=== PATIENT | female | born 1945 | race Hispanic/Latino ===

== ENCOUNTER → 2019-08-26 | Outpatient (CLI) | payer OTHER | END | disposition home or self-care (01) | LOC: SHCH 10:01 | PROVIDERS: ATTEND Internal Medicine Cardiovascular Disease | DX: I65.23 Occlusion and stenosis of bilateral carotid arteries (principal); I87.2 Venous insufficiency (chronic) (peripheral) | CPT/HCPCS: 93880 ==

== ENCOUNTER → 2019-11-01 | Outpatient (CLI) | payer OTHER | END | disposition home or self-care (01) | LOC: SHCH 13:44 | PROVIDERS: ATTEND Internal Medicine Cardiovascular Disease | DX: I87.2 Venous insufficiency (chronic) (peripheral) (principal) | CPT/HCPCS: 93970 ==

== ENCOUNTER → 2020-01-26 | Outpatient (CLI) | payer MEDICARE | END | disposition home or self-care (01) | LOC: RAH 10:58 | DX: Z12.31 Encounter for screening mammogram for malignant neoplasm of breast (principal); N64.89 Other specified disorders of breast | CPT/HCPCS: 77067 ==

== ENCOUNTER 2020-07-25 08:10 | Day surgery (SDC) | payer OTHER ==
[2020-07-25] VITALS (9 sets, daily range): BP systolic 122–146; BP diastolic 43–62
[~2020-07-25] VITALS: Ht 152.4 cm; Wt 118.4 kg
[~2020-07-25 08:10] MED LIST: AEC81 PO; CARV25TA PO; FISH1CAP27 PO; FURO40TA5 PO; GABA-529 PO; LEVO50CA4 PO; LINA145C PO; METF-444 PO; MV-M1TAB20 PO; OMEP40CA13 PO; OXYB10TA30 PO; SODIUM CHLORIDE 0.9% 1000ML 1,000 ML IV ONE
[2020-07-25] MEDS ORDERED: MIDAZOLAM HCL 1 MG/ML 2ML VIAL ONE (09:38)
[2020-07-25] MEDS ORDERED: PROPOFOL 10 MG/ML 20ML VIAL IV ONE (09:38)
== END 2020-07-25 10:45 | disposition home or self-care (01) ==
LOC: DAH 08:10 → ENDO 08:10
PROVIDERS: ATTEND Internal Medicine
DX: K92.1 Melena (principal); Z20.828 Contact with and (suspected) exposure to other viral communicable diseases; K31.89 Other diseases of stomach and duodenum; K21.9 Gastro-esophageal reflux disease without esophagitis; K29.50 Unspecified chronic gastritis without bleeding; I11.0 Hypertensive heart disease with heart failure; I50.9 Heart failure, unspecified; I25.10 Atherosclerotic heart disease of native coronary artery without angina pectoris; E66.01 Morbid (severe) obesity due to excess calories; E11.51 Type 2 diabetes mellitus with diabetic peripheral angiopathy without gangrene; K59.00 Constipation, unspecified; E78.5 Hyperlipidemia, unspecified; E03.9 Hypothyroidism, unspecified; F41.9 Anxiety disorder, unspecified; F32.9 Major depressive disorder, single episode, unspecified; J44.9 Chronic obstructive pulmonary disease, unspecified; Z98.49 Cataract extraction status, unspecified eye; Z79.82 Long term (current) use of aspirin; Z79.899 Other long term (current) drug therapy; Z98.890 Other specified postprocedural states; Z79.890 Hormone replacement therapy; Z79.84 Long term (current) use of oral hypoglycemic drugs; Z83.3 Family history of diabetes mellitus; Z68.43 Body mass index [BMI] 50.0-59.9, adult; Z86.010 Personal history of colon polyps
CPT/HCPCS: 43239; 82948 ×2; 87426; 88305; 88342; A4215 ×2; A4221; A4222; A4606; A4620; A4657; A4663; J2250; J2704; J7030

== ENCOUNTER 2023-12-28 13:07 | Emergency (ER) | payer OTHER ==
[~2023-12-28] VITALS: Ht 152.4 cm; Wt 109.8 kg
[~2023-12-28 13:07] MED LIST changes: -OMEP40CA13 PO; +OMEP40CA21 PO; -SODIUM CHLORIDE 0.9% 1000ML 1,000 ML IV ONE
[2023-12-28 13:51] VITALS: PULSE 59; RESP 18
[2023-12-28] MEDS: BUDESONIDE 0.5 MG/2 ML INH IH ONE (13:51)
[2023-12-28] MEDS: ALBUTEROL 0.083% 2.5 MG/3 ML INH IH ONE ×2 (13:51→15:29)
[2023-12-28 14:00] LABS: BASOPHILS # (AUTO) 0.02 K/uL (0.00-0.20); BASOPHILS % (AUTO) 0.2 % (0.0-5.0); EOSINOPHILS # (AUTO) 0.11 K/uL (0.00-0.70); EOSINOPHILS % (AUTO) 1.2 % (0.0-8.0); HEMATOCRIT 36.7 % (36-48); IMMATURE GRANULOCYTE ABSOLUTE 0.04 K/uL (0-1); LYMPHOCYTES # (AUTO) 1.4 K/uL (1.0-4.8); LYMPHOCYTES % (AUTO) 14.9 % (21.0-51.0); MEAN CORPUSCULAR HGB CONC 32.4 g/dL (32.0-36.0); MEAN CORPUSCULAR VOLUME 89.3 fL (79-99); MONOCYTES # (AUTO) 0.5 K/uL (0.1-1.0); NEUTROPHILS # (AUTO) 7.4 K/uL (1.8-7.7); NEUTROPHILS % (AUTO) 78.3 % (40.0-77.0); PLATELET COUNT (AUTO) 177 K/uL (130-400); RED BLOOD CELL COUNT(AUTO) 4.11 MIL/uL (4.00-5.50); RED CELL DISTRIBUTION WIDTH 14.1 % (11.0-15.5); WHITE BLOOD COUNT (AUTO) 9.5 K/uL (4.8-10.8)
[2023-12-28 14:17] LABS: CREATININE 0.7 mg/dL (0.5-1.0); POTASSIUM 3.2 mmol/L (3.5-5.1)
[2023-12-28 14:22] LABS: ALBUMIN 3.4 g/dL (3.5-5.0); BILIRUBIN,TOTAL 1.2 mg/dL (0.2-1.0); TOTAL PROTEIN, SERUM 7.2 g/dL (6.0-8.3)
[2023-12-28] MEDS: SOLU-MEDROL 125MG VIAL IVP ONE (14:50)
[2023-12-28] MEDS: LEVOFLOXACIN 500 MG/D5W 100 ML 100 ML IV SCH (14:50)
[2023-12-28] MEDS: BUDESONIDE 0.5 MG/2 ML INH IH STA (15:11)
[2023-12-28 15:30] VITALS: PULSE 54; RESP 18
[2023-12-28] MEDS ORDERED: AUD IH (15:56)
[2023-12-28] MEDS ORDERED: LEVO-70 PO (15:56)
[2023-12-28] MEDS ORDERED: BUDE1AMP2 IH (15:56)
[2023-12-28 16:47] VITALS: BP 175/72; PULSE 57; RESP 17; O2SAT 96
[2023-12-28] MEDS ORDERED: BUDESONIDE 0.5 MG/2 ML INH IH SCH (18:00)
== END 2023-12-28 16:54 | disposition home or self-care (01) ==
LOC: EDH 13:07
DX: J42 Unspecified chronic bronchitis (principal); I10 Essential (primary) hypertension; E11.9 Type 2 diabetes mellitus without complications; E78.00 Pure hypercholesterolemia, unspecified; E03.9 Hypothyroidism, unspecified; Z79.82 Long term (current) use of aspirin; Z79.84 Long term (current) use of oral hypoglycemic drugs; Z79.899 Other long term (current) drug therapy; Z98.890 Other specified postprocedural states
CPT/HCPCS: 94640 ×2; 99285; 84484; 80053; 85025; 87040 ×2; 83605; 36415; 71045; 96365; 96375; 93005; J1956; J2919

== ENCOUNTER → 2024-03-02 | Outpatient (CLI) | payer OTHER ==
[~2024-03-02] MED LIST changes: +AUD IH; +BUDE1AMP2 IH; +LEVO-70 PO
== END | disposition home or self-care (01) ==
LOC: RAH 10:07
PROVIDERS: ATTEND Internal Medicine
DX: Z78.0 Asymptomatic menopausal state (principal)
CPT/HCPCS: 77080

== ENCOUNTER 2024-11-19 18:30 | Inpatient (IN) | payer OTHER ==
[2024-11-19] VITALS (10 sets, daily range): BP systolic 112–157; BP diastolic 68–90; PULSE 104–125; RESP 18; TEMP 99.4; O2SAT 98–99
[~2024-11-19] VITALS: Ht 157.5 cm; Wt 117.9 kg
[~2024-11-19 18:30] MED LIST changes: -LEVO50CA4 PO; +LEVO50CA5 PO; +rocuRONium bROMide 10MG/1ML 5ML VL IV ONE
--- NOTE | 2024-11-19 18:45 | NUR ---
called radiology for stat xray enroute
--- NOTE | 2024-11-19 19:01 | ERN ---
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 EMS reports SOB and decreased responsiveness. EMS states patient was initially talking to them and seemed a little anxious. Patient had an O2 saturation of 66% on route and EMS administered nitro SL x1, albuterol, Lasix and patient was placed on BiPAP. Allergies: Coded Allergies: No Known Drug Allergies (Unverified Allergy, Unknown, 12/28/23) Home Meds Active Scripts Albuterol Sulfate (Albuterol Sulfate) 2.5 Mg/0.5 Ml Vial.neb, 2.5 MG IH Q6H for wheezing/sob, #20 INH 0 Refills Prov:PRETTY [employer]IEL[employer]AT BLANKER 12/28/23 Levofloxacin (Levofloxacin) 500 Mg Tablet, 500 MG PO DAILY for 10 Days, #10 TAB Prov:PRETTY [employer]IEL[employer] CLEAT BLANKER 12/28/23 Budesonide (Budesonide) 1 Mg/2 Ml Ampul.neb, 1 MG IH BID for 7 Days, #25 UNIT Prov:PRETTY SHIELDS CLEAT BLANKER 12/28/23 Reported Medications Omeprazole (Omeprazole) 40 Mg Capsule.dr, 40 MG PO DAILY, CAP 07/24/20 Linaclotide (Linzess) 145 Mcg Capsule, 145 MCG PO DAILY, CAP 07/24/20 Oxybutynin Chloride (Oxybutynin Chloride ER) 10 Mg Tab.er.24, 10 MG PO DAILY 07/24/20 Levothyroxine Sodium (Levothyroxine) 50 Mcg Capsule, 50 MCG PO DAILY, CAP 07/24/20 Metformin HCl (Metformin HCl) 500 Mg Tablet, 500 MG PO BID, TAB 07/24/20 Mv-Mn/Iron/FA/Herbal Cmplx#190 (Vitamin D3 Complete Caplet) 1 Each Tablet, 1 EACH PO DAILY, TAB 07/24/20 Abrams-3 Fatty Acids/Fish Oil (Abrams 3 1,000 mg Softgel) 1 Each Capsule, 1 EACH PO DAILY, CAP 07/24/20 Carvedilol (Carvedilol) 25 Mg Tablet, 25 MG PO BID, TAB 07/24/20 Gabapentin (Gabapentin) 100 Mg Capsule, 100 MG PO TID, CAP 07/24/20 Aspirin (ASPIRIN 81 MG ECTAB) 81 Mg Ectab, 81 MG PO DAILY, TAB.EC 07/24/20 Furosemide (Furosemide) 40 Mg Tablet, 40 MG PO DAILY, TAB 07/24/20 Past Medical History Past Medical History: COPD, Diabetes-Type II, High Cholesterol, Hypertension, Hypothyroid Surgical History: Other History: Not Applicable RN Note Reviewed/Agreed w/PFSH: Yes Review of System Dictation ROS unable to obtain due to clinical status Initial Vital Sign VS Vital Signs Date Time Temp Pulse Resp B/P (MAP) Pulse Ox O2 Delivery O2 Flow Rate FiO2 11/19/24 18:32 102.6 163 26 173/105 92 Nonrebreathing Mask 11/19/24 18:50 15 N/A Physical Exam Dictation General: Severe distress, lethargic, chronically ill Head/Face: Normocephalic, atraumatic ENT: oral cavity clear, no signs of infection Neck: Trachea midline, supple, no nuchal rigidity Cardiovascular: Tachycardic, bilateral pedal edema Respiratory: Severe respiratory distress, tachypneic, bilateral crackles Abdomen: Soft, non-tender, non-distended, normal bowel sounds, no guarding or rebound. Skin: Warm, dry, normal turgor, no rash MS/Extremity: Pulses equal, no cyanosis, neurovascular intact, FROM Results (Laboratory/Radiology) Labs Reviewed?: Yes EKG Comment: EKG 11/19/2024 time 6:32 p.m. ventricular rate 160, QRS D 83, QT to 67. Atrial fibrillation,. Ventricular premature complexes. No STEMI ED Course ED Course Orders Procedure Category Date Status Time Amiodarone PHA 11/19/24 Complete 150mg/100ml Bag 18:40 Propofol 1000 Mg/100 PHA 11/19/24 Complete Ml (Diprivan 1000mg 18:41 Chest 1vw RAD 11/19/24 Resulted 18:45 Midazolam 100mg-0.9% PHA 11/19/24 Complete Ns 100ml (Midazolam 18:46 Amiodarone PHA 11/19/24 Complete 360mg/200ml Bag 19:01 Arterial Blood Gas RT 11/19/24 Transmitted 19:04 12 Lead Ekg Tracing- EKG 11/19/24 Logged Technical 19:04 B-Type Natriuretic LAB 11/19/24 Logged Peptide 19:04 Basic Metabolic Panel LAB 11/19/24 Logged 19:04 Blood Cult SCOTTY 11/19/24 Logged 19:04 Hepatic Function Panel LAB 11/19/24 Logged 19:04 Creatine Kinase, Total LAB 11/19/24 Logged 19:04 Lactic Acid LAB 11/19/24 Logged 19:04 Pt And Ptt LAB 11/19/24 Logged 19:04 Troponin I High LAB 11/19/24 Logged Sensitivity 19:04 Norepinephrin 4mg/Ns PHA 11/19/24 In Process 250ml (Levophed 4mg 19:30 Norepinephrin 4mg/Ns PHA 11/19/24 Complete 250ml (Levophed 4mg 19:17 Amiodarone PHA 11/19/24 In Process 150mg/100ml Bag 19:30 Amiodarone PHA 11/19/24 In Process 360mg/200ml Bag 19:30 Midazolam 100mg-0.9% PHA 11/19/24 In Process Ns 100ml (Midazolam 19:30 Propofol 1000 Mg/100 PHA 11/19/24 In Process Ml (Diprivan 1000mg 19:30 Magnesium LAB 11/19/24 Logged 19:04 Edm Admit Bridge Order ADM 11/19/24 Transmitted 19:29 Current Medications Medications (Trade) Dose Ordered Sig/Anita Route PRN Reason Start Time Stop Time Status Last Admin Dose Admin Amiodarone HCL/ Dextrose 100 ml @ As Directed STK-MED ONCE .ROUTE 11/19/24 18:40 11/19/24 18:41 DC Amiodarone HCL/ Dextrose 100 ml @ 0 mls/hr PROTOCOL IV 11/19/24 19:30 12/19/24 19:29 Amiodarone HCL/ Dextrose 200 ml @ As Directed STK-MED ONCE .ROUTE 11/19/24 19:01 11/19/24 19:01 DC Amiodarone HCL/ Dextrose 200 ml @ 0 mls/hr PROTOCOL IV 11/19/24 19:30 12/19/24 19:29 Midazolam HCl 100 ml @ As Directed STK-MED ONCE IV 11/19/24 18:46 11/19/24 18:46 DC Midazolam HCl (Midazolam 100mg-0.9% NS 100ml) 100 ml ONCE IV 11/19/24 19:30 11/19/24 23:59 Norepinephrine 250 ml @ As Directed STK-MED ONCE IV 11/19/24 19:17 11/19/24 19:17 DC Norepinephrine 250 ml @ 0 mls/hr PROTOCOL IV 11/19/24 19:30 12/19/24 19:29 Propofol 100 ml @ As Directed STK-MED ONCE IV 11/19/24 18:41 11/19/24 18:41 DC Propofol (DIPRivan 1000MG/ 100ML) 1,000 mg PROTOCOL PRN IV SEDATION 11/19/24 19:30 12/19/24 19:29 Vital Signs Date Time Temp Pulse Resp B/P (MAP) Pulse Ox O2 Delivery O2 Flow Rate FiO2 11/19/24 19:00 119 100 11/19/24 18:50 102.6 164 31 173/105 99 CPAP+ 15 N/A Non-Rebreather+ 11/19/24 18:32 102.6 163 26 173/105 92 Nonrebreathing Mask 7:00 p.m. patient was signed out to me by a.m. physician This is a 79-year-old female who was brought by EMS for evaluation of respiratory distress. Apparently EN route she received nebulizer treatments and Lasix she was placed on CPAP and brought to the [facility] Emergency room She remained lethargic with increased work of breathing and she was intubated and placed on mechanical ventilator-AC/450/11/21/100% She was noted to be in atrial fibrillation with rapid ventricular response and initial blood pressure was 173/105. Amiodarone drip was initiated and patient i s sedated on propofol She has a temp of 102.6 at presentation. I will review the chart to see if sepsis workup has been initiated and eventually admit to [facility] for further management General: Sedated intubated appears comfortable Head/Face: Normocephalic, atraumatic Eyes: PERRL, EOMI, vision at baseline ENT: oral cavity clear, TMs clear, no signs of infection Neck: Trachea midline, supple, no nuchal rigidity Cardiovascular: RRR, normal S1/S2, No MRGs, no JVD Respiratory: Bilateral coarse rhonchi Abdomen: Soft, non-tender, non-distended, normal bowel sounds, no guarding or rebound. Skin: Warm, dry, normal turgor, no rash MS/Extremity: Pulses equal, no cyanosis, neurovascular intact, FROM Neuro: Intubated sedated, still under the influence of a paralytic given for intubation Extremities-trace edema without any palpable cords, Homans sign is negative Chest x-ray shows bilateral diffuse infiltrates ET tube is in place. All labs are pending at this time including blood cultures Drips-amiodarone and propofol Post intubation ABG 7./409--patient just got intubated respirations are still depressed from the paralytic we will continue the current vent settings for now and wean the FiO2 Initiate antibiotic therapy once cultures are obtained Impression-acute hypercapnic hypoxic respiratory failure Endotracheally intubated Atrial fibrillation with rapid ventricular response Sepsis likely lungs are urine Morbid obesity 7:45 p.m. patient accepted by [facility] mid-level provider for [facility] for admission to the intensive care unit and further management Address all critical care bundles. Medical Decision Making MDM MDM: Differential diagnosis: Respiratory distress, respiratory failure, sepsis, pneumonia [facility] was consulted, accepts patient for admission Rationale: Tests considered and ordered secondary to shared decision making include: labs, ECG and radiology Risk of complication and/or morbidity or mortality of patient management: None Medications-Per medication reconciliation Need for hospitalization: Patient does meet criteria for hospitalization. Need for emergency major/minor surgery: No There are no social concerns with this patient. I independently interpreted the test that were performed, results were reviewed by me and considered findings on radiology if ordered. Medical management and examination interpretation discussions were had by me with other qualified healthcare professionals as indicated for the patient's care. 79-year-old female presenting to the emergency department with acute respiratory failure secondary to CHF exacerbation and AFib RVR, patient failed CPAP and aggressive breathing treatments with IV Lasix per EMS more somnolent on arrival requiring intubation, patient shows AFib RVR in the 150s to 180s with a positive shock index, was intubated by RSI and placed on amiodarone drip for rate and rhythm control, sedated to RASS of negative three and admitting to ICU for further care and evaluation post x-ray appears stable and vent settings were given pending ABG for titration vent settings AC, rate of 18, tidal volume 450, peep of five, FiO2 100%. Procedure Time of Intubation: 18:41 Intubation Method: orotracheal Tube Size (cm): 7.5 (23 cm at the teeth) Medications: Pancuronium (Rocuronium and etomidate) Breath Sounds after Intubation: equal Intubation Complications: no complications Post Intubation Xray: Yes Progress Post x-ray shows ET tube in place. Problem List Problem List: (1) Bilateral pulmonary infiltrates (2) Acute respiratory failure with hypoxia and hypercapnia (3) Endotracheally intubated (4) Sepsis (5) Atrial fibrillation with rapid ventricular response (6) Morbid obesity Critical Care Note Critical Time: other (Total critical care time was 33 minutes. Excluding time for procedures. Management of critically ill patient with concern for acute decompensation. Management included interpretation of laboratory values and imaging, hemodynamics, time for consultation with consultants and admitting physician.) DX & DISP Disposition: Inpatient Decision to Admit Date: November 19, 2024 Departure Impression: Primary Impression: Acute respiratory failure Additional Impressions: CHF exacerbation, Atrial fibrillation with RVR Condition: Stable Additional Instructions: Patient was informed of all the diagnostic labs and procedures conducted in the emergency room today and demonstrated understanding of the results. I personally reviewed and interpreted all the diagnostic exams performed in the ER today. The patient will be admitted to the hospital for further treatment and evaluation. Disposition-admit to facility Condition-stable/guarded Course-uncertain at this time Pain status-decreased Assessment-exam unchanged Admission Certification- I certify that the patients status is appropriate and is based on my best clinical judgment and the patient's condition as documented in the medical records Referrals: JOSH MORENO MD (PCP) AXEL COLE MD November 19, 2024 19:01 ANA CRISTINA EM MD November 19, 2024 19:55
--- NOTE | 2024-11-19 19:03 | HMCIMG ---
FRONTAL CHEST RADIOGRAPH INDICATION: post intubation/sob COMPARISON: None FINDINGS/IMPRESSION: clinical trial associate leads overlie the field of view. PORTABLE CHEST RADIOGRAPH INDICATION: post intubation/sob COMPARISON: 12/28/2023 FINDINGS: clinical trial associate leads overlie the field of view. Tip of endotracheal tube located 5 cm above the cait. Defibrillator patches project over the left chest. Heart size is normal. The pulmonary vascularity and ashley appear normal. No evidence for discrete consolidation. No significant pleural effusion noted. No pneumothorax detected. IMPRESSION: Tip of endotracheal tube located 5 cm above the cait. No radiographic evidence for any acute cardiopulmonary process.
--- NOTE | 2024-11-19 19:11 | NUR ---
100 GABBY, 20 ETOMIDATE GIVEN @ 1835 INTUBATION TUBE 7.5, 23 @ 1839
[2024-11-19] MEDS: proPOFol 1000 MG/100 ML 100 ML IV ONE (19:23)
[2024-11-19] MEDS: MIDAZOLAM 100MG-0.9% NS 100ML 100 ML IV ONE (19:23)
[2024-11-19] MEDS: AMIOdarone 150MG/100ML BAG 100 ML ONE (19:23)
[2024-11-19] MEDS: AMIODARONE 360MG/200ML BAG 200 ML ONE (19:24)
[2024-11-19] MEDS: AMIOdarone 150MG/100ML BAG 100 ML IV SCH (19:26)
[2024-11-19] MEDS: AMIODARONE 360MG/200ML BAG 200 ML IV SCH (19:29)
[2024-11-19] MEDS: proPOFol 1000 MG/100 ML IV PRN (19:30)
[2024-11-19] MEDS ORDERED: MIDAZOLAM 100MG-0.9% NS 100ML 100ML BAG IV SCH (19:30)
[2024-11-19] MEDS: NOREPINEPHRIN 4MG/NS 250ML 250 ML IV SCH (19:34)
[2024-11-19] MEDS: NOREPINEPHRIN 4MG/NS 250ML 250 ML IV ONE (19:34)
--- NOTE | 2024-11-19 19:37 | EKG ---
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
[2024-11-19 19:47] LABS: ABG BASE EXCESS -3.2 mmol/L (-2.0-3.0); ABG HCO3 24.2 mmol/L (21.0-28.0); ABG OXYGEN SATURATION 99.6 % (94.0-98.0); ABG PCO2 53 mmHg (32-45); ABG PH 7.278 (7.350-7.450); CARBON MONOXIDE 0.4 % (0.5-1.5); DEVICE COMMENT RT RAD; HHb 0.4; PO2, ARTERIAL BG 409.6 mmHg (83.0-108.0); VENT MODE, BG AC (ROOM AIR)
[2024-11-19] MEDS ORDERED: ROSU5TAB51 PO (20:17)
[2024-11-19] MEDS ORDERED: DILT-116 PO (20:17)
[2024-11-19] MEDS ORDERED: LISI2.5T13 PO (20:17)
[2024-11-19] MEDS ORDERED: METO50TA18 PO (20:17)
[2024-11-19] MEDS ORDERED: LINA145C PO (20:17)
[2024-11-19] MEDS ORDERED: METF-526 PO (20:17)
[2024-11-19] MEDS ORDERED: FURO20TA6 PO (20:17)
--- NOTE | 2024-11-19 20:21 | HP ---
[facility] HISTORY & PHYSICAL Date Patient Seen: November 19, 2024 Time of Visit: 20:19 Supervising Physician: Dr Robson Amado Primary Care Physician: Dr. Arriaza Outpatient Specialists: [ ] Inpatient Consults: [ ] PROBLEM LIST: Acute hypoxic respiratory failure, POA COPD in acute exacerbation, POA Atrial fibrillation with RVR, likely new onset, POA Toxic metabolic encephalopathy, POA Community-acquired pneumonia, negative for COVID and flu chest x-ray showed right lower lobe infiltrates POA Feeding difficulty in adult, POA Morbidly obese, BMI of 64.0, POA [place] untreated Hypertension, POA DM type 2, with hyperglycemia POA Hyperlipidemia, POA Hypokalemia, POA Electrolyte abnormality, POA NSTEMI, type 2POA Lactic acidosis, POA Severe sepsis, likely from respiratory infection, initial lactic acid level at 3.4 POA PLAN: Admit to ICU Continue vent bundle VS per ICU protocol SBT daily Keep head of bed above 30 Continue vent setting Aspiration precautions Obtain chest x-ray and ABG daily Continue azithromycin and ceftriaxone Trend lactic acid level Monitor temperature curve Treat fever aggressively Suction secretions accordingly Budesonide neb b.i.d. DuoNeb q.4 Bilateral SCDs NPO for now Follow up culture results CBC, CMP, magnesium level daily HPI: 79-year-old female with past medical history of COPD, hypertension, hyperlipidemia, DM type 2, morbidly obese who presented to ED via EMS with complaint of shortness of breaths, and severe respiratory distress. Per report EMS was activated by family member after patient went into respiratory distress with complaint of worsening shortness of breath. Apparently patient has been complaining of shortness of breaths for the past several days with associated productive cough. EMS gave patient DuoNeb treatment, was placed on CPAP, and was given one dose of IV Lasix. When she arrived in ED patient was found to be obtunded, and on AFib with RVR, concerned for inability to protect her airway patient was emergently intubated. Stat chest x-ray was done and showed right lower lobe infiltrates concerning for pneumonia. [place] [address], hemoglobin of 12, and hematocrit of 37.6, her chemistry significant for potassium level of 3.4, lactic acid of 3.0, BNP of 107, and troponin of 88. In ED patient was initiated on amiodarone drip and initiated on sepsis protocol. Patient was seen and examined in ED with daughter present at bedside. Unable to complete ROS due to intubation/sedation. At present patient is currently hemodynamically stable, with heart rate 110-120, currently on amnio drip, and propofol drip. She is intubated and on full mechanical ventilator support with appropriate O2 saturation. All information were obtained from prior medical record and from family. Patient does not have any history of smoking, alcohol intake, or illicit drug use. She is also vaccinated against COVID virus and her flu shot is up-to-date PAST MEDICAL HX: see above PAST SURGICAL HX: noncontributory SOCIAL HISTORY: No tobacco, ETOH, or illicit drug use Coded Allergies: No Known Drug Allergies (Unverified Allergy, Unknown, 12/28/23) REVIEW OF SYSTEMS: Unable to obtain due to intubation PHYSICAL EXAM: GENERAL: Intubated, sedated, on full mechanical ventilator support HEENT: EOMI, Sclera non icteric, moist mucosa NECK: Supple, no JVD, trachea midline LUNGS: On mechanical ventilator support, with coarse bilateral lung sounds HEART: Irregularly irregular Normal S1 and S2, without murmurs ABD: Large body habitus EXT: No clubbing cyanosis or edema NEURO: Sedated with propofol and fentanyl drip Vital Signs (last 8hr) Date Time Temp Pulse Resp B/P (MAP) Pulse Ox O2 Delivery O2 Flow Rate FiO2 11/19/24 19:55 136 18 130/63 100 Ventilator+ 15 100 11/19/24 19:34 76/37 11/19/24 19:08 131 16 76/37 100 Ventilator+ 15 100 11/19/24 19:00 119 100 11/19/24 18:50 102.6 164 31 173/105 99 CPAP+ 15 N/A Non-Rebreather+ 11/19/24 18:32 102.6 163 26 173/105 92 Nonrebreathing Mask LABS: DIAGNOSTICS / RADIOLOGY RESULTS: FRONTAL CHEST RADIOGRAPH INDICATION: post intubation/sob COMPARISON: None FINDINGS/IMPRESSION: cardiac monitor leads overlie the field of view. PORTABLE CHEST RADIOGRAPH INDICATION: post intubation/sob COMPARISON: 12/28/2023 FINDINGS: cardiac monitor leads overlie the field of view. Tip of endotracheal tube located 5 cm above the cait. Defibrillator patches project over the left chest. Heart size is normal. The pulmonary vascularity and ashley appear normal. No evidence for discrete consolidation. No significant pleural effusion noted. No pneumothorax detected. IMPRESSION: Tip of endotracheal tube located 5 cm above the cait. No radiographic evidence for any acute cardiopulmonary process. PLAN NEURO: Minimize central acting medications as possible. Fall Precautions. Well lighted room through the day and minimize interruptions through the night to prevent acute delirium. PULMONARY: Supplemental 02 as needed Titrate Fio2 to keep Spo2 > or = 90% DuoNebs and CPT as needed IS hourly while awake for pulmonary hygiene CARDIOVASCULAR: Follow hemodynamics. Titrate vasopressor to keep MAP >65 or systolic blood pressure >95mmHg DIPS: Fentanyl and amiodarone, propofol drip LINES: PIV GI & NUTRITION: NPO Aspirations precautions Prokinetic agents and laxatives as needed KIDNEYS & ELECTROLYTES: Strict monitoring of intake and output Daily weights Avoid nephrotoxic agents Monitor electrolytes and replace as needed Goal urine output of 30mL/hr or 0.5mL/kg/hr Urine output: [ ] Fluid Balance: [ ] ENDOCRINE: Maintain blood glucose between 100-180 at all times. Insulin sliding scale for blood glucose management INFECTIOUS DISEASE: Trend temperature. Dominguez-culture if febrile. Micro: [ ] Antibiotics: Azithromycin and ceftriaxone HEMATOLOGY & COAGULATION: Monitor H&H. Keep Hgb > 7 Transfuse 1 unit of PRBC for Hgb < 7 Transfuse 1 pack of platelets of platelets < 20, 000 Watch for any signs and symptoms of bleeding SKIN: Pressure ulcer prevention per facility protocol Rehab: PT/OT Prophylaxis: GI: PPI DVT: Bilateral SCDs, Lovenox subQ Code Status: Full Resuscitation Disposition: ICU Other: Total patient care time exceeds 35 minutes excluding all procedures. Supervising physician: JAREK Samuels APRN November 19, 2024 20:21 ROBSON AMADO MD November 21, 2024 17:22
[2024-11-19] MEDS: acetaMINOPHEN 650 MG SUPPOSITORY RC SCH (20:25)
[2024-11-19 20:26] LABS: CREATININE 0.7 mg/dL (0.5-1.0); POTASSIUM 3.4 mmol/L (3.5-5.1)
[2024-11-19] MEDS: acetaMINOPHEN 650 MG SUPPOSITORY RC ONE (20:26)
[2024-11-19 20:27] LABS: INR 1.15 (0.85-1.15)
[2024-11-19 20:28] LABS: PARTIAL THROMBOPLASTIN TIME 25.5 SEC (26.3-35.5)
[2024-11-19] MEDS ORDERED: acetaMINOPHEN 650 MG SUPPOSITORY RC PRN (20:30)
[2024-11-19] MEDS ORDERED: acetaMINOPHEN 325 MG TAB PO PRN (20:30)
[2024-11-19] MEDS ORDERED: LAbetaLOL 20MG SYG IV PRN (20:30)
[2024-11-19] MEDS ORDERED: hydrALAZine 20MG/ML VIAL IV PRN (20:30)
[2024-11-19] MEDS ORDERED: hydroMORPHone 1 MG INJ IVP PRN (20:30)
[2024-11-19] MEDS ORDERED: ondanSETRON 4MG INJ IVP PRN (20:30)
[2024-11-19] MEDS: PANTOPrazole 40 MG/VIAL IVP ONE (20:32)
[2024-11-19] MEDS: ENOXAPARIN SODIUM 80 MG/0.8 ML SQ ONE (20:32)
[2024-11-19 20:36] LABS: ALBUMIN 2.9 g/dL (3.5-5.0); BILIRUBIN,DIRECT 0.3 mg/dL (0.0-0.3); BILIRUBIN,TOTAL 1.2 mg/dL (0.2-1.0); MAGNESIUM 1.8 mg/dL (1.80-2.40); TOTAL PROTEIN, SERUM 6.4 g/dL (6.0-8.3)
[2024-11-19] MEDS: cefTRIAXone 1G VIAL IVPB SCH (20:36)
[2024-11-19] MEDS: AZITHROMYCIN 500MG+NS 250ML 250 ML IVPB SCH (20:36)
[2024-11-19 20:46] LABS: BASOPHILS # (AUTO) 0.05 K/uL (0.00-0.20); BASOPHILS % (AUTO) 0.3 % (0.0-5.0); EOSINOPHILS # (AUTO) 0.06 K/uL (0.00-0.70); EOSINOPHILS % (AUTO) 0.4 % (0.0-8.0); HEMATOCRIT 37.6 % (36-48); IMMATURE GRANULOCYTE ABSOLUTE 0.09 K/uL (0-1); LYMPHOCYTES # (AUTO) 1.9 K/uL (1.0-4.8); LYMPHOCYTES % (AUTO) 11.5 % (21.0-51.0); MEAN CORPUSCULAR HEMOGLOBIN 29.1 pg (27.0-33.0); MEAN CORPUSCULAR HGB CONC 31.9 g/dL (32.0-36.0); MEAN CORPUSCULAR VOLUME 91.3 fL (79-99); MONOCYTES # (AUTO) 0.8 K/uL (0.1-1.0); MONOCYTES % (AUTO) 4.8 % (3.0-13.0); NEUTROPHILS # (AUTO) 13.3 K/uL (1.8-7.7); NEUTROPHILS % (AUTO) 82.4 % (40.0-77.0); PLATELET COUNT (AUTO) 192 K/uL (130-400); RED BLOOD CELL COUNT(AUTO) 4.12 MIL/uL (4.00-5.50); RED CELL DISTRIBUTION WIDTH 14.3 % (11.0-15.5); WHITE BLOOD COUNT (AUTO) 16.1 K/uL (4.8-10.8)
[2024-11-19 20:48] LABS: APPEARANCE,URINE CLEAR (CLEAR); BILIRUBIN,URINE NEGATIVE (NEGATIVE); COLOR,URINE LIGHT-YELLOW (YELLOW); GLUCOSE, URINE (UA) NEGATIVE (NEGATIVE); KETONES,URINE NEGATIVE (NEGATIVE); LEUKOCYTE ESTERASE ,URINE NEGATIVE Leu/uL (NEGATIVE); NITRATE,URINE NEGATIVE (NEGATIVE); PH,URINE 5.5 (5.0-8.0); PROTEIN,URINE 70 mg/dL (NEGATIVE); UROBILINOGEN,URINE 0.2 mg/dL (0.2-1.0)
[2024-11-19 20:57] LABS: SARS-CoV-2, RNA, NAAT NEGATIVE SARS CoV-2 (NEGATIVE)
[2024-11-19 20:57] LABS: ADD UA MICROSCOPIC YES
[2024-11-19 20:59] LABS: BACTERIA,URINE RARE /HPF (None Seen); MUCUS,URINE RARE LPF (None Seen); OTHER CASTS, URINE 4 /LPF (None Seen); SQUAMOUS EPITHELIAL CELL,UR RARE /HPF (0-2)
[2024-11-19 21:02] LABS: INFLUENZA TYPE A Negative For Type A (NEGATIVE); INFLUENZA TYPE B Negative For Type B (NEGATIVE)
--- NOTE | 2024-11-19 21:23 | NUR ---
LEVO @0.1 MCG/KG/MIN PROPOFOL 50 MCG/KG/MIN AMIODARONE @1MG/MIN FENTANYL @25MCG/HR VENT SETTINGS: FI02- 100% 15/5 R 18 TV 450
[2024-11-19] MEDS ORDERED: AMIOdarone 150MG/100ML BAG 100 ML IV SCH (21:30)
[2024-11-19] MEDS: FENTanyl 1000MCG+NS 100ML 100 ML IV SCH (21:30)
[2024-11-19] MEDS: FENTanyl 1000MCG+NS 100ML 100 ML IV ONE (21:31)
[2024-11-19] MEDS: IpraTROPium/alBUTERol SULFATE 3 ML SOLUTION IH SCH (23:22)
[2024-11-20] VITALS (105 sets, daily range): BP systolic 79–155; BP diastolic 41–96; PULSE 86–143; RESP 15–49; TEMP 98–99.5; O2SAT 90–100
[2024-11-20] MEDS: INSULIN humuLIN R 100 UNIT/ML 3ML SQ SCH (00:25)
[2024-11-20] MEDS ORDERED: AMIOdarone 900MG VIAL 540 MG in DEXTROSE 5%-WATER 300 ML IV SCH (00:30)
[2024-11-20] MEDS: AMIODARONE 540 MG/D5W 300ML (0.5MG/MIN) IV SCH (00:34)
[2024-11-20 03:52] LABS: ABG HCO3 29.4 mmol/L (21.0-28.0); ABG OXYGEN SATURATION 99.1 % (94.0-98.0); ABG PCO2 38 mmHg (32-45); ABG PH 7.503 (7.350-7.450); CARBON MONOXIDE 0.4 % (0.5-1.5); DEVICE COMMENT LEFT RAD; HHb 0.9; PO2, ARTERIAL BG 157.7 mmHg (83.0-108.0); VENT MODE, BG AC (ROOM AIR)
[2024-11-20 04:18] LABS: BASOPHILS # (AUTO) 0.05 K/uL (0.00-0.20); BASOPHILS % (AUTO) 0.3 % (0.0-5.0); EOSINOPHILS # (AUTO) 0.03 K/uL (0.00-0.70); EOSINOPHILS % (AUTO) 0.2 % (0.0-8.0); HEMATOCRIT 37.4 % (36-48); LYMPHOCYTES # (AUTO) 1.4 K/uL (1.0-4.8); LYMPHOCYTES % (AUTO) 9.8 % (21.0-51.0); MEAN CORPUSCULAR HEMOGLOBIN 28.9 pg (27.0-33.0); MEAN CORPUSCULAR HGB CONC 31.8 g/dL (32.0-36.0); MEAN CORPUSCULAR VOLUME 90.8 fL (79-99); MONOCYTES # (AUTO) 1.3 K/uL (0.1-1.0); MONOCYTES % (AUTO) 8.8 % (3.0-13.0); NEUTROPHILS # (AUTO) 11.8 K/uL (1.8-7.7); NEUTROPHILS % (AUTO) 80.2 % (40.0-77.0); PLATELET COUNT (AUTO) 169 K/uL (130-400); RED BLOOD CELL COUNT(AUTO) 4.12 MIL/uL (4.00-5.50); RED CELL DISTRIBUTION WIDTH 14.4 % (11.0-15.5); WHITE BLOOD COUNT (AUTO) 14.7 K/uL (4.8-10.8)
[2024-11-20 04:44] LABS: CREATININE 0.7 mg/dL (0.5-1.0); MAGNESIUM 1.4 mg/dL (1.80-2.40); PHOSPHORUS 2.5 mg/dL (2.5-4.9)
[2024-11-20 05:39] LABS: POTASSIUM 2.6 mmol/L (3.5-5.1)
[2024-11-20] MEDS: PoTASSium chloRIDE 20MEQ/100ML 100 ML IV SCH (05:59)
[2024-11-20] MEDS: BUDESONIDE 0.5 MG/2 ML INH IH SCH (06:00)
[2024-11-20] MEDS: MAGNESIUM 2GM PREMIX 50ML 50 ML IV SCH (06:00)
[2024-11-20] MEDS: polyETHYLene GLYCol 3350 17 GM POWD.PACK PO SCH (08:13)
[2024-11-20] MEDS: ENOXAPARIN SODIUM 40 MG/0.4 ML SYRINGE SQ SCH (08:13)
[2024-11-20] MEDS: PANTOPrazole 40 MG/VIAL IVP SCH (08:13)
[2024-11-20] MEDS ORDERED: hydroMORPHone 0.5 MG SYG (0.5MG/0.5ML) IVP PRN (08:30)
--- NOTE | 2024-11-20 08:51 | HMCIMG ---
PORTABLE CHEST RADIOGRAPH INDICATION: RESPIRATORY FAILURE COMPARISON: 11/19/2024 FINDINGS: cardiac monitor leads overlie the field of view. Tip of endotracheal tube located 4.0 cm above the cait. Heart size is normal. Mild calcific plaque is present along the aortic arch almazan. The pulmonary vascularity and ashley appear normal. No evidence for consolidation. Both costophrenic angles appear slightly blunted. No pneumothorax detected. IMPRESSION: Very small bilateral pleural effusions with subjacent passive atelectasis.
--- NOTE | 2024-11-20 09:14 | NUR ---
HOME MEDS EFREN MADE AWARE OF PATIENT'S HOME MEDICATIONS PENDING / NEEDING TO BE RECONCILED & PT NEEDING AN CODE STATUS IN THE SYSTEM.
[2024-11-20] MEDS: NACL 0.9% IV PRN (13:21)
[2024-11-20] MEDS: PHENYLEPHRINE HCL IV PRN (13:21)
[2024-11-20] MEDS ORDERED: PHENYLEPHRINE HCL IV PRN (13:30)
[2024-11-20] MEDS ORDERED: NACL 0.9% IV PRN (13:30)
--- NOTE | 2024-11-20 16:00 | NUR ---
RT IJ CVC RT IJ 7 FR 3 LUMEN- CVC INSERTED AT THIS TIME BY EFREN / DR HAN SUPERVISING AT BEDSIDE. Addendum: 11/20/24 at 1719 by SAMMIE HUSSEIN RN RN 1703 PM JR TO USE RT IJ CVC
--- NOTE | 2024-11-20 16:28 | NUR ---
DCP: INITIAL ASSESSMENT Patient lives with spouse and great grandchildren. 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 DME: BPM, cane, rollator, nebulizer. Patient needs help with ADLs and doesn't drive. PCP is Dr. Jessie Amado. Pharmacy is [facility] in [place]. Patient's daughter voiced no safety concerns regarding returning home and states they has no difficulty with housing or buying food. DCP is home. Addendum: 11/20/24 at 1631 by JERILYN CARSON SS Amended: Links added.
--- NOTE | 2024-11-20 16:35 | NUR ---
CT ANGIO ORDERED & WILL BE PENDING DUE TO ELEVATED D-DIMER (838). PER [facility], PATIENT IS NOT STABLE TO BE TRANSFERRED FOR CT ANGIO & CAN WAIT UNTIL MORE STABLE.
--- NOTE | 2024-11-20 16:43 | PRN ---
DATE OF PROCEDURE: 11/20/24 INDICTAION: Poor peripheral access/pressor therapy Procedures performed: -Central line placement, right internal jugular vein. -Intraoperative ultrasound guidance. Pre-procedure checklist: -Informed consent obtained. -Time-out performed per hospital policy. Medications: -Lidocaine 1% 5 ml Description of procedure: Hand hygiene was performed. Cap, mask, sterile gown, and sterile gloves were donned. Area was prepped with 2% chlorhexidine and a large sterile drape was applied with sterile field maintained. 5 ml of Lidocaine injected into surrounding tissue. Using ultrasound probe with sterile sleeve in place, procedure site was assessed and the vein was entered with direct ultrasound guidance while maintaining strict sterile technique. Triple lumen catheter was inserted with Seldinger technique. Venous blood was aspirated freely from all 3 ports and flushed with 10 ml of 0.9% saline each. Line secured at the hub and sutured in place. Biopatch placed in the correct position and clear sterile dressing was applied. A post-procedure chest x-ray was ordered. Procedure was performed under direct supervision of Dr. Amado. Time spent on this procedure is independent of the time spent planning and coordinating the patient's care. CARTER HAYES NP November 20, 2024 16:43
--- NOTE | 2024-11-20 16:47 | NUR ---
PER NURSE, PATIENT IS UNSTABLE TO BE TRANSFERRED TO CT DEPT FOR EXAM. NURSE WILL CALL WHEN PATIENT IS STABLE.
--- NOTE | 2024-11-20 16:49 | HMCIMG ---
CHEST 1VW HISTORY: Line placement COMPARISON: 11/20/2024 FINDINGS: A frontal projection of the chest was obtained. Mild bilateral pulmonary infiltrates are seen may be related to mild pulmonary vascular congestion with possible superimposed pneumonitis. Right venous catheter is seen with distal tip in the plane of the superior vena cava. Degenerative changes are seen. The heart is borderline enlarged. All the lines and tubes are again seen in place. No evidence of aortic calcification is seen. IMPRESSION: 1. Mild bilateral pulmonary infiltrates are seen may be related to mild pulmonary vascular congestion with possible superimposed pneumonitis.
--- NOTE | 2024-11-20 17:21 | PN ---
[facility] PROGRESS NOTE Date Patient Seen: November 20, 2024 Time of Visit: 15:17 Supervising Physician: Dr. Amado Primary Care Physician: Dr. Arriaza Outpatient Specialists: [ ] Inpatient Consults: [ ] PROBLEM LIST: Acute hypoxic respiratory failure, POA COPD in acute exacerbation, POA Atrial fibrillation with RVR, likely new onset, POA Toxic metabolic encephalopathy, POA Community-acquired pneumonia, negative for COVID and flu chest x-ray showed right lower lobe infiltrates POA Morbidly obese, BMI of 64.0, POA [place] untreated Hypertension, POA DM type 2, with hyperglycemia POA Hyperlipidemia, POA Hypokalemia, POA Hypomagnesemia POA Electrolyte abnormality, POA NSTEMI, type 2 POA Lactic acidosis, POA Severe sepsis, likely from respiratory infection, initial lactic acid level at 3.4 POA INTERVAL HISTORY: 11/20/2024: At the time of my evaluation, the patient was lying in bed. Staff nurse reports no acute events overnight. The patient remains mechanically vented. Laboratory data was notable for an improved WBC count 14.7. Chemistry panel showed a sodium of 147, potassium of 2.6 and a Mag of 1.4. Microbiology data is in progress. Imaging showed a clear chest x-ray. The patient remains on antibiotic coverage with Rocephin and Zithromax. He is on Cordarone for the AFib. No other complaint. REVIEW OF SYSTEMS: Unable to obtain due to intubation PHYSICAL EXAM: GENERAL: Intubated, sedated, on full mechanical ventilator support HEENT: EOMI, Sclera non icteric, moist mucosa NECK: Supple, no JVD, trachea midline LUNGS: On mechanical ventilator support, with coarse bilateral lung sounds HEART: Irregularly irregular Normal S1 and S2, without murmurs ABD: Large body habitus EXT: No clubbing cyanosis or edema NEURO: Sedated with propofol and fentanyl drip Vital Signs (last 8hr) Date Time Temp Pulse Resp B/P (MAP) Pulse Ox O2 Delivery O2 Flow Rate FiO2 11/20/24 14:30 106 49 98/41 (60) 99 11/20/24 14:15 109 19 89/57 (68) 95 11/20/24 14:00 120 20 89/48 (62) 95 11/20/24 13:45 109 20 93/56 (68) 95 11/20/24 13:30 125 18 84/42 (56) 97 11/20/24 13:21 93/66 11/20/24 13:21 11/20/24 13:15 122 23 79/47 (58) 97 11/20/24 13:00 106 19 93/66 (75) 96 11/20/24 12:45 118 20 101/55 (70) 97 11/20/24 12:31 86 55 11/20/24 12:30 122 18 95/55 (68) 100 11/20/24 12:15 120 18 98/74 (82) 98 11/20/24 12:00 128 18 108/70 (83) 85 11/20/24 11:45 128 18 103/68 (80) 86 11/20/24 11:30 122 18 129/95 (106) 93 11/20/24 11:15 143 18 141/64 (89) 92 11/20/24 11:12 122 50 11/20/24 11:08 118/67 11/20/24 11:00 99.0 118 17 118/72 (87) 95 11/20/24 11:00 95 Ventilator+ 50 11/20/24 11:00 99.0 11/20/24 10:45 118 18 118/67 (84) 97 11/20/24 10:30 134 18 129/66 (87) 91 11/20/24 10:15 122 18 131/85 (100) 100 11/20/24 10:00 115 18 132/74 (93) 100 11/20/24 09:45 109 18 102/65 (77) 100 11/20/24 09:43 107 50 11/20/24 09:30 100 18 125/63 (83) 100 LABS: Hematology Labs: Test 11/20/24 04:12 Range/Units White Blood Count 14.7 H 4.8-10.8 K/uL Red Blood Count 4.12 4.00-5.50 MIL/uL Hemoglobin 11.9 L 12.0-16.0 g/dL Hematocrit 37.4 36-48 % Mean Corpuscular Volume 90.8 79-99 fL Mean Corpuscular Hemoglobin 28.9 27.0-33.0 pg Mean Corpuscular Hemoglobin Concent 31.8 L 32.0-36.0 g/dL Red Cell Distribution Width 14.4 11.0-15.5 % Platelet Count 169 130-400 K/uL Mean Platelet Volume 11.7 H 7.5-10.5 fL Immature Granulocyte % (Auto) 0.7 0-1 % Neutrophils (%) (Auto) 80.2 H 40.0-77.0 % Lymphocytes (%) (Auto) 9.8 L 21.0-51.0 % Monocytes (%) (Auto) 8.8 3.0-13.0 % Eosinophils (%) (Auto) 0.2 0.0-8.0 % Basophils (%) (Auto) 0.3 0.0-5.0 % Neutrophils # (Auto) 11.8 H 1.8-7.7 K/uL Lymphocytes # (Auto) 1.4 1.0-4.8 K/uL Monocytes # (Auto) 1.3 H 0.1-1.0 K/uL Eosinophils # (Auto) 0.03 0.00-0.70 K/uL Basophils # (Auto) 0.05 0.00-0.20 K/uL Absolute Immature Granulocyte (auto 0.10 0-1 K/uL Nucleated Red Blood Cells 0.0 0.0-0.19 % White Cell Morphology Comment See comments Chemistry Labs: Test 11/20/24 17:10 11/20/24 04:12 11/20/24 00:19 11/19/24 20:08 Range/Units Whole Blood Glucose 93 70-110 MG/DL Sodium Level 147 H 136-145 mmol/L Potassium Level 2.6 *L 3.5-5.1 mmol/L Chloride Level 112 H 101-111 mmol/L Carbon Dioxide Level 23 21-32 mmol/L Blood Urea Nitrogen 14 7-18 mg/dL Creatinine 0.7 0.5-1.0 mg/dL Glomerular Filtration Rate Calc 88 >90 mL/min Random Glucose 107 H 70-105 mg/dL Total Calcium 6.3 L 8.5-10.1 mg/dL Phosphorus Level 2.5 2.5-4.9 mg/dL Magnesium Level 1.40 L 1.80-2.40 mg/dL Procalcitonin 0.27 0.05-0.5 ng/mL Lactic Acid Level 3.4 H 0.8-2.5 mmol/L Total Bilirubin 1.2 H 0.2-1.0 mg/dL Direct Bilirubin 0.3 0.0-0.3 mg/dL Aspartate Amino Transf (AST/SGOT) 19 10-37 U/L Alanine Aminotransferase (ALT/SGPT) 8 L 12-78 U/L Alkaline Phosphatase 72 50-136 U/L Total Creatine Kinase 52 21-232 U/L Troponin I High Sensitivity 88 *H 4-50 ng/L B-Type Natriuretic Peptide 107 H 0-100 pg/mL Total Protein 6.4 6.0-8.3 g/dL Albumin 2.9 L 3.5-5.0 g/dL Coagulation Labs: Test 11/20/24 15:25 11/19/24 20:08 Range/Units D-Dimer Quantitative (PE/DVT) 878 *H 0-500 ng/mL Prothrombin Time 12.0 H 9.6-11.6 SEC Prothromb Time International Ratio 1.15 0.85-1.15 Activated Partial Thromboplast Time 25.5 L 26.3-35.5 SEC DIAGNOSTICS / RADIOLOGY RESULTS: [ ] PLAN 11/20/2024: For now, going to continue current management for the patient. She will remain mechanically vented and sedated for now. We will initiate CPAP trials daily in efforts of extubation. The patient will remain on antibiotic coverage with Rocephin and Zithromax while we will follow the sputum cultures. We will start the patient on steroid therapy with Solu-Medrol 60 q.8h. Patient will remain on Cordarone for the AFib. We will order a 2D echo to evaluate cardiac structure and function. We will order a D-dimer if elevated we will o rder a CT chest PE protocol. The patient will require central line placement for continued infusion of pressors and sedation. We will monitor the patient's progress and response to management. We will continue to provide general supportive care, GI and DVT prophylaxis. Further orders per attending MD and hospital course. NEURO: Minimize central acting medications as possible. Fall Precautions. Well lighted room through the day and minimize interruptions through the night to prevent acute delirium. PULMONARY: Supplemental 02 as needed Titrate Fio2 to keep Spo2 > or = 90% DuoNebs and CPT as needed IS hourly while awake for pulmonary hygiene CARDIOVASCULAR: Follow hemodynamics. Titrate vasopressor to keep MAP >65 or systolic blood pressure >95mmHg DIPS: Fentanyl and amiodarone, propofol drip LINES: PIV GI & NUTRITION: NPO Aspirations precautions Prokinetic agents and laxatives as needed KIDNEYS & ELECTROLYTES: Strict monitoring of intake and output Daily weights Avoid nephrotoxic agents Monitor electrolytes and replace as needed Goal urine output of 30mL/hr or 0.5mL/kg/hr Urine output: [ ] Fluid Balance: [ ] ENDOCRINE: Maintain blood glucose between 100-180 at all times. Insulin sliding scale for blood glucose management INFECTIOUS DISEASE: Trend temperature. Dominguez-culture if febrile. Micro: [ ] Antibiotics: Azithromycin and ceftriaxone HEMATOLOGY & COAGULATION: Monitor H&H. Keep Hgb > 7 Transfuse 1 unit of PRBC for Hgb < 7 Transfuse 1 pack of platelets of platelets < 20, 000 Watch for any signs and symptoms of bleeding SKIN: Pressure ulcer prevention per facility protocol Rehab: PT/OT Prophylaxis: GI: PPI DVT: Bilateral SCDs, Lovenox subQ Code Status: Full Resuscitation Disposition: ICU Other: I personally spent 120 minutes of critical care time in treatment of this patient. This includes patient management, time at bedside, time reviewing tests, labs, appropriate images and studies, documentation, and patient care coordination. This time excludes separately billable procedures. CARTER HAYES NP November 20, 2024 17:21 ROBSON AMADO MD November 21, 2024 17:36
--- NOTE | 2024-11-20 17:22 | HMCIMG ---
US VENOUS DOPPLER BILATERAL HISTORY: DVT COMPARISON: None TECHNIQUE: Bilateral lower extremity venous Doppler ultrasound study was performed. FINDINGS: Right posterior tibial vein is normal visualized limiting evaluation. The common femoral, femoral, popliteal, and posterior tibial veins are visualized. Normal flow with compressibilities are demonstrated. The greater saphenous veins are also seen and grossly patent. IMPRESSION: 1. No evidence of deep venous thrombosis is seen.
[2024-11-20] MEDS: phenylEPHRINE HCL 50 MG in 0.9% NACL 250ML 250 ML IV PRN (17:44)
[2024-11-20] MEDS: Solu-medROL 40MG VIAL IVP SCH (18:03)
[2024-11-20] MEDS: DEXTROSE 5 %-0.45 % NACL 1,000 ML IV SCH (18:05)
[2024-11-20] MEDS: IpraTROPium 0.5 MG/2.5 ML INH IH SCH (18:45)
[2024-11-21] VITALS (93 sets, daily range): BP systolic 88–194; BP diastolic 44–109; PULSE 66–116; RESP 18–20; TEMP 97–98.5; O2SAT 84–100
[2024-11-21 04:25] LABS: BASOPHILS # (AUTO) 0.03 K/uL (0.00-0.20); BASOPHILS % (AUTO) 0.2 % (0.0-5.0); EOSINOPHILS # (AUTO) 0.01 K/uL (0.00-0.70); EOSINOPHILS % (AUTO) 0.1 % (0.0-8.0); IMMATURE GRANULOCYTE ABSOLUTE 0.08 K/uL (0-1); LYMPHOCYTES # (AUTO) 1.3 K/uL (1.0-4.8); LYMPHOCYTES % (AUTO) 9.3 % (21.0-51.0); MEAN CORPUSCULAR HGB CONC 32.1 g/dL (32.0-36.0); MEAN CORPUSCULAR VOLUME 87.4 fL (79-99); MONOCYTES # (AUTO) 0.5 K/uL (0.1-1.0); MONOCYTES % (AUTO) 3.3 % (3.0-13.0); NEUTROPHILS # (AUTO) 11.9 K/uL (1.8-7.7); NEUTROPHILS % (AUTO) 86.5 % (40.0-77.0); PLATELET COUNT (AUTO) 187 K/uL (130-400); RED BLOOD CELL COUNT(AUTO) 4.46 MIL/uL (4.00-5.50); RED CELL DISTRIBUTION WIDTH 14.6 % (11.0-15.5); WHITE BLOOD COUNT (AUTO) 13.8 K/uL (4.8-10.8)
[2024-11-21 04:37] LABS: CREATININE 1.2 mg/dL (0.5-1.0); MAGNESIUM 2.5 mg/dL (1.80-2.40); POTASSIUM 3.8 mmol/L (3.5-5.1)
--- NOTE | 2024-11-21 08:46 | NUR ---
2DECHO IN PROGRESS
--- NOTE | 2024-11-21 11:11 | NUR ---
CT CHEST PE PROTOCOL PENDING- BP IS LOW - PT ON LEROY-SYNEPHRINE. CALLED CT SCAN DEPT AND GAVE THEM UPDATE. WILL TAKE PT ONCE BP HS IMPROVED
--- NOTE | 2024-11-21 13:20 | NUR ---
SEDATION VACATION DONE- BECAME AGITATED/CONFUSED/RESTLESS. DID NOT FOLLOW COMMANDS. BITING ET TUBE. HR 140. 02 SAT 84. HAND MITTENS APPLIED TO PREENT INJURY/SELF EXTUBATION. DIPRIVAN RESUMED
[2024-11-21] MEDS ORDERED: FENTanyl CITRate PF 50 MCG/1 ML 2ML VIAL IVP PRN (14:00)
[2024-11-21] MEDS: ARTIFICAL TEARS SOL 15 ML OU PRN (16:12)
--- NOTE | 2024-11-21 16:48 | HMCSR ---
APPROVED REPORT EXAM: Two-dimensional and M-mode echocardiogram with Doppler and color Doppler. Study Details: HTN , HLD , Diabts M , COPD INDICATION ICD: A/fib 2D Dimensions RVDd3.5 cmLVEF(%)33.1 (>50%)LVED Vol(simp.)89.1 mL IVSd1.2 (0.7-1.1cm)FS(%)15 %LVES Vol(simp.)58.2 mL LVDd4.1 (3.8-5.6cm)LA (2D)3.0 (1.6-4.0cm)LVEF(%, simp.)35 % PWd1.0 (0.7-1.1cm)Ao Root(2D)2.9 (2.0-3.7cm)LA ESV INDEX (4CH)58.00 mL/m2 IVSs1.0 cmLVOT diam1.9 (1.8-2.4cm)LA ESV INDEX (2CH)28.34 mL/m2 LVDs3.5 (2.5-4.0cm)IVC diam2.2 cmLA ESV INDEX (BP)30.51 mL/m2 PWs1.4 cm Deformation Strain Apical 4-9.5 % Apical 2-11.0 % Apical 3-10.4 % Global Strain-10.3 % M-Mode Dimensions EPSS1.4 cm LA (MM)3.3 (1.6-4.0cm) Ao Root(MM)2.5 (2.0-3.7cm) Aortic Valve AoV Vmax1.1 m/Eleonora Peak GR4.8 mmHgLVOT Vmax0.7 m/s AoV VTI0.2 mAo Mean GR2.8 mmHgLVOT VTI0.14 m SCOTT (VMAX)1.99 cm2AVA (VTI) 2.0 cm2 Mitral Valve MV E Vmax87.8 cm/sDECEL Cetf102 ms MV A Vmax28.3 cm/s E/A ratio3.1 TDI E/E' Yzdvfy05.8E/E' Kdkxlyf18.4 Medial E' Peak V5.54 cm/sLateral E' Peak V7.09 cm/s Pulmonary Valve PV Vmax0.6 m/sPV VTI0.11 mPV Mean GR0.9 mmHg PV Peak GR1.4 mmHg Left Ventricle Left ventricular cavity size is normal. Mild eccentric left ventricular hypertrophy. LVEF is 25-30%. Stage III diastolic dysfunction. Right Ventricle The right ventricle is normal size. Right ventricular systolic function is moderately reduced. Atria The left atrium size is normal. The right atrium size is normal. Aortic Valve The aortic valve is mildly thickened. The aortic valve is not well visualized. No aortic regurgitatio n is present. There is no aortic valvular stenosis. Mitral Valve The mitral valve is mildly thickened. Mitral regurgitation is trace. There is no mitral valve stenosi s. Tricuspid Valve Tricuspid valve is not well visualized. There is no tricuspid valve regurgitation noted. Pulmonic Valve Pulmonic valve is not well visualized. There is no pulmonic valvular regurgitation. Great Vessels The aortic root is normal in size. The ascending aorta is normal in size. The inferior vena cava is m ildly dilated with no inspiratory collapse. Hepatic veins are dilated. Pericardium Trace pericardial effusion. Pericardium appears thickened. Ascites is present. Conclusion Left ventricular cavity size is normal. Mild eccentric left ventricular hypertrophy. LVEF is 25-30%. Stage III diastolic dysfunction. The right ventricle is normal size. Right ventricular systolic function is moderately reduced. The left atrium size is normal. The right atrium size is normal. The inferior vena cava is mildly dilated with no inspiratory collapse. Hepatic veins are dilated. Trace pericardial effusion. Pericardium appears thickened.
[2024-11-21] MEDS ORDERED: IOHEXOL 350 MG/ML 100ML INFUS..BTL IV ONE (16:52)
--- NOTE | 2024-11-21 17:38 | PN ---
[facility] PROGRESS NOTE Date Patient Seen: November 21, 2024 Time of Visit: 17:37 Supervising Physician: Dr. Amado Primary Care Physician: Dr. Arriaza Outpatient Specialists: [ ] Inpatient Consults: [ ] PROBLEM LIST: Acute hypoxic respiratory failure, POA COPD in acute exacerbation, POA Atrial fibrillation with RVR, likely new onset, POA Toxic metabolic encephalopathy, POA Community-acquired pneumonia, negative for COVID and flu chest x-ray showed right lower lobe infiltrates POA Morbidly obese, BMI of 64.0, POA [place] untreated Hypertension, POA DM type 2, with hyperglycemia POA Hyperlipidemia, POA Hypokalemia, POA Hypomagnesemia POA Electrolyte abnormality, POA NSTEMI, type 2 POA Lactic acidosis, POA Severe sepsis, likely from respiratory infection, initial lactic acid level at 3.4 POA INTERVAL HISTORY: 11/20/2024: At the time of my evaluation, the patient was lying in bed. Staff nurse reports no acute events overnight. The patient remains mechanically vented. Laboratory data was notable for an improved WBC count 14.7. Chemistry panel showed a sodium of 147, potassium of 2.6 and a Mag of 1.4. Microbiology data is in progress. Imaging showed a clear chest x-ray. The patient remains on antibiotic coverage with Rocephin and Zithromax. He is on Cordarone for the AFib. No other complaint. 11/21/2024: At the time of my evaluation, the patient is lying in bed. She remains sedated and endotracheally intubated. On the monitor, the patient remains normotensive and normal heart rate. Laboratory data today showed impr aguila WBC count 13.8. No profound anemia or thrombocytopenia. Chemistry panel today showed a slight increase of renal parameters BUN 22, creatinine of 1.2 and a GFR 46. Magnesium count of 2.50. Respiratory culture currently showing no growth. Blood culture x2 showing no growth. No new imaging for review today. Currently, the patient remains on sedation with fentanyl and propofol. She is on antiarrhythmic therapy with amiodarone. She continues on antibiotic coverage with ceftriaxone and Zithromax. Patient remains on steroid therapy and on pressor therapy with phenylephrine. No other complaint. REVIEW OF SYSTEMS: Unable to obtain due to intubation PHYSICAL EXAM: GENERAL: Intubated, sedated, on full mechanical ventilator support HEENT: EOMI, Sclera non icteric, moist mucosa NECK: Supple, no JVD, trachea midline LUNGS: On mechanical ventilator support, with coarse bilateral lung sounds HEART: Irregularly irregular Normal S1 and S2, without murmurs ABD: Large body habitus EXT: No clubbing cyanosis or edema NEURO: Sedated with propofol drip Vital Signs (last 8hr) Date Time Temp Pulse Resp B/P (MAP) Pulse Ox O2 Delivery O2 Flow Rate FiO2 11/21/24 15:00 95 18 92/54 (67) 98 11/21/24 14:39 109 18 11/21/24 14:38 109 40 11/21/24 14:00 96 18 99/64 (76) 100 11/21/24 13:45 95 18 107/65 (79) 100 11/21/24 13:30 83 18 107/71 (83) 100 11/21/24 13:20 84 Ventilator+ 40 11/21/24 13:00 102 18 127/61 (83) 98 11/21/24 12:00 93 55 11/21/24 12:00 97.9 11/21/24 11:00 79 18 100/63 (75) 100 11/21/24 10:45 86 18 101/57 (72) 100 11/21/24 10:30 88 18 105/45 (65) 95 11/21/24 10:15 88 18 92/60 (71) 100 11/21/24 10:00 82 18 98/58 (71) 100 11/21/24 09:58 82 18 11/21/24 09:57 93 55 11/21/24 09:45 83 18 102/52 (69) 100 LABS: Hematology Labs: Test 11/21/24 04:05 11/20/24 04:12 Range/Units White Blood Count 13.8 H 4.8-10.8 K/uL Red Blood Count 4.46 4.00-5.50 MIL/uL Hemoglobin 12.5 12.0-16.0 g/dL Hematocrit 39.0 36-48 % Mean Corpuscular Volume 87.4 79-99 fL Mean Corpuscular Hemoglobin 28.0 27.0-33.0 pg Mean Corpuscular Hemoglobin Concent 32.1 32.0-36.0 g/dL Red Cell Distribution Width 14.6 11.0-15.5 % Platelet Count 187 130-400 K/uL Mean Platelet Volume 12.4 H 7.5-10.5 fL Immature Granulocyte % (Auto) 0.6 0-1 % Neutrophils (%) (Auto) 86.5 H 40.0-77.0 % Lymphocytes (%) (Auto) 9.3 L 21.0-51.0 % Monocytes (%) (Auto) 3.3 3.0-13.0 % Eosinophils (%) (Auto) 0.1 0.0-8.0 % Basophils (%) (Auto) 0.2 0.0-5.0 % Neutrophils # (Auto) 11.9 H 1.8-7.7 K/uL Lymphocytes # (Auto) 1.3 1.0-4.8 K/uL Monocytes # (Auto) 0.5 0.1-1.0 K/uL Eosinophils # (Auto) 0.01 0.00-0.70 K/uL Basophils # (Auto) 0.03 0.00-0.20 K/uL Absolute Immature Granulocyte (auto 0.08 0-1 K/uL Nucleated Red Blood Cells 0.0 0.0-0.19 % White Cell Morphology Comment See comments Chemistry Labs: Test 11/21/24 11:27 11/21/24 04:05 11/20/24 04:12 11/20/24 00:19 Range/Units Whole Blood Glucose 173 H 70-110 MG/DL Sodium Level 140 136-145 mmol/L Potassium Level 3.8 3.5-5.1 mmol/L Chloride Level 102 101-111 mmol/L Carbon Dioxide Level 28 21-32 mmol/L Blood Urea Nitrogen 22 H 7-18 mg/dL Creatinine 1.2 H 0.5-1.0 mg/dL Glomerular Filtration Rate Calc 46 >90 mL/min Random Glucose 191 #H 70-105 mg/dL Total Calcium 8.5 8.5-10.1 mg/dL Magnesium Level 2.50 H 1.80-2.40 mg/dL Phosphorus Level 2.5 2.5-4.9 mg/dL Procalcitonin 0.27 0.05-0.5 ng/mL Lactic Acid Level 3.4 H 0.8-2.5 mmol/L Test 11/19/24 20:08 Range/Units Total Bilirubin 1.2 H 0.2-1.0 mg/dL Direct Bilirubin 0.3 0.0-0.3 mg/dL Aspartate Amino Transf (AST/SGOT) 19 10-37 U/L Alanine Aminotransferase (ALT/SGPT) 8 L 12-78 U/L Alkaline Phosphatase 72 50-136 U/L Total Creatine Kinase 52 21-232 U/L Troponin I High Sensitivity 88 *H 4-50 ng/L B-Type Natriuretic Peptide 107 H 0-100 pg/mL Total Protein 6.4 6.0-8.3 g/dL Albumin 2.9 L 3.5-5.0 g/dL Coagulation Labs: Test 11/20/24 15:25 11/19/24 20:08 Range/Units D-Dimer Quantitative (PE/DVT) 878 *H 0-500 ng/mL Prothrombin Time 12.0 H 9.6-11.6 SEC Prothromb Time International Ratio 1.15 0.85-1.15 Activated Partial Thromboplast Time 25.5 L 26.3-35.5 SEC DIAGNOSTICS / RADIOLOGY RESULTS: [ ] PLAN 11/20/2024: For now, going to continue current management for the patient. She will remain mechanically vented and sedated for now. We will initiate CPAP trials daily in efforts of extubation. The patient will remain on antibiotic coverage with Rocephin and Zithromax while we will follow the sputum cultures. We will start the patient on steroid therapy with Solu-Medrol 60 q.8h. Patient will remain on Cordarone for the AFib. We will order a 2D echo to evaluate cardiac structure and function. We will order a D-dimer if elevated we will order a CT chest PE protocol. The patient will require central line placement for continued infusion of pressors and sedation. We will monitor the patient's progress and response to management. We will continue to provide general supportive care, GI and DVT prophylaxis. Further orders per attending MD and hospital course. 11/21/2024: For now, going to continue current management for the patient. In the meantime, we are going to continue with bronchodilator therapy and steroid dose. We will continue with daily sedation vacation and CPAP trials. We are going to also continue with antiarrhythmic as ordered. Patient will remain on pressor therapy and we will monitor the blood pressure trend. We will monitor the patient's progress and response to management. We will continue to provide general supportive care, GI and DVT prophylaxis. Further orders per attending MD and hospital course. NEURO: Minimize central acting medications as possible. Fall Precautions. Well lighted room through the day and minimize interruptions through the night to prevent acute delirium. PULMONARY: Supplemental 02 as needed Titrate Fio2 to keep Spo2 > or = 90% DuoNebs and CPT as needed IS hourly while awake for pulmonary hygiene CARDIOVASCULAR: Follow hemodynamics. Titrate vasopressor to keep MAP >65 or systolic blood pressure >95mmHg DIPS: Fentanyl and amiodarone, propofol drip LINES: PIV GI & NUTRITION: NPO Aspirations precautions Prokinetic agents and laxatives as needed KIDNEYS & ELECTROLYTES: Strict monitoring of intake and output Daily weights Avoid nephrotoxic agents Monitor electrolytes and replace as needed Goal urine output of 30mL/hr or 0.5mL/kg/hr Urine output: [ ] Fluid Balance: [ ] ENDOCRINE: Maintain blood glucose between 100-180 at all times. Insulin sliding scale for blood glucose management INFECTIOUS DISEASE: Trend temperature. Dominguez-culture if febrile. Micro: [ ] Antibiotics: Azithromycin and ceftriaxone HEMATOLOGY & COAGULATION: Monitor H&H. Keep Hgb > 7 Transfuse 1 unit of PRBC for Hgb < 7 Transfuse 1 pack of platelets of platelets < 20, 000 Watch for any signs and symptoms of bleeding SKIN: Pressure ulcer prevention per facility protocol Rehab: PT/OT Prophylaxis: GI: PPI DVT: Bilateral SCDs, Lovenox subQ Code Status: Full Resuscitation Disposition: ICU Other: I personally spent 55 minutes of critical care time in treatment of this patient. This includes patient management, time at bedside, time reviewing tests, labs, appropriate images and studies, documentation, and patient care coordination. This time excludes separately billable procedures. CARTER HAYES [employer] November 21, 2024 17:38
--- NOTE | 2024-11-21 17:38 | NUR ---
CT CHEST PE PROTOCOL COMPLETED. NO ACUTE CHANGES
--- NOTE | 2024-11-21 17:49 | HMCIMG ---
CT CHEST PE PROTOCOL WWO CONT HISTORY: No additional history given. COMPARISON: None TECHNIQUE: CT angiography of the chest was performed. The study was performed using angiographic technique with maximum intensity projection reconstruction images. Patient was given 100 cc of Omnipaque through intravenous route. FINDINGS: No CT evidence of filling defect is seen to suggest pulmonary embolus. No CT evidence of aortic dissection is seen. Mild interstitial fibrotic changes are seen. Endotracheal tube and nasogastric tube are seen. No evidence of parenchymal disease is seen. Small right pleural effusion is seen. The heart is enlarged. No evidence of adrenal mass is seen. Degenerative changes of the spine are noted. IMPRESSION: 1. No CT evidence of acute pulmonary embolus is seen. Small right pleural effusion with interstitial fibrosis. CT was performed with one or more following dose reduction techniques: automated exposure control, adjustment of the mA and kv according to patient's size, or use of a iterative reconstruction technique.
[2024-11-21] MEDS: CHLORHEXIDINE GLUCONATE 15 ML MOUTHWASH MM SCH (20:00)
[2024-11-22] VITALS (94 sets, daily range): BP systolic 91–148; BP diastolic 46–96; PULSE 76–129; RESP 16–26; TEMP 96.8–98.2; O2SAT 9–100
[2024-11-22 04:08] LABS: BASOPHILS # (AUTO) 0.02 K/uL (0.00-0.20); BASOPHILS % (AUTO) 0.1 % (0.0-5.0); HEMATOCRIT 39.4 % (36-48); IMMATURE GRANULOCYTE ABSOLUTE 0.09 K/uL (0-1); LYMPHOCYTES # (AUTO) 1.2 K/uL (1.0-4.8); LYMPHOCYTES % (AUTO) 5.8 % (21.0-51.0); MEAN CORPUSCULAR HEMOGLOBIN 28.7 pg (27.0-33.0); MEAN CORPUSCULAR HGB CONC 31.5 g/dL (32.0-36.0); MEAN CORPUSCULAR VOLUME 91.2 fL (79-99); MONOCYTES # (AUTO) 0.5 K/uL (0.1-1.0); MONOCYTES % (AUTO) 2.6 % (3.0-13.0); NEUTROPHILS # (AUTO) 18.3 K/uL (1.8-7.7); NEUTROPHILS % (AUTO) 91.1 % (40.0-77.0); PLATELET COUNT (AUTO) 172 K/uL (130-400); RED BLOOD CELL COUNT(AUTO) 4.32 MIL/uL (4.00-5.50); RED CELL DISTRIBUTION WIDTH 14.2 % (11.0-15.5); WHITE BLOOD COUNT (AUTO) 20.1 K/uL (4.8-10.8)
[2024-11-22 04:23] LABS: CREATININE 0.8 mg/dL (0.5-1.0); POTASSIUM 3.8 mmol/L (3.5-5.1)
--- NOTE | 2024-11-22 08:00 | NUR ---
SEDATION VACATION SEDATION VACATION DONE. PT HR GOING UP TO 130-140'S Lizbet [employer] NOTIFIED, PT PLACED BACK ON SEDATION.
[2024-11-22] MEDS: metoPROLOL tartRATE 50 MG TAB PO SCH (10:18)
[2024-11-22] MEDS: dilTIAZem 180MG SR CAP PO SCH (10:18)
--- NOTE | 2024-11-22 11:35 | PN ---
[facility] PROGRESS NOTE Date Patient Seen: November 22, 2024 Time of Visit: 11:35 Supervising Physician: Dr. Teran Primary Care Physician: Dr. Arriaza Outpatient Specialists: [ ] Inpatient Consults: [ ] PROBLEM LIST: Acute hypoxic respiratory failure, POA COPD in acute exacerbation, POA Atrial fibrillation with RVR, likely new onset, POA Toxic metabolic encephalopathy, POA Community-acquired pneumonia, negative for COVID and flu chest x-ray showed rig ht lower lobe infiltrates POA Morbidly obese, BMI of 64.0, POA [place] untreated Hypertension, POA DM type 2, with hyperglycemia POA Hyperlipidemia, POA Hypokalemia, POA Hypomagnesemia POA Electrolyte abnormality, POA NSTEMI, type 2 POA Lactic acidosis, POA Severe sepsis, likely from respiratory infection, initial lactic acid level at 3.4 POA INTERVAL HISTORY: 11/20/2024: At the time of my evaluation, the patient was lying in bed. Staff nurse reports no acute events overnight. The patient remains mechanically vented. Laboratory data was notable for an improved WBC count 14.7. Chemistry panel showed a sodium of 147, potassium of 2.6 and a Mag of 1.4. Microbiology data is in progress. Imaging showed a clear chest x-ray. The patient remains on antibiotic coverage with Rocephin and Zithromax. He is on Cordarone for the AFib. No other complaint. 11/21/2024: At the time of my evaluation, the patient is lying in bed. She remains sedated and endotracheally intubated. On the monitor, the patient remains normotensive and normal heart rate. Laboratory data today showed improved WBC count 13.8. No profound anemia or thrombocytopenia. Chemistry panel today showed a slight increase of renal parameters BUN 22, creatinine of 1.2 and a GFR 46. Magnesium count of 2.50. Respiratory culture currently showing no growth. Blood culture x2 showing no growth. No new imaging for review today. Currently, the patient remains on sedation with fentanyl and propofol. She is on antiarrhythmic therapy with amiodarone. She continues on antibiotic coverage with ceftriaxone and Zithromax. Patient remains on steroid therapy and on pressor therapy with phenylephrine. No other complaint. 11/22/2024: At the time of my evaluation, the patient was lying in bed. She remained intubated and on ventilator support. Vital signs showed no major blood pressure changes. She was still intermittently tachycardic. Laboratory data showed an interval increase of WBCs 20.1. Chemistry panel showed no major changes. No new imaging for review today. The patient continues on Rocephin, azithromycin, Levophed and Diprivan. No other complaint. REVIEW OF SYSTEMS: Unable to obtain due to intubation PHYSICAL EXAM: GENERAL: Intubated, sedated, on full mechanical ventilator support HEENT: EOMI, Sclera non icteric, moist mucosa NECK: Supple, no JVD, trachea midline LUNGS: On mechanical ventilator support, with coarse bilateral lung sounds HEART: Irregularly irregular Normal S1 and S2, without murmurs ABD: Large body habitus EXT: No clubbing cyanosis or edema NEURO: Sedated with propofol drip Vital Signs (last 8hr) Date Time Temp Pulse Resp B/P (MAP) Pulse Ox O2 Delivery O2 Flow Rate FiO2 11/22/24 10:41 116 19 11/22/24 09:35 116 40 11/22/24 09:00 40 11/22/24 08:30 108 18 120/68 (85) 98 11/22/24 08:15 123 18 116/82 (93) 98 11/22/24 08:00 96.8 11/22/24 08:00 96.8 114 18 113/74 (87) 98 11/22/24 08:00 100 Ventilator+ 40 11/22/24 07:45 115 18 132/70 (90) 100 11/22/24 07:30 114 26 116/75 (89) 97 11/22/24 07:25 120 19 11/22/24 07:15 111 18 101/51 (68) 98 11/22/24 07:00 101 22 107/63 (78) 98 11/22/24 06:59 110 40 11/22/24 06:45 108 18 105/60 (75) 98 11/22/24 06:15 123 19 110/61 (77) 97 40 11/22/24 06:00 108 21 99/63 (75) 97 40 11/22/24 05:45 113 18 105/67 (80) 97 40 11/22/24 05:30 112 18 108/57 (74) 97 40 11/22/24 05:15 116 18 100/69 (79) 97 40 11/22/24 05:00 124 20 111/69 (83) 98 40 11/22/24 04:45 126 20 113/55 (74) 97 40 11/22/24 04:30 120 18 100/70 (80) 97 40 11/22/24 04:15 97.2 122 18 121/63 (82) 97 40 11/22/24 04:03 126 40 11/22/24 04:00 100 Ventilator+ 40 11/22/24 04:00 40 11/22/24 03:45 114 18 112/76 (88) 97 40 LABS: Hematology Labs: Test 11/22/24 03:44 Range/Units White Blood Count 20.1 #H 4.8-10.8 K/uL Red Blood Count 4.32 4.00-5.50 MIL/uL Hemoglobin 12.4 12.0-16.0 g/dL Hematocrit 39.4 36-48 % Mean Corpuscular Volume 91.2 79-99 fL Mean Corpuscular Hemoglobin 28.7 27.0-33.0 pg Mean Corpuscular Hemoglobin Concent 31.5 L 32.0-36.0 g/dL Red Cell Distribution Width 14.2 11.0-15.5 % Platelet Count 172 130-400 K/uL Mean Platelet Volume 12.4 H 7.5-10.5 fL Immature Granulocyte % (Auto) 0.4 0-1 % Neutrophils (%) (Auto) 91.1 H 40.0-77.0 % Lymphocytes (%) (Auto) 5.8 L 21.0-51.0 % Monocytes (%) (Auto) 2.6 L 3.0-13.0 % Eosinophils (%) (Auto) 0.0 0.0-8.0 % Basophils (%) (Auto) 0.1 0.0-5.0 % Neutrophils # (Auto) 18.3 H 1.8-7.7 K/uL Lymphocytes # (Auto) 1.2 1.0-4.8 K/uL Monocytes # (Auto) 0.5 0.1-1.0 K/uL Eosinophils # (Auto) 0.00 0.00-0.70 K/uL Basophils # (Auto) 0.02 0.00-0.20 K/uL Absolute Immature Granulocyte (auto 0.09 0-1 K/uL Nucleated Red Blood Cells 0.0 0.0-0.19 % Chemistry Labs: Test 11/22/24 06:19 11/22/24 03:44 11/21/24 04:05 Range/Units Whole Blood Glucose 160 H 70-110 MG/DL Sodium Level 143 136-145 mmol/L Potassium Level 3.8 3.5-5.1 mmol/L Chloride Level 106 101-111 mmol/L Carbon Dioxide Level 30 21-32 mmol/L Blood Urea Nitrogen 24 H 7-18 mg/dL Creatinine 0.8 0.5-1.0 mg/dL Glomerular Filtration Rate Calc 75 >90 mL/min Random Glucose 176 H 70-105 mg/dL Total Calcium 8.7 8.5-10.1 mg/dL Magnesium Level 2.50 H 1.80-2.40 mg/dL Coagulation Labs: Test 11/20/24 15:25 Range/Units D-Dimer Quantitative (PE/DVT) 878 *H 0-500 ng/mL DIAGNOSTICS / RADIOLOGY RESULTS: [ ] PLAN 11/20/2024: For now, going to continue current management for the patient. She will remain mechanically vented and sedated for now. We will initiate CPAP trials daily in efforts of extubation. The patient will remain on antibiotic coverage with Rocephin and Zithromax while we will follow the sputum cultures. We will start the patient on steroid therapy with Solu-Medrol 60 q.8h. Patient will remain on Cordarone for the AFib. We will order a 2D echo to evaluate cardiac structure and function. We will order a D-dimer if elevated we will order a CT chest PE protocol. The patient will require central line placement for continued infusion of pressors and sedation. We will monitor the patient's progress and response to management. We will continue to provide general supportive care, GI and DVT prophylaxis. Further orders per attending MD and hospital course. 11/21/2024: For now, going to continue current management for the patient. In the meantime, we are going to continue with bronchodilator therapy and steroid dose. We will continue with daily sedation vacation and CPAP trials. We are going to also continue with antiarrhythmic as ordered. Patient will remain on pressor therapy and we will monitor the blood pressure trend. We will monitor the patient's progress and response to management. We will continue to provide general supportive care, GI and DVT prophylaxis. Further orders per attending MD and hospital course. 11/22/2024: For now, going to continue current management for the patient. She will remain on ventilator support with daily sedation vacation with the intent to wean off the vent. We will decrease steroid therapy and monitor the WBC trend. With regards to the arrhythmias, I am going to resume home medication and monitor the heart rate trend. We will also give a dose of Cardizem IV 5 mg x 1 dose. We will monitor the patient's progress and response to management. I had an at length discussion with the family members regarding the findings and they voiced understanding. We will continue to provide general supportive care, GI and DVT prophylaxis. Further orders per attending MD and hospital course. NEURO: Minimize central acting medications as possible. Fall Precautions. Well lighted room through the day and minimize interruptions through the night to prevent acute delirium. PULMONARY: Supplemental 02 as needed Titrate Fio2 to keep Spo2 > or = 90% DuoNebs and CPT as needed IS hourly while awake for pulmonary hygiene CARDIOVASCULAR: Follow hemodynamics. Titrate vasopressor to keep MAP >65 or systolic blood pressure >95mmHg DIPS: Levo, propofol drip LINES: PIV GI & NUTRITION: NPO Aspirations precautions Prokinetic agents and laxatives as needed KIDNEYS & ELECTROLYTES: Strict monitoring of intake and output Daily weights Avoid nephrotoxic agents Monitor electrolytes and replace as needed Goal urine output of 30mL/hr or 0.5mL/kg/hr Urine output: [ ] Fluid Balance: [ ] ENDOCRINE: Maintain blood glucose between 100-180 at all times. Insulin sliding scale for blood glucose management INFECTIOUS DISEASE: Trend temperature. Dominguez-culture if febrile. Micro: [ ] Antibiotics: Azithromycin and ceftriaxone HEMATOLOGY & COAGULATION: Monitor H&H. Keep Hgb > 7 Transfuse 1 unit of PRBC for Hgb < 7 Transfuse 1 pack of platelets of platelets < 20, 000 Watch for any signs and symptoms of bleeding SKIN: Pressure ulcer prevention per facility protocol Rehab: PT/OT Prophylaxis: GI: PPI DVT: Bilateral SCDs, Lovenox subQ Code Status: Full Resuscitation Disposition: ICU Other: I personally spent 55 minutes of critical care time in treatment of this patient. This includes patient management, time at bedside, time reviewing tests, labs, appropriate images and studies, documentation, and patient care coordination. This time excludes separately billable procedures. Patient was seen and case discussed with reina OMALLEY. Plan of care was discussed and agreed upon. CARTER HAYES [employer] November 22, 2024 11:35
[2024-11-22] MEDS: dilTIAZem 25MG INJ IVP ONE (11:52)
--- NOTE | 2024-11-22 13:31 | NUR ---
Nutritional Note: Pt intubated and sedated, currently NPO Recommend: -Vital AF 1.2 critical care formula -Start TF @20ml x hrs and then increase by 5ml q 24 hr to goal rate 60ml/hr. -H20 FLUSH 250ml q4 or as per . (24 TF total provides: 1728kcal, 108gm/pro, and 2668 total free H20/day.) - Electrolyte replacements per protocol -Monitor feeding tolerance, wt, and labs -If No BM >3days consider bowel stimulant. -Schedule outpatient RD f/u for long-term nutrition care. - Notify RD if additional nutrition concerns arise. SEE RD Nutritional Assessment for additional assessment information. Addendum: 11/22/24 at [address] Amended: Links added.
--- NOTE | 2024-11-22 14:50 | NUR ---
[facility] Consult: Patient assessed by wound healing team. Patient with low chico score with no wounds noted. Assessment and recommendations provided to primary nurse. Education provided. Addendum: 11/24/24 at 1023 by TONY HALL RN RN/ Amended: Links added.
--- NOTE | 2024-11-22 15:15 | NUR ---
SPEECH TRIGGER COMPLETED (INTUBATION). Pt IS A 79 Y.O. FEMALE ADMITTED SECONDARY TO ACUTE HYPOXIC RESPIRATORY FAILURE. Pt HAS A PAST MEDICAL HISTORY SIGNIFICANT FOR COPD, HTN, HYPERLIPIDEMIA, DM TYPE 2, AND MORBID OBESITY. Pt CURRENTLY INTUBATED AND ON TUBE FEEDINGS. PLEASE REQUEST SPEECH THERAPY SERVICES FOR SKILLED BEDSIDE SWALLOW EVALUATION 24 HOURS POST EXTUBATION IF ANY S/S OF ASPIRATION ARISE WITH ORAL INTAKE. CONTINUITY READER COORDINATED WITH NURSE MANDEL. ALL QUESTIONS ANSWERED AT THIS TIME. Addendum: 11/22/[address] [facility] Amended: Links added.
[2024-11-22] MEDS: atorVAStatin 20 MG TABLET PO SCH (20:14)
[2024-11-22] MEDS ORDERED: metoPROLOL tartRATE 50 MG TAB PO SCH (21:00)
[2024-11-23] VITALS (56 sets, daily range): BP systolic 106–169; BP diastolic 58–115; PULSE 81–116; RESP 18–34; TEMP 98.1–98.8; O2SAT 97–99
[2024-11-23 04:22] LABS: BASOPHILS # (AUTO) 0.02 K/uL (0.00-0.20); BASOPHILS % (AUTO) 0.1 % (0.0-5.0); HEMATOCRIT 37.2 % (36-48); IMMATURE GRANULOCYTE ABSOLUTE 0.16 K/uL (0-1); LYMPHOCYTES # (AUTO) 1.5 K/uL (1.0-4.8); LYMPHOCYTES % (AUTO) 9.2 % (21.0-51.0); MEAN CORPUSCULAR HEMOGLOBIN 28.5 pg (27.0-33.0); MEAN CORPUSCULAR HGB CONC 32.5 g/dL (32.0-36.0); MEAN CORPUSCULAR VOLUME 87.5 fL (79-99); MONOCYTES # (AUTO) 0.5 K/uL (0.1-1.0); NEUTROPHILS # (AUTO) 14.1 K/uL (1.8-7.7); NEUTROPHILS % (AUTO) 86.7 % (40.0-77.0); PLATELET COUNT (AUTO) 170 K/uL (130-400); RED BLOOD CELL COUNT(AUTO) 4.25 MIL/uL (4.00-5.50); RED CELL DISTRIBUTION WIDTH 14.1 % (11.0-15.5); WHITE BLOOD COUNT (AUTO) 16.3 K/uL (4.8-10.8)
[2024-11-23 04:39] LABS: CREATININE 0.9 mg/dL (0.5-1.0); POTASSIUM 3.9 mmol/L (3.5-5.1)
[2024-11-23] MEDS: LISINOPRIL 2.5 MG TABLET PO SCH (08:33)
[2024-11-23] MEDS: LINACLOTIDE 72 MCG PO SCH (08:34)
--- NOTE | 2024-11-23 08:45 | PN ---
[facility] PROGRESS NOTE Date Patient Seen: November 23, 2024 Time of Visit: 08:45 Supervising Physician: Fidencio Teran MD Primary Care Physician: Dr. Arriaza Outpatient Specialists: [ ] Inpatient Consults: [ ] PROBLEM LIST: Acute hypoxic respiratory failure, POA requiring intubation, extubated 11/2024 COPD in acute exacerbation, POA Atrial fibrillation with RVR,POA now rate controlled. Toxic metabolic encephalopathy, POA, resolving Community-acquired pneumonia, negative for COVID and flu chest x-ray showed right lower lobe infiltrates POA Morbidly obese, BMI of 64.0, POA [place] untreated Hypertension, POA DM type 2, with hyperglycemia POA Hyperlipidemia, POA Hypokalemia, POA Hypomagnesemia POA Electrolyte abnormality, POA NSTEMI, type 2 POA Lactic acidosis, POA Severe sepsis, likely from respiratory infection, initial lactic acid level at 3.4 POA INTERVAL HISTORY: Pt is awake and following commands, currently on SBT's and sedation vacations. She is not on any pressors and appears to tolerate CPAP. we will reassess in PM for extubation. She has been started on full dose Lovenox SQ BID, and once more stable out of the ICU may restart her Xarelto from home. Pt with afib rate controlled on the monitor. Continues with metoprolol and Cardizem po. She is h emodynamically stable BP 150/93, no pressors have been needed and HR in the 90's. White count is trending down. Neutrophils trending down as well to 86.7. Kidneys are improving noted with Cr 0.9 GFR of 65. glucose 147mg/dl. Chest XR with: Lateral pulmonary infiltrates and pleural effusion with right more than left. REVIEW OF SYSTEMS: Unable to obtain due to intubation PHYSICAL EXAM: GENERAL: Intubated, sedated, on full mechanical ventilator support HEENT: EOMI, Sclera non icteric, moist mucosa NECK: Supple, no JVD, trachea midline LUNGS: On mechanical ventilator support, with coarse bilateral lung sounds HEART: Irregularly irregular Normal S1 and S2, without murmurs ABD: Large body habitus EXT: No clubbing cyanosis or edema NEURO: Sedated with propofol drip Vital Signs (last 8hr) Date Time Temp Pulse Resp B/P (MAP) Pulse Ox O2 Delivery O2 Flow Rate FiO2 11/23/24 07:11 105 21 11/23/24 06:59 87 40 11/23/24 05:44 89 18 149/93 (111) 99 11/23/24 05:38 100 18 148/100 (116) 99 11/23/24 05:14 87 18 167/115 (132) 99 11/23/24 04:44 92 18 168/113 (131) 99 11/23/24 04:14 98 18 160/98 (118) 99 11/23/24 04:07 40 11/23/24 04:01 99 Ventilator+ 40 11/23/24 03:44 98.1 95 18 142/80 (100) 99 11/23/24 03:27 92 18 153/73 (99) 99 11/23/24 03:05 104 40 11/23/24 02:14 99 18 106/76 (86) 99 11/23/24 01:44 116 18 123/58 (79) 99 11/23/24 01:29 81 18 11/23/24 01:29 99 18 126/66 (86) 99 11/23/24 01:14 99 18 131/79 (96) 99 11/23/24 00:59 101 18 133/60 (84) 98 LABS: Hematology Labs: Test 11/23/24 03:52 Range/Units White Blood Count 16.3 H 4.8-10.8 K/uL Red Blood Count 4.25 4.00-5.50 MIL/uL Hemoglobin 12.1 12.0-16.0 g/dL Hematocrit 37.2 36-48 % Mean Corpuscular Volume 87.5 79-99 fL Mean Corpuscular Hemoglobin 28.5 27.0-33.0 pg Mean Corpuscular Hemoglobin Concent 32.5 32.0-36.0 g/dL Red Cell Distribution Width 14.1 11.0-15.5 % Platelet Count 170 130-400 K/uL Mean Platelet Volume 12.8 H 7.5-10.5 fL Immature Granulocyte % (Auto) 1.0 0-1 % Neutrophils (%) (Auto) 86.7 H 40.0-77.0 % Lymphocytes (%) (Auto) 9.2 L 21.0-51.0 % Monocytes (%) (Auto) 3.0 3.0-13.0 % Eosinophils (%) (Auto) 0.0 0.0-8.0 % Basophils (%) (Auto) 0.1 0.0-5.0 % Neutrophils # (Auto) 14.1 H 1.8-7.7 K/uL Lymphocytes # (Auto) 1.5 1.0-4.8 K/uL Monocytes # (Auto) 0.5 0.1-1.0 K/uL Eosinophils # (Auto) 0.00 0.00-0.70 K/uL Basophils # (Auto) 0.02 0.00-0.20 K/uL Absolute Immature Granulocyte (auto 0.16 0-1 K/uL Nucleated Red Blood Cells 0.0 0.0-0.19 % Chemistry Labs: Test 11/23/24 03:52 11/22/24 23:56 Range/Units Sodium Level 140 136-145 mmol/L Potassium Level 3.9 3.5-5.1 mmol/L Chloride Level 104 101-111 mmol/L Carbon Dioxide Level 28 21-32 mmol/L Blood Urea Nitrogen 32 H 7-18 mg/dL Creatinine 0.9 0.5-1.0 mg/dL Glomerular Filtration Rate Calc 65 >90 mL/min Random Glucose 174 H 70-105 mg/dL Total Calcium 8.7 8.5-10.1 mg/dL Whole Blood Glucose 161 H 70-110 MG/DL DIAGNOSTICS / RADIOLOGY RESULTS: IMAGING REPORT Signed PATIENT: HERNÁN BERNARD MR#: [id number] : 1945 SEX: F AGE: 79 LOCATION: [facility] ORDER 2 STATUS: ADM IN REPORT#: [id number] SERVICE 1 REASON: intubated ORDERING PHYSICIAN: CARTER HAYES NP PROCEDURE: CXR1VW - CHEST 1VW CHEST 1VW HISTORY: Intubated COMPARISON: None FINDINGS: A frontal projection of the chest was obtained. Bilateral pulmonary infiltrates are seen with pleural effusion with right more than left. Endotracheal tube is seen with distal tip at 6.3 cm above cait. The heart is borderline enlarged. All the lines and tubes are again seen in place. No evidence of aortic calcification is seen. IMPRESSION: 1. Lateral pulmonary infiltrates and pleural effusion with right more than left. DICTATED BY: BERT CALLE MD DATE: 11/23/24 1241 ELECTRONICALLY SIGNED BY: BERT CALLE MD DATE: 11/23/24 1245 PLAN Continues SBT;s, continue sedation vacation extubate in PM follow cardiology recommendations. NEURO: Minimize central acting medications as possible. Fall Precautions. Well lighted room through the day and minimize interruptions through the night to prevent acute delirium. PULMONARY: Supplemental 02 as needed Titrate Fio2 to keep Spo2 > or = 90% DuoNebs and CPT as needed IS hourly while awake for pulmonary hygiene CARDIOVASCULAR: Follow hemodynamics. Titrate vasopressor to keep MAP >65 or systolic blood pressure >95mmHg DIPS: off LINES: PIV GI & NUTRITION: NPO Aspirations precautions Prokinetic agents and laxatives as needed KIDNEYS & ELECTROLYTES: Strict monitoring of intake and output Daily weights Avoid nephrotoxic agents Monitor electrolytes and replace as needed Goal urine output of 30mL/hr or 0.5mL/kg/hr Urine output: [ ] Fluid Balance: [ ] ENDOCRINE: Maintain blood glucose between 100-180 at all times. Insulin sliding scale for blood glucose management INFECTIOUS DISEASE: Trend temperature. Dominguez-culture if febrile. Micro: [ ] Antibiotics: Azithromycin and ceftriaxone HEMATOLOGY & COAGULATION: Monitor H&H. Keep Hgb > 7 Transfuse 1 unit of PRBC for Hgb < 7 Transfuse 1 pack of platelets of platelets < 20, 000 Watch for any signs and symptoms of bleeding SKIN: Pressure ulcer prevention per facility protocol Rehab: PT/OT Prophylaxis: GI: PPI DVT: Bilateral SCDs, Lovenox subQ Code Status: Full Resuscitation Disposition: ICU Other: I personally spent 45 minutes of critical care time in treatment of this patient. This includes patient management, time at bedside, time reviewing tests, labs, appropriate images and studies, documentation, and patient care coordination. This time excludes separately billable procedures. ATTESTATION BY PHYSICIAN I reviewed the documentation, medical decision making, and treatment plan as noted by the mid-level provider above. I agree with the findings and plan of care. Fidencio Teran MD, NELLY J ARNP November 23, 2024 08:45
[2024-11-23] MEDS ORDERED: dilTIAZem 180MG SR CAP PO SCH (09:00)
--- NOTE | 2024-11-23 10:55 | NUR ---
EXTUBATION PT TOLERATED SBT, MET EXTUBATION PARAMETERS. PT EXTUBATED BT RT, PLACED ON AEROSOL MASK 8L @35%. O2 SAT 97% NO SIGNS OF DISTRESS NOTED AT THIS TIME. PT'S DAUGHTERS AT BEDSIDE.
--- NOTE | 2024-11-23 12:22 | CONS ---
[facility] CARDIOLOGY CONSULTATION NOTE Cardiology consultation note dictated for Sky Dorman MD Primary ornamental plaster sticker: Hubert Alva MD Date Patient Seen: November 23, 2024 Requesting Physician: Soledad Celis APRN Reason for Consultation: Atrial fibrillation with RVR History of Present Illness: This is a 79 year old female patient with a history of atrial fibrillation with RVR, hypertension, dyslipidemia, diabetes mellitus, chronic venous insufficiency, carotid stenosis with prior left CEA in 2012, COPD, hypothyroidism, morbid obesity, and obstructive sleep apnea who presented to the ED with altered mental status and O2 saturation of 66% reported by EMS. The patient was found to have pneumonia and subsequently intubated due to acute hypoxic respiratory failure. Cardiology was consulted for atrial fibrillation with RVR. On admission, EKG showed atrial fibrillation with RVR with heart rate of 160 bpm. The patient was treated with an amiodarone infusion which has now been completed and has been started on her home medications of diltiazem 180 mg daily and metoprolol tartrate 50 mg twice a day. Bedside telemetry currently demonstrating atrial fibrillation with a heart rate in the 90s. Elevated D-dimer of 878, CT chest ruled out PE. BLE venous Doppler ruled out DVT. Past Medical History: As per HPI in summarized below Past Surgical History: Left carotid endarterectomy in 2012 Family History: Noncontributory Social History: The patient lives with family Habits: The family denies that the patient uses tobacco, alcohol, or illicit drugs. Home Meds: Diltiazem 180 mg daily Furosemide 20 mg twice a day Linzess 72 mcg daily Lisinopril 2.5 mg daily Metformin 500 mg daily Metoprolol tartrate 50 mg twice a day Rosuvastatin 5 mg daily Current Meds: Current Medications Medications Dose Ordered Sig/Anita Start Time Stop Time Status Last Admin Norepinephrine 250 ml @ 0 mls/hr PROTOCOL 11/19/24 19:30 12/19/24 19:29 11/20/24 11:08 Propofol 1,000 mg PROTOCOL PRN 11/19/24 19:30 12/19/24 19:29 11/23/24 03:51 Polyethylene Glycol 17 gm DAILY 11/20/24 09:00 12/20/24 08:59 11/23/24 08:33 Acetaminophen 650 mg Q6H PRN 11/19/24 20:30 12/19/24 20:29 Acetaminophen 650 mg Q6H PRN 11/19/24 20:30 12/19/24 20:29 Ondansetron HCl 4 mg Q6H PRN 11/19/24 20:30 12/19/24 20:29 Hydralazine HCl 10 mg Q6H PRN 11/19/24 20:30 12/19/24 20:29 Insulin Human Regular INSULIN SLIDING SCAL... Q6H6 11/20/24 00:00 12/20/24 00:00 11/21/24 00:23 Azithromycin 250 ml @ 250 mls/hr Q24H 11/19/24 20:30 11/29/24 20:29 11/22/24 20:07 Pantoprazole Sodium 40 mg DAILY 11/20/24 09:00 12/20/24 08:59 11/23/24 08:32 Enoxaparin Sodium 40 mg DAILY 11/20/24 09:00 12/20/24 08:59 11/23/24 08:33 Budesonide 0.5 mg BIDRESP 11/20/24 06:00 12/20/24 05:59 11/23/24 07:16 Magnesium Sulfate 50 ml @ 0 mls/hr PROTOCOL 11/19/24 21:30 12/19/24 21:29 11/20/24 06:00 Potassium Chloride 100 ml @ 50 mls/hr PROTOCOL 11/19/24 21:30 12/19/24 21:29 11/20/24 05:59 Amiodarone HCl 540 mg/Dextrose 300 ml @ 16.667 mls/ hr PROTOCOL 11/20/24 00:30 12/20/24 00:29 11/20/24 00:34 Hydromorphone HCl 0.5 mg Q2H PRN 11/20/24 08:30 11/24/24 20:29 Phenylephrine HCl 50 mg/Sodium Chloride 250 ml @ 0 mls/hr PROTOCOL PRN 11/20/24 17:00 12/20/24 16:59 11/20/24 17:44 Dextrose/Sodium Chloride 1,000 ml @ 50 mls/hr Q20H 11/20/24 18:00 12/20/24 17:59 11/22/24 08:45 Chlorhexidine Gluconate 15 ml BID 11/21/24 21:00 12/05/24 20:59 11/23/24 08:32 Artificial Tears 1 DROP Q2H PRN 11/21/24 11:00 12/21/24 10:59 11/21/24 16:12 Fentanyl Citrate 25 mcg Q2H PRN 11/21/24 14:00 12/21/24 13:59 Lisinopril 2.5 mg DAILY 11/23/24 09:00 12/23/24 08:59 11/23/24 08:33 Home Med Linaclotide (Linzess) 72 MCG DAILY 11/23/24 09:00 12/23/24 08:59 Atorvastatin Calcium 20 mg HS 11/22/24 21:00 12/22/24 20:59 11/22/24 20:14 Diltiazem HCl 180 mg DAILY 11/22/24 10:30 12/22/24 10:29 11/23/24 08:33 Metoprolol Tartrate 50 mg BID 11/22/24 10:30 12/22/24 10:29 11/23/24 08:32 Ceftriaxone Sodium 2 gm Q24H 11/23/24 20:30 12/03/24 20:29 Methylprednisolone Sodium Succinate 40 mg Q8H 11/23/24 10:00 12/23/24 09:59 11/23/24 12:28 Ipratropium [place] 0.5 MG X1OFLHD 11/23/24 10:30 12/20/24 17:59 Review of Systems: Unable to obtain review of systems as the patient was recently extubated and unable to speak. Physical Examination: GENERAL: No acute distress. On aerosol face mask with last EF I O2 40%, as per records HEAD: Normal with no signs of head trauma. EYES: EOMI, conjunctiva and sclera normal. ENT: Hearing grossly intact. NECK: Supple without JVD. LUNGS: Diffuse rhonchi HEART: Irregularly irregular rate and rhythm. Normal S1 and S2 without murmurs, gallop or rub. VASC: Peripheral pulses +2 bilaterally. EXT: No clubbing, cyanosis or edema. SKIN: No rashes or lesions noted. NEURO: Awake, alert, and unable to speak Vital Signs (last 8hr) Date Time Temp Pulse Resp B/P (MAP) Pulse Ox O2 Delivery O2 Flow Rate FiO2 11/23/24 10:55 96 18 10.0 40 11/23/24 10:23 97 40 11/23/24 10:00 110 25 150/93 (112) 99 11/23/24 09:45 108 22 99 11/23/24 09:30 102 19 154/93 (113) 98 11/23/24 09:20 112 40 11/23/24 09:15 103 21 98 11/23/24 09:00 40 11/23/24 09:00 90 18 159/92 (114) 100 11/23/24 08:45 102 18 100 11/23/24 08:30 95 18 160/90 (113) 99 11/23/24 08:15 91 18 99 11/23/24 08:00 98.1 87 18 158/86 (110) 100 11/23/24 08:00 98.1 11/23/24 08:00 99 Ventilator+ 40 11/23/24 07:45 97 18 100 11/23/24 07:30 100 18 169/66 (100) 100 11/23/24 07:15 90 18 100 11/23/24 07:11 105 21 11/23/24 07:00 90 18 145/81 (102) 99 11/23/24 06:59 87 40 11/23/24 05:44 89 18 149/93 (111) 99 11/23/24 05:38 100 18 148/100 (116) 99 11/23/24 05:14 87 18 167/115 (132) 99 11/23/24 04:44 92 18 168/113 (131) 99 11/23/24 04:14 98 18 160/98 (118) 99 11/23/24 04:07 40 11/23/24 04:01 99 Ventilator+ 40 11/23/24 03:44 98.1 95 18 142/80 (100) 99 Laboratory: Hematology Labs: Test 11/23/24 03:52 Range/Units White Blood Count 16.3 H 4.8-10.8 K/uL Red Blood Count 4.25 4.00-5.50 MIL/uL Hemoglobin 12.1 12.0-16.0 g/dL Hematocrit 37.2 36-48 % Mean Corpuscular Volume 87.5 79-99 fL Mean Corpuscular Hemoglobin 28.5 27.0-33.0 pg Mean Corpuscular Hemoglobin Concent 32.5 32.0-36.0 g/dL Red Cell Distribution Width 14.1 11.0-15.5 % Platelet Count 170 130-400 K/uL Mean Platelet Volume 12.8 H 7.5-10.5 fL Immature Granulocyte % (Auto) 1.0 0-1 % Neutrophils (%) (Auto) 86.7 H 40.0-77.0 % Lymphocytes (%) (Auto) 9.2 L 21.0-51.0 % Monocytes (%) (Auto) 3.0 3.0-13.0 % Eosinophils (%) (Auto) 0.0 0.0-8.0 % Basophils (%) (Auto) 0.1 0.0-5.0 % Neutrophils # (Auto) 14.1 H 1.8-7.7 K/uL Lymphocytes # (Auto) 1.5 1.0-4.8 K/uL Monocytes # (Auto) 0.5 0.1-1.0 K/uL Eosinophils # (Auto) 0.00 0.00-0.70 K/uL Basophils # (Auto) 0.02 0.00-0.20 K/uL Absolute Immature Granulocyte (auto 0.16 0-1 K/uL Nucleated Red Blood Cells 0.0 0.0-0.19 % Chemistry Labs: Test 11/23/24 03:52 11/22/24 23:56 Range/Units Sodium Level 140 136-145 mmol/L Potassium Level 3.9 3.5-5.1 mmol/L Chloride Level 104 101-111 mmol/L Carbon Dioxide Level 28 21-32 mmol/L Blood Urea Nitrogen 32 H 7-18 mg/dL Creatinine 0.9 0.5-1.0 mg/dL Glomerular Filtration Rate Calc 65 >90 mL/min Random Glucose 174 H 70-105 mg/dL Total Calcium 8.7 8.5-10.1 mg/dL Whole Blood Glucose 161 H 70-110 MG/DL Diagnostics / Radiology: 2D echocardiogram on 11/21/2024 Conclusion Left ventricular cavity size is normal. Mild eccentric left ventricular hypertrophy. LVEF is 25-30%. Stage III diastolic dysfunction. The right ventricle is normal size. Right ventricular systolic function is moderately reduced. The left atrium size is normal. The right atrium size is normal. The inferior vena cava is mildly dilated with no inspiratory collapse. Hepatic veins are dilated. Trace pericardial effusion. Pericardium appears thickened. DICTATED BY: ANTHONY BETANCOURT MD DATE: 11/21/24 0852 Assessment/Plan: Atrial fibrillation with RVR Community-acquired pneumonia Acute hypoxic respiratory failure, extubated on 11/23/2024 Severe sepsis Hypertension Dyslipidemia Diabetes mellitus Chronic venous insufficiency Carotid stenosis s/p left CEA 2012 COPD Hypothyroidism Morbid obesity Obstructive sleep apnea Atrial fibrillation with RVR -Continue home medications of diltiazem 180 mg daily and metoprolol tartrate 50 mg twice a day -Start Lovenox 1 mg/kg with plans to transition to home medications of Xarelto 20 mg daily -Electrolyte replacement protocol to keep potassium greater than 4.0 and magnesium greater than 2.0 ATTESTATION BY PHYSICIAN I have seen and examined the patient, reviewed the above documentation, participated in medical decision making, made necessary modifications, and agree with the treatment plan as documented by my mid-level provider above. Exacerbation of atrial fibrillation provoked by pulmonary infection, now stabilized. If she does not convert with amiodarone, this drug will eventually be discontinued and alternative therapies considered. We will observe rate and rhythm while in the hospital and we will see the patient in the office shortly after discharge. MD JERRY Montana ROSA A DNP November 23, 2024 12:22 TAMIA DORMAN MD November 23, 2024 20:47
[2024-11-23] MEDS: Solu-medROL 40MG VIAL IVP SCH (12:28)
--- NOTE | 2024-11-23 12:45 | HMCIMG ---
CHEST 1VW HISTORY: Intubated COMPARISON: None FINDINGS: A frontal projection of the chest was obtained. Bilateral pulmonary infiltrates are seen with pleural effusion with right more than left. Endotracheal tube is seen with distal tip at 6.3 cm above cait. The heart is borderline enlarged. All the lines and tubes are again seen in place. No evidence of aortic calcification is seen. IMPRESSION: 1. Lateral pulmonary infiltrates and pleural effusion with right more than left.
[2024-11-23] MEDS ORDERED: hydroMORPHone 0.5 MG SYG (0.5MG/0.5ML) IVP PRN (19:00)
[2024-11-23] MEDS: IpraTROPium 0.5 MG/2.5 ML INH IH SCH (19:09)
[2024-11-23] MEDS: cefTRIAXone 2GM VIAL IVPB SCH (21:43)
[2024-11-23] MEDS: ENOXAPARIN SODIUM 120 MG/0.8ML SQ ONE (21:43)
[2024-11-24] VITALS (22 sets, daily range): BP systolic 129–171; BP diastolic 65–96; PULSE 70–127; RESP 11–21; TEMP 98.3–98.8; O2SAT 97–100
[2024-11-24 02:31] LABS: ABG HCO3 28.4 mmol/L (21.0-28.0); ABG PCO2 51 mmHg (32-45); ABG PH 7.364 (7.350-7.450); PO2, ARTERIAL BG 95.9 mmHg (83.0-108.0)
[2024-11-24] MEDS: Solu-medROL 40MG VIAL IVP SCH (06:06)
[2024-11-24] MEDS: furoSEMIDE 20MG VIAL IV ONE (08:47)
--- NOTE | 2024-11-24 09:18 | PN ---
[facility] PROGRESS NOTE Date Patient Seen: November 24, 2024 Time of Visit: 09:18 Supervising Physician: Fidencio Teran MD Primary Care Physician: Dr. 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 She is hemodynamically stable. In no apparent distress. She denies any shortness of breath cough or chest pain. Saturating 97% with 2 L via nasal cannula and afebrile. Patient with 525 mL of urine output with a balance of-162 mL. Added Lasix 20 mg IV push x1 and continue home medication as Lasix 20 mg p.o. b.i.d.. On laboratory kidneys have improved creatinine 0.9 GFR 65 glucose 174 mg/dL. White count trending down 16.3 today with neutrophils every day 6.7. Chest x-ray with mild improvement to pulmonary vascular congestion. Pt may be downgraded from ICU may got to medical surgical on tele monitoring. REVIEW OF SYSTEMS: Const: [no fever, fatigue, or weight changes] Eyes:[ no recent vision problems] ENT: [No congestion, ear pain, or sore throat] C/V: [no chest pain, palpitations or edema] Resp: Yes to ocassional nonproductive cough. GI: [No abdominal pain, nausea, vomiting, constipation, or diarrhea] : [No incontinence of or dyuria] M/S: [No joint or pain swelling] Skin: [No rash] Neuro: [no headache, focal numbness, or weakness, dizziness or seizures] Psych: [no depression or anxiety] Heme: [no abnormal bruising or bleeding] Lymph: [no swollen glands] PHYSICAL EXAM: GENERAL: Intubated, sedated, on full mechanical ventilator support HEENT: EOMI, Sclera non icteric, moist mucosa NECK: Supple, no JVD, trachea midline LUNGS: On mechanical ventilator support, with coarse bilateral lung sounds HEART: Irregularly irregular Normal S1 and S2, without murmurs ABD: Large body habitus EXT: No clubbing cyanosis or edema NEURO: Sedated with propofol drip Vital Signs (last 8hr) Date Time Temp Pulse Resp B/P (MAP) Pulse Ox O2 Delivery O2 Flow Rate FiO2 11/24/24 07:06 80 19 N/Cannula Low lpm 3.0 32 11/24/24 07:03 79 20 11/24/24 06:00 82 20 129/70 97 11/24/24 04:00 98.4 11/24/24 04:00 97 Ventilator+ 3 35 N/C Oxymizer Hi LPM* 11/24/24 03:27 99 20 11/24/24 02:00 94 18 133/79 97 LABS: Hematology Labs: Test 11/23/24 03:52 Range/Units White Blood Count 16.3 H 4.8-10.8 K/uL Red Blood Count 4.25 4.00-5.50 MIL/uL Hemoglobin 12.1 12.0-16.0 g/dL Hematocrit 37.2 36-48 % Mean Corpuscular Volume 87.5 79-99 fL Mean Corpuscular Hemoglobin 28.5 27.0-33.0 pg Mean Corpuscular Hemoglobin Concent 32.5 32.0-36.0 g/dL Red Cell Distribution Width 14.1 11.0-15.5 % Platelet Count 170 130-400 K/uL Mean Platelet Volume 12.8 H 7.5-10.5 fL Immature Granulocyte % (Auto) 1.0 0-1 % Neutrophils (%) (Auto) 86.7 H 40.0-77.0 % Lymphocytes (%) (Auto) 9.2 L 21.0-51.0 % Monocytes (%) (Auto) 3.0 3.0-13.0 % Eosinophils (%) (Auto) 0.0 0.0-8.0 % Basophils (%) (Auto) 0.1 0.0-5.0 % Neutrophils # (Auto) 14.1 H 1.8-7.7 K/uL Lymphocytes # (Auto) 1.5 1.0-4.8 K/uL Monocytes # (Auto) 0.5 0.1-1.0 K/uL Eosinophils # (Auto) 0.00 0.00-0.70 K/uL Basophils # (Auto) 0.02 0.00-0.20 K/uL Absolute Immature Granulocyte (auto 0.16 0-1 K/uL Nucleated Red Blood Cells 0.0 0.0-0.19 % Chemistry Labs: Test 11/23/24 17:04 11/23/24 03:52 Range/Units Whole Blood Glucose 152 H 70-110 MG/DL Sodium Level 140 136-145 mmol/L Potassium Level 3.9 3.5-5.1 mmol/L Chloride Level 104 101-111 mmol/L Carbon Dioxide Level 28 21-32 mmol/L Blood Urea Nitrogen 32 H 7-18 mg/dL Creatinine 0.9 0.5-1.0 mg/dL Glomerular Filtration Rate Calc 65 >90 mL/min Random Glucose 174 H 70-105 mg/dL Total Calcium 8.7 8.5-10.1 mg/dL DIAGNOSTICS / RADIOLOGY RESULTS: [IMAGING REPORT Signed PATIENT: HERNÁN BERNARD MR#: [id number] : 1945 SEX: F AGE: 79 LOCATION: 2B ORDER 7 STATUS: ADM IN REPORT#: [id number] SERVICE REASON: POST EXTUBATION ORDERING PHYSICIAN: HARRIET PEÑA WEATHER STRIP INSTALLER PROCEDURE: CXR1VW - CHEST 1VW CHEST 1VW HISTORY: Post extubation COMPARISON: 11/23/2024 FINDINGS: A frontal projection of the chest was obtained. There are bilateral pulmonary infiltrates suggestive of pulmonary vascular congestion with possible superimposed pneumonitis. Endotracheal tube has been removed. The heart is borderline enlarged. All the lines and tubes are again seen in place. No evidence of aortic calcification is seen. IMPRESSION: 1. Bilateral pulmonary infiltrates are seen suggestive of pulmonary vascular congestion with possible superimposed pneumonitis. Slight interval improvement is seen. DICTATED BY: BERT CALLE MD DATE: 11/24/24 103 ELECTRONICALLY SIGNED BY: BERT CALLE MD DATE: 11/24/24 1039 ] PLAN Downgrade to medical surgical with tele. follow cardiology recommendations. Bipap 10/5 50% Q Hs And Prn Check Mag And Phos In Am Pt Aspiration Precautions Speech Eval And Recs lasix 20 mg IVP x1 dose now continue pt's home diuretic/ NEURO: Minimize central acting medications as possible. Fall Precautions. Well lighted room through the day and minimize interruptions through the night to prevent acute delirium. PULMONARY: Supplemental 02 as needed Titrate Fio2 to keep Spo2 > or = 90% DuoNebs and CPT as needed IS hourly while awake for pulmonary hygiene CARDIOVASCULAR: Follow hemodynamics. Titrate vasopressor to keep MAP >65 or systolic blood pressure >95mmHg CARDIAC MONITORING DIPS: off LINES: PIV GI & NUTRITION: HEART hEALTHY DIET Aspirations precautions Prokinetic agents and laxatives as needed KIDNEYS & ELECTROLYTES: Strict monitoring of intake and output Daily weights Avoid nephrotoxic agents Monitor electrolytes and replace as needed Goal urine output of 30mL/hr or 0.5mL/kg/hr Urine output: [ ] Fluid Balance: [ ] ENDOCRINE: Maintain blood glucose between 100-180 at all times. Insulin sliding scale for blood glucose management INFECTIOUS DISEASE: Trend temperature. Dominguez-culture if febrile. Micro: [ ] Antibiotics: Azithromycin and ceftriaxone HEMATOLOGY & COAGULATION: Monitor H&H. Keep Hgb > 7 Transfuse 1 unit of PRBC for Hgb < 7 Transfuse 1 pack of platelets of platelets < 20, 000 Watch for any signs and symptoms of bleeding SKIN: Pressure ulcer prevention per facility protocol Rehab: PT/OT Prophylaxis: GI: PPI DVT: Bilateral SCDs, Lovenox subQ Code Status: Full Resuscitation Disposition: MS TELE Other: I personally spent 45 minutes of critical care time in treatment of this patient. This includes patient management, time at bedside, time reviewing tests, labs, appropriate images and studies, documentation, and patient care lifestyle coordinator rdination. This time excludes separately billable procedures. She is ATTESTATION BY PHYSICIAN I reviewed the documentation, medical decision making, and treatment plan as noted by the mid-level provider above. I agree with the findings and plan of care. Fidencio Teran MD, NELLY J ARNP November 24, 2024 09:18
--- NOTE | 2024-11-24 10:00 | NUR ---
TRANSFER REPORT GIVEN TO JERILYN SHANKAR, PT WILL BE TRANSFERRED TO ROOM 321. NO DISTRESS NOTED AT THIS TIME. PT'S DAUGHTER/POA ANEESH CALLED AND NOTIFIED OF TRANSFER, ALSO REMINDED HER TO BRING HOME MEDICATION LINZESS. STATES SHE WILL BRING IT TODAY.
--- NOTE | 2024-11-24 10:35 | NUR ---
TRANSFER PT ARRIVED ON 3RD FLOOR/ a&o x4. O2: N/C: 3L, RT HAND EDEMA +1. IV: RT AC 20G, RT FA 18G, LEFT AC. ON WAFFLE MATTRESS ANSWERED QUESTIONS. NONE AT THIS TIME.
--- NOTE | 2024-11-24 10:39 | HMCIMG ---
CHEST 1VW HISTORY: Post extubation COMPARISON: 11/23/2024 FINDINGS: A frontal projection of the chest was obtained. There are bilateral pulmonary infiltrates suggestive of pulmonary vascular congestion with possible superimposed pneumonitis. Endotracheal tube has been removed. The heart is borderline enlarged. All the lines and tubes are again seen in place. No evidence of aortic calcification is seen. IMPRESSION: 1. Bilateral pulmonary infiltrates are seen suggestive of pulmonary vascular congestion with possible superimposed pneumonitis. Slight interval improvement is seen.
--- NOTE | 2024-11-24 13:45 | NUR ---
BEDSIDE SWALLOW EVAL COMPLETED. No s/s of aspiration. Recommend regular solids, thin liquids and pills whole with liquids as tolerated. Compensatory strategies: 1. sit upright during oral intake 2. small bites/sips 3. slow oral intake CREEL OPERATOR reviewed results and recommendations with patient/family and nurse Yessica. CREEL OPERATOR educated patient on risks and consequences of aspiration. Speech therapy not warranted at this time. All questions answered. Addendum: 11/24/[address] NASIR PERSAUD Amended: Links added.
--- NOTE | 2024-11-24 15:31 | NUR ---
Nutritional f/u Note: Chart, meds, and labs Reviewed. Pt s/p BEDSIDE SWALLOW EVAL COMPLETED 11/24/24. No s/s of aspiration. Recommend regular solids, thin liquids. pt diet advanced to 75gm cc heart healthy. Recommend: -encourage pO intake -if PO intake <75% provide Glucerna 1 can -RD to provide further recommendations based on clinical progress. -Monitor feeding tolerance, %, wt, and labs -If No BM >3days consider bowel stimulant. - Please notify RD if additional nutrition concerns arise. Addendum: 11/24/24 at [address] Amended: Links added.
--- NOTE | 2024-11-24 18:07 | PN ---
[facility] CARDIOLOGY PROGRESS NOTE Date Patient Seen: November 24, 2024 Time of Visit: 18:06 Problem List: Atrial fibrillation with RVR New onset atrial fibrillation, July 2024 Echocardiogram 11/23/2024: LVEF 25-30 %, grade 3 diastolic dysfunction Echocardiogram 08/02/2024: Ejection fraction 60-65%, moderately dilated LV Home anticoagulation of Xarelto 20 mg orally daily Hypertension, Dyslipidemia, diabetes mellitus, chronic venous insufficiency, chronic stenosis with prior left CEA COPD Left carotid endarterectomy 2013 Venous insufficiency Interval History: Patient is seen and examined in room, daughter at bedside. Patient reports improvement in shortness of breath, denies orthopnea or PND. Denies chest pain/pressure, dizziness, lightheadedness or palpitations. Per telemetry monitoring, patient in atrial fibrillation with heart rate ranging 90-120. Echocardiogram demonstrates LVEF 25-30% grade 3 diastolic dysfunction, decreased from EF 60-65% in July. BNP 106; chest x-ray reports bilateral pulmonary infiltrates suggesting vascular congestion superimposed with pneumonitis Physical Examination: GENERAL: No acute distress. HEAD: Normal with no signs of head trauma. EYES: EOMI, conjunctiva and sclera normal. ENT: Hearing grossly intact. NECK: Supple without JVD. LUNGS: Diffuse rhonchi HEART: Irregularly irregular rate and rhythm. Normal S1 and S2 without murmurs, gallop or rub. VASC: Peripheral pulses +2 bilaterally. EXT: No clubbing, cyanosis or edema. SKIN: No rashes or lesions noted. NEURO: Awake, alert, and unable to speak Laboratory: [ ] Hematology Labs: Test 11/23/24 03:52 Range/Units White Blood Count 16.3 H 4.8-10.8 K/uL Red Blood Count 4.25 4.00-5.50 MIL/uL Hemoglobin 12.1 12.0-16.0 g/dL Hematocrit 37.2 36-48 % Mean Corpuscular Volume 87.5 79-99 fL Mean Corpuscular Hemoglobin 28.5 27.0-33.0 pg Mean Corpuscular Hemoglobin Concent 32.5 32.0-36.0 g/dL Red Cell Distribution Width 14.1 11.0-15.5 % Platelet Count 170 130-400 K/uL Mean Platelet Volume 12.8 H 7.5-10.5 fL Immature Granulocyte % (Auto) 1.0 0-1 % Neutrophils (%) (Auto) 86.7 H 40.0-77.0 % Lymphocytes (%) (Auto) 9.2 L 21.0-51.0 % Monocytes (%) (Auto) 3.0 3.0-13.0 % Eosinophils (%) (Auto) 0.0 0.0-8.0 % Basophils (%) (Auto) 0.1 0.0-5.0 % Neutrophils # (Auto) 14.1 H 1.8-7.7 K/uL Lymphocytes # (Auto) 1.5 1.0-4.8 K/uL Monocytes # (Auto) 0.5 0.1-1.0 K/uL Eosinophils # (Auto) 0.00 0.00-0.70 K/uL Basophils # (Auto) 0.02 0.00-0.20 K/uL Absolute Immature Granulocyte (auto 0.16 0-1 K/uL Nucleated Red Blood Cells 0.0 0.0-0.19 % Chemistry Labs: Test 11/24/24 16:07 11/23/24 03:52 Range/Units Whole Blood Glucose 173 H 70-110 MG/DL Sodium Level 140 136-145 mmol/L Potassium Level 3.9 3.5-5.1 mmol/L Chloride Level 104 101-111 mmol/L Carbon Dioxide Level 28 21-32 mmol/L Blood Urea Nitrogen 32 H 7-18 mg/dL Creatinine 0.9 0.5-1.0 mg/dL Glomerular Filtration Rate Calc 65 >90 mL/min Random Glucose 174 H 70-105 mg/dL Total Calcium 8.7 8.5-10.1 mg/dL Diagnostics / Radiology: 2D Dimensions RVDd 3.5 cm LVEF(%) 33.1 (>50%) LVED Vol(simp.) 89.1 mL IVSd 1.2 (0.7-1.1cm) FS(%) 15 % LVES Vol(simp.) 58.2 mL LVDd 4.1 (3.8-5.6cm) LA (2D) 3.0 (1.6-4.0cm) LVEF(%, simp.) 35 % PWd 1.0 (0.7-1.1cm) Ao Root(2D) 2.9 (2.0-3.7cm) LA ESV INDEX (4CH) 58.00 mL/m2 IVSs 1.0 cm LVOT diam 1.9 (1.8-2.4cm) LA ESV INDEX (2CH) 28.34 mL/m2 LVDs 3.5 (2.5-4.0cm) IVC diam 2.2 cm LA ESV INDEX (BP) 30.51 mL/m2 PWs 1.4 cm Deformation Strain Apical 4 -9.5 % Apical 2 -11.0 % Apical 3 -10.4 % Global Strain -10.3 % M-Mode Dimensions EPSS 1.4 cm LA (MM) 3.3 (1.6-4.0cm) Ao Root(MM) 2.5 (2.0-3.7cm) Aortic Valve AoV Vmax 1.1 m/s Ao Peak GR 4.8 mmHg LVOT Vmax 0.7 m/s AoV VTI 0.2 m Ao Mean GR 2.8 mmHg LVOT VTI 0.14 m SCOTT (VMAX) 1.99 cm2 SCOTT (VTI) 2.0 cm2 Mitral Valve MV E Vmax 87.8 cm/s DECEL Time 223 ms MV A Vmax 28.3 cm/s E/A ratio 3.1 TDI E/E' Medial 15.8 E/E' Lateral 12.4 Medial E' Peak V 5.54 cm/s Lateral E' Peak V 7.09 cm/s Pulmonary Valve PV Vmax 0.6 m/s PV VTI 0.11 m PV Mean GR 0.9 mmHg PV Peak GR 1.4 mmHg Left Ventricle Left ventricular cavity size is normal. Mild eccentric left ventricular hypertrophy. LVEF is 25-30%. Stage III diastolic dysfunction. Right Ventricle The right ventricle is normal size. Right ventricular systolic function is moderately reduced. Atria The left atrium size is normal. The right atrium size is normal. Aortic Valve The aortic valve is mildly thickened. The aortic valve is not well visualized. No aortic regurgitation is present. There is no aortic valvular stenosis. Mitral Valve The mitral valve is mildly thickened. Mitral regurgitation is trace. There is no mitral valve stenosis. Tricuspid Valve Tricuspid valve is not well visualized. There is no tricuspid valve regurgita tion noted. Pulmonic Valve Pulmonic valve is not well visualized. There is no pulmonic valvular regurgitation. Great Vessels The aortic root is normal in size. The ascending aorta is normal in size. The inferior vena cava is mildly dilated with no inspiratory collapse. Hepatic veins are dilated. Pericardium Trace pericardial effusion. Pericardium appears thickened. Ascites is present. Conclusion Left ventricular cavity size is normal. Mild eccentric left ventricular hypertrophy. LVEF is 25-30%. Stage III diastolic dysfunction. The right ventricle is normal size. Right ventricular systolic function is moderately reduced. The left atrium size is normal. The right atrium size is normal. The inferior vena cava is mildly dilated with no inspiratory collapse. Hepatic veins are dilated. Trace pericardial effusion. Pericardium appears thickened. DICTATED BY: ANTHONY BETANCOURT MD DATE: 11/21/24 0852 Impression and Plan: Atrial fibrillation with RVR Echocardiogram 11/23/2024: Left ventricular cavity size is normal. LVEF 25-30%, stage III diastolic dysfunction, right and left atrium normal in size. Hepatic veins are dilated, inferior vena cava is mildly dilated no inspiratory collapse. Pericardium appears thickened Community-acquired pneumonia Acute hypoxic respiratory failure, extubated on 11/23/2024 Severe sepsis Hypertension Dyslipidemia Diabetes mellitus Chronic venous insufficiency Carotid stenosis s/p left CEA 2012 COPD Hypothyroidism Morbid obesity Obstructive sleep apnea Atrial fibrillation with RVR Patient with history of atrial fibrillation (onset July,) Rhythm atrial fibrillation, heart rate range 90 to 120s bpm Currently On Lovenox 1 milligram/kilogram subcutaneously every 12 hours (home anticoagulation of Xarelto 20 mg orally daily) Echocardiogram 11/23/2024: LVEF 25-30%, stage III diastolic dysfunction With decreased ejection fraction, we will discontinue diltiazem Maximize metoprolol dose, consider addition of digoxin if beta-raquel is insufficient for rate control Electrolyte replacement protocol to keep potassium greater than 4.0 and magnesium greater than 2.0 It remains to be seen whether this patient has developed rate-related cardiomyopathy from atrial fibrillation, versus whether there may be a fulminant inflammatory or cardiomyopathy process that is causing ventricular dysfunction and also caused atrial fibrillation early on. Rate control is of great importance, but we can not use calcium channel blockers at this point. We will maximize beta-raquel dose and consider addition of digoxin for rate control, and we will consider possible AV node ablation with conduction system pacing or biventricular pacing if medical therapy for atrial fibrillation/rate control fails. At this time I do not think amiodarone has been shown to be effective for suppression of the arrhythmia, and we should 1st focus on rate control.Maryanne Dorman MD [facility] DISCHARGE RECOMMENDATIONS FOR AICD CORE MEASURES Patient EF%: [ ] LASHONDA/ARB(if EF<40%): [Yes/No] Med prescribed: [ ] BETA-RAQUEL: [Yes/No] Med prescribed: [ ] If NO to ANY Medication above, please comment: [ ] BRANDON DORMAN November 24, 2024 18:07 TAMIA DORMAN MD November 24, 2024 20:05
[2024-11-24] MEDS: metoPROLOL tartRATE 50 MG TAB PO SCH (21:00)
[2024-11-24] MEDS ORDERED: metoPROLOL tartRATE 50 MG TAB PO SCH (21:00)
[2024-11-24] MEDS: furoSEMIDE 40MG VIAL IV ONE (21:21)
[2024-11-24] MEDS: furoSEMIDE 20 MG TABLET PO SCH (21:29)
[2024-11-25] VITALS (13 sets, daily range): BP systolic 118–158; BP diastolic 55–103; PULSE 76–130; RESP 18–21; TEMP 97.8–98.3; O2SAT 97–100
[2024-11-25 06:36] LABS: BASOPHILS # (AUTO) 0.02 K/uL (0.00-0.20); BASOPHILS % (AUTO) 0.2 % (0.0-5.0); IMMATURE GRANULOCYTE ABSOLUTE 0.29 K/uL (0-1); LYMPHOCYTES # (AUTO) 0.7 K/uL (1.0-4.8); LYMPHOCYTES % (AUTO) 5.2 % (21.0-51.0); MEAN CORPUSCULAR HEMOGLOBIN 28.1 pg (27.0-33.0); MEAN CORPUSCULAR VOLUME 90.7 fL (79-99); MONOCYTES # (AUTO) 0.8 K/uL (0.1-1.0); MONOCYTES % (AUTO) 5.9 % (3.0-13.0); NEUTROPHILS # (AUTO) 11.1 K/uL (1.8-7.7); NEUTROPHILS % (AUTO) 86.4 % (40.0-77.0); PLATELET COUNT (AUTO) 180 K/uL (130-400); RED BLOOD CELL COUNT(AUTO) 4.52 MIL/uL (4.00-5.50); RED CELL DISTRIBUTION WIDTH 13.7 % (11.0-15.5); WHITE BLOOD COUNT (AUTO) 12.8 K/uL (4.8-10.8)
[2024-11-25 06:47] LABS: ALBUMIN 2.6 g/dL (3.5-5.0); BILIRUBIN,TOTAL 0.5 mg/dL (0.2-1.0); CREATININE 0.8 mg/dL (0.5-1.0); MAGNESIUM 2.5 mg/dL (1.80-2.40); PHOSPHORUS 3.9 mg/dL (2.5-4.9); POTASSIUM 4.3 mmol/L (3.5-5.1); TOTAL PROTEIN, SERUM 6.8 g/dL (6.0-8.3)
--- NOTE | 2024-11-25 07:30 | NUR ---
REPORT PATIENT ALERT AND ORIENTED X 4, LYING IN BED WATCHING TV, BED LOCKED IN LOWEST POSITION, SIDERAILS X 2, BEDSIDE TABLE, CALL LIGHT AND BELONGINGS WITHIN REACH, GAVE REPORT AND ENDORSED CARE OF PATIENT TO DAYSHIFT, PLAN OF CARE ONGOING
[2024-11-25 08:04] LABS: B-TYPE NATRIURETIC PEPTIDE 660 pg/mL (0-100)
--- NOTE | 2024-11-25 08:36 | PN ---
Atrial fibrillation with RVR Echocardiogram 11/23/2024: Left ventricular cavity size is normal. LVEF 25-30%, stage III diastolic dysfunction, right and left atrium normal in size. Hepatic veins are dilated, inferior vena cava is mildly dilated no inspiratory collapse. Pericardium appears thickened Community-acquired pneumonia Acute hypoxic respiratory failure, extubated on 11/23/2024 Severe sepsis Hypertension Dyslipidemia Diabetes mellitus Chronic venous insufficiency Carotid stenosis s/p left CEA 2012 COPD Hypothyroidism Morbid obesity Obstructive sleep apnea Patient says she feels better with respect to her breathing, feels she may be close to her baseline. Has not been ambulatory. Physical exam shows a morbidly obese patient with rales in the lower 1/2 bilaterally. Although she says she feels her breathing is back to normal, she appears mildly breathless during speech. Heart tones are distant, no murmur noted. Abdomen is massively protuberant with normal bowel sounds. No no edema present. Impression and plan: Heart tones are distant, no murmur noted, no edema. x-ray still shows pulmonary edema, rales are still present, and BNP is over 600. I will add Milrinone 0.375 mcg/kg per minute to stimulate cardiac output and renal blood flow because the patient is markedly prerenal but still in heart failure. We will continue to monitor renal indices, BNP, physical exam and chest x-ray. Vitals/Labs Vital Signs Date Time Temp Pulse Resp B/P (MAP) Pulse Ox O2 Delivery O2 Flow Rate FiO2 11/25/24 08:00 98.1 100 19 141/103 97 Room Air 21 11/25/24 07:04 3.0 Laboratory Tests 11/25/24 06:12 Medications Current Medications Amiodarone HCL/ Dextrose 100 ml @ As Directed STK-MED ONCE .ROUTE; Start 11/19/24 at 18:40; Stop 11/19/24 at 18:41; Status DC Propofol 100 ml @ As Directed STK-MED ONCE IV; Start 11/19/24 at 18:41; Stop 11/19/24 at 18:41; Status DC Midazolam HCl 100 ml @ As Directed STK-MED ONCE IV; Start 11/19/24 at 18:46; Stop 11/19/24 at 18:46; Status DC Amiodarone HCL/ Dextrose 200 ml @ As Directed STK-MED ONCE .ROUTE; Start 11/19/24 at 19:01; Stop 11/19/24 at 19:01; Status DC Norepinephrine 250 ml @ 0 mls/hr PROTOCOL IV Last administered on 11/20/24at 11:08; Start 11/19/24 at 19:30; Stop 11/23/24 at 18:55; Status DC Norepinephrine 250 ml @ As Directed STK-MED ONCE IV; Start 11/19/24 at 19:17; Stop 11/19/24 at 19:17; Status DC Amiodarone HCL/ Dextrose 100 ml @ 0 mls/hr PROTOCOL IV Last administered on 11/19/24at 19:26; Start 11/19/24 at 19:30; Stop 11/19/24 at 21:28; Status DC Amiodarone HCL/ Dextrose 200 ml @ 0 mls/hr PROTOCOL IV Last administered on 11/19/24at 19:29; Start 11/19/24 at 19:30; Stop 11/20/24 at 09:03; Status DC Midazolam HCl 100 ml ONCE IV; Start 11/19/24 at 19:30; Stop 11/19/24 at 19:46; Status DC Propofol 1,000 mg PROTOCOL PRN IV Last administered on 11/23/24at 03:51; Start 11/19/24 at 19:30; Stop 11/23/24 at 18:55; Status DC Acetaminophen 650 mg STK-MED ONCE RC; Start 11/19/24 at 19:44; Stop 11/19/24 at 19:44; Status DC Acetaminophen 650 mg ONCE RC Last administered on 11/19/24at 20:25; Start 11/19/24 at 20:00; Stop 11/19/24 at 23:59; Status DC Pantoprazole Sodium 40 mg ONCE ONCE IVP Last administered on 11/19/24at 20:32; Start 11/19/24 at 20:00; Stop 11/19/24 at 20:01; Status DC Enoxaparin Sodium 160 mg ONCE ONCE SQ Last administered on 11/19/24at 20:32; Start 11/19/24 at 20:00; Stop 11/19/24 at 20:01; Status DC Albuterol 1 udvial [id number] IH Last administered on 11/20/24at 03:10; Start 11/19/24 at 22:00; Stop 11/20/24 at 15:21; Status DC Polyethylene Glycol 17 gm DAILY PO Last administered on 11/24/24at 08:46; Start 11/20/24 at 09:00; Stop 12/20/24 at 08:59 Acetaminophen 650 mg Q6H PRN PO; Start 11/19/24 at 20:30; Stop 12/19/24 at 20:29 Acetaminophen 650 mg Q6H PRN RC; Start 11/19/24 at 20:30; Stop 12/19/24 at 20:29 Ondansetron HCl 4 mg Q6H PRN IVP; Start 11/19/24 at 20:30; Stop 12/19/24 at 20:29 Hydralazine HCl 10 mg Q6H PRN IV; Start 11/19/24 at 20:30; Stop 12/19/24 at 20:29 Labetalol HCl 10 mg Q2H PRN IV; Start 11/19/24 at 20:30; Stop 11/20/24 at 08:12; Status DC Hydromorphone HCl 0.5 mg Q2H PRN IVP; Start 11/19/24 at 20:30; Stop 11/20/24 at 08:08; Status DC Insulin Human Regular INSULIN SLIDING SCAL... Q6H6 SQ Last administered on 11/21/24at 00:23; Start 11/20/24 at 00:00; Stop 11/23/24 at 21:14; Status DC Azithromycin 250 ml @ 250 mls/hr Q24H IVPB Last administered on 11/24/24at 21:30; Start 11/19/24 at 20:30; Stop 11/29/24 at 20:29 Ceftriaxone Sodium 1 gm Q24H IVPB Last administered on 11/22/24at 20:13; Start 11/19/24 at 20:30; Stop 11/23/24 at 08:44; Status DC Pantoprazole Sodium 40 mg DAILY IVP Last administered on 11/24/24at 08:48; Start 11/20/24 at 09:00; Stop 12/20/24 at 08:59 Enoxaparin Sodium 40 mg DAILY SQ Last administered on 11/23/24at 08:33; Start 11/20/24 at 09:00; Stop 11/23/24 at 13:03; Status DC Budesonide 0.5 mg BIDRESP IH Last administered on 11/25/24at 07:01; Start 11/20/24 at 06:00; Stop 12/20/24 at 05:59 Fentanyl Citrate 100 ml @ As Directed STK-MED ONCE IV; Start 11/19/24 at 20:58; Stop 11/19/24 at 20:58; Status DC Fentanyl Citrate 100 ml @ 2.5 mls/hr PROTOCOL IV Last administered on 11/21/24at 11:43; Start 11/19/24 at 21:30; Stop 11/21/24 at 13:50; Status DC Amiodarone HCL/ Dextrose 100 ml @ 0 mls/hr PROTOCOL IV; Start 11/19/24 at 21:30; Stop 11/20/24 at 09:03; Status DC Magnesium Sulfate 50 ml @ 0 mls/hr PROTOCOL IV Last administered on 11/20/24at 06:00; Start 11/19/24 at 21:30; Stop 12/19/24 at 21:29 Potassium Chloride 100 ml @ 50 mls/hr PROTOCOL IV Last administered on 11/20/24at 05:59; Start 11/19/24 at 21:30; Stop 12/19/24 at 21:29 Amiodarone HCl 540 mg/Dextrose 300 ml @ 16.667 mls/ hr PROTOCOL IV Last administered on 11/20/24at 00:34; Start 11/20/24 at 00:30; Stop 11/23/24 at 18:55; Status DC Amiodarone HCl 540 mg/Dextrose 300 ml @ 0 mls/hr PROTOCOL IV; Start 11/20/24 at 00:30; Stop 11/20/24 at 00:16; Status DC Hydromorphone HCl 0.5 mg Q2H PRN IVP; Start 11/20/24 at 08:30; Stop 11/23/24 at 18:55; Status DC Phenylephrine HCl 50 mg/Sodium Chloride 250 ml @ 0 mls/hr AD PRN IV; Start 11/20/24 at 13:30; Stop 11/20/24 at 13:05; Status DC Phenylephrine HCl 10 mg/Sodium Chloride 250 ml @ 0 mls/hr AD PRN IV Last administered on 11/20/24at 13:21; Start 11/20/24 at 13:30; Stop 11/20/24 at 17:03; Status DC Ipratropium [place] 0.5 MG [id number] IH Last administered on 11/23/24at 07:17; Start 11/20/24 at 18:00; Stop 11/23/24 at 10:29; Status DC Phenylephrine HCl 50 mg/Sodium Chloride 250 ml @ 0 mls/hr PROTOCOL PRN IV Last administered on 11/20/24at 17:44; Start 11/20/24 at 17:00; Stop 12/20/24 at 16:59 Methylprednisolone Sodium Succinate 60 mg Q8H IVP Last administered on 11/23/24at 01:46; Start 11/20/24 at 18:00; Stop 11/23/24 at 08:45; Status DC Dextrose/Sodium Chloride 1,000 ml @ 50 mls/hr Q20H IV Last administered on 11/24/24at 02:53; Start 11/20/24 at 18:00; Stop 11/24/24 at 09:29; Status DC Chlorhexidine Gluconate 15 ml BID MM Last administered on 11/24/24at 21:24; Start 11/21/24 at 21:00; Stop 12/05/24 at 20:59 Artificial Tears 1 DROP Q2H PRN OU Last administered on 11/21/24at 16:12; Start 11/21/24 at 11:00; Stop 12/21/24 at 10:59 Fentanyl Citrate 25 mcg Q2H PRN IVP; Start 11/21/24 at 14:00; Stop 11/23/24 at 18:55; Status DC Iohexol 35,000 mg STK-MED ONCE IV; Start 11/21/24 at 16:52; Stop 11/21/24 at 16:52; Status DC Lisinopril 2.5 mg DAILY PO Last administered on 11/24/24at 08:47; Start 11/23/24 at 09:00; Stop 12/23/24 at 08:59 Metoprolol Tartrate 50 mg BID PO; Start 11/22/24 at 21:00; Stop 11/22/24 at 10:06; Status DC Diltiazem HCl 180 mg DAILY PO; Start 11/23/24 at 09:00; Stop 11/22/24 at 10:06; Status DC Home Med Linaclotide (Linzess) 72 MCG DAILY PO; Start 11/23/24 at 09:00; Stop 12/23/24 at 08:59 Atorvastatin Calcium 20 mg HS PO Last administered on 11/24/24at 21:29; Start 11/22/24 at 21:00; Stop 12/22/24 at 20:59 Diltiazem HCl 180 mg DAILY PO Last administered on 11/24/24at 08:47; Start 11/22/24 at 10:30; Stop 11/24/24 at 19:43; Status DC Metoprolol Tartrate 50 mg BID PO Last administered on 11/24/24at 08:47; Start 11/22/24 at 10:30; Stop 11/24/24 at 19:43; Status DC Rocuronium [place] 50 mg STK-MED ONCE IV; Start 11/19/24 at 11:28; Stop 11/22/24 at 11:28; Status DC Etomidate 20 mg STK-MED ONCE IVP; Start 11/19/24 at 11:28; Stop 11/22/24 at 11:28; Status DC Diltiazem HCl 5 mg ONCE ONCE IVP Last administered on 11/22/24at 11:52; Start 11/22/24 at 12:00; Stop 11/22/24 at 12:01; Status DC Ceftriaxone Sodium 2 gm Q24H IVPB Last administered on 11/24/24at 21:30; Start 11/23/24 at 20:30; Stop 12/03/24 at 20:29 Methylprednisolone Sodium Succinate 40 mg Q8H IVP Last administered on 11/23/24at 12:28; Start 11/23/24 at 10:00; Stop 11/23/24 at 18:55; Status DC Ipratropium [place] 0.5 MG [id number] IH Last administered on 11/25/24at 07:01; Start 11/23/24 at 10:30; Stop 12/20/24 at 17:59 Enoxaparin Sodium 120 mg BID ONCE SQ Last administered on 11/23/24at 21:43; Start 11/23/24 at 21:00; Stop 11/23/24 at 21:01; Status DC Hydromorphone HCl 0.5 mg Q4H PRN IVP; Start 11/23/24 at 19:00; Stop 11/24/24 at 20:29; Status DC Methylprednisolone Sodium Succinate 40 mg Q12H IVP Last administered on 11/25/24at 06:42; Start 11/24/24 at 06:00; Stop 12/23/24 at 09:59 Furosemide 20 mg ONCE ONCE IV Last administered on 11/24/24at 08:47; Start 11/24/24 at 08:30; Stop 11/24/24 at 08:31; Status DC Furosemide 20 mg BID PO Last administered on 11/24/24at 21:29; Start 11/24/24 at 21:00; Stop 12/24/24 at 20:59 Metoprolol Tartrate 100 mg BID PO; Start 11/24/24 at 21:00; Stop 11/24/24 at 19:49; Status DC Metoprolol Tartrate 100 mg BID PO Last administered on 11/24/24at 21:29; Start 11/24/24 at 20:00; Stop 12/25/24 at 19:41 Furosemide 40 mg ONCE ONCE IV; Start 11/24/24 at 20:00; Stop 11/24/24 at 20:06; Status DC TAMIA DORMAN MD November 25, 2024 08:36
[2024-11-25] MEDS: furoSEMIDE 20MG VIAL IV SCH (09:15)
--- NOTE | 2024-11-25 10:13 | HMCIMG ---
CHEST 1VW HISTORY: Hypoxia COMPARISON: 11/24/2024 FINDINGS: A frontal projection of the chest was obtained. Bilateral pulmonary infiltrates are seen with right more than left increased from previous study. The heart is borderline enlarged. Degenerative changes are seen. No evidence of aortic calcification is seen. IMPRESSION: 1. Bilateral pulmonary infiltrates with right more than left increased from previous study.
--- NOTE | 2024-11-25 14:08 | NUR ---
REPORT REPORT GIVEN TO REYES GUAN. [id number]
--- NOTE | 2024-11-25 14:42 | PN ---
[facility] PROGRESS NOTE Date Patient Seen: November 25, 2024 Time of Visit: 1128 Supervising Physician: Dr. Teran Primary Care Physician: Dr. 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 She is hemodynamically stable. In no apparent distress. She denies any shortness of breath cough or chest pain. Saturating 97% with 2 L via nasal cannula and afebrile. Patient with 525 mL of urine output with a balance of-162 mL. Added Lasix 20 mg IV push x1 and continue home medication as Lasix 20 mg p.o. b.i.d.. On laboratory kidneys have improved creatinine 0.9 GFR 65 glucose 174 mg/dL. White count trending down 16.3 today with neutrophils every day 6.7. Chest x-ray with mild improvement to pulmonary vascular congestion. Pt may be downgraded from ICU may got to medical surgical on tele monitoring. 11/25 patient was seen and examined at bedside with no family present. The patient continues to require supplemental oxygen via nasal cannula at L. This is above patient's baseline patient states baseline at home is 2 L. Patient's BNP noted to be trending up today 660, upon admission 107. As per cardiology had mid around 0.375 mcg/kg per minute to stimuli cardiac output and renal blood flow because the patient is markedly prerenal but is still in heart failure, appreciate cardiology's assistance we will follow recommendations. We will continue to monitor respiratory status closely. Patient to continue on IV antibiotics. We will continue with Solu-Medrol Lasix. Patient remains high risk for cardiopulmonary decompensation repeat patient's labs tomorrow morning REVIEW OF SYSTEMS: Twelve point review of system reviewed with patient all permanent positives mentioned above otherwise negative PHYSICAL EXAM: GENERAL: Chronically ill 79-year-old female lying in bed no obvious signs or symptoms of distress HEENT: EOMI, Sclera non icteric, moist mucosa NECK: Supple, no JVD, trachea midline LUNGS: Coarse breath sounds bilaterally upper lobes HEART: Normal S1 and S2, without murmurs ABD: Large body habitus EXT: No clubbing cyanosis or edema NEURO: Awake alert able to answer simple questions appropriately Vital Signs (last 8hr) Date Time Temp Pulse Resp B/P (MAP) Pulse Ox O2 Delivery O2 Flow Rate FiO2 11/25/24 11:46 98.1 98 20 153/93 98 Nasal Cannula 3.0 11/25/24 11:40 92 21 11/25/24 09:14 100 Nasal Cannula* 3 32 11/25/24 08:00 98.1 100 19 141/103 97 Room Air 21 11/25/24 07:04 88 21 11/25/24 07:04 91 20 N/Cannula Low lpm 3.0 32 LABS: Hematology Labs: Test 11/25/24 06:12 Range/Units White Blood Count 12.8 H 4.8-10.8 K/uL Red Blood Count 4.52 4.00-5.50 MIL/uL Hemoglobin 12.7 12.0-16.0 g/dL Hematocrit 41.0 36-48 % Mean Corpuscular Volume 90.7 79-99 fL Mean Corpuscular Hemoglobin 28.1 27.0-33.0 pg Mean Corpuscular Hemoglobin Concent 31.0 L 32.0-36.0 g/dL Red Cell Distribution Width 13.7 11.0-15.5 % Platelet Count 180 130-400 K/uL Mean Platelet Volume 11.5 H 7.5-10.5 fL Immature Granulocyte % (Auto) 2.3 H 0-1 % Neutrophils (%) (Auto) 86.4 H 40.0-77.0 % Lymphocytes (%) (Auto) 5.2 L 21.0-51.0 % Monocytes (%) (Auto) 5.9 3.0-13.0 % Eosinophils (%) (Auto) 0.0 0.0-8.0 % Basophils (%) (Auto) 0.2 0.0-5.0 % Neutrophils # (Auto) 11.1 H 1.8-7.7 K/uL Lymphocytes # (Auto) 0.7 L 1.0-4.8 K/uL Monocytes # (Auto) 0.8 0.1-1.0 K/uL Eosinophils # (Auto) 0.00 0.00-0.70 K/uL Basophils # (Auto) 0.02 0.00-0.20 K/uL Absolute Immature Granulocyte (auto 0.29 0-1 K/uL Nucleated Red Blood Cells 0.0 0.0-0.19 % Red Blood Cell Morphology See comments Chemistry Labs: Test 11/25/24 06:12 11/25/24 05:38 Range/Units Sodium Level 146 H 136-145 mmol/L Potassium Level 4.3 3.5-5.1 mmol/L Chloride Level 108 101-111 mmol/L Carbon Dioxide Level 35 H 21-32 mmol/L Blood Urea Nitrogen 35 H 7-18 mg/dL Creatinine 0.8 0.5-1.0 mg/dL Glomerular Filtration Rate Calc 75 >90 mL/min Random Glucose 155 H 70-105 mg/dL Lactic Acid Level 1.7 0.8-2.5 mmol/L Total Calcium 8.7 8.5-10.1 mg/dL Phosphorus Level 3.9 2.5-4.9 mg/dL Magnesium Level 2.50 H 1.80-2.40 mg/dL Total Bilirubin 0.5 0.2-1.0 mg/dL Aspartate Amino Transf (AST/SGOT) 55 H 10-37 U/L Alanine Aminotransferase (ALT/SGPT) 67 12-78 U/L Alkaline Phosphatase 66 50-136 U/L B-Type Natriuretic Peptide 660 H 0-100 pg/mL Total Protein 6.8 6.0-8.3 g/dL Albumin 2.6 L 3.5-5.0 g/dL Whole Blood Glucose 151 H 70-110 MG/DL DIAGNOSTICS / RADIOLOGY RESULTS: na PLAN Continue to follow recommendations from Cardiology Transfer patient to PCCU Continue BiPAP q.h.s. and p.r.n. Continue aspiration precautions Continue metoprolol 100 mg b.i.d. Continue lisinopril 2.5 mg daily Continue atorvastatin 20 mg q.h.s. Continue IV antibiotics Continue Solu-Medrol 40 mg b.i.d. Continue Lasix 20 mg every 8 hours NEURO: Minimize central acting medications as possible. Maintain fall precautions, adequate lighting during the day PULMONARY: Supplemental 02 as needed. Maintain aspiration precautions at all times CARDIOVASCULAR: Follow hemodynamics. Vital signs per facility protocol GI & NUTRITION: Continue with nutritional support. Continue stool softeners and laxatives as needed. KIDNEYS & ELECTROLYTES: Strict monitoring of intake, output and overall fluid balance. Avoid nephrotoxic medications to the extent possible. Medications to be dosed according to renal function. Monitor electrolytes and replace as needed ENDOCRINE: Maintain blood glucose between 100-180 at all times. Hypoglycemia protocol in place INFECTIOUS DISEASE: Trend temperature, WBC and procalcitonin level Follow cultures, deescalate antibiotics as soon as possible. Panculture if new onset fever ONCOLOGY/HEMATOLOGY/COAGULATION: Monitor for s/s of bleeding Monitor hemoglobin, coagulation studies as needed SKIN: Pressure ulcer prevention per facility protocol Specialty mattress ORTHO/REHAB: Continue PT/OT Prophylaxis: Continue GI and DVT prophylaxis Code Status: Full Resuscitation Disposition: TBD Other: Total patient care time 35 minutes excluding all procedures. Case discussed with supervising physician plan of care agreed upon KATHYA STEWART November 25, 2024 14:42
[2024-11-25] MEDS: MILRINONE-D5W 20 MG/100 ML 100 ML IV SCH (15:51)
[2024-11-25] MEDS: metoPROLOL tartRATE 1 MG/ML 5ML VIAL IV ONE ×2 (21:24→21:48)
--- NOTE | 2024-11-25 21:27 | NUR ---
@2105PM REPORTED AFIB IN 120 TO 140'S PER TELEMETRY. PATIENT DENIES ANY PALPITATIONS, DENIES ANY CHEST PAIN. SPOKE TO DR Muriel BETANCOURT. ORDERED METOPROLOL 5MG IV X1, WAIT 15 MINUTES TO REASSESS. IF HEART RATE STILL ELEVATED MAY GIVE SECOND DOSE OF METOPROLOL 5MG IV X1, WAIT 15 MINUTES AND REASSESS. IF HEART RATE STILL NOT CONTROLLED ORDERS TO CALL HIM BACK FOR FURTHER ORDERS.
--- NOTE | 2024-11-25 22:44 | NUR ---
@2216PM REPORTED TO DR. LINN THAT PATIENT AFIB IS STILL PERSISTING FROM 110 TO 130 PER TELEMETRY. STATED TO START ON AMIODARONE IV DRIP, BOLUS AND IV PROTOCOL.
--- NOTE | 2024-11-25 22:46 | NUR ---
@2230PM CALLED DR Muriel BETANCOURT TO NOTIFY OF INTERACTION OF AMIODARONE IV WITH AZITHROMYCIN. PER WARNING SEVERE, AT RISK FOR QT PROLONGATION. PER DR. BETANCOURT, START PATIENT ON DIGOXIN 0.25 MCG IV PUSH X 1 NOW, WAIT 4 HOURS AND GIVEN DIGOXIN 0.125MCG IV PUSH X1, THEN WAIT 4 HOURS AND GIVE ANOTHER DIGOXIN 0.125MCG IV PUSH X1.
[2024-11-25] MEDS ORDERED: PHARMACY COMMUNICATION MISC SCH ×2 (23:00→23:30)
--- NOTE | 2024-11-25 23:10 | NUR ---
CLARIFIED DIGOXIN DOSING WITH DR. LINN. DIGOXIN 0.25MG IV X1, DIGOXIN 0.125MG IV X1, DIGOXIN 0.125MG IV X1.
[2024-11-25] MEDS: DIGOxin 250 MCG/ML 2ML AMP IV ONE (23:23)
[2024-11-26] VITALS (16 sets, daily range): BP systolic 108–152; BP diastolic 58–79; PULSE 83–122; RESP 16–24; TEMP 97.5–98.3; O2SAT 93–98
[2024-11-26] MEDS: IpraTROPium 0.5 MG/2.5 ML INH IH ONE (00:12)
[2024-11-26] MEDS: BUDESONIDE 0.5 MG/2 ML INH IH ONE (00:12)
[2024-11-26] MEDS: DIGOxin 250 MCG/ML 2ML AMP IV ONE ×2 (04:04→08:47)
[2024-11-26 04:54] LABS: MAGNESIUM 2.3 mg/dL (1.80-2.40); PHOSPHORUS 3.4 mg/dL (2.5-4.9)
[2024-11-26 05:52] LABS: POTASSIUM 3.8 mmol/L (3.5-5.1)
--- NOTE | 2024-11-26 06:49 | EKG ---
[facility] Test Date: 2024-11-25 Test Time: 22:27:52 Pat Name: HERNÁN BERNARD Department: [facility] Room: 203 1 Gender: F Director Of Optimization: 0967 : 1945 Requested By: ROBSON HAN Order Number: [id number] Reading MD: Aspen Kimble Measurements Intervals [place] Rate: 113 P: 0 [place]: 0 QRS: 51 QRSD: 87 T: 179 QT: 373 QTc: 513 Interpretive Statements Atrial fibrillation with rapid ventricular response Ventricular premature complex Abnormal T, consider ischemia, diffuse leads Prolonged QT interval Compared to ECG 11/19/2024 18:32:00 T-wave abnormality now present Possible ischemia now present Prolonged QT interval now present Electronically Signed On 11-26-2024 14:47:42 CDT by Aspen Kimble Please click the below link to view image of tracing.
[2024-11-26 09:02] LABS: HEMATOCRIT 39.2 % (36-48); MEAN CORPUSCULAR HEMOGLOBIN 28.3 pg (27.0-33.0); MEAN CORPUSCULAR HGB CONC 31.6 g/dL (32.0-36.0); MEAN CORPUSCULAR VOLUME 89.5 fL (79-99); RED BLOOD CELL COUNT(AUTO) 4.38 MIL/uL (4.00-5.50); RED CELL DISTRIBUTION WIDTH 13.3 % (11.0-15.5); WHITE BLOOD COUNT (AUTO) 16.8 K/uL (4.8-10.8)
[2024-11-26 09:16] LABS: ALBUMIN 2.6 g/dL (3.5-5.0); BILIRUBIN,TOTAL 0.5 mg/dL (0.2-1.0); TOTAL PROTEIN, SERUM 6.3 g/dL (6.0-8.3)
--- NOTE | 2024-11-26 13:37 | PN ---
[facility] PROGRESS NOTE Date Patient Seen: November 26, 2024 Time of Visit: 1246 Supervising Physician: Dr. Mabry Primary Care Physician: Dr. 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 She is hemodynamically stable. In no apparent distress. She denies any shortness of breath cough or chest pain. Saturating 97% with 2 L via nasal cannula and afebrile. Patient with 525 mL of urine output with a balance of-162 mL. Added Lasix 20 mg IV push x1 and continue home medication as Lasix 20 mg p.o. b.i.d.. On laboratory kidneys have improved creatinine 0.9 GFR 65 glucose 174 mg/dL. White count trending down 16.3 today with neutrophils every day 6.7. Chest x-ray with mild improvement to pulmonary vascular congestion. Pt may be downgraded from ICU may got to medical surgical on tele monitoring. 11/25 patient was seen and examined at bedside with no family present. The patie nt continues to require supplemental oxygen via nasal cannula at L. This is above patient's baseline patient states baseline at home is 2 L. Patient's BNP noted to be trending up today 660, upon admission 107. As per cardiology start Milrinone 0.375 mcg/kg per minute to stimuli cardiac output and renal blood flow because the patient is markedly prerenal but is still in heart failure, appreciate cardiology's assistance we will follow recommendations. We will continue to monitor respiratory status closely. Patient to continue on IV antibiotics. We will continue with Solu-Medrol Lasix. Patient remains high risk for cardiopulmonary decompensation repeat patient's labs tomorrow morning 11/26 patient was seen and examined by bedside with family present. Patient has been weaned down to 2 L nasal cannula, yesterday patient was on 3 L. yesterday patient stated had home oxygen at home, however daughter by bedside states patient has no home oxygen. Patient will need to be evaluated for home oxygen prior to discharge. Patient to continue on Milrinone drip, we will continue to follow recommendations from Cardiology. Patient's serum sodium level noted to be trending up [id number] yesterday 146 we will continue to monitor closely. Patient to continue on IV Lasix and Solu-Medrol. REVIEW OF SYSTEMS: Twelve point review of system reviewed with patient all permanent positives mentioned above otherwise negative PHYSICAL EXAM: GENERAL: Chronically ill 79-year-old female lying in bed no obvious signs or symptoms of distress HEENT: EOMI, Sclera non icteric, moist mucosa NECK: Supple, no JVD, trachea midline LUNGS: Coarse breath sounds bilaterally upper lobes HEART: Normal S1 and S2, without murmurs ABD: Large body habitus EXT: No clubbing cyanosis or edema NEURO: Awake alert able to answer simple questions appropriately Vital Signs (last 8hr) Date Time Temp Pulse Resp B/P (MAP) Pulse Ox O2 Delivery O2 Flow Rate FiO2 11/26/24 11:41 96 24 N/Cannula Low lpm 2.0 11/26/24 11:39 96 24 11/26/24 11:00 97.7 116 18 123/79 97 Nasal Cannula 2.0 11/26/24 08:47 130 11/26/24 08:00 97 Nasal Cannula* 3 32 11/26/24 07:11 94 24 N/Cannula Low lpm 3.0 11/26/24 07:08 94 24 11/26/24 07:00 97.5 93 16 152/74 98 Room Air LABS: Hematology Labs: Test 11/26/24 04:09 11/25/24 06:12 Range/Units White Blood Count 16.8 #H 4.8-10.8 K/uL Red Blood Count 4.38 4.00-5.50 MIL/uL Hemoglobin 12.4 12.0-16.0 g/dL Hematocrit 39.2 36-48 % Mean Corpuscular Volume 89.5 79-99 fL Mean Corpuscular Hemoglobin 28.3 27.0-33.0 pg Mean Corpuscular Hemoglobin Concent 31.6 L 32.0-36.0 g/dL Red Cell Distribution Width 13.3 11.0-15.5 % Platelet Count 188 130-400 K/uL Mean Platelet Volume 12.0 H 7.5-10.5 fL Nucleated Red Blood Cells 0.0 0.0-0.19 % Immature Granulocyte % (Auto) 2.3 H 0-1 % Neutrophils (%) (Auto) 86.4 H 40.0-77.0 % Lymphocytes (%) (Auto) 5.2 L 21.0-51.0 % Monocytes (%) (Auto) 5.9 3.0-13.0 % Eosinophils (%) (Auto) 0.0 0.0-8.0 % Basophils (%) (Auto) 0.2 0.0-5.0 % Neutrophils # (Auto) 11.1 H 1.8-7.7 K/uL Lymphocytes # (Auto) 0.7 L 1.0-4.8 K/uL Monocytes # (Auto) 0.8 0.1-1.0 K/uL Eosinophils # (Auto) 0.00 0.00-0.70 K/uL Basophils # (Auto) 0.02 0.00-0.20 K/uL Absolute Immature Granulocyte (auto 0.29 0-1 K/uL Red Blood Cell Morphology See comments Chemistry Labs: Test 11/26/24 04:09 11/25/24 15:56 11/25/24 06:12 Range/Units Sodium Level 153 H 136-145 mmol/L Potassium Level 3.8 3.5-5.1 mmol/L Chloride Level 109 101-111 mmol/L Carbon Dioxide Level 28 21-32 mmol/L Blood Urea Nitrogen 38 H 7-18 mg/dL Creatinine 1.0 0.5-1.0 mg/dL Glomerular Filtration Rate Calc 57 >90 mL/min Random Glucose 193 H 70-105 mg/dL Total Calcium 8.1 L 8.5-10.1 mg/dL Phosphorus Level 3.4 2.5-4.9 mg/dL Magnesium Level 2.30 1.80-2.40 mg/dL Total Bilirubin 0.5 0.2-1.0 mg/dL Aspartate Amino Transf (AST/SGOT) 45 H 10-37 U/L Alanine Aminotransferase (ALT/SGPT) 68 12-78 U/L Alkaline Phosphatase 75 50-136 U/L Total Protein 6.3 6.0-8.3 g/dL Albumin 2.6 L 3.5-5.0 g/dL Whole Blood Glucose 235 #H 70-110 MG/DL Lactic Acid Level 1.7 0.8-2.5 mmol/L B-Type Natriuretic Peptide 660 H 0-100 pg/mL DIAGNOSTICS / RADIOLOGY RESULTS: na PLAN Continue to follow recommendations from Cardiology Continue BiPAP q.h.s. and p.r.n. Continue aspiration precautions Continue metoprolol 100 mg b.i.d. Continue lisinopril 2.5 mg daily Continue atorvastatin 20 mg q.h.s. Continue IV antibiotics Continue Solu-Medrol 40 mg b.i.d. Continue Lasix 20 mg every 8 hours Continue Milrinone drip NEURO: Minimize central acting medications as possible. Maintain fall precautions, adequate lighting during the day PULMONARY: Supplemental 02 as needed. Maintain aspiration precautions at all times CARDIOVASCULAR: Follow hemodynamics. Vital signs per facility protocol GI & NUTRITION: Continue with nutritional support. Continue stool softeners and laxatives as needed. KIDNEYS & ELECTROLYTES: Strict monitoring of intake, output and overall fluid balance. Avoid nephrotoxic medications to the extent possible. Medications to be dosed according to renal function. Monitor electrolytes and replace as needed ENDOCRINE: Maintain blood glucose between 100-180 at all times. Hypoglycemia protocol in place INFECTIOUS DISEASE: Trend temperature, WBC and procalcitonin level Follow cultures, deescalate antibiotics as soon as possible. Panculture if new onset fever ONCOLOGY/HEMATOLOGY/COAGULATION: Monitor for s/s of bleeding Monitor hemoglobin, coagulation studies as needed SKIN: Pressure ulcer prevention per facility protocol Specialty mattress ORTHO/REHAB: Continue PT/OT Prophylaxis: Continue GI and DVT prophylaxis Code Status: Full Resuscitation Disposition: TBD Other: Total patient care time 35 minutes excluding all procedures. Case discussed with supervising physician plan of care agreed upon KATHYA STEWART November 26, 2024 13:37
--- NOTE | 2024-11-26 17:19 | PN ---
Atrial fibrillation with RVR Echocardiogram 11/23/2024: Left ventricular cavity size is normal. LVEF 25-30%, stage III diastolic dysfunction, right and left atrium normal in size. Hepatic veins are dilated, inferior vena cava is mildly dilated no inspiratory collapse. Pericardium appears thickened Community-acquired pneumonia Acute hypoxic respiratory failure, extubated on 11/23/2024 Severe sepsis Hypertension Dyslipidemia Diabetes mellitus Chronic venous insufficiency Carotid stenosis s/p left CEA 2012 COPD Hypothyroidism Morbid obesity Obstructive sleep apnea Hypernatremia, progressive over 11/24-11/26 Patient feels better, less short of breath and has greater sense of well-being after addition of Milrinone. Unfortunately, sodium is rising in his now above 150. Prerenal indices noted yesterday, but BNP was still elevated and chest x- ray showed worsening infiltrates from heart failure. Patient has atrial fibrillation and rate is slightly increased. Physical exam shows an obese patient with no JVD, today no rales (yesterday she did have bibasilar rales), soft S1 and S2, no murmur. Impression and plan: Refractory heart failure, symptoms improved on Milrinone, but unfortunately hypernatremia is worsening. I will consult Nephrology for assistance with management of volume status in the presence of worsening hypernatremia Vitals/Labs Vital Signs Date Time Temp Pulse Resp B/P (MAP) Pulse Ox O2 Delivery O2 Flow Rate FiO2 11/26/24 11:41 96 24 N/Cannula Low lpm 2.0 11/26/24 11:00 97.7 123/79 97 11/26/24 08:00 32 Laboratory Tests 11/26/24 04:09 Medications Current Medications Amiodarone HCL/ Dextrose 100 ml @ As Directed STK-MED ONCE .ROUTE; Start 11/19/24 at 18:40; Stop 11/19/24 at 18:41; Status DC Propofol 100 ml @ As Directed STK-MED ONCE IV; Start 11/19/24 at 18:41; Stop 11/19/24 at 18:41; Status DC Midazolam HCl 100 ml @ As Directed STK-MED ONCE IV; Start 11/19/24 at 18:46; Stop 11/19/24 at 18:46; Status DC Amiodarone HCL/ Dextrose 200 ml @ As Directed STK-MED ONCE .ROUTE; Start 11/19/24 at 19:01; Stop 11/19/24 at 19:01; Status DC Norepinephrine 250 ml @ 0 mls/hr PROTOCOL IV Last administered on 11/20/24at 11:08; Start 11/19/24 at 19:30; Stop 11/23/24 at 18:55; Status DC Norepinephrine 250 ml @ As Directed STK-MED ONCE IV; Start 11/19/24 at 19:17; Stop 11/19/24 at 19:17; Status DC Amiodarone HCL/ Dextrose 100 ml @ 0 mls/hr PROTOCOL IV Last administered on 11/19/24at 19:26; Start 11/19/24 at 19:30; Stop 11/19/24 at 21:28; Status DC Amiodarone HCL/ Dextrose 200 ml @ 0 mls/hr PROTOCOL IV Last administered on 11/19/24at 19:29; Start 11/19/24 at 19:30; Stop 11/20/24 at 09:03; Status DC Midazolam HCl 100 ml ONCE IV; Start 11/19/24 at 19:30; Stop 11/19/24 at 19:46; Status DC Propofol 1,000 mg PROTOCOL PRN IV Last administered on 11/23/24at 03:51; Start 11/19/24 at 19:30; Stop 11/23/24 at 18:55; Status DC Acetaminophen 650 mg STK-MED ONCE RC; Start 11/19/24 at 19:44; Stop 11/19/24 at 19:44; Status DC Acetaminophen 650 mg ONCE RC Last administered on 11/19/24at 20:25; Start 11/19/24 at 20:00; Stop 11/19/24 at 23:59; Status DC Pantoprazole Sodium 40 mg ONCE ONCE IVP Last administered on 11/19/24at 20:32; Start 11/19/24 at 20:00; Stop 11/19/24 at 20:01; Status DC Enoxaparin Sodium 160 mg ONCE ONCE SQ Last administered on 11/19/24at 20:32; Start 11/19/24 at 20:00; Stop 11/19/24 at 20:01; Status DC Albuterol 1 udvial [id number] IH Last administered on 11/20/24at 03:10; Start 11/19/24 at 22:00; Stop 11/20/24 at 15:21; Status DC Polyethylene Glycol 17 gm DAILY PO Last administered on 11/26/24at 08:46; Start 11/20/24 at 09:00; Stop 12/20/24 at 08:59 Acetaminophen 650 mg Q6H PRN PO; Start 11/19/24 at 20:30; Stop 12/19/24 at 20:29 Acetaminophen 650 mg Q6H PRN RC; Start 11/19/24 at 20:30; Stop 12/19/24 at 20:29 Ondansetron HCl 4 mg Q6H PRN IVP; Start 11/19/24 at 20:30; Stop 12/19/24 at 20:29 Hydralazine HCl 10 mg Q6H PRN IV; Start 11/19/24 at 20:30; Stop 12/19/24 at 20:29 Labetalol HCl 10 mg Q2H PRN IV; Start 11/19/24 at 20:30; Stop 11/20/24 at 08:12; Status DC Hydromorphone HCl 0.5 mg Q2H PRN IVP; Start 11/19/24 at 20:30; Stop 11/20/24 at 08:08; Status DC Insulin Human Regular INSULIN SLIDING SCAL... Q6H6 SQ Last administered on 11/21/24at 00:23; Start 11/20/24 at 00:00; Stop 11/23/24 at 21:14; Status DC Azithromycin 250 ml @ 250 mls/hr Q24H IVPB Last administered on 11/25/24at 19:55; Start 11/19/24 at 20:30; Stop 11/29/24 at 20:29 Ceftriaxone Sodium 1 gm Q24H IVPB Last administered on 11/22/24at 20:13; Start 11/19/24 at 20:30; Stop 11/23/24 at 08:44; Status DC Pantoprazole Sodium 40 mg DAILY IVP Last administered on 11/26/24at 08:46; Start 11/20/24 at 09:00; Stop 12/20/24 at 08:59 Enoxaparin Sodium 40 mg DAILY SQ Last administered on 11/23/24at 08:33; Start 11/20/24 at 09:00; Stop 11/23/24 at 13:03; Status DC Budesonide 0.5 mg BIDRESP IH Last administered on 11/26/24at 07:07; Start 11/20/24 at 06:00; Stop 12/20/24 at 05:59 Fentanyl Citrate 100 ml @ As Directed STK-MED ONCE IV; Start 11/19/24 at 20:58; Stop 11/19/24 at 20:58; Status DC Fentanyl Citrate 100 ml @ 2.5 mls/hr PROTOCOL IV Last administered on 11/21/24at 11:43; Start 11/19/24 at 21:30; Stop 11/21/24 at 13:50; Status DC Amiodarone HCL/ Dextrose 100 ml @ 0 mls/hr PROTOCOL IV; Start 11/19/24 at 21:30; Stop 11/20/24 at 09:03; Status DC Magnesium Sulfate 50 ml @ 0 mls/hr PROTOCOL IV Last administered on 11/20/24at 06:00; Start 11/19/24 at 21:30; Stop 12/19/24 at 21:29 Potassium Chloride 100 ml @ 50 mls/hr PROTOCOL IV Last administered on 11/20/24at 05:59; Start 11/19/24 at 21:30; Stop 12/19/24 at 21:29 Amiodarone HCl 540 mg/Dextrose 300 ml @ 16.667 mls/ hr PROTOCOL IV Last administered on 11/20/24at 00:34; Start 11/20/24 at 00:30; Stop 11/23/24 at 18:55; Status DC Amiodarone HCl 540 mg/Dextrose 300 ml @ 0 mls/hr PROTOCOL IV; Start 11/20/24 at 00:30; Stop 11/20/24 at 00:16; Status DC Hydromorphone HCl 0.5 mg Q2H PRN IVP; Start 11/20/24 at 08:30; Stop 11/23/24 at 18:55; Status DC Phenylephrine HCl 50 mg/Sodium Chloride 250 ml @ 0 mls/hr AD PRN IV; Start 11/20/24 at 13:30; Stop 11/20/24 at 13:05; Status DC Phenylephrine HCl 10 mg/Sodium Chloride 250 ml @ 0 mls/hr AD PRN IV Last administered on 11/20/24at 13:21; Start 11/20/24 at 13:30; Stop 11/20/24 at 17:03; Status DC Ipratropium [place] 0.5 MG [id number] IH Last administered on 11/23/24at 07:17; Start 11/20/24 at 18:00; Stop 11/23/24 at 10:29; Status DC Phenylephrine HCl 50 mg/Sodium Chloride 250 ml @ 0 mls/hr PROTOCOL PRN IV Last administered on 11/20/24at 17:44; Start 11/20/24 at 17:00; Stop 12/20/24 at 16:59 Methylprednisolone Sodium Succinate 60 mg Q8H IVP Last administered on 11/23/24at 01:46; Start 11/20/24 at 18:00; Stop 11/23/24 at 08:45; Status DC Dextrose/Sodium Chloride 1,000 ml @ 50 mls/hr Q20H IV Last administered on 11/24/24at 02:53; Start 11/20/24 at 18:00; Stop 11/24/24 at 09:29; Status DC Chlorhexidine Gluconate 15 ml BID MM Last administered on 11/26/24at 09:18; Start 11/21/24 at 21:00; Stop 12/05/24 at 20:59 Artificial Tears 1 DROP Q2H PRN OU Last administered on 11/21/24at 16:12; Start 11/21/24 at 11:00; Stop 12/21/24 at 10:59 Fentanyl Citrate 25 mcg Q2H PRN IVP; Start 11/21/24 at 14:00; Stop 11/23/24 at 18:55; Status DC Iohexol 35,000 mg STK-MED ONCE IV; Start 11/21/24 at 16:52; Stop 11/21/24 at 16:52; Status DC Lisinopril 2.5 mg DAILY PO Last administered on 11/26/24at 08:46; Start 11/23/24 at 09:00; Stop 12/23/24 at 08:59 Metoprolol Tartrate 50 mg BID PO; Start 11/22/24 at 21:00; Stop 11/22/24 at 10:06; Status DC Diltiazem HCl 180 mg DAILY PO; Start 11/23/24 at 09:00; Stop 11/22/24 at 10:06; Status DC Home Med Linaclotide (Linzess) 72 MCG DAILY PO Last administered on 11/26/24at 13:47; Start 11/23/24 at 09:00; Stop 12/23/24 at 08:59 Atorvastatin Calcium 20 mg HS PO Last administered on 11/25/24at 19:53; Start 11/22/24 at 21:00; Stop 12/22/24 at 20:59 Diltiazem HCl 180 mg DAILY PO Last administered on 11/24/24at 08:47; Start 11/22/24 at 10:30; Stop 11/24/24 at 19:43; Status DC Metoprolol Tartrate 50 mg BID PO Last administered on 11/24/24at 08:47; Start 11/22/24 at 10:30; Stop 11/24/24 at 19:43; Status DC Rocuronium [place] 50 mg STK-MED ONCE IV; Start 11/19/24 at 11:28; Stop 11/22/24 at 11:28; Status DC Etomidate 20 mg STK-MED ONCE IVP; Start 11/19/24 at 11:28; Stop 11/22/24 at 11:28; Status DC Diltiazem HCl 5 mg ONCE ONCE IVP Last administered on 11/22/24at 11:52; Start 11/22/24 at 12:00; Stop 11/22/24 at 12:01; Status DC Ceftriaxone Sodium 2 gm Q24H IVPB Last administered on 11/25/24at 19:55; Start 11/23/24 at 20:30; Stop 12/03/24 at 20:29 Methylprednisolone Sodium Succinate 40 mg Q8H IVP Last administered on 11/23/24at 12:28; Start 11/23/24 at 10:00; Stop 11/23/24 at 18:55; Status DC Ipratropium [place] 0.5 MG [id number] IH Last administered on 11/26/24at 11:39; Start 11/23/24 at 10:30; Stop 12/20/24 at 17:59 Enoxaparin Sodium 120 mg BID ONCE SQ Last administered on 11/23/24at 21:43; Start 11/23/24 at 21:00; Stop 11/23/24 at 21:01; Status DC Hydromorphone HCl 0.5 mg Q4H PRN IVP; Start 11/23/24 at 19:00; Stop 11/24/24 at 20:29; Status DC Methylprednisolone Sodium Succinate 40 mg Q12H IVP Last administered on 11/26/24at 06:14; Start 11/24/24 at 06:00; Stop 12/23/24 at 09:59 Furosemide 20 mg ONCE ONCE IV Last administered on 11/24/24at 08:47; Start 11/24/24 at 08:30; Stop 11/24/24 at 08:31; Status DC Furosemide 20 mg BID PO Last administered on 11/24/24at 21:29; Start 11/24/24 at 21:00; Stop 11/25/24 at 08:41; Status DC Metoprolol Tartrate 100 mg BID PO; Start 11/24/24 at 21:00; Stop 11/24/24 at 19:49; Status DC Metoprolol Tartrate 100 mg BID PO Last administered on 11/26/24at 08:46; Start 11/24/24 at 20:00; Stop 12/25/24 at 19:41 Furosemide 40 mg ONCE ONCE IV; Start 11/24/24 at 20:00; Stop 11/24/24 at 20:06; Status DC Milrinone Lactate/ Dextrose 100 ml @ 0 mls/hr PROTOCOL IV Last administered on 11/26/24at 14:05; Start 11/25/24 at 09:00; Stop 12/25/24 at 08:59 Furosemide 20 mg Q8H IV Last administered on 11/26/24at 08:46; Start 11/25/24 at 09:00; Stop 12/25/24 at 08:59 Metoprolol Tartrate 5 mg ONCE ONCE IV Last administered on 11/25/24at 21:24; Start 11/25/24 at 21:30; Stop 11/25/24 at 21:31; Status DC Metoprolol Tartrate 5 mg ONCE ONCE IV Last administered on 11/25/24at 21:48; Start 11/25/24 at 22:00; Stop 11/25/24 at 22:01; Status DC Pharmacy Profile Note 1 each ONCE MISC; Start 11/25/24 at 23:00; Stop 11/25/24 at 23:15; Status DC Pharmacy Profile Note 1 each ONCE MISC; Start 11/25/24 at 23:30; Stop 11/25/24 at 23:15; Status DC Digoxin 250 mcg ONCE ONCE IV Last administered on 11/25/24at 23:23; Start 11/25/24 at 23:30; Stop 11/25/24 at 23:31; Status DC Ipratropium [place] 0.5 mg STK-MED ONCE IH; Start 11/26/24 at 00:03; Stop 11/26/24 at 00:12; Status DC Budesonide 0.5 mg STK-MED ONCE IH; Start 11/26/24 at 00:03; Stop 11/26/24 at 00:12; Status DC Digoxin 125 mcg ONCE ONCE IV Last administered on 11/26/24at 04:04; Start 11/26/24 at 03:30; Stop 11/26/24 at 03:31; Status DC Digoxin 125 mcg ONCE ONCE IV Last administered on 11/26/24at 08:47; Start 11/26/24 at 07:30; Stop 11/26/24 at 07:31; Status DC TAMIA DORMAN MD November 26, 2024 17:19
[2024-11-27] VITALS (14 sets, daily range): BP systolic 113–148; BP diastolic 58–82; PULSE 60–114; RESP 18–20; TEMP 98–98.9; O2SAT 94–97
[2024-11-27 03:50] LABS: HEMATOCRIT 39.9 % (36-48); MEAN CORPUSCULAR HEMOGLOBIN 28.5 pg (27.0-33.0); MEAN CORPUSCULAR HGB CONC 32.3 g/dL (32.0-36.0); MEAN CORPUSCULAR VOLUME 88.1 fL (79-99); RED BLOOD CELL COUNT(AUTO) 4.53 MIL/uL (4.00-5.50); RED CELL DISTRIBUTION WIDTH 13.2 % (11.0-15.5); WHITE BLOOD COUNT (AUTO) 17.5 K/uL (4.8-10.8)
[2024-11-27 04:03] LABS: CREATININE 0.8 mg/dL (0.5-1.0); PHOSPHORUS 3.1 mg/dL (2.5-4.9); POTASSIUM 3.7 mmol/L (3.5-5.1)
[2024-11-27] MEDS ORDERED: LEVO50CA5 PO (09:07)
[2024-11-27] MEDS ORDERED: RIVA20TA PO (09:07)
[2024-11-27] MEDS: RIVAROXABAN 20 MG TABLET PO SCH (09:23)
--- NOTE | 2024-11-27 09:44 | HMCIMG ---
Exam Type: CHEST 1VW Clinical Information: chf Comparison: None Findings: Pulmonary pattern is as before. No worrisome interval changes have taken place. Impression: Stable exam.
--- NOTE | 2024-11-27 10:02 | PN ---
This is a 79-year-old female with a history of type 2 diabetes mellitus, hypertension, hyperlipidemia, obstructive sleep apnea, chronic venous insufficiency, carotid artery disease status post left carotid endarterectomy and atrial fibrillation which was initially diagnosed in July 2024. She was admitted 11/19/2024 secondary to acute combined systolic and diastolic heart failure exacerbation in the setting of atrial fibrillation with rapid ventricular response. She underwent echocardiogram 11/21/2024 which demonstrates an ejection fraction of 25-30% with stage III diastolic dysfunction, mild LVH, normal-sized left atrium, trace mitral valve regurgitation, trace tricuspid valve regurgitation and trace pericardial effusion. This is in contrast to an ejection fraction of 60-65%. She was started on amiodarone infusion then transitioned to her home medications for rate control which includes diltiazem ER 180 mg once daily metoprolol tartrate 50 mg twice daily. She also received at least three doses of digoxin. She was started on IV Lasix 20 mg every 8 hours and Milrinone drip on 11/25/2024. She underwent CT scan of the chest 11/21/2024 which shows small right pleural effusion with mild interstitial fibrosis. Venous Doppler bilateral lower extremities was negative for DVT. White blood count 17.5, hemoglobin 12.9, hematocrit 39.9, platelets 198, creatinine 0.8, potassium 3.7, magnesium 2.0, BNP 188 down from 660, blood cultures x2 negative after five days, respiratory culture no growth after 59 hours. Cumulative I and O balance positive 4102.6 mL. I and O balance 11/27/2024 is-1255 mL. She is currently in atrial fibrillation with ventricular rates in the 110s to 120s. Her most recent blood pressure is 122/58. She reports progressive worsening of shortness or breath prior to her admission on 11/19/2024. She states that she experienced similar symptoms when she was admitted to [facility] in July 2024 with newly discovered atrial fibrillation. Her last dose of Xarelto was 11/19/2024. She reports improvement in shortness of breath and lower extremity edema. On exam, she is in no acute distress, irregularly irregular rhythm, bibasilar crackles noted, trace bilateral lower extremity edema. Assessment: 1. Persistent atrial fibrillation. 2. Acute combined systolic and diastolic heart failure exacerbation. 3. Heart failure with reduced ejection fraction. 4. Mild interstitial fibrosis on chest CT. 5. Leukocytosis. 6. Hypertension. 7. Hyperlipidemia. 8. Obstructive sleep apnea. Plan: 1. She was admitted with acute combined systolic and diastolic heart failure exacerbation in the setting of atrial fibrillation with rapid ventricular response. The atrial fibrillation remains inadequately rate control. We will load digoxin as follows: IV digoxin 250 mcg x 1, repeat in 6 hours. Start digoxin 250 mcg once daily in the a.m.. Continue metoprolol tartrate 100 mg twice daily. 2. Ultimately, we recommend nondenominational of sinus rhythm due to the acute heart failure exacerbation with inadequate rate control. Her last dosage of Xarelto was 11/19/2024. She has been given Lovenox but not consistently. We will restart Xarelto 20 mg once daily. 3. Recommend LAY guided cardioversion on Friday or Friday of next week. 4. In the meantime, continue Milrinone infusion and IV Lasix 20 mg every 8 hours due to persistent volume overload. 5. Continue atorvastatin 20 mg once daily and lisinopril 2.5 mg once daily Vitals/Labs Vital Signs Date Time Temp Pulse Resp B/P (MAP) Pulse Ox O2 Delivery O2 Flow Rate FiO2 11/27/24 07:03 103 19 11/27/24 07:03 N/Cannula Low lpm 2.0 28 11/27/24 07:00 98.1 122/58 96 Laboratory Tests 11/27/24 03:32 JHONATHAN WALSH November 27, 2024 10:02
[2024-11-27] MEDS: DIGOxin 250 MCG/ML 2ML AMP IV ONE ×2 (10:25→16:13)
--- NOTE | 2024-11-27 13:35 | CONS ---
REFERRING PHYSICIAN: Xavier Amado MD REASON FOR CONSULTATION: Renal failure. HISTORY OF PRESENT ILLNESS: A 79-year-old female who has had a prolonged hospital course. The patient with a history of diabetes mellitus and hypertension. The patient with a history of known COPD. The patient also with a history of atrial fibrillation. The patient initially presented with underlying respiratory distress, requiring mechanical ventilation. The patient has been successfully extubated. She has had worsening renal dysfunction in the hospital and the patient is being seen in consultation for all of the above. PAST MEDICAL HISTORY: Diabetes mellitus, hypertension, coronary artery disease, hypercholesterolemia. SOCIAL HISTORY: She lives independently. There is no active tobacco use. FAMILY HISTORY: There is no renal disease in the family. ALLERGIES: No allergies. MEDICATIONS: Medications were all noted. REVIEW OF SYSTEMS: CONSTITUTIONAL: The patient is feeling weak and tired. HEENT: No change in vision. No change in hearing. CARDIOVASCULAR: There is no current chest pain or palpitations. PULMONARY: Shortness of breath is improved. GASTROINTESTINAL: She is tolerating a diet. MUSCULOSKELETAL: Complaints of weakness. NEUROLOGICAL: No history of seizures or focal deficits. PSYCHIATRIC: No history of hallucination or psychosis. ENDOCRINE: Diabetes mellitus. No history of thyroid disease. HEME: History of anemia. No history of malignancy. PHYSICAL EXAMINATION: VITAL SIGNS: Blood pressure is 114/74, pulse in the 100s, afebrile. GENERAL: She is a chronically ill female, elderly, lying in bed on the medical floor. HEENT: Head is atraumatic. Pupils are equal, roving to light. Oropharynx is without exudate. Nares clear. NECK: There is no JVP. No thyromegaly. CARDIOVASCULAR: Regular. There is no S3 or S4 gallop. LUNGS: Coarse with equal thoracic movement. ABDOMEN: Soft, nondistended, and nontender. EXTREMITIES: There is no edema. NEUROLOGICAL: She is awake. She is alert. She is oriented. SKIN: Reveals no rash or nodule. BACK: There is no CVA tenderness. No back deformities. LABORATORY DATA: Sodium 144, potassium 3.7, chloride 104, bicarb 38, BUN 32, creatinine 0.8. Hemoglobin 12, hematocrit 39, white cell count 17,000. Urinalysis is noted. IMPRESSION: * Acute on chronic renal failure. * Coronary artery disease with persistent atrial fibrillation. * Contraction alkalosis. * Hypertension. PLAN: The patient's renal function is noted. The patient with some mild hypernatremia, is encouraged on a fluid restriction. The patient now with underlying metabolic alkalosis. We will change the Lasix to 20 mg p.o. b.i.d. and we will follow closely. The patient's workup in regard to the AFib is ongoing per Cardiology and will follow closely. The patient and family at the bedside, multiple questions were all answered. TID: [id number] RECEIPT: [id number]
[2024-11-27] MEDS: metoPROLOL tartRATE 1 MG/ML 5ML VIAL IV ONE (14:17)
--- NOTE | 2024-11-27 14:18 | PN ---
[facility] PROGRESS NOTE Date Patient Seen: November 27, 2024 Time of Visit: 1311 Supervising Physician: Dr. Day Primary Care Physician: Dr. 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 She is hemodynamically stable. In no apparent distress. She denies any shortness of breath cough or chest pain. Saturating 97% with 2 L via nasal cannula and afebrile. Patient with 525 mL of urine output with a balance of-162 mL. Added Lasix 20 mg IV push x1 and continue home medication as Lasix 20 mg p.o. b.i.d.. On laboratory kidneys have improved creatinine 0.9 GFR 65 glucose 174 mg/dL. White count trending down 16.3 today with neutrophils every day 6.7. Chest x-ray with mild improvement to pulmonary vascular congestion. Pt may be downgraded from ICU may got to medical surgical on tele monitoring. 11/25 patient was seen and examined at bedside with no family present. The patient continues to require supplemental oxygen via nasal cannula at L. This is above patient's baseline patient states baseline at home is 2 L. Patient's BNP noted to be trending up today 660, upon admission 107. As per cardiology start Milrinone 0.375 mcg/kg per minute to stimuli cardiac output and renal blood flow because the patient is markedly prerenal but is still in heart failure, appreciate cardiology's assistance we will follow recommendations. We will continue to monitor respiratory status closely. Patient to continue on IV antibiotics. We will continue with Solu-Medrol Lasix. Patient remains high risk for cardiopulmonary decompensation repeat patient's labs tomorrow morning 11/26 patient was seen and examined by bedside with family present. Patient has been weaned down to 2 L nasal cannula, yesterday patient was on 3 L. yesterday patient stated had home oxygen at home, however daughter by bedside states patient has no home oxygen. Patient will need to be evaluated for home oxygen prior to discharge. Patient to continue on Milrinone drip, we will continue to follow recommendations from Cardiology. Patient's serum sodium level noted to be trending up yesterday 146 we will continue to monitor closely. Patient to continue on IV Lasix and Solu-Medrol. 11/27 patient was seen and examined by bedside with the family present. Patient remains on 2 L nasal cannula appears to be tolerating well. Patient's BNP trending down this am 188 previous 660. Patient to continue on Milrinone drip as per cardiology's recommendations. Patient noted to be in AFib RVR. Cardiology ordered a loading dose of digoxin IV 250 mcg x 1 repeat 6 hours then start digoxin 250 mg daily in a.m. and continue metoprolol titrate 100 mg twice daily, started patient on Xarelto 20 mg daily, and recommending LAY guided cardioversion to be done on Friday of next week. Patient's serum sodium level trending down [id number] yesterday 153. We will continue to follow recommendations from Nephrology. Nephrology has decrease patient's Lasix to 20 mg b.i.d. REVIEW OF SYSTEMS: Twelve point review of system reviewed with patient all permanent positives mentioned above otherwise negative PHYSICAL EXAM: GENERAL: Chronically ill 79-year-old female lying in bed no obvious signs or symptoms of distress HEENT: EOMI, Sclera non icteric, moist mucosa NECK: Supple, no JVD, trachea midline LUNGS: Coarse breath sounds bilaterally upper lobes HEART: Normal S1 and S2, without murmurs ABD: Large body habitus EXT: No clubbing cyanosis or edema NEURO: Awake alert able to answer simple questions appropriately Vital Signs (last 8hr) Date Time Temp Pulse Resp B/P (MAP) Pulse Ox O2 Delivery O2 Flow Rate FiO2 11/27/24 11:55 102 18 N/Cannula Low lpm 1.0 11/27/24 11:25 131 11/27/24 11:18 100 19 11/27/24 11:00 98.1 112 19 114/74 93 Nasal Cannula 11/27/24 10:25 130 11/27/24 09:44 94 Nasal Cannula* 2 28 11/27/24 07:03 103 19 11/27/24 07:03 105 20 N/Cannula Low lpm 2.0 28 11/27/24 07:00 98.1 94 19 122/58 96 Nasal Cannula 2.0 LABS: Hematology Labs: Test 11/27/24 03:32 Range/Units White Blood Count 17.5 H 4.8-10.8 K/uL Red Blood Count 4.53 4.00-5.50 MIL/uL Hemoglobin 12.9 12.0-16.0 g/dL Hematocrit 39.9 36-48 % Mean Corpuscular Volume 88.1 79-99 fL Mean Corpuscular Hemoglobin 28.5 27.0-33.0 pg Mean Corpuscular Hemoglobin Concent 32.3 32.0-36.0 g/dL Red Cell Distribution Width 13.2 11.0-15.5 % Platelet Count 198 130-400 K/uL Mean Platelet Volume 11.4 H 7.5-10.5 fL Nucleated Red Blood Cells 0.0 0.0-0.19 % Chemistry Labs: Test 11/27/24 03:32 11/26/24 04:09 11/25/24 15:56 Range/Units Sodium Level 144 136-145 mmol/L Potassium Level 3.7 3.5-5.1 mmol/L Chloride Level 104 101-111 mmol/L Carbon Dioxide Level 38 H 21-32 mmol/L Blood Urea Nitrogen 32 H 7-18 mg/dL Creatinine 0.8 0.5-1.0 mg/dL Glomerular Filtration Rate Calc 75 >90 mL/min Random Glucose 245 H 70-105 mg/dL Total Calcium 8.3 L 8.5-10.1 mg/dL Phosphorus Level 3.1 2.5-4.9 mg/dL Magnesium Level 2.00 1.80-2.40 mg/dL B-Type Natriuretic Peptide 188 H 0-100 pg/mL Total Bilirubin 0.5 0.2-1.0 mg/dL Aspartate Amino Transf (AST/SGOT) 45 H 10-37 U/L Alanine Aminotransferase (ALT/SGPT) 68 12-78 U/L Alkaline Phosphatase 75 50-136 U/L Total Protein 6.3 6.0-8.3 g/dL Albumin 2.6 L 3.5-5.0 g/dL Whole Blood Glucose 235 #H 70-110 MG/DL DIAGNOSTICS / RADIOLOGY RESULTS: na PLAN Continue to follow recommendations from Cardiology Continue BiPAP q.h.s. and p.r.n. Continue aspiration precautions Continue metoprolol 100 mg b.i.d. Continue lisinopril 2.5 mg daily Continue atorvastatin 20 mg q.h.s. Continue IV antibiotics Continue Solu-Medrol 40 mg b.i.d. Continue Lasix 20 mg bid Continue Milrinone drip Continue Xarelto 20 mg daily As per cardiology LAY guided cardioversion to be scheduled for possible Friday or Friday of next week Continue digoxin 250 mcg daily NEURO: Minimize central acting medications as possible. Maintain fall precautions, adequate lighting during the day PULMONARY: Supplemental 02 as needed. Maintain aspiration precautions at all times CARDIOVASCULAR: Follow hemodynamics. Vital signs per facility protocol GI & NUTRITION: Continue with nutritional support. Continue stool softeners and laxatives as needed. KIDNEYS & ELECTROLYTES: Strict monitoring of intake, output and overall fluid balance. Avoid nephrotoxic medications to the extent possible. Medications to be dosed according to renal function. Monitor electrolytes and replace as needed ENDOCRINE: Maintain blood glucose between 100-180 at all times. Hypoglycemia protocol in place INFECTIOUS DISEASE: Trend temperature, WBC and procalcitonin level Follow cultures, deescalate antibiotics as soon as possible. Panculture if new onset fever ONCOLOGY/HEMATOLOGY/COAGULATION: Monitor for s/s of bleeding Monitor hemoglobin, coagulation studies as needed SKIN: Pressure ulcer prevention per facility protocol Specialty mattress ORTHO/REHAB: Continue PT/OT Prophylaxis: Continue GI and DVT prophylaxis Code Status: Full Resuscitation Disposition: TBD Other: Total patient care time 35 minutes excluding all procedures. Case discussed with supervising physician plan of care agreed upon KATHYA STEWART November 27, 2024 14:18
[2024-11-27] MEDS: furoSEMIDE 20 MG TABLET PO SCH (16:12)
[2024-11-28] VITALS (14 sets, daily range): BP systolic 118–148; BP diastolic 68–85; PULSE 82–109; RESP 16–20; TEMP 97.5–98.4; O2SAT 94–95
[2024-11-28 05:03] LABS: HEMATOCRIT 40.2 % (36-48); MEAN CORPUSCULAR HEMOGLOBIN 28.6 pg (27.0-33.0); MEAN CORPUSCULAR HGB CONC 32.3 g/dL (32.0-36.0); MEAN CORPUSCULAR VOLUME 88.4 fL (79-99); RED BLOOD CELL COUNT(AUTO) 4.55 MIL/uL (4.00-5.50); RED CELL DISTRIBUTION WIDTH 13.2 % (11.0-15.5)
[2024-11-28 05:21] LABS: CREATININE 0.9 mg/dL (0.5-1.0); DIGOXIN 1.3 ng/mL (0.50-2.00); PHOSPHORUS 3.4 mg/dL (2.5-4.9)
--- NOTE | 2024-11-28 05:50 | NUR ---
Paged [facility] to report critical results. Waiting for callback. Addendum: 11/28/24 at 0557 by NATHALIE ELIZONDO RN RN Spoke to Duran King NP from [facility] and informed of critical CO2 level. Provider ordered a stat ABG. Informed Nallely WHITTAKER of order.
[2024-11-28 06:30] LABS: ABG HCO3 38.7 mmol/L (21.0-28.0); ABG OXYGEN SATURATION 96.6 % (94.0-98.0); ABG PCO2 58 mmHg (32-45); ABG PH 7.446 (7.350-7.450); PO2, ARTERIAL BG 85.4 mmHg (83.0-108.0); VENT MODE, BG 1 L NC (ROOM AIR)
[2024-11-28] MEDS: DIGOxin 250MCG TABLET PO SCH (08:36)
--- NOTE | 2024-11-28 09:18 | PN ---
This is a 79-year-old female with a history of type 2 diabetes mellitus, hypertension, hyperlipidemia, obstructive sleep apnea, chronic venous insufficiency, carotid artery disease status post left carotid endarterectomy and atrial fibrillation which was initially diagnosed in July 2024. She was admitted 11/19/2024 secondary to acute combined systolic and diastolic heart failure exacerbation in the setting of atrial fibrillation with rapid ventricular response. She underwent echocardiogram 11/21/2024 which demonstrates an ejection fraction of 25-30% with stage III diastolic dysfunction, mild LVH, normal-sized left atrium, trace mitral valve regurgitation, trace tricuspid valve regurgitation and trace pericardial effusion. This is in contrast to an ejection fraction of 60-65%. Yesterday she was loaded with IV digoxin 250 mcg x 2 in addition to metoprolol tartrate 100 mg twice daily. Xarelto 20 mg once daily was resumed. Unfortunately she remains in atrial fibrillation with rapid ventricular response with ventricular rates in the 110s to 120s. She continues on Milrinone infusion. IV furosemide was transitioned to p.o. furosemide 20 mg twice daily as recommended by Nephrology. I and O balance 11/27/2024 is -1255 mL. She has a positive balance of 407.5 mL this morning. White blood count 17.0, hemoglobin 13.0, hematocrit 40.2, platelets 183, creatinine 0.9, GFR 65, BUN 31, potassium 4.0, magnesium 2.0, digoxin level 1.30. Her most recent blood pressure is 124.78. Chest x-ray yesterday showed right lower lung pulmonary infiltrates with slight improvement, trace left pleural effusion. She reports improvement in shortness of breath and lower extremity edema. She states that she is feeling well this morning. On exam, she is in no acute distress, irregularly irregular rhythm, decreased air entry noted to bilateral lung bases, trace bilateral lower extremity edema. Assessment: 1. Persistent atrial fibrillation with inadequate rate control. 2. Acute combined systolic and diastolic heart failure exacerbation. 3. Heart failure with reduced ejection fraction. 4. Mild interstitial fibrosis on chest CT. 5. Leukocytosis. 6. Hypertension. 7. Hyperlipidemia. 8. Obstructive sleep apnea. Plan: Discussed with Dr. Rivas. 1. She was admitted with acute combined systolic and diastolic heart failure exacerbation in the setting of atrial fibrillation with rapid ventricular response. The atrial fibrillation remains inadequately rate control. Continue metoprolol tartrate 100 mg twice daily and start digoxin 250 mcg once daily this morning. Continue Xarelto 20 mg once daily. 2. We recommend faith of sinus rhythm due to the acute heart failure exacerbation with inadequate rate control. Recommend LAY guided cardioversion. Anesthesia may be required due to her weight. If LAY is negative for RAJENDRA thrombus, proceed with cardioversion followed by initiation of antiarrhytmic therapy. Recommend Multaq 400 mg twice daily. Alternatively, start amiodarone infusion then transition to Multaq 400 mg twice daily once complete. Do not recommend long-term use of amiodarone due to interstitial fibrosis seen on chest CT. The procedure was discussed with the patient and she wishes to proceed. 3. Continue Milrinone infusion. IV Lasix has been transitioned to p.o. Lasix 20 mg twice daily. Clinically she is still volume overloaded and will require more diuresis. We will discuss this further with the nephrology team. 4. Continue atorvastatin 20 mg once daily and lisinopril 2.5 mg once daily Vitals/Labs Vital Signs Date Time Temp Pulse Resp B/P (MAP) Pulse Ox O2 Delivery O2 Flow Rate FiO2 11/28/24 08:36 109 11/28/24 08:10 95 Nasal Cannula* 2 28 11/28/24 08:01 98.1 16 134/78 Laboratory Tests 11/28/24 04:44 JHONATHAN WALSH November 28, 2024 09:18
[2024-11-28] MEDS ORDERED: metoPROLOL tartRATE 1 MG/ML 5ML VIAL IV PRN (12:00)
[2024-11-28] MEDS: metoPROLOL tartRATE 50 MG TAB PO ONE (13:24)
--- NOTE | 2024-11-28 15:26 | PN ---
FOLLOWUP PROGRESS NOTE SUBJECTIVE: A 79-year-old female with a history of known cardiomyopathy. The patient initially presented and found to have underlying congestive heart failure. She has had underlying renal dysfunction in the hospital. Creatinine has been elevated. The patient with previous history of mechanical ventilation. She has been extubated and transferred out to the medical floor. She is being seen by Cardiology and the patient is being seen as a followup visit for all of the above. REVIEW OF SYSTEMS: CONSTITUTIONAL: The patient is feeling improved since admission. HEENT: No change in vision. No change in hearing. CARDIOVASCULAR: There is no current chest pain or palpitations. PULMONARY: Shortness of breath is improved. GASTROINTESTINAL: She is tolerating a diet. MUSCULOSKELETAL: Complaints of weakness. PHYSICAL EXAMINATION: VITAL SIGNS: Blood pressure is 134/78, pulse in the 90s, afebrile. GENERAL: Chronically ill female, obese, lying in bed on medical floor. HEENT: Head is atraumatic. Pupils are equal, roving to light. Oropharynx is without exudate. Nares clear. NECK: There is no JVP. There is no thyromegaly. No mass. CARDIOVASCULAR: Regular. There is no S3 or S4 gallop. LUNGS: Coarse with equal thoracic movement. ABDOMEN: Soft, nondistended, and nontender. EXTREMITIES: Reveal no clubbing, no cyanosis. NEUROLOGICAL: She is awake. She is alert. LABORATORY DATA: Sodium 144, potassium 4, chloride 103, bicarbonate 41, BUN 31, creatinine is 0.9. Hemoglobin 13, hematocrit 40. IMPRESSION: * Acute on chronic renal dysfunction. * Known cardiomyopathy. * Diabetes mellitus. * Hypertension. PLAN: The patient's creatinine has remained fairly stable. The patient's workup is ongoing per Cardiology. The patient does tolerate the low-dose LASHONDA inhibitor without difficulty. Workup is ongoing per Cardiology. Electrolytes have all been aggressively repleted. All labs can be repeated in the morning. TID: [id number] RECEIPT: [id number]
--- NOTE | 2024-11-28 21:21 | PN ---
[facility] PROGRESS NOTE Date Patient Seen: November 28, 2024 Time of Visit: 21:10 Supervising Physician: Venkata Day MD Primary Care Physician: Dr. 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 She is on 2 L via nasal cannula in no a pparent distress. Saturating 97% respiratory rate of 18 heart rate between 100- 110. Metoprolol has been ordered per Cardiology. We may start weaning Milrinone drip per Dr Day recchetan. Leaning with 120 27 kg. WBCs of 17 trending down from yesterday, H&H is 13 over 40, platelet count 183 K. sodium 144 potassium of four chloride 103 CO2 of 41. Decreasing Lasix to 20 mg daily. BUN of 31, creatinine of 0.9 GFR 65. She reports some loss of hearing to right ear post extubation. Weaning steroids to prednisone 20 mg daily. There is no family at the bedside at this time. Plans for LAY guided cardioversion with the NS he is in tomorrow morning per Cardiology. REVIEW OF SYSTEMS: General: No malaise or fever. Neurological: No fainting episodes or seizures. HEENT: No nasal congestion or nasal secretion. + hard of hearing to rt ear. Respiratory: No cough, shortness of breath, or wheezing Cardiac: No chest pain or palpitations. Gastrointestinal: No vomiting or diarrhea. Genitourinary: No dysuria hematuria. Skin: No rashes or lesions. Hematological: No bruises or bleeding. Musculoskeletal: No joint pains or arthralgias. Psychiatric: No depression or panic attacks. PHYSICAL EXAM: GENERAL: Chronically ill 79-year-old female lying in bed no obvious signs or symptoms of distress HEENT: EOMI, Sclera non icteric, moist mucosa NECK: Supple, no JVD, trachea midline LUNGS: clear breath sounds, bilaterally. no wheezes. HEART: Normal S1 and S2, without murmurs ABD: Large body habitus EXT: No clubbing cyanosis or edema NEURO: Awake alert able to answer simple questions appropriately Vital Signs (last 8hr) Date Time Temp Pulse Resp B/P (MAP) Pulse Ox O2 Delivery O2 Flow Rate FiO2 11/28/24 20:02 98.4 99 18 137/82 97 Nasal Cannula 11/28/24 19:59 96 19 N/Cannula Low lpm 1.0 24 11/28/24 19:06 93 18 11/28/24 16:13 98.2 98 18 148/79 95 Nasal Cannula 2.0 LABS: Hematology Labs: Test 11/28/24 04:44 Range/Units White Blood Count 17.0 H 4.8-10.8 K/uL Red Blood Count 4.55 4.00-5.50 MIL/uL Hemoglobin 13.0 12.0-16.0 g/dL Hematocrit 40.2 36-48 % Mean Corpuscular Volume 88.4 79-99 fL Mean Corpuscular Hemoglobin 28.6 27.0-33.0 pg Mean Corpuscular Hemoglobin Concent 32.3 32.0-36.0 g/dL Red Cell Distribution Width 13.2 11.0-15.5 % Platelet Count 183 130-400 K/uL Mean Platelet Volume 11.3 H 7.5-10.5 fL Nucleated Red Blood Cells 0.0 0.0-0.19 % Chemistry Labs: Test 11/28/24 16:37 11/28/24 04:44 Range/Units Whole Blood Glucose 218 H 70-110 MG/DL Sodium Level 144 136-145 mmol/L Potassium Level 4.0 3.5-5.1 mmol/L Chloride Level 103 101-111 mmol/L Carbon Dioxide Level 41 *H 21-32 mmol/L Blood Urea Nitrogen 31 H 7-18 mg/dL Creatinine 0.9 0.5-1.0 mg/dL Glomerular Filtration Rate Calc 65 >90 mL/min Random Glucose 239 H 70-105 mg/dL Total Calcium 8.2 L 8.5-10.1 mg/dL Phosphorus Level 3.4 2.5-4.9 mg/dL Magnesium Level 2.00 1.80-2.40 mg/dL B-Type Natriuretic Peptide 184 H 0-100 pg/mL DIAGNOSTICS / RADIOLOGY RESULTS: [ ] PLAN Continue to follow recommendations from Cardiology Continue BiPAP q.h.s. and p.r.n. Continue aspiration precautions Continue metoprolol 100 mg b.i.d. Continue lisinopril 2.5 mg daily Continue atorvastatin 20 mg q.h.s. Continue IV antibiotics Wean steroids decrease lasix to 20mg po daily wean Milrinone drip Continue Xarelto 20 mg daily As per cardiology LAY guided cardioversion to be scheduled for possible Friday or Friday of next week Continue digoxin 250 mcg daily NEURO: Minimize central acting medications as possible. Maintain fall precautions, adequate lighting during the day PULMONARY: Supplemental 02 as needed. Maintain aspiration precautions at all times CARDIOVASCULAR: Follow hemodynamics. Vital signs per facility protocol GI & NUTRITION: Continue with nutritional support. Continue stool softeners and laxatives as needed. KIDNEYS & ELECTROLYTES: Strict monitoring of intake, output and overall fluid balance. Avoid nephrotoxic medications to the extent possible. Medications to be dosed according to renal function. Monitor electrolytes and replace as needed ENDOCRINE: Maintain blood glucose between 100-180 at all times. Hypoglycemia protocol in place INFECTIOUS DISEASE: Trend temperature, WBC and procalcitonin level Follow cultures, deescalate antibiotics as soon as possible. Panculture if new onset fever ONCOLOGY/HEMATOLOGY/COAGULATION: Monitor for s/s of bleeding Monitor hemoglobin, coagulation studies as needed SKIN: Pressure ulcer prevention per facility protocol Specialty mattress ORTHO/REHAB: Continue PT/OT Prophylaxis: Continue GI and DVT prophylaxis Code Status: Full Resuscitation Disposition: TBD Other: Total patient care time 35 minutes excluding all procedures. Case discussed with supervising physician plan of care agreed upon ATTESTATION BY PHYSICIAN I have evaluated the patient chart, medical records, and spoke with appropriate staff. I reviewed the documentation, medical decision making, and treatment plan as noted by the mid-level provider above. I agree with the findings and plan of care. Venkata Day MD, NELLY J ARNP November 28, 2024 21:21
[2024-11-29] VITALS (16 sets, daily range): BP systolic 103–137; BP diastolic 58–79; PULSE 72–119; RESP 18–20; TEMP 97.6–98.4; O2SAT 93–96
[2024-11-29 05:11] LABS: BASOPHILS # (AUTO) 0.02 K/uL (0.00-0.20); BASOPHILS % (AUTO) 0.1 % (0.0-5.0); EOSINOPHILS # (AUTO) 0.12 K/uL (0.00-0.70); EOSINOPHILS % (AUTO) 0.8 % (0.0-8.0); HEMATOCRIT 41.8 % (36-48); IMMATURE GRANULOCYTE ABSOLUTE 0.29 K/uL (0-1); LYMPHOCYTES # (AUTO) 1.8 K/uL (1.0-4.8); LYMPHOCYTES % (AUTO) 11.1 % (21.0-51.0); MEAN CORPUSCULAR HEMOGLOBIN 28.4 pg (27.0-33.0); MEAN CORPUSCULAR HGB CONC 31.3 g/dL (32.0-36.0); MEAN CORPUSCULAR VOLUME 90.7 fL (79-99); MONOCYTES # (AUTO) 1.2 K/uL (0.1-1.0); MONOCYTES % (AUTO) 7.6 % (3.0-13.0); NEUTROPHILS # (AUTO) 12.5 K/uL (1.8-7.7); NEUTROPHILS % (AUTO) 78.6 % (40.0-77.0); PLATELET COUNT (AUTO) 180 K/uL (130-400); RED BLOOD CELL COUNT(AUTO) 4.61 MIL/uL (4.00-5.50); RED CELL DISTRIBUTION WIDTH 13.3 % (11.0-15.5); WHITE BLOOD COUNT (AUTO) 15.9 K/uL (4.8-10.8)
[2024-11-29 05:18] LABS: INR 1.09 (0.85-1.15); PROTHROMBIN TIME 11.5 SEC (9.6-11.6)
[2024-11-29 05:19] LABS: PARTIAL THROMBOPLASTIN TIME 26.4 SEC (26.3-35.5)
[2024-11-29 05:29] LABS: ALBUMIN 2.3 g/dL (3.5-5.0); BILIRUBIN,TOTAL 0.7 mg/dL (0.2-1.0); CREATININE 0.7 mg/dL (0.5-1.0); POTASSIUM 3.9 mmol/L (3.5-5.1); TOTAL PROTEIN, SERUM 5.7 g/dL (6.0-8.3)
--- NOTE | 2024-11-29 08:20 | NUR ---
Dr. Bryant notified that patient ate breakfast and that there is a plan for LAY with cardioversion today. MD stated she will visit patient shortly and decide regarding the procedure if will be done today afternoon. To keep patient NPO for now.
[2024-11-29] MEDS: predniSONE 20 MG TABLET PO SCH (10:59)
[2024-11-29] MEDS: furoSEMIDE 20 MG TABLET PO SCH (11:00)
[2024-11-29] MEDS: metoPROLOL tartRATE 1 MG/ML 5ML VIAL IV PRN (12:11)
--- NOTE | 2024-11-29 12:29 | PN ---
SUBJECTIVE: A 79-year-old female with multiple medical conditions. The patient with a history of known cardiomyopathy. The patient is being seen by Cardiology. She remains on the milrinone. The patient with a history of underlying vascular disease. She has known cardiomyopathy and the patient is being seen as a followup visit for all the above. The patient has a history of known renal dysfunction. REVIEW OF SYSTEMS: CONSTITUTIONAL: She is feeling weak and tired. HEENT: No change in vision. No change in hearing. CARDIOVASCULAR: There is no current chest pain or palpitations. PULMONARY: Shortness of breath is improved. GASTROINTESTINAL: She is tolerating a diet. MUSCULOSKELETAL: Complains of weakness. PHYSICAL EXAMINATION: VITAL SIGNS: Blood pressure 137/63, pulse 90s, afebrile. GENERAL: Chronically ill female, elderly, lying in bed on the medical floor. HEENT: Head is atraumatic. Pupils are equal, roving to light. Oropharynx is without exudate. Nares clear. NECK: There is no JVP. There is no thyromegaly. No masses. CARDIOVASCULAR: Regular. There is no S3 or S4 gallop. LUNGS: Coarse with equal thoracic movement. ABDOMEN: Soft, nondistended, nontender. EXTREMITIES: Reveal no clubbing, no cyanosis. NEUROLOGICAL: She is awake and alert. LABORATORY DATA: Hemoglobin 13, hematocrit 41, white cell count is 15,000. BUN 30, creatinine 0.7. Sodium is 147. IMPRESSION: * Acute on chronic renal dysfunction. * Cardiomyopathy. * Hypertension. * Diabetes mellitus. PLAN: The patient remains on the milrinone. The patient is being seen by Cardiology and will continue to follow closely. She remains on low-dose diuretics. Blood pressure is under adequate control. Electrolytes have all been aggressively repleted. We will follow the patient closely. TID: [id number] RECEIPT: [id number]
--- NOTE | 2024-11-29 13:35 | PN ---
[facility] PROGRESS NOTE Date Patient Seen: November 29, 2024 Time of Visit: 1312 Supervising Physician: Dr. Mabry Primary Care Physician: Dr. 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 She is on 2 L via nasal cannula in no apparent distress. Saturating 97% respiratory rate of 18 heart rate between 100-110. Metoprolol has been ordered per Cardiology. We may start weaning Milrinone drip per Dr Shay gaytan. Leaning with 120 27 kg. WBCs of 17 trending down from yesterday, H&H is 13 over 40, platelet count 183 K. sodium 144 potassium of four chloride 103 CO2 of 41. Decreasing Lasix to 20 mg daily. BUN of 31, creatinine of 0.9 GFR 65. She reports some loss of hearing to right ear post extubation. Weaning steroids to prednisone 20 mg daily. There is no family at the bedside at this time. Plans for LAY guided cardioversion with the NS he is in tomorrow morning per Cardiology. 11/29 patient was seen and examined by bedside with family present. Patient has been weaned off oxygen is currently on room air tolerating well. Patient's swelling to bilateral lower extremities have improved. Patient denies any chest pain or shortness of breadth at time of visit. Denies any nausea vomiting or abdominal pain. Patient continues on marijuana drip we will continue to follow recommendations from Cardiology. Patient is scheduled for LAY guided cardioversion tomorrow 11/30/2024. We will repeat patient's labs tomorrow morning and continue to monitor serum sodium level. REVIEW OF SYSTEMS: General: No malaise or fever. Neurological: No fainting episodes or seizures. HEENT: No nasal congestion or nasal secretion. + hard of hearing to rt ear. Respiratory: No cough, shortness of breath, or wheezing Cardiac: No chest pain or palpitations. Gastrointestinal: No vomiting or diarrhea. Genitourinary: No dysuria hematuria. Skin: No rashes or lesions. Hematological: No bruises or bleeding. Musculoskeletal: No joint pains or arthralgias. Psychiatric: No depression or panic attacks. PHYSICAL EXAM: GENERAL: Chronically ill 79-year-old female lying in bed no obvious signs or symptoms of distress HEENT: EOMI, Sclera non icteric, moist mucosa NECK: Supple, no JVD, trachea midline LUNGS: clear breath sounds, bilaterally. no wheezes. HEART: Normal S1 and S2, without murmurs ABD: Large body habitus EXT: No clubbing cyanosis or edema NEURO: Awake alert able to answer simple questions appropriately Vital Signs (last 8hr) Date Time Temp Pulse Resp B/P (MAP) Pulse Ox O2 Delivery O2 Flow Rate FiO2 11/29/24 12:45 107 11/29/24 12:11 118 126/78 11/29/24 12:10 118 126/78 11/29/24 12:00 97.9 89 18 120/76 93 Nasal Cannula 2.0 11/29/24 12:00 119 11/29/24 11:31 72 18 11/29/24 11:31 72 18 N/A Room Air 21 11/29/24 11:00 120 11/29/24 08:00 97.5 91 18 137/63 93 Nasal Cannula 2.0 11/29/24 07:13 73 18 N/A Room Air 11/29/24 07:13 73 20 LABS: Hematology Labs: Test 11/29/24 04:35 Range/Units White Blood Count 15.9 H 4.8-10.8 K/uL Red Blood Count 4.61 4.00-5.50 MIL/uL Hemoglobin 13.1 12.0-16.0 g/dL Hematocrit 41.8 36-48 % Mean Corpuscular Volume 90.7 79-99 fL Mean Corpuscular Hemoglobin 28.4 27.0-33.0 pg Mean Corpuscular Hemoglobin Concent 31.3 L 32.0-36.0 g/dL Red Cell Distribution Width 13.3 11.0-15.5 % Platelet Count 180 130-400 K/uL Mean Platelet Volume 11.5 H 7.5-10.5 fL Immature Granulocyte % (Auto) 1.8 H 0-1 % Neutrophils (%) (Auto) 78.6 H 40.0-77.0 % Lymphocytes (%) (Auto) 11.1 L 21.0-51.0 % Monocytes (%) (Auto) 7.6 3.0-13.0 % Eosinophils (%) (Auto) 0.8 0.0-8.0 % Basophils (%) (Auto) 0.1 0.0-5.0 % Neutrophils # (Auto) 12.5 H 1.8-7.7 K/uL Lymphocytes # (Auto) 1.8 1.0-4.8 K/uL Monocytes # (Auto) 1.2 H 0.1-1.0 K/uL Eosinophils # (Auto) 0.12 0.00-0.70 K/uL Basophils # (Auto) 0.02 0.00-0.20 K/uL Absolute Immature Granulocyte (auto 0.29 0-1 K/uL Nucleated Red Blood Cells 0.0 0.0-0.19 % Chemistry Labs: Test 11/29/24 04:35 11/28/24 16:37 11/28/24 04:44 Range/Units Sodium Level 147 H 136-145 mmol/L Potassium Level 3.9 3.5-5.1 mmol/L Chloride Level 105 101-111 mmol/L Carbon Dioxide Level 39 H 21-32 mmol/L Blood Urea Nitrogen 30 H 7-18 mg/dL Creatinine 0.7 0.5-1.0 mg/dL Glomerular Filtration Rate Calc 88 >90 mL/min Random Glucose 169 H 70-105 mg/dL Total Calcium 8.4 L 8.5-10.1 mg/dL Total Bilirubin 0.7 0.2-1.0 mg/dL Aspartate Amino Transf (AST/SGOT) 76 H 10-37 U/L Alanine Aminotransferase (ALT/SGPT) 157 H 12-78 U/L Alkaline Phosphatase 96 50-136 U/L B-Type Natriuretic Peptide 133 H 0-100 pg/mL Total Protein 5.7 L 6.0-8.3 g/dL Albumin 2.3 L 3.5-5.0 g/dL Whole Blood Glucose 218 H 70-110 MG/DL Phosphorus Level 3.4 2.5-4.9 mg/dL Magnesium Level 2.00 1.80-2.40 mg/dL Coagulation Labs: Test 11/29/24 04:35 Range/Units Prothrombin Time 11.5 9.6-11.6 SEC Prothromb Time International Ratio 1.09 0.85-1.15 Activated Partial Thromboplast Time 26.4 26.3-35.5 SEC DIAGNOSTICS / RADIOLOGY RESULTS: na PLAN Continue to follow recommendations from Cardiology Continue BiPAP q.h.s. and p.r.n. Continue aspiration precautions Continue metoprolol 100 mg b.i.d. Continue lisinopril 2.5 mg daily Continue atorvastatin 20 mg q.h.s. Continue IV antibiotics Continue prednisone 20 mg daily Continue lasix to 20mg po daily wean Milrinone drip Continue Xarelto 20 mg daily As per cardiology LAY guided cardioversion to be scheduled for possible Friday or Friday of next week Continue digoxin 250 mcg daily NEURO: Minimize central acting medications as possible. Maintain fall precautions, adequate lighting during the day PULMONARY: Supplemental 02 as needed. Maintain aspiration precautions at all times CARDIOVASCULAR: Follow hemodynamics. Vital signs per facility protocol GI & NUTRITION: Continue with nutritional support. Continue stool softeners and laxatives as needed. KIDNEYS & ELECTROLYTES: Strict monitoring of intake, output and overall fluid balance. Avoid nephrotoxic medications to the extent possible. Medications to be dosed according to renal function. Monitor electrolytes and replace as needed ENDOCRINE: Maintain blood glucose between 100-180 at all times. Hypoglycemia protocol in place INFECTIOUS DISEASE: Trend temperature, WBC and procalcitonin level Follow cultures, deescalate antibiotics as soon as possible. Panculture if new onset fever ONCOLOGY/HEMATOLOGY/COAGULATION: Monitor for s/s of bleeding Monitor hemoglobin, coagulation studies as needed SKIN: Pressure ulcer prevention per facility protocol Specialty mattress ORTHO/REHAB: Continue PT/OT Prophylaxis: Continue GI and DVT prophylaxis Code Status: Full Resuscitation Disposition: TBD Other: Case discussed with supervising physician plan of care agreed upon KATHYA STEWART November 29, 2024 13:35
--- NOTE | 2024-11-29 14:37 | PN ---
[facility]ARDIOLOG[facility] PROGRESS NOTE Date Patient Seen: November 29, 2024 Time of Visit: 14:30 Problem List: Atrial fibrillation with RVR Echocardiogram 11/23/2024: LVEF 25-30 %, grade 3 diastolic dysfunction Hypertension, Dyslipidemia, diabetes mellitus, chronic venous insufficiency, chronic stenosis with prior left CEA COPD Left carotid endarterectomy 2013 Venous insufficiency Interval History: No acute events overnight. Patient remains in atrial fibrillation ranging from the low 100s to 120s. She denies any anginal symptoms or equivalents and she also denies any palpitations or presyncopal symptoms. EP has initiated digoxin in addition to her Lopressor 100 b.i.d. given her lack of response we are planning to perform ARASH with cardioversion but patient ate a large breakfast this morning so we will plan for tomorrow. Following mandaeism of sinus rhythm we will need to reassess her EF and consider an ischemic evaluation given her systolic decline Physical Examination: GENERAL: No acute distress. HEAD: Normal with no signs of head trauma. EYES: EOMI, conjunctiva and sclera normal. ENT: Hearing grossly intact. NECK: Supple without JVD. LUNGS: Diffuse rhonchi HEART: Irregularly irregular rate and rhythm. Normal S1 and S2 without murmurs, gallop or rub. VASC: Peripheral pulses +2 bilaterally. EXT: No clubbing, cyanosis or edema. SKIN: No rashes or lesions noted. NEURO: Awake, alert, and unable to speak Laboratory: [ ] Hematology Labs: Test 11/29/24 04:35 Range/Units White Blood Count 15.9 H 4.8-10.8 K/uL Red Blood Count 4.61 4.00-5.50 MIL/uL Hemoglobin 13.1 12.0-16.0 g/dL Hematocrit 41.8 36-48 % Mean Corpuscular Volume 90.7 79-99 fL Mean Corpuscular Hemoglobin 28.4 27.0-33.0 pg Mean Corpuscular Hemoglobin Concent 31.3 L 32.0-36.0 g/dL Red Cell Distribution Width 13.3 11.0-15.5 % Platelet Count 180 130-400 K/uL Mean Platelet Volume 11.5 H 7.5-10.5 fL Immature Granulocyte % (Auto) 1.8 H 0-1 % Neutrophils (%) (Auto) 78.6 H 40.0-77.0 % Lymphocytes (%) (Auto) 11.1 L 21.0-51.0 % Monocytes (%) (Auto) 7.6 3.0-13.0 % Eosinophils (%) (Auto) 0.8 0.0-8.0 % Basophils (%) (Auto) 0.1 0.0-5.0 % Neutrophils # (Auto) 12.5 H 1.8-7.7 K/uL Lymphocytes # (Auto) 1.8 1.0-4.8 K/uL Monocytes # (Auto) 1.2 H 0.1-1.0 K/uL Eosinophils # (Auto) 0.12 0.00-0.70 K/uL Basophils # (Auto) 0.02 0.00-0.20 K/uL Absolute Immature Granulocyte (auto 0.29 0-1 K/uL Nucleated Red Blood Cells 0.0 0.0-0.19 % Chemistry Labs: Test 11/29/24 04:35 11/28/24 16:37 11/28/24 04:44 Range/Units Sodium Level 147 H 136-145 mmol/L Potassium Level 3.9 3.5-5.1 mmol/L Chloride Level 105 101-111 mmol/L Carbon Dioxide Level 39 H 21-32 mmol/L Blood Urea Nitrogen 30 H 7-18 mg/dL Creatinine 0.7 0.5-1.0 mg/dL Glomerular Filtration Rate Calc 88 >90 mL/min Random Glucose 169 H 70-105 mg/dL Total Calcium 8.4 L 8.5-10.1 mg/dL Total Bilirubin 0.7 0.2-1.0 mg/dL Aspartate Amino Transf (AST/SGOT) 76 H 10-37 U/L Alanine Aminotransferase (ALT/SGPT) 157 H 12-78 U/L Alkaline Phosphatase 96 50-136 U/L B-Type Natriuretic Peptide 133 H 0-100 pg/mL Total Protein 5.7 L 6.0-8.3 g/dL Albumin 2.3 L 3.5-5.0 g/dL Whole Blood Glucose 218 H 70-110 MG/DL Phosphorus Level 3.4 2.5-4.9 mg/dL Magnesium Level 2.00 1.80-2.40 mg/dL Coagulation Labs: Test 11/29/24 04:35 Range/Units Prothrombin Time 11.5 9.6-11.6 SEC Prothromb Time International Ratio 1.09 0.85-1.15 Activated Partial Thromboplast Time 26.4 26.3-35.5 SEC Diagnostics / Radiology: [Copy/Paste Echos/Imaging Report here] Impression and Plan: Atrial fibrillation with RVR Cardiomyopathy, Echocardiogram 11/23/2024:. LVEF 25-30%, stage III diastolic dysfunction, Community-acquired pneumonia Acute hypoxic respiratory failure, extubated on 11/23/2024 Severe sepsis Hypertension Dyslipidemia Diabetes mellitus Chronic venous insufficiency Carotid stenosis s/p left CEA 2012 COPD Hypothyroidism Morbid obesity Obstructive sleep apnea Atrial fibrillation with RVR Patient with history of atrial fibrillation (onset July,) Rhythm atrial fibrillation, heart rate range 90 to 120s bpm Currently On Lovenox 1 milligram/kilogram subcutaneously every 12 hours (home anticoagulation of Xarelto 20 mg orally daily) Echocardiogram 11/23/2024: LVEF 25-30%, stage III diastolic dysfunction Continue Lopressor 100 mg b.i.d. and digoxin 250 mcg p.o. q.day Given patient's lack of rate/rhythm control we are planning for arash/DCCV but patient ate a large breakfast this a.m. so procedure was deferred Please make patient NPO after midnight for arash/DCCV tomorrow morning continue providing IV 5 mg Lopressor p.r.n. for sustained heart rates of 120 or more q.4 hours Please keep patient on telemetry. Electrolyte replacement protocol to keep potassium greater than 4.0 and magnesium greater than 2.0 Following mandaeism of sinus rhythm patient will require an ischemic evaluation prior to discharge given her systolic decline #New HFrEF: Etiology unknown presumed to be tachy mediated LVEF 25-30%, stage III diastolic dysfucntion. NYHA III, Stage C Patient appears euvolemic and compensated on exam We will plan for mandaeism of sinus rhythm with arash/DCCV tomorrow to attempt to improve systolic function Following arash/DCCV we need to consider an ischemic evaluation prior to discharge Optimization of GDM T: Prior to discharge transition Lopressor to Toprol-XL. Continue low-dose lisinopril 2.5 mg q.day We will defer the use of Aldactone given her soft systolic blood pressures requiring midodrine Strict Is&Os and daily weights. Please keep patient on telemetry Thank you for this consult. Cardiology continue to follow along pending arash/DCCV NATHALIE Deng MD, MD November 29, 2024 14:37
[2024-11-30] VITALS (12 sets, daily range): BP systolic 112–155; BP diastolic 43–86; PULSE 65–101; RESP 18–20; TEMP 98.4–98.8; O2SAT 92–96
[2024-11-30 03:41] LABS: BASOPHILS # (AUTO) 0.02 K/uL (0.00-0.20); BASOPHILS % (AUTO) 0.1 % (0.0-5.0); EOSINOPHILS # (AUTO) 0.12 K/uL (0.00-0.70); EOSINOPHILS % (AUTO) 0.8 % (0.0-8.0); HEMATOCRIT 38.7 % (36-48); LYMPHOCYTES # (AUTO) 1.7 K/uL (1.0-4.8); LYMPHOCYTES % (AUTO) 11.1 % (21.0-51.0); MEAN CORPUSCULAR HEMOGLOBIN 28.5 pg (27.0-33.0); MEAN CORPUSCULAR HGB CONC 32.3 g/dL (32.0-36.0); MEAN CORPUSCULAR VOLUME 88.2 fL (79-99); MONOCYTES % (AUTO) 6.5 % (3.0-13.0); NEUTROPHILS # (AUTO) 12.3 K/uL (1.8-7.7); NEUTROPHILS % (AUTO) 80.2 % (40.0-77.0); PLATELET COUNT (AUTO) 159 K/uL (130-400); RED BLOOD CELL COUNT(AUTO) 4.39 MIL/uL (4.00-5.50); RED CELL DISTRIBUTION WIDTH 13.4 % (11.0-15.5); WHITE BLOOD COUNT (AUTO) 15.3 K/uL (4.8-10.8)
[2024-11-30 04:09] LABS: ALBUMIN 2.3 g/dL (3.5-5.0); BILIRUBIN,TOTAL 0.9 mg/dL (0.2-1.0); CREATININE 0.8 mg/dL (0.5-1.0); POTASSIUM 3.9 mmol/L (3.5-5.1); TOTAL PROTEIN, SERUM 5.6 g/dL (6.0-8.3)
--- NOTE | 2024-11-30 08:35 | PN ---
PROGRESS NOTE PROBLEM LIST: Atrial fibrillation with RVR Echocardiogram 11/23/2024: LVEF 25-30 %, grade 3 diastolic dysfunction Hypertension, Dyslipidemia, diabetes mellitus, chronic venous insufficiency, chronic stenosis with prior left CEA COPD Left carotid endarterectomy 2013 Venous insufficiency INTERIM HISTORY OF PRESENT ILLNESS: Patient continues with atrial fibrillation with rapid ventricular response. She was seen over the weekend by Dr. Kimble and Dr. Bryant and is scheduled for LAY guided direct current cardioversion. REVIEW OF SYSTEMS: No fever, headache, chest pain, abdominal pain, nausea, vomiting, or diarrhea. VITAL SIGNS Vital Signs Date Time Temp Pulse Resp B/P (MAP) Pulse Ox O2 Delivery O2 Flow Rate FiO2 11/30/24 07:48 98.8 94 20 116/60 96 Room Air 11/30/24 06:42 21 11/29/24 19:10 0 Laboratory Tests 11/30/24 03:28 LABS/MEDS Laboratory Tests Test 11/30/24 03:28 White Blood Count 15.3 K/uL (4.8-10.8) H Red Blood Count 4.39 MIL/uL (4.00-5.50) Hemoglobin 12.5 g/dL (12.0-16.0) Hematocrit 38.7 % (36-48) Mean Corpuscular Volume 88.2 fL (79-99) Mean Corpuscular Hemoglobin 28.5 pg (27.0-33.0) Mean Corpuscular Hemoglobin Concent 32.3 g/dL (32.0-36.0) Red Cell Distribution Width 13.4 % (11.0-15.5) Platelet Count 159 K/uL (130-400) Mean Platelet Volume 11.2 fL (7.5-10.5) H Immature Granulocyte % (Auto) 1.3 % (0-1) H Neutrophils (%) (Auto) 80.2 % (40.0-77.0) H Lymphocytes (%) (Auto) 11.1 % (21.0-51.0) L Monocytes (%) (Auto) 6.5 % (3.0-13.0) Eosinophils (%) (Auto) 0.8 % (0.0-8.0) Basophils (%) (Auto) 0.1 % (0.0-5.0) Neutrophils # (Auto) 12.3 K/uL (1.8-7.7) H Lymphocytes # (Auto) 1.7 K/uL (1.0-4.8) Monocytes # (Auto) 1.0 K/uL (0.1-1.0) Eosinophils # (Auto) 0.12 K/uL (0.00-0.70) Basophils # (Auto) 0.02 K/uL (0.00-0.20) Absolute Immature Granulocyte (auto 0.20 K/uL (0-1) Nucleated Red Blood Cells 0.0 % (0.0-0.19) Sodium Level 145 mmol/L (136-145) Potassium Level 3.9 mmol/L (3.5-5.1) Chloride Level 105 mmol/L (101-111) Carbon Dioxide Level 37 mmol/L (21-32) H Blood Urea Nitrogen 29 mg/dL (7-18) H Creatinine 0.8 mg/dL (0.5-1.0) Glomerular Filtration Rate Calc 75 mL/min (>90) Random Glucose 192 mg/dL (70-105) H Total Calcium 8.5 mg/dL (8.5-10.1) Magnesium Level 2.00 mg/dL (1.80-2.40) Total Bilirubin 0.9 mg/dL (0.2-1.0) # Aspartate Amino Transf (AST/SGOT) 40 U/L (10-37) H Alanine Aminotransferase (ALT/SGPT) 119 U/L (12-78) #H Alkaline Phosphatase 94 U/L (50-136) Total Protein 5.6 g/dL (6.0-8.3) L Albumin 2.3 g/dL (3.5-5.0) L Current Medications Amiodarone HCL/ Dextrose 100 ml @ As Directed STK-MED ONCE .ROUTE; Start 11/19/24 at 18:40; Stop 11/19/24 at 18:41; Status DC Propofol 100 ml @ As Directed STK-MED ONCE IV; Start 11/19/24 at 18:41; Stop 11/19/24 at 18:41; Status DC Midazolam HCl 100 ml @ As Directed STK-MED ONCE IV; Start 11/19/24 at 18:46; Stop 11/19/24 at 18:46; Status DC Amiodarone HCL/ Dextrose 200 ml @ As Directed STK-MED ONCE .ROUTE; Start 11/19/24 at 19:01; Stop 11/19/24 at 19:01; Status DC Norepinephrine 250 ml @ 0 mls/hr PROTOCOL IV Last administered on 11/20/24at 11:08; Start 11/19/24 at 19:30; Stop 11/23/24 at 18:55; Status DC Norepinephrine 250 ml @ As Directed STK-MED ONCE IV; Start 11/19/24 at 19:17; Stop 11/19/24 at 19:17; Status DC Amiodarone HCL/ Dextrose 100 ml @ 0 mls/hr PROTOCOL IV Last administered on 11/19/24at 19:26; Start 11/19/24 at 19:30; Stop 11/19/24 at 21:28; Status DC Amiodarone HCL/ Dextrose 200 ml @ 0 mls/hr PROTOCOL IV Last administered on 11/19/24at 19:29; Start 11/19/24 at 19:30; Stop 11/20/24 at 09:03; Status DC Midazolam HCl 100 ml ONCE IV; Start 11/19/24 at 19:30; Stop 11/19/24 at 19:46; Status DC Propofol 1,000 mg PROTOCOL PRN IV Last administered on 11/23/24at 03:51; Start 11/19/24 at 19:30; Stop 11/23/24 at 18:55; Status DC Acetaminophen 650 mg STK-MED ONCE RC; Start 11/19/24 at 19:44; Stop 11/19/24 at 19:44; Status DC Acetaminophen 650 mg ONCE RC Last administered on 11/19/24at 20:25; Start 11/19/24 at 20:00; Stop 11/19/24 at 23:59; Status DC Pantoprazole Sodium 40 mg ONCE ONCE IVP Last administered on 11/19/24at 20:32; Start 11/19/24 at 20:00; Stop 11/19/24 at 20:01; Status DC Enoxaparin Sodium 160 mg ONCE ONCE SQ Last administered on 11/19/24at 20:32; Start 11/19/24 at 20:00; Stop 11/19/24 at 20:01; Status DC Albuterol 1 udvial [id number] IH Last administered on 11/20/24at 03:10; Start 11/19/24 at 22:00; Stop 11/20/24 at 15:21; Status DC Polyethylene Glycol 17 gm DAILY PO Last administered on 11/28/24at 08:36; Start 11/20/24 at 09:00; Stop 12/20/24 at 08:59 Acetaminophen 650 mg Q6H PRN PO; Start 11/19/24 at 20:30; Stop 12/19/24 at 20:29 Acetaminophen 650 mg Q6H PRN RC; Start 11/19/24 at 20:30; Stop 12/19/24 at 20:29 Ondansetron HCl 4 mg Q6H PRN IVP; Start 11/19/24 at 20:30; Stop 12/19/24 at 20:29 Hydralazine HCl 10 mg Q6H PRN IV; Start 11/19/24 at 20:30; Stop 12/19/24 at 20:29 Labetalol HCl 10 mg Q2H PRN IV; Start 11/19/24 at 20:30; Stop 11/20/24 at 08:12; Status DC Hydromorphone HCl 0.5 mg Q2H PRN IVP; Start 11/19/24 at 20:30; Stop 11/20/24 at 08:08; Status DC Insulin Human Regular INSULIN SLIDING SCAL... Q6H6 SQ Last administered on 11/21/24at 00:23; Start 11/20/24 at 00:00; Stop 11/23/24 at 21:14; Status DC Azithromycin 250 ml @ 250 mls/hr Q24H IVPB Last administered on 11/28/24at 21:54; Start 11/19/24 at 20:30; Stop 11/29/24 at 20:29; Status DC Ceftriaxone Sodium 1 gm Q24H IVPB Last administered on 11/22/24at 20:13; Start 11/19/24 at 20:30; Stop 11/23/24 at 08:44; Status DC Pantoprazole Sodium 40 mg DAILY IVP Last administered on 11/29/24at 10:13; Start 11/20/24 at 09:00; Stop 12/20/24 at 08:59 Enoxaparin Sodium 40 mg DAILY SQ Last administered on 11/23/24at 08:33; Start 11/20/24 at 09:00; Stop 11/23/24 at 13:03; Status DC Budesonide 0.5 mg BIDRESP IH Last administered on 11/30/24at 06:40; Start 11/20/24 at 06:00; Stop 12/20/24 at 05:59 Fentanyl Citrate 100 ml @ As Directed STK-MED ONCE IV; Start 11/19/24 at 20:58; Stop 11/19/24 at 20:58; Status DC Fentanyl Citrate 100 ml @ 2.5 mls/hr PROTOCOL IV Last administered on 11/21/24at 11:43; Start 11/19/24 at 21:30; Stop 11/21/24 at 13:50; Status DC Amiodarone HCL/ Dextrose 100 ml @ 0 mls/hr PROTOCOL IV; Start 11/19/24 at 21:30; Stop 11/20/24 at 09:03; Status DC Magnesium Sulfate 50 ml @ 0 mls/hr PROTOCOL IV Last administered on 11/20/24at 06:00; Start 11/19/24 at 21:30; Stop 12/19/24 at 21:29 Potassium Chloride 100 ml @ 50 mls/hr PROTOCOL IV Last administered on 11/20/24at 05:59; Start 11/19/24 at 21:30; Stop 12/19/24 at 21:29 Amiodarone HCl 540 mg/Dextrose 300 ml @ 16.667 mls/ hr PROTOCOL IV Last administered on 11/20/24at 00:34; Start 11/20/24 at 00:30; Stop 11/23/24 at 18:55; Status DC Amiodarone HCl 540 mg/Dextrose 300 ml @ 0 mls/hr PROTOCOL IV; Start 11/20/24 at 00:30; Stop 11/20/24 at 00:16; Status DC Hydromorphone HCl 0.5 mg Q2H PRN IVP; Start 11/20/24 at 08:30; Stop 11/23/24 at 18:55; Status DC Phenylephrine HCl 50 mg/Sodium Chloride 250 ml @ 0 mls/hr AD PRN IV; Start 11/20/24 at 13:30; Stop 11/20/24 at 13:05; Status DC Phenylephrine HCl 10 mg/Sodium Chloride 250 ml @ 0 mls/hr AD PRN IV Last administered on 11/20/24at 13:21; Start 11/20/24 at 13:30; Stop 11/20/24 at 17:03; Status DC Ipratropium [place] 0.5 MG [id number] IH Last administered on 11/23/24at 07:17; Start 11/20/24 at 18:00; Stop 11/23/24 at 10:29; Status DC Phenylephrine HCl 50 mg/Sodium Chloride 250 ml @ 0 mls/hr PROTOCOL PRN IV Last administered on 11/20/24at 17:44; Start 11/20/24 at 17:00; Stop 11/28/24 at 10:09; Status DC Methylprednisolone Sodium Succinate 60 mg Q8H IVP Last administered on 11/23/24at 01:46; Start 11/20/24 at 18:00; Stop 11/23/24 at 08:45; Status DC Dextrose/Sodium Chloride 1,000 ml @ 50 mls/hr Q20H IV Last administered on 11/24/24at 02:53; Start 11/20/24 at 18:00; Stop 11/24/24 at 09:29; Status DC Chlorhexidine Gluconate 15 ml BID MM Last administered on 11/29/24at 20:30; Start 11/21/24 at 21:00; Stop 12/05/24 at 20:59 Artificial Tears 1 DROP Q2H PRN OU Last administered on 11/21/24at 16:12; Start 11/21/24 at 11:00; Stop 12/21/24 at 10:59 Fentanyl Citrate 25 mcg Q2H PRN IVP; Start 11/21/24 at 14:00; Stop 11/23/24 at 18:55; Status DC Iohexol 35,000 mg STK-MED ONCE IV; Start 11/21/24 at 16:52; Stop 11/21/24 at 16:52; Status DC Lisinopril 2.5 mg DAILY PO Last administered on 11/28/24at 08:36; Start 11/23/24 at 09:00; Stop 12/23/24 at 08:59 Metoprolol Tartrate 50 mg BID PO; Start 11/22/24 at 21:00; Stop 11/22/24 at 10:06; Status DC Diltiazem HCl 180 mg DAILY PO; Start 11/23/24 at 09:00; Stop 11/22/24 at 10:06; Status DC Home Med Linaclotide (Linzess) 72 MCG DAILY PO Last administered on 11/28/24at 08:37; Start 11/23/24 at 09:00; Stop 12/23/24 at 08:59 Atorvastatin Calcium 20 mg HS PO Last administered on 11/29/24at 20:31; Start 11/22/24 at 21:00; Stop 12/22/24 at 20:59 Diltiazem HCl 180 mg DAILY PO Last administered on 11/24/24at 08:47; Start 11/22/24 at 10:30; Stop 11/24/24 at 19:43; Status DC Metoprolol Tartrate 50 mg BID PO Last administered on 11/24/24at 08:47; Start 11/22/24 at 10:30; Stop 11/24/24 at 19:43; Status DC Rocuronium [place] 50 mg STK-MED ONCE IV; Start 11/19/24 at 11:28; Stop 11/22/24 at 11:28; Status DC Etomidate 20 mg STK-MED ONCE IVP; Start 11/19/24 at 11:28; Stop 11/22/24 at 11:28; Status DC Diltiazem HCl 5 mg ONCE ONCE IVP Last administered on 11/22/24at 11:52; Start 11/22/24 at 12:00; Stop 11/22/24 at 12:01; Status DC Ceftriaxone Sodium 2 gm Q24H IVPB Last administered on 11/29/24at 21:05; Start 11/23/24 at 20:30; Stop 12/03/24 at 20:29 Methylprednisolone Sodium Succinate 40 mg Q8H IVP Last administered on 11/23/24at 12:28; Start 11/23/24 at 10:00; Stop 11/23/24 at 18:55; Status DC Ipratropium [place] 0.5 MG [id number] IH Last administered on 11/30/24at 06:40; Start 11/23/24 at 10:30; Stop 12/20/24 at 17:59 Enoxaparin Sodium 120 mg BID ONCE SQ Last administered on 11/23/24at 21:43; Start 11/23/24 at 21:00; Stop 11/23/24 at 21:01; Status DC Hydromorphone HCl 0.5 mg Q4H PRN IVP; Start 11/23/24 at 19:00; Stop 11/24/24 at 20:29; Status DC Methylprednisolone Sodium Succinate 40 mg Q12H IVP Last administered on 11/28/24at 06:46; Start 11/24/24 at 06:00; Stop 11/28/24 at 10:09; Status DC Furosemide 20 mg ONCE ONCE IV Last administered on 11/24/24at 08:47; Start 11/24/24 at 08:30; Stop 11/24/24 at 08:31; Status DC Furosemide 20 mg BID PO Last administered on 11/24/24at 21:29; Start 11/24/24 at 21:00; Stop 11/25/24 at 08:41; Status DC Metoprolol Tartrate 100 mg BID PO; Start 11/24/24 at 21:00; Stop 11/24/24 at 19:49; Status DC Metoprolol Tartrate 100 mg BID PO Last administered on 11/29/24at 20:31; Start 11/24/24 at 20:00; Stop 12/25/24 at 19:41 Furosemide 40 mg ONCE ONCE IV; Start 11/24/24 at 20:00; Stop 11/24/24 at 20:06; Status DC Milrinone Lactate/ Dextrose 100 ml @ 0 mls/hr PROTOCOL IV Last administered on 11/30/24at 07:53; Start 11/25/24 at 09:00; Stop 12/25/24 at 08:59 Furosemide 20 mg Q8H IV Last administered on 11/27/24at 08:53; Start 11/25/24 at 09:00; Stop 11/27/24 at 11:55; Status DC Metoprolol Tartrate 5 mg ONCE ONCE IV Last administered on 11/25/24at 21:24; Start 11/25/24 at 21:30; Stop 11/25/24 at 21:31; Status DC Metoprolol Tartrate 5 mg ONCE ONCE IV Last administered on 11/25/24at 21:48; Start 11/25/24 at 22:00; Stop 11/25/24 at 22:01; Status DC Pharmacy Profile Note 1 each ONCE MISC; Start 11/25/24 at 23:00; Stop 11/25/24 at 23:15; Status DC Pharmacy Profile Note 1 each ONCE MISC; Start 11/25/24 at 23:30; Stop 11/25/24 at 23:15; Status DC Digoxin 250 mcg ONCE ONCE IV Last administered on 11/25/24at 23:23; Start 11/25/24 at 23:30; Stop 11/25/24 at 23:31; Status DC Ipratropium [place] 0.5 mg STK-MED ONCE IH; Start 11/26/24 at 00:03; Stop 11/26/24 at 00:12; Status DC Budesonide 0.5 mg STK-MED ONCE IH; Start 11/26/24 at 00:03; Stop 11/26/24 at 00:12; Status DC Digoxin 125 mcg ONCE ONCE IV Last administered on 11/26/24at 04:04; Start 11/26/24 at 03:30; Stop 11/26/24 at 03:31; Status DC Digoxin 125 mcg ONCE ONCE IV Last administered on 11/26/24at 08:47; Start 11/26/24 at 07:30; Stop 11/26/24 at 07:31; Status DC Rivaroxaban 20 mg DAILY PO Last administered on 11/29/24at 11:00; Start 11/27/24 at 09:30; Stop 12/27/24 at 09:29 Digoxin 250 mcg ONCE ONCE IV Last administered on 11/27/24at 10:25; Start 11/27/24 at 10:00; Stop 11/27/24 at 10:07; Status DC Digoxin 250 mcg ONCE ONCE IV Last administered on 11/27/24at 16:13; Start 11/27/24 at 16:00; Stop 11/27/24 at 16:01; Status DC Digoxin 250 mcg DAILY PO Last administered on 11/29/24at 11:00; Start 11/28/24 at 09:00; Stop 12/28/24 at 08:59 Furosemide 20 mg BID@, PO Last administered on 11/28/24at 08:36; Start 11/27/24 at 17:00; Stop 11/28/24 at 16:19; Status DC Metoprolol Tartrate 5 mg ONCE ONCE IV Last administered on 11/27/24at 14:17; Start 11/27/24 at 14:30; Stop 11/27/24 at 14:31; Status DC Prednisone 20 mg DAILY PO Last administered on 11/29/24at 10:59; Start 11/29/24 at 09:00; Stop 12/29/24 at 08:59 Metoprolol Tartrate 5 mg Q6H PRN IV; Start 11/28/24 at 12:00; Stop 11/28/24 at 12:11; Status DC Metoprolol Tartrate 50 mg DAILY ONCE PO Last administered on 11/28/24at 13:24; Start 11/28/24 at 13:00; Stop 11/28/24 at 13:01; Status DC Metoprolol Tartrate 5 mg Q6H PRN IV Last administered on 11/29/24at 12:11; Start 11/28/24 at 12:30; Stop 12/28/24 at 12:29 Furosemide 20 mg DAILY PO Last administered on 11/29/24at 11:00; Start 11/29/24 at 09:00; Stop 12/27/24 at 16:59 PHYSICAL EXAMINATION: GENERAL: No acute distress. HEENT: Normocephalic, atraumatic. CARDIAC: Positive S1 and S2 irregularly irregular tachycardic. No murmurs. LUNGS: Clear to auscultation bilaterally. ABDOMEN: Bowel sounds present, soft, nontender. EXTREMITIES: No edema bilaterally. NEUROLOGIC: Cranial nerves 2-12 grossly intact. PSYCHIATRIC: Calm. TELEMETRY: AFib RVR ASSESSMENT: Atrial fibrillation with RVR Echocardiogram 11/23/2024: LVEF 25-30 %, grade 3 diastolic dysfunction Hypertension, Dyslipidemia, diabetes mellitus, chronic venous insufficiency, chronic stenosis with prior left CEA COPD Left carotid endarterectomy 2012 Venous insufficiency PLAN: At this time we will make adjustments to metoprolol at 150 mg twice daily. We will discontinue digoxin considering the patient's age and GFR. We will try beta blockade only. Calcium channel raquel calcium non dihydropyridine is contraindicated considering the patient's ejection fraction. We will await results of LAY guided direct current cardioversion. SOLO BOOTH MD November 30, 2024 08:35
[2024-11-30] MEDS: metoPROLOL tartRATE 50 MG TAB PO SCH (10:27)
--- NOTE | 2024-11-30 11:52 | PN ---
FOLLOWUP PROGRESS NOTE SUBJECTIVE: A 79-year-old female with history of known cardiomyopathy. The patient initially presented and found to have acute renal failure. The patient also with electrolyte abnormalities. The patient's serum sodium is much improved. Creatinine has stabilized. The patient is scheduled for cardioversion later today and she is being seen as a followup visit for all of the above. REVIEW OF SYSTEMS: CONSTITUTIONAL: She is feeling improved since admission. HEENT: No change in vision. No change in hearing. CARDIOVASCULAR: There is no current chest pain or palpitation. PULMONARY: Shortness of breath much improved. GASTROINTESTINAL: She is tolerating a diet. MUSCULOSKELETAL: Complains of weakness. PHYSICAL EXAMINATION: VITAL SIGNS: Blood pressure 116/60, pulse 90s, afebrile. GENERAL: Chronically ill female, elderly, lying in bed on the medical floor. HEENT: Head is atraumatic. Pupils are equal, roving to light. Oropharynx is without exudate. Nares are clear. NECK: There is no JVP. There is no thyromegaly. CARDIOVASCULAR: Regular. There is no S3 or S4 gallop. LUNGS: Coarse with equal thoracic movement. ABDOMEN: Soft, nondistended, and nontender. EXTREMITIES: Reveal no clubbing, no cyanosis. NEUROLOGICAL: She is awake. She is alert. LABORATORY DATA: Sodium 145, potassium 3.9, BUN 29, creatinine 0.8. Hemoglobin 12, hematocrit 38, white cell count is 15,000. IMPRESSION: * Acute and chronic renal failure. * Cardiomyopathy. * Diabetes mellitus. * Hypertension. * Electrolyte abnormalities. PLAN: The patient's creatinine continues to stabilize. The patient's pulmonary symptoms are much improved. The patient's workup is ongoing per Cardiology. The patient is tentatively scheduled for cardioversion later today. We will continue to monitor the chemistries closely. The patient's electrolytes have all been aggressively repleted. TID: [id number] RECEIPT: [id number]
[2024-11-30] MEDS: MIDAZOLAM HCL 1 MG/ML 2ML VIAL IVP ONE (12:03)
[2024-11-30] MEDS: FENTanyl CITRate PF 50 MCG/1 ML 2ML VIAL IVP ONE (12:03)
[2024-11-30] MEDS: LIDOCAINE HCL 2% VISCOUS 15 ML UDCUP ONE (12:04)
--- NOTE | 2024-11-30 12:35 | EKG ---
[facility] Test Date: 2024-11-30 Test Time: 12:08:58 Pat Name: HERNÁN BERNARD Department: [facility] Room: 203 1 Gender: F [place] Auditor: Geri LANCASTER : 1945 Requested By: NATHALIE BRYANT Order Number: [id number] Reading MD: Nathalie Bryant Measurements Intervals [place] Rate: 92 P: 67 ID: [id number] QRS: 40 QRSD: 84 T: 232 QT: 354 QTc: 437 Interpretive Statements Sinus rhythm with premature atrial complexes with aberrant conduction ST & T wave abnormality, consider inferolateral ischemia Electronically Signed On 11-30-2024 17:34:31 CDT by Nathalie Bryant Please click the below link to view image of tracing.
--- NOTE | 2024-11-30 15:16 | PN ---
[facility] PROGRESS NOTE Date Patient Seen: November 30, 2024 Time of Visit: 15:16 Supervising Physician: Dr. Hankins Primary Care Physician: Dr. 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 She is on 2 L via nasal cannula in no apparent distress. Saturating 97% respiratory rate of 18 heart rate between 100-110. Metoprolol has been ordered per Cardiology. We may start weaning Milrinone drip per Dr Shay gaytan. Leaning with 120 27 kg. WBCs of 17 trending down from yesterday, H&H is 13 over 40, platelet count 183 K. sodium 144 potassium of four chloride 103 CO2 of 41. Decreasing Lasix to 20 mg daily. BUN of 31, creatinine of 0.9 GFR 65. She reports some loss of hearing to right ear post extubation. Weaning steroids to prednisone 20 mg daily. There is no family at the bedside at this time. Plans for ARASH guided cardioversion with the NS he is in tomorrow morning per Cardiology. 11/29 patient was seen and examined by bedside with family present. Patient has been weaned off oxygen is currently on room air tolerating well. Patient's swelling to bilateral lower extremities have improved. Patient denies any chest pain or shortness of breadth at time of visit. Denies any nausea vomiting or abdominal pain. Patient continues on marijuana drip we will continue to follow recommendations from Cardiology. Patient is scheduled for ARASH guided c ardioversion tomorrow 11/30/2024. We will repeat patient's labs tomorrow morning and continue to monitor serum sodium level. 11/30/2024: At the time of my evaluation, the patient was lying in bed. Vital signs today were within normal ranges. She remains on room air. Laboratory data showed improving WBC count today down to 15.3. Chemistry panel showed elevated liver enzymes without hyperbilirubinemia. No new chest imaging for review today. Patient underwent arash and results is pending. Staff nurse reports no acute events otherwise. No other complaint. REVIEW OF SYSTEMS: 12- point system review was carried out and pertinent positives documented above otherwise negative. PHYSICAL EXAM: GENERAL: Chronically ill, no obvious signs or symptoms of distress HEENT: EOMI, Sclera non icteric, moist mucosa NECK: Supple, no JVD, trachea midline LUNGS: Clear breath sounds, bilaterally. no wheezes. HEART: Normal S1 and S2, without murmurs ABD: Large body habitus EXT: No clubbing cyanosis or edema NEURO: Awake alert able to answer simple questions appropriately Vital Signs (last 8hr) Date Time Temp Pulse Resp B/P (MAP) Pulse Ox O2 Delivery O2 Flow Rate FiO2 11/30/24 07:48 98.8 94 20 116/60 96 Room Air 11/30/24 07:30 96 Room Air* 0 21 LABS: Hematology Labs: Test 11/30/24 03:28 Range/Units White Blood Count 15.3 H 4.8-10.8 K/uL Red Blood Count 4.39 4.00-5.50 MIL/uL Hemoglobin 12.5 12.0-16.0 g/dL Hematocrit 38.7 36-48 % Mean Corpuscular Volume 88.2 79-99 fL Mean Corpuscular Hemoglobin 28.5 27.0-33.0 pg Mean Corpuscular Hemoglobin Concent 32.3 32.0-36.0 g/dL Red Cell Distribution Width 13.4 11.0-15.5 % Platelet Count 159 130-400 K/uL Mean Platelet Volume 11.2 H 7.5-10.5 fL Immature Granulocyte % (Auto) 1.3 H 0-1 % Neutrophils (%) (Auto) 80.2 H 40.0-77.0 % Lymphocytes (%) (Auto) 11.1 L 21.0-51.0 % Monocytes (%) (Auto) 6.5 3.0-13.0 % Eosinophils (%) (Auto) 0.8 0.0-8.0 % Basophils (%) (Auto) 0.1 0.0-5.0 % Neutrophils # (Auto) 12.3 H 1.8-7.7 K/uL Lymphocytes # (Auto) 1.7 1.0-4.8 K/uL Monocytes # (Auto) 1.0 0.1-1.0 K/uL Eosinophils # (Auto) 0.12 0.00-0.70 K/uL Basophils # (Auto) 0.02 0.00-0.20 K/uL Absolute Immature Granulocyte (auto 0.20 0-1 K/uL Nucleated Red Blood Cells 0.0 0.0-0.19 % Chemistry Labs: Test 11/30/24 03:28 11/29/24 04:35 11/28/24 16:37 Range/Units Sodium Level 145 136-145 mmol/L Potassium Level 3.9 3.5-5.1 mmol/L Chloride Level 105 101-111 mmol/L Carbon Dioxide Level 37 H 21-32 mmol/L Blood Urea Nitrogen 29 H 7-18 mg/dL Creatinine 0.8 0.5-1.0 mg/dL Glomerular Filtration Rate Calc 75 >90 mL/min Random Glucose 192 H 70-105 mg/dL Total Calcium 8.5 8.5-10.1 mg/dL Magnesium Level 2.00 1.80-2.40 mg/dL Total Bilirubin 0.9 # 0.2-1.0 mg/dL Aspartate Amino Transf (AST/SGOT) 40 H 10-37 U/L Alanine Aminotransferase (ALT/SGPT) 119 #H 12-78 U/L Alkaline Phosphatase 94 50-136 U/L Total Protein 5.6 L 6.0-8.3 g/dL Albumin 2.3 L 3.5-5.0 g/dL B-Type Natriuretic Peptide 133 H 0-100 pg/mL Whole Blood Glucose 218 H 70-110 MG/DL Coagulation Labs: Test 11/29/24 04:35 Range/Units Prothrombin Time 11.5 9.6-11.6 SEC Prothromb Time International Ratio 1.09 0.85-1.15 Activated Partial Thromboplast Time 26.4 26.3-35.5 SEC DIAGNOSTICS / RADIOLOGY RESULTS: [ ] PLAN Continue to follow recommendations from Cardiology Continue BiPAP q.h.s. and p.r.n. Continue aspiration precautions Continue metoprolol 100 mg b.i.d. Continue lisinopril 2.5 mg daily Continue atorvastatin 20 mg q.h.s. Continue IV antibiotics Continue prednisone 20 mg daily Continue lasix to 20mg po daily wean Milrinone drip Continue Xarelto 20 mg daily As per cardiology ARASH guided cardioversion to be scheduled for possible Friday or Friday of next week Continue digoxin 250 mcg daily 11/30/2024: For now, going to continue current management for the patient. We will supplement oxygenation as necessary. She will remain on bronchodilator therapy. She is going to remain on antibiotic coverage currently receiving Rocephin. The patient will continue with Milrinone drip soon to taper off and changed to p.o. Lasix. We will await the ARASH results. We will follow the recommendation of Cardiology. We will monitor the patient's progress and response to management. We will repeat surveillance labs in the morning. We will continue to provide general supportive care, GI and DVT prophylaxis. Further orders per attending MD and hospital course. NEURO: Minimize central acting medications as possible. Maintain fall precautions, adequate lighting during the day PULMONARY: Supplemental 02 as needed. Maintain aspiration precautions at all times CARDIOVASCULAR: Follow hemodynamics. Vital signs per facility protocol GI & NUTRITION: Continue with nutritional support. Continue stool softeners and laxatives as needed. KIDNEYS & ELECTROLYTES: Strict monitoring of intake, output and overall fluid balance. Avoid nephrotoxic medications to the extent possible. Medications to be dosed according to renal function. Monitor electrolytes and replace as needed ENDOCRINE: Maintain blood glucose between 100-180 at all times. Hypoglycemia protocol in place INFECTIOUS DISEASE: Trend temperature, WBC and procalcitonin level Follow cultures, deescalate antibiotics as soon as possible. Panculture if new onset fever ONCOLOGY/HEMATOLOGY/COAGULATION: Monitor for s/s of bleeding Monitor hemoglobin, coagulation studies as needed SKIN: Pressure ulcer prevention per facility protocol Specialty mattress ORTHO/REHAB: Continue PT/OT Prophylaxis: Continue GI and DVT prophylaxis Code Status: Full Resuscitation Disposition: TBD Other: Case discussed with supervising physician plan of care agreed upon CARTER HAYES NP November 30, 2024 15:16
--- NOTE | 2024-11-30 16:50 | HMCSR ---
APPROVED REPORT EXAM: Transesophageal echocardiogram with color flow Doppler. INDICATION ICD: Atrial fibrillation Reason For Test : Rule out Intracardiac Thrombus. PROCEDURE After obtaining informed consent, patient underwent transesophageal echo in the 203 15 mL 2% Viscous Lidocaine was given as a topical anesthetic prior to the administration of the consc ious sedation. Type of Sedation: Conscious Sedation Sedation was administered by please refer to medication administration record. . Sedation was achieved with please refer to medication administration record. intravenously. Transesophageal probe was inserted and advanced into esophagus without difficulty by Renetta FENTON , Manny uSarez MD. Echo enhancement indication: R/O Septal defect. Echo enhancement agent administered: Agitated Saline. LAY was performed and images were obtained, probe was removed without complications. Prior to cardioversion, of please refer to medication administration record. was administered. Synchronized Cardioversion attempted: Successful Synchronized Cardioversion acheived with 200 Joules after 1 attempt(s). Rhythm following Synchronized Cardioversion: PVC's sinus rhythm Throughout the procedure, the blood pressure, pulse oximetry, cardiac rhythm, and rate were monitored . LAY probled placed into esophogus in the left lateral decubitus position. We noted no evidence of int racardiac thrombi. We then retracted the LAY probed and following moderate sedation we performed sync hronized DCCV with 200j x 1 with restroation of NSR> Pt tolerated procedure well with no post procedu re complications. Left Ventricle The left ventricle is normal size. There is left ventricular wall thickness. LVEF is 40-45%. No left ventricle thrombus noted on this study. Right Ventricle The right ventricle is normal size. The right ventricular systolic function is normal. Atria The left atrium size is normal. No left atrial appendage thrombus noted. Spontaneous contrast noted i n left atrium. Negative bubble study. No evidence of PFO/ASD by agitated saline/color doppler. The ri ght atrium is mildly dilated. Aortic Valve The aortic valve is trileaflet normal in structure. No aortic regurgitation is present. There is no a ortic valvular vegetation. There is no aortic valvular stenosis. Mitral Valve The mitral valve is normal in structure. There is mild mitral valve regurgitation noted. No mitral va lve vegetation. There is no mitral valve stenosis. Tricuspid Valve The tricuspid valve is normal in structure. There is no tricuspid valve regurgitation noted. No tricu spid valve vegetation. Pulmonic Valve The pulmonary valve is normal in structure. There is no pulmonic valvular regurgitation. Great Vessels The aortic root is normal in size. Ascending aorta appears normal in size.Descending aorta appears no rmal in size. The IVC was not visualized. Pericardium There is no pericardial effusion. Conclusion The left ventricle is normal size. LVEF is 40-45% with global hypokinesis. The right ventricular systolic function is normal. Both atria appear mildly dilated. Normal Bubble study. There is mild mitral valve regurgitation noted. No evidence of intracardiac thromobi noted. There is no pericardial effusion. Following LAY pt underwent synchronized DCCV with 200j x 1 with jewish of NSR.
--- NOTE | 2024-11-30 17:28 | PRN ---
INDICATION FOR PROCEDURE: Atrial fibrillation in the setting of HFrEF PROCEDURE: Cardioversion DATE OF PROCEDURE: 11/30/2024 MILLWRIGHT: Nathalie Bryant MD PROCEDURE NOTE: The patient was present at bedside in the fasting state. Moderate sedation (4mg Versed and 100mcg Fentanyl) was provided. Following TTE procedure, A synchronized shock of 200 joules was delivered resulting in sinus rhythm. The patient tolerated the procedure well. There were no complications. COMPLICATIONS: None IMPRESSION: Atrial fibrillation status post successful cardioversion PLAN: 1. The patient will be observed and plan to optimize GDMT 2. Keep on telemetry. NATHALIE BRYANT MD November 30, 2024 17:27
[2024-12-01] VITALS (15 sets, daily range): BP systolic 119–157; BP diastolic 52–92; PULSE 70–95; RESP 18–20; TEMP 97.8–99.2; O2SAT 94–98
[2024-12-01 03:49] LABS: BASOPHILS # (AUTO) 0.01 K/uL (0.00-0.20); BASOPHILS % (AUTO) 0.1 % (0.0-5.0); EOSINOPHILS # (AUTO) 0.23 K/uL (0.00-0.70); EOSINOPHILS % (AUTO) 1.8 % (0.0-8.0); HEMATOCRIT 34.1 % (36-48); IMMATURE GRANULOCYTE ABSOLUTE 0.14 K/uL (0-1); LYMPHOCYTES # (AUTO) 1.4 K/uL (1.0-4.8); LYMPHOCYTES % (AUTO) 10.8 % (21.0-51.0); MEAN CORPUSCULAR HEMOGLOBIN 29.1 pg (27.0-33.0); MEAN CORPUSCULAR HGB CONC 32.6 g/dL (32.0-36.0); MEAN CORPUSCULAR VOLUME 89.3 fL (79-99); MONOCYTES % (AUTO) 7.6 % (3.0-13.0); NEUTROPHILS # (AUTO) 10.2 K/uL (1.8-7.7); NEUTROPHILS % (AUTO) 78.6 % (40.0-77.0); PLATELET COUNT (AUTO) 145 K/uL (130-400); RED BLOOD CELL COUNT(AUTO) 3.82 MIL/uL (4.00-5.50); RED CELL DISTRIBUTION WIDTH 13.9 % (11.0-15.5)
[2024-12-01 04:01] LABS: ALBUMIN 2.2 g/dL (3.5-5.0); BILIRUBIN,TOTAL 1.1 mg/dL (0.2-1.0); CREATININE 0.8 mg/dL (0.5-1.0); POTASSIUM 3.8 mmol/L (3.5-5.1); TOTAL PROTEIN, SERUM 5.1 g/dL (6.0-8.3)
--- NOTE | 2024-12-01 10:21 | PN ---
FOLLOWUP PROGRESS NOTE SUBJECTIVE: A 79-year-old female who has had a prolonged hospital course. The patient with a history of known cardiomyopathy. The patient did undergo cardioversion yesterday. The patient remains in sinus rhythm. She has had [id number] renal failure in the hospital and creatinine has been elevated. The patient with underlying respiratory distress and pulmonary symptoms have greatly improved and the patient is being seen as a followup visit for all of the above. REVIEW OF SYSTEMS: CONSTITUTIONAL: She is feeling improved. HEENT: No change in vision. No change in hearing. CARDIOVASCULAR: There is no current chest pain or palpitations. PULMONARY: No shortness of breath. GASTROINTESTINAL: The patient is tolerating a diet. MUSCULOSKELETAL: Complains of weakness. PHYSICAL EXAMINATION: VITAL SIGNS: Blood pressure 156/65, pulse in the 70s. Afebrile. GENERAL: Chronically ill female lying in bed on the medical floor. HEENT: Head is atraumatic. Pupils are equal, round, reactive to light. Oropharynx is without exudate. Nares clear. NECK: There is no JVP. There is no thyromegaly. No masses. CARDIOVASCULAR: Regular. There is no S3 or S4 gallop. LUNGS: Coarse with equal thoracic movement. ABDOMEN: Soft, nondistended, and nontender. EXTREMITIES: There is no clubbing, no cyanosis. NEUROLOGICAL: She is awake. She is alert. LABORATORY DATA: Hemoglobin 11, hematocrit 34, white cell count 13,000. Sodium 144, BUN 24, creatinine 0.8. IMPRESSION: * Acute renal failure * Cardiomyopathy * Respiratory acidosis. * Diabetes mellitus. PLAN: The patient's creatinine has remained stable. The patient with significant cardiomyopathy, workup is ongoing per Cardiology. The patient's electrolytes have all been aggressively repleted. She is encouraged with her therapy. All labs can be repeated in the morning. Once the patient is discharged, the patient will follow up in the renal clinic. TID: [id number] RECEIPT: [id number]
--- NOTE | 2024-12-01 11:43 | PN ---
[facility] PROGRESS NOTE Date Patient Seen: December 01, 2024 Time of Visit: 11:30 Supervising Physician: Dr. Hankins Primary Care Physician: Dr. 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 She is on 2 L via nasal cannula in no apparent distress. Saturating 97% respiratory rate of 18 heart rate between 100-110. Metoprolol has been ordered per Cardiology. We may start weaning Milrinone drip per Dr Shay gaytan. Leaning with 120 27 kg. WBCs of 17 trending down from yesterday, H&H is 13 over 40, platelet count 183 K. sodium 144 potassium of four chloride 103 CO2 of 41. Decreasing Lasix to 20 mg daily. BUN of 31, creatinine of 0.9 GFR 65. She reports some loss of hearing to right ear post extubation. Weaning steroids to prednisone 20 mg daily. There is no family at the bedside at this time. Plans for ARASH guided cardioversion with the NS he is in tomorrow morning per Cardiology. 11/29 patient was seen and examined by bedside with family present. Patient has been weaned off oxygen is currently on room air tolerating well. Patient's swelling to bilateral lower extremities have improved. Patient denies any chest pain or shortness of breadth at time of visit. Denies any nausea vomiting or abdominal pain. Patient continues on marijuana drip we will continue to follow recommendations from Cardiology. Patient is scheduled for ARASH guided cardioversion tomorrow 11/30/2024. We will repeat patient's labs tomorrow morning and continue to monitor serum sodium level. 11/30/2024: At the time of my evaluation, the patient was lying in bed. Vital signs today were within normal ranges. She remains on room air. Laboratory data showed improving WBC count today down to 15.3. Chemistry panel showed elevated liver enzymes without hyperbilirubinemia. No new chest imaging for review today. Patient underwent arash and results is pending. Staff nurse reports no acute events otherwise. No other complaint. 12/01/2024: At the time of my evaluation, the patient was sitting up to the bedside chair. The staff nurse reports no acute events overnight. The patient continues on a Milrinone drip and is so far tolerating well. Yesterday, the patient underwent successful cardioversion. No other complaint. Currently, she is on room air, afebrile no tachycardia or tachypnea blood pressure slightly elevated systolic in the 150s. Laboratory data today was notable for improved WBC count today 13.0. No acute anemia or thrombocytopenia. Chemistry panel today showed a carbon dioxide of 40, BUN of 24, creatinine of 0.8 and a GFR of 75. Liver parameters showed a total bilirubin of 1.1, AST of 31, ALT of 86 and a alk-phos of 77. No new cultures for review. No new imaging for review. No other complaint. REVIEW OF SYSTEMS: 12- point system review was carried out and pertinent positives documented above otherwise negative. PHYSICAL EXAM: GENERAL: Chronically ill, no obvious signs or symptoms of distress HEENT: EOMI, Sclera non icteric, moist mucosa NECK: Supple, no JVD, trachea midline LUNGS: Clear breath sounds, bilaterally. no wheezes. HEART: Normal S1 and S2, without murmurs ABD: Large body habitus EXT: No clubbing cyanosis or edema NEURO: Awake alert able to answer simple questions appropriately Vital Signs (last 8hr) Date Time Temp Pulse Resp B/P (MAP) Pulse Ox O2 Delivery O2 Flow Rate FiO2 12/01/24 08:00 99.1 74 19 156/65 98 Room Air 12/01/24 07:21 95 18 N/A Room Air 21 12/01/24 07:19 95 18 12/01/24 04:00 98.2 70 18 132/53 94 Room Air LABS: Hematology Labs: Test 12/01/24 03:38 Range/Units White Blood Count 13.0 H 4.8-10.8 K/uL Red Blood Count 3.82 L 4.00-5.50 MIL/uL Hemoglobin 11.1 L 12.0-16.0 g/dL Hematocrit 34.1 L 36-48 % Mean Corpuscular Volume 89.3 79-99 fL Mean Corpuscular Hemoglobin 29.1 27.0-33.0 pg Mean Corpuscular Hemoglobin Concent 32.6 32.0-36.0 g/dL Red Cell Distribution Width 13.9 11.0-15.5 % Platelet Count 145 130-400 K/uL Mean Platelet Volume 11.2 H 7.5-10.5 fL Immature Granulocyte % (Auto) 1.1 H 0-1 % Neutrophils (%) (Auto) 78.6 H 40.0-77.0 % Lymphocytes (%) (Auto) 10.8 L 21.0-51.0 % Monocytes (%) (Auto) 7.6 3.0-13.0 % Eosinophils (%) (Auto) 1.8 0.0-8.0 % Basophils (%) (Auto) 0.1 0.0-5.0 % Neutrophils # (Auto) 10.2 H 1.8-7.7 K/uL Lymphocytes # (Auto) 1.4 1.0-4.8 K/uL Monocytes # (Auto) 1.0 0.1-1.0 K/uL Eosinophils # (Auto) 0.23 0.00-0.70 K/uL Basophils # (Auto) 0.01 0.00-0.20 K/uL Absolute Immature Granulocyte (auto 0.14 0-1 K/uL Nucleated Red Blood Cells 0.0 0.0-0.19 % Chemistry Labs: Test 12/01/24 03:38 11/30/24 03:28 Range/Units Sodium Level 144 136-145 mmol/L Potassium Level 3.8 3.5-5.1 mmol/L Chloride Level 104 101-111 mmol/L Carbon Dioxide Level 40 *H 21-32 mmol/L Blood Urea Nitrogen 24 H 7-18 mg/dL Creatinine 0.8 0.5-1.0 mg/dL Glomerular Filtration Rate Calc 75 >90 mL/min Random Glucose 176 H 70-105 mg/dL Total Calcium 8.0 L 8.5-10.1 mg/dL Total Bilirubin 1.1 H 0.2-1.0 mg/dL Aspartate Amino Transf (AST/SGOT) 31 10-37 U/L Alanine Aminotransferase (ALT/SGPT) 86 H 12-78 U/L Alkaline Phosphatase 77 50-136 U/L Total Protein 5.1 L 6.0-8.3 g/dL Albumin 2.2 L 3.5-5.0 g/dL Magnesium Level 2.00 1.80-2.40 mg/dL DIAGNOSTICS / RADIOLOGY RESULTS: [ ] PLAN Continue to follow recommendations from Cardiology Continue BiPAP q.h.s. and p.r.n. Continue aspiration precautions Continue metoprolol 100 mg b.i.d. Continue lisinopril 2.5 mg daily Continue atorvastatin 20 mg q.h.s. Continue IV antibiotics Continue prednisone 20 mg daily Continue lasix to 20mg po daily wean Milrinone drip Continue Xarelto 20 mg daily As per cardiology ARASH guided cardioversion to be scheduled for possible Friday or Friday of next week Continue digoxin 250 mcg daily 11/30/2024: For now, going to continue current management for the patient. We will supplement oxygenation as necessary. She will remain on bronchodilator therapy. She is going to remain on antibiotic coverage currently receiving Rocephin. The patient will continue with Milrinone drip soon to taper off and changed to p.o. Lasix. We will await the ARASH results. We will follow the recommendation of Cardiology. We will monitor the patient's progress and response to management. We will repeat surveillance labs in the morning. We will continue to provide general supportive care, GI and DVT prophylaxis. Further orders per attending MD and hospital course. 12/01/2024: For now, we are going to continue current management for the patient. Because of the elevated CO2 in blood, I am going to request a chest x- ray now as well as an ABG for further evaluation of CO2 retention. Patient will continue on Milrinone drip and we will change to Lasix under the guidance of the Cardiology team. We will continue to monitor the heart rate. We will replace electrolyte abnormality. I appreciate the input of the Cardiology and Nephrology team. We will monitor the patient's progress and response to management. We will continue to provide general supportive care, GI and DVT prophylaxis. Further orders per attending MD and hospital course. NEURO: Minimize central acting medications as possible. Maintain fall precautions, adequate lighting during the day PULMONARY: Supplemental 02 as needed. Maintain aspiration precautions at all times CARDIOVASCULAR: Follow hemodynamics. Vital signs per facility protocol GI & NUTRITION: Continue with nutritional support. Continue stool softeners and laxatives as needed. KIDNEYS & ELECTROLYTES: Strict monitoring of intake, output and overall fluid balance. Avoid nephrotoxic medications to the extent possible. Medications to be dosed according to renal function. Monitor electrolytes and replace as needed ENDOCRINE: Maintain blood glucose between 100-180 at all times. Hypoglycemia protocol in place INFECTIOUS DISEASE: Trend temperature, WBC and procalcitonin level Follow cultures, deescalate antibiotics as soon as possible. Panculture if new onset fever ONCOLOGY/HEMATOLOGY/COAGULATION: Monitor for s/s of bleeding Monitor hemoglobin, coagulation studies as needed SKIN: Pressure ulcer prevention per facility protocol Specialty mattress ORTHO/REHAB: Continue PT/OT Prophylaxis: Continue GI and DVT prophylaxis Code Status: Full Resuscitation Disposition: TBD Other: Case discussed with supervising physician plan of care agreed upon CARTER HAYES NP December 01, 2024 11:43
[2024-12-01 12:27] LABS: ABG BASE EXCESS 9.8 mmol/L (-2.0-3.0); ABG OXYGEN SATURATION 92.3 % (94.0-98.0); ABG PCO2 49 mmHg (32-45); ABG PH 7.475 (7.350-7.450); DEVICE COMMENT RR; PO2, ARTERIAL BG 60.2 mmHg (83.0-108.0); VENT MODE, BG RA (ROOM AIR)
--- NOTE | 2024-12-01 14:05 | HMCIMG ---
CHEST 1VW HISTORY: Hypercarbia COMPARISON: 11/27/2024 FINDINGS: A frontal projection of the chest was obtained. There are bilateral pulmonary infiltrates with pleural effusion. The heart is borderline enlarged. Degenerative changes are seen. No evidence of aortic calcification is seen. IMPRESSION: 1. Probable pulmonary infiltrates with pleural effusion unchanged.
[2024-12-02] VITALS (16 sets, daily range): BP systolic 131–168; BP diastolic 42–74; PULSE 60–78; RESP 16–20; TEMP 97.5–98.5; O2SAT 93–99
[2024-12-02 03:38] LABS: BASOPHILS # (AUTO) 0.01 K/uL (0.00-0.20); BASOPHILS % (AUTO) 0.1 % (0.0-5.0); EOSINOPHILS # (AUTO) 0.09 K/uL (0.00-0.70); EOSINOPHILS % (AUTO) 0.6 % (0.0-8.0); HEMATOCRIT 35.6 % (36-48); IMMATURE GRANULOCYTE ABSOLUTE 0.13 K/uL (0-1); LYMPHOCYTES # (AUTO) 1.4 K/uL (1.0-4.8); LYMPHOCYTES % (AUTO) 9.2 % (21.0-51.0); MEAN CORPUSCULAR HEMOGLOBIN 28.4 pg (27.0-33.0); MEAN CORPUSCULAR HGB CONC 31.7 g/dL (32.0-36.0); MEAN CORPUSCULAR VOLUME 89.4 fL (79-99); MONOCYTES # (AUTO) 1.1 K/uL (0.1-1.0); MONOCYTES % (AUTO) 6.8 % (3.0-13.0); NEUTROPHILS # (AUTO) 12.9 K/uL (1.8-7.7); NEUTROPHILS % (AUTO) 82.5 % (40.0-77.0); PLATELET COUNT (AUTO) 140 K/uL (130-400); RED BLOOD CELL COUNT(AUTO) 3.98 MIL/uL (4.00-5.50); RED CELL DISTRIBUTION WIDTH 13.4 % (11.0-15.5); WHITE BLOOD COUNT (AUTO) 15.7 K/uL (4.8-10.8)
[2024-12-02 04:02] LABS: CREATININE 0.5 mg/dL (0.5-1.0); POTASSIUM 3.9 mmol/L (3.5-5.1)
[2024-12-02 04:55] LABS: WBC MORPHOLOGY CONSISTENT W/DIFF
--- NOTE | 2024-12-02 09:47 | PN ---
SUBJECTIVE: A 79-year-old female with a history of known cardiomyopathy. The patient has had a prolonged hospital course. The patient initially admitted with respiratory distress, requiring a short course of mechanical ventilation. The patient has had acute renal failure in the hospital. Creatinine is actually much improved. Workup is ongoing per Cardiology and the patient is being seen as a followup visit for all of the above. REVIEW OF SYSTEMS: CONSTITUTIONAL: She is feeling improved. HEENT: No change in vision. No change in hearing. CARDIOVASCULAR: There is no current chest pain or palpitations. PULMONARY: She denies any shortness of breath. GASTROINTESTINAL: She is tolerating a diet. MUSCULOSKELETAL: Complains of weakness. PHYSICAL EXAMINATION: VITAL SIGNS: Blood pressure 149/62, pulse in the 70s, afebrile. GENERAL: Chronically ill female, lying in bed on the medical floor. HEENT: Head is atraumatic. Pupils are equal, roving to light. Oropharynx is without exudate. Nares clear. NECK: There is no JVP. There is no thyromegaly. No mass. CARDIOVASCULAR: Regular. There is no S3, S4 or gallop. LUNGS: Coarse with equal thoracic movement. ABDOMEN: Soft, nondistended and nontender. EXTREMITIES: Reveal no clubbing, no cyanosis. NEUROLOGICAL: She is awake. She is alert. LABORATORY DATA: BUN 17, creatinine 0.5, bicarbonate is 34. IMPRESSION: * Acute renal failure, much improved. * Cardiomyopathy. * Diabetes mellitus. * Hypertension. PLAN: The patient's renal function is much improved. The patient's workup is ongoing per Cardiology. The patient with significant debilitation, is encouraged with her therapy. We will continue to follow closely. All labs will be repeated in the morning. TID: [id number] RECEIPT: [id number]
--- NOTE | 2024-12-02 11:13 | PN ---
PROGRESS NOTE PROBLEM LIST: []Atrial fibrillation with RVR Echocardiogram 11/23/2024: LVEF 25-30 %, grade 3 diastolic dysfunction Hypertension, Dyslipidemia, diabetes mellitus, chronic venous insufficiency, chronic stenosis with prior left CEA COPD Left carotid endarterectomy 2013 Venous insufficiency Successful transesophageal echocardiogram guided direct current cardioversion performed on 11/30/2024 Noncompliance with medication and follow up INTERIM HISTORY OF PRESENT ILLNESS: [] Overall patient is feeling much improved. She is undergoing treatment for COPD as well as presumably community- acquired pneumonia at this point and she is on antibiotics. She had Milrinone discontinued yesterday under my direction and continues with adequate urine output. Renal function has remained stable. Telemetry remains sinus REVIEW OF SYSTEMS: No fever, headache, chest pain, abdominal pain, nausea, vomiting, or diarrhea. VITAL SIGNS Vital Signs Date Time Temp Pulse Resp B/P (MAP) Pulse Ox O2 Delivery O2 Flow Rate FiO2 12/02/24 08:45 97.5 70 16 149/62 99 Room Air 12/02/24 07:43 21 12/02/24 07:31 2.0 Laboratory Tests 12/02/24 03:22 LABS/MEDS Laboratory Tests Test 12/01/24 12:25 12/02/24 03:22 Blood Gas Specimen Type Arterial Arterial Blood pH 7.475 (7.350-7.450) Arterial Blood Partial Pressure CO2 49 mmHg (32-45) H Arterial Blood Partial Pressure O2 60.2 mmHg (83.0-108.0) L Arterial Blood HCO3 35.0 mmol/L (21.0-28.0) H Arterial Blood Oxygen Saturation 92.3 % (94.0-98.0) L Arterial Blood Base Excess 9.8 mmol/L (-2.0-3.0) H Blood Gas Temperature 37.0 CELSIUS (35.5-37.0) Blood Gas Vent Mode RA (ROOM AIR) FiO2 21.0 % Blood Gas Specimen Comment RR White Blood Count 15.7 K/uL (4.8-10.8) H Red Blood Count 3.98 MIL/uL (4.00-5.50) L Hemoglobin 11.3 g/dL (12.0-16.0) L Hematocrit 35.6 % (36-48) L Mean Corpuscular Volume 89.4 fL (79-99) Mean Corpuscular Hemoglobin 28.4 pg (27.0-33.0) Mean Corpuscular Hemoglobin Concent 31.7 g/dL (32.0-36.0) L Red Cell Distribution Width 13.4 % (11.0-15.5) Platelet Count 140 K/uL (130-400) Mean Platelet Volume 11.6 fL (7.5-10.5) H Immature Granulocyte % (Auto) 0.8 % (0-1) Neutrophils (%) (Auto) 82.5 % (40.0-77.0) H Lymphocytes (%) (Auto) 9.2 % (21.0-51.0) L Monocytes (%) (Auto) 6.8 % (3.0-13.0) Eosinophils (%) (Auto) 0.6 % (0.0-8.0) Basophils (%) (Auto) 0.1 % (0.0-5.0) Neutrophils # (Auto) 12.9 K/uL (1.8-7.7) H Lymphocytes # (Auto) 1.4 K/uL (1.0-4.8) Monocytes # (Auto) 1.1 K/uL (0.1-1.0) H Eosinophils # (Auto) 0.09 K/uL (0.00-0.70) Basophils # (Auto) 0.01 K/uL (0.00-0.20) Absolute Immature Granulocyte (auto 0.13 K/uL (0-1) Nucleated Red Blood Cells 0.0 % (0.0-0.19) White Cell Morphology Comment CONSISTENT W/DIFF Sodium Level 140 mmol/L (136-145) Potassium Level 3.9 mmol/L (3.5-5.1) Chloride Level 105 mmol/L (101-111) Carbon Dioxide Level 34 mmol/L (21-32) H Blood Urea Nitrogen 17 mg/dL (7-18) Creatinine 0.5 mg/dL (0.5-1.0) Glomerular Filtration Rate Calc 95 mL/min (>90) Random Glucose 146 mg/dL (70-105) H Total Calcium 8.3 mg/dL (8.5-10.1) L Current Medications Amiodarone HCL/ Dextrose 100 ml @ As Directed STK-MED ONCE .ROUTE; Start 11/19/24 at 18:40; Stop 11/19/24 at 18:41; Status DC Propofol 100 ml @ As Directed STK-MED ONCE IV; Start 11/19/24 at 18:41; Stop 11/19/24 at 18:41; Status DC Midazolam HCl 100 ml @ As Directed STK-MED ONCE IV; Start 11/19/24 at 18:46; Stop 11/19/24 at 18:46; Status DC Amiodarone HCL/ Dextrose 200 ml @ As Directed STK-MED ONCE .ROUTE; Start 11/19/24 at 19:01; Stop 11/19/24 at 19:01; Status DC Norepinephrine 250 ml @ 0 mls/hr PROTOCOL IV Last administered on 11/20/24at 11:08; Start 11/19/24 at 19:30; Stop 11/23/24 at 18:55; Status DC Norepinephrine 250 ml @ As Directed STK-MED ONCE IV; Start 11/19/24 at 19:17; Stop 11/19/24 at 19:17; Status DC Amiodarone HCL/ Dextrose 100 ml @ 0 mls/hr PROTOCOL IV Last administered on 11/19/24at 19:26; Start 11/19/24 at 19:30; Stop 11/19/24 at 21:28; Status DC Amiodarone HCL/ Dextrose 200 ml @ 0 mls/hr PROTOCOL IV Last administered on 11/19/24at 19:29; Start 11/19/24 at 19:30; Stop 11/20/24 at 09:03; Status DC Midazolam HCl 100 ml ONCE IV; Start 11/19/24 at 19:30; Stop 11/19/24 at 19:46; Status DC Propofol 1,000 mg PROTOCOL PRN IV Last administered on 11/23/24at 03:51; Start 11/19/24 at 19:30; Stop 11/23/24 at 18:55; Status DC Acetaminophen 650 mg STK-MED ONCE RC; Start 11/19/24 at 19:44; Stop 11/19/24 at 19:44; Status DC Acetaminophen 650 mg ONCE RC Last administered on 11/19/24at 20:25; Start 11/19/24 at 20:00; Stop 11/19/24 at 23:59; Status DC Pantoprazole Sodium 40 mg ONCE ONCE IVP Last administered on 11/19/24at 20:32; Start 11/19/24 at 20:00; Stop 11/19/24 at 20:01; Status DC Enoxaparin Sodium 160 mg ONCE ONCE SQ Last administered on 11/19/24at 20:32; Start 11/19/24 at 20:00; Stop 11/19/24 at 20:01; Status DC Albuterol 1 udvial [id number] IH Last administered on 11/20/24at 03:10; Start 11/19/24 at 22:00; Stop 11/20/24 at 15:21; Status DC Polyethylene Glycol 17 gm DAILY PO Last administered on 12/02/24at 09:56; Start 11/20/24 at 09:00; Stop 12/20/24 at 08:59 Acetaminophen 650 mg Q6H PRN PO; Start 11/19/24 at 20:30; Stop 12/19/24 at 20:29 Acetaminophen 650 mg Q6H PRN RC; Start 11/19/24 at 20:30; Stop 12/19/24 at 20:29 Ondansetron HCl 4 mg Q6H PRN IVP; Start 11/19/24 at 20:30; Stop 12/19/24 at 20:29 Hydralazine HCl 10 mg Q6H PRN IV; Start 11/19/24 at 20:30; Stop 12/19/24 at 20:29 Labetalol HCl 10 mg Q2H PRN IV; Start 11/19/24 at 20:30; Stop 11/20/24 at 08:12; Status DC Hydromorphone HCl 0.5 mg Q2H PRN IVP; Start 11/19/24 at 20:30; Stop 11/20/24 at 08:08; Status DC Insulin Human Regular INSULIN SLIDING SCAL... Q6H6 SQ Last administered on 11/21/24at 00:23; Start 11/20/24 at 00:00; Stop 11/23/24 at 21:14; Status DC Azithromycin 250 ml @ 250 mls/hr Q24H IVPB Last administered on 11/28/24at 21:54; Start 11/19/24 at 20:30; Stop 11/29/24 at 20:29; Status DC Ceftriaxone Sodium 1 gm Q24H IVPB Last administered on 11/22/24at 20:13; Start 11/19/24 at 20:30; Stop 11/23/24 at 08:44; Status DC Pantoprazole Sodium 40 mg DAILY IVP Last administered on 12/02/24at 10:08; Start 11/20/24 at 09:00; Stop 12/20/24 at 08:59 Enoxaparin Sodium 40 mg DAILY SQ Last administered on 11/23/24at 08:33; Start 11/20/24 at 09:00; Stop 11/23/24 at 13:03; Status DC Budesonide 0.5 mg BIDRESP IH Last administered on 12/02/24at 07:27; Start 11/20/24 at 06:00; Stop 12/20/24 at 05:59 Fentanyl Citrate 100 ml @ As Directed STK-MED ONCE IV; Start 11/19/24 at 20:58; Stop 11/19/24 at 20:58; Status DC Fentanyl Citrate 100 ml @ 2.5 mls/hr PROTOCOL IV Last administered on 11/21/24at 11:43; Start 11/19/24 at 21:30; Stop 11/21/24 at 13:50; Status DC Amiodarone HCL/ Dextrose 100 ml @ 0 mls/hr PROTOCOL IV; Start 11/19/24 at 21:30; Stop 11/20/24 at 09:03; Status DC Magnesium Sulfate 50 ml @ 0 mls/hr PROTOCOL IV Last administered on 11/20/24at 06:00; Start 11/19/24 at 21:30; Stop 12/19/24 at 21:29 Potassium Chloride 100 ml @ 50 mls/hr PROTOCOL IV Last administered on 11/20/24at 05:59; Start 11/19/24 at 21:30; Stop 12/19/24 at 21:29 Amiodarone HCl 540 mg/Dextrose 300 ml @ 16.667 mls/ hr PROTOCOL IV Last administered on 11/20/24at 00:34; Start 11/20/24 at 00:30; Stop 11/23/24 at 18:55; Status DC Amiodarone HCl 540 mg/Dextrose 300 ml @ 0 mls/hr PROTOCOL IV; Start 11/20/24 at 00:30; Stop 11/20/24 at 00:16; Status DC Hydromorphone HCl 0.5 mg Q2H PRN IVP; Start 11/20/24 at 08:30; Stop 11/23/24 at 18:55; Status DC Phenylephrine HCl 50 mg/Sodium Chloride 250 ml @ 0 mls/hr AD PRN IV; Start 11/20/24 at 13:30; Stop 11/20/24 at 13:05; Status DC Phenylephrine HCl 10 mg/Sodium Chloride 250 ml @ 0 mls/hr AD PRN IV Last administered on 11/20/24at 13:21; Start 11/20/24 at 13:30; Stop 11/20/24 at 17:03; Status DC Ipratropium [place] 0.5 MG [id number] IH Last administered on 11/23/24at 07:17; Start 11/20/24 at 18:00; Stop 11/23/24 at 10:29; Status DC Phenylephrine HCl 50 mg/Sodium Chloride 250 ml @ 0 mls/hr PROTOCOL PRN IV Last administered on 11/20/24at 17:44; Start 11/20/24 at 17:00; Stop 11/28/24 at 10:09; Status DC Methylprednisolone Sodium Succinate 60 mg Q8H IVP Last administered on 11/23/24at 01:46; Start 11/20/24 at 18:00; Stop 11/23/24 at 08:45; Status DC Dextrose/Sodium Chloride 1,000 ml @ 50 mls/hr Q20H IV Last administered on 11/24/24at 02:53; Start 11/20/24 at 18:00; Stop 11/24/24 at 09:29; Status DC Chlorhexidine Gluconate 15 ml BID MM Last administered on 12/02/24at 10:07; Start 11/21/24 at 21:00; Stop 12/05/24 at 20:59 Artificial Tears 1 DROP Q2H PRN OU Last administered on 11/21/24at 16:12; Start 11/21/24 at 11:00; Stop 12/21/24 at 10:59 Fentanyl Citrate 25 mcg Q2H PRN IVP; Start 11/21/24 at 14:00; Stop 11/23/24 at 18:55; Status DC Iohexol 35,000 mg STK-MED ONCE IV; Start 11/21/24 at 16:52; Stop 11/21/24 at 16:52; Status DC Lisinopril 2.5 mg DAILY PO Last administered on 12/02/24at 09:57; Start 11/23/24 at 09:00; Stop 12/23/24 at 08:59 Metoprolol Tartrate 50 mg BID PO; Start 11/22/24 at 21:00; Stop 11/22/24 at 10:06; Status DC Diltiazem HCl 180 mg DAILY PO; Start 11/23/24 at 09:00; Stop 11/22/24 at 10:06; Status DC Home Med Linaclotide (Linzess) 72 MCG DAILY PO Last administered on 12/02/24at 10:00; Start 11/23/24 at 09:00; Stop 12/23/24 at 08:59 Atorvastatin Calcium 20 mg HS PO Last administered on 12/01/24at 20:20; Start 11/22/24 at 21:00; Stop 12/22/24 at 20:59 Diltiazem HCl 180 mg DAILY PO Last administered on 11/24/24at 08:47; Start 11/22/24 at 10:30; Stop 11/24/24 at 19:43; Status DC Metoprolol Tartrate 50 mg BID PO Last administered on 11/24/24at 08:47; Start 11/22/24 at 10:30; Stop 11/24/24 at 19:43; Status DC Rocuronium [place] 50 mg STK-MED ONCE IV; Start 11/19/24 at 11:28; Stop 11/22/24 at 11:28; Status DC Etomidate 20 mg STK-MED ONCE IVP; Start 11/19/24 at 11:28; Stop 11/22/24 at 11:28; Status DC Diltiazem HCl 5 mg ONCE ONCE IVP Last administered on 11/22/24at 11:52; Start 11/22/24 at 12:00; Stop 11/22/24 at 12:01; Status DC Ceftriaxone Sodium 2 gm Q24H IVPB Last administered on 12/01/24at 20:18; Start 11/23/24 at 20:30; Stop 12/03/24 at 20:29 Methylprednisolone Sodium Succinate 40 mg Q8H IVP Last administered on 11/23/24at 12:28; Start 11/23/24 at 10:00; Stop 11/23/24 at 18:55; Status DC Ipratropium [place] 0.5 MG [id number] IH Last administered on 12/02/24at 07:27; Start 11/23/24 at 10:30; Stop 12/02/24 at 10:29; Status DC Enoxaparin Sodium 120 mg BID ONCE SQ Last administered on 11/23/24at 21:43; Start 11/23/24 at 21:00; Stop 11/23/24 at 21:01; Status DC Hydromorphone HCl 0.5 mg Q4H PRN IVP; Start 11/23/24 at 19:00; Stop 11/24/24 at 20:29; Status DC Methylprednisolone Sodium Succinate 40 mg Q12H IVP Last administered on 11/28/24at 06:46; Start 11/24/24 at 06:00; Stop 11/28/24 at 10:09; Status DC Furosemide 20 mg ONCE ONCE IV Last administered on 11/24/24at 08:47; Start 11/24/24 at 08:30; Stop 11/24/24 at 08:31; Status DC Furosemide 20 mg BID PO Last administered on 11/24/24at 21:29; Start 11/24/24 at 21:00; Stop 11/25/24 at 08:41; Status DC Metoprolol Tartrate 100 mg BID PO; Start 11/24/24 at 21:00; Stop 11/24/24 at 19:49; Status DC Metoprolol Tartrate 100 mg BID PO Last administered on 11/29/24at 20:31; Start 11/24/24 at 20:00; Stop 11/30/24 at 08:33; Status DC Furosemide 40 mg ONCE ONCE IV; Start 11/24/24 at 20:00; Stop 11/24/24 at 20:06; Status DC Milrinone Lactate/ Dextrose 100 ml @ 0 mls/hr PROTOCOL IV Last administered on 11/30/24at 20:34; Start 11/25/24 at 09:00; Stop 12/01/24 at 19:44; Status DC Furosemide 20 mg Q8H IV Last administered on 11/27/24at 08:53; Start 11/25/24 at 09:00; Stop 11/27/24 at 11:55; Status DC Metoprolol Tartrate 5 mg ONCE ONCE IV Last administered on 11/25/24at 21:24; Start 11/25/24 at 21:30; Stop 11/25/24 at 21:31; Status DC Metoprolol Tartrate 5 mg ONCE ONCE IV Last administered on 11/25/24at 21:48; Start 11/25/24 at 22:00; Stop 11/25/24 at 22:01; Status DC Pharmacy Profile Note 1 each ONCE MISC; Start 11/25/24 at 23:00; Stop 11/25/24 at 23:15; Status DC Pharmacy Profile Note 1 each ONCE MISC; Start 11/25/24 at 23:30; Stop 11/25/24 at 23:15; Status DC Digoxin 250 mcg ONCE ONCE IV Last administered on 11/25/24at 23:23; Start 11/25/24 at 23:30; Stop 11/25/24 at 23:31; Status DC Ipratropium [place] 0.5 mg STK-MED ONCE IH; Start 11/26/24 at 00:03; Stop 11/26/24 at 00:12; Status DC Budesonide 0.5 mg STK-MED ONCE IH; Start 11/26/24 at 00:03; Stop 11/26/24 at 00:12; Status DC Digoxin 125 mcg ONCE ONCE IV Last administered on 11/26/24at 04:04; Start 11/26/24 at 03:30; Stop 11/26/24 at 03:31; Status DC Digoxin 125 mcg ONCE ONCE IV Last administered on 11/26/24at 08:47; Start 11/26/24 at 07:30; Stop 11/26/24 at 07:31; Status DC Rivaroxaban 20 mg DAILY PO Last administered on 12/02/24at 09:57; Start 11/27/24 at 09:30; Stop 12/27/24 at 09:29 Digoxin 250 mcg ONCE ONCE IV Last administered on 11/27/24at 10:25; Start 11/27/24 at 10:00; Stop 11/27/24 at 10:07; Status DC Digoxin 250 mcg ONCE ONCE IV Last administered on 11/27/24at 16:13; Start 11/27/24 at 16:00; Stop 11/27/24 at 16:01; Status DC Digoxin 250 mcg DAILY PO Last administered on 11/29/24at 11:00; Start 11/28/24 at 09:00; Stop 11/30/24 at 08:33; Status DC Furosemide 20 mg BID@09,17 PO Last administered on 11/28/24at 08:36; Start 11/27/24 at 17:00; Stop 11/28/24 at 16:19; Status DC Metoprolol Tartrate 5 mg ONCE ONCE IV Last administered on 11/27/24at 14:17; Start 11/27/24 at 14:30; Stop 11/27/24 at 14:31; Status DC Prednisone 20 mg DAILY PO Last administered on 12/02/24at 09:57; Start 11/29/24 at 09:00; Stop 12/29/24 at 08:59 Metoprolol Tartrate 5 mg Q6H PRN IV; Start 11/28/24 at 12:00; Stop 11/28/24 at 12:11; Status DC Metoprolol Tartrate 50 mg DAILY ONCE PO Last administered on 11/28/24at 13:24; Start 11/28/24 at 13:00; Stop 11/28/24 at 13:01; Status DC Metoprolol Tartrate 5 mg Q6H PRN IV Last administered on 11/29/24at 12:11; Start 11/28/24 at 12:30; Stop 12/28/24 at 12:29 Furosemide 20 mg DAILY PO Last administered on 12/02/24at 09:57; Start 11/29/24 at 09:00; Stop 12/27/24 at 16:59 Metoprolol Tartrate 150 mg BID PO Last administered on 12/02/24at 09:57; Start 11/30/24 at 09:00; Stop 12/30/24 at 08:59 Midazolam HCl 6 mg ONCE ONCE IVP Last administered on 11/30/24at 12:03; Start 11/30/24 at 11:00; Stop 11/30/24 at 11:01; Status DC Fentanyl Citrate 100 mcg ONCE ONCE IVP Last administered on 11/30/24at 12:03; Start 11/30/24 at 11:00; Stop 11/30/24 at 11:01; Status DC Lidocaine HCl 15 ml STK-MED ONCE .ROUTE Last administered on 11/30/24at 12:04; Start 11/30/24 at 11:22; Stop 11/30/24 at 11:22; Status DC Ipratropium [place] 0.5 MG Q4H4 IH; Start 12/02/24 at 12:00; Stop 12/20/24 at 17:59 PHYSICAL EXAMINATION: GENERAL: No acute distress. Morbidly obese HEENT: Normocephalic, atraumatic. CARDIAC: Positive S1 and S2. No murmurs. LUNGS: Clear to auscultation bilaterally. ABDOMEN: Bowel sounds present, soft, nontender. EXTREMITIES: No edema bilaterally. NEUROLOGIC: Cranial nerves 2-12 grossly intact. PSYCHIATRIC: Calm. TELEMETRY: Sinus rhythm ASSESSMENT: Atrial fibrillation with RVR Echocardiogram 11/23/2024: LVEF 25-30 %, grade 3 diastolic dysfunction Hypertension, Dyslipidemia, diabetes mellitus, chronic venous insufficiency, chronic stenosis with prior left CEA COPD Left carotid endarterectomy 2013 Venous insufficiency Successful LAY guided direct current cardioversion performed on 11/30/2024 PLAN: [] Cardiac-gold patient has remained stable would continue with current medications. Would continue with anticoagulation. Would continue with guideline directed medical therapy. I would like to repeat a 2D echocardiogram today limited to reassess LVEF and if EF is still compromise consider proceeding with LifeVest placement prior to dismissal. SOLO BOOTH MD December 02, 2024 11:13
--- NOTE | 2024-12-02 11:14 | PN ---
[facility] PROGRESS NOTE Date Patient Seen: December 02, 2024 Time of Visit: 10:55 Supervising Physician: Dr. Day Primary Care Physician: Dr. 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 She is on 2 L via nasal cannula in no apparent distress. Saturating 97% respiratory rate of 18 heart rate between 100-110. Metoprolol has been ordered per Cardiology. We may start weaning Milrinone drip per Dr Day recs. Leaning with 120 27 kg. WBCs of 17 trending down from yesterday, H&H is 13 over 40, platelet count 183 K. sodium 144 potassium of four chloride 103 CO2 of 41. Decreasing Lasix to 20 mg daily. BUN of 31, creatinine of 0.9 GFR 65. She reports some loss of hearing to right ear post extubation. Weaning steroids to prednisone 20 mg daily. There is no family at the bedside at this time. Plans for ARASH guided cardioversion with the NS he is in tomorrow morning per Cardiology. 11/29 patient was seen and examined by bedside with family present. Patient has been weaned off oxygen is currently on room air tolerating well. Patient's swelling to bilateral lower extremities have improved. Patient denies any chest pain or shortness of breadth at time of visit. Denies any nausea vomiting or abdominal pain. Patient continues on marijuana drip we will continue to follow recommendations from Cardiology. Patient is scheduled for ARASH guided cardioversion tomorrow 11/30/2024. We will repeat patient's labs tomorrow morning and continue to monitor serum sodium level. 11/30/2024: At the time of my evaluation, the patient was lying in bed. Vital signs today were within normal ranges. She remains on room air. Laboratory data showed improving WBC count today down to 15.3. Chemistry panel showed myah vated liver enzymes without hyperbilirubinemia. No new chest imaging for review today. Patient underwent arash and results is pending. Staff nurse reports no acute events otherwise. No other complaint. 12/01/2024: At the time of my evaluation, the patient was sitting up to the bedside chair. The staff nurse reports no acute events overnight. The patient continues on a Milrinone drip and is so far tolerating well. Yesterday, the patient underwent successful cardioversion. No other complaint. Currently, she is on room air, afebrile no tachycardia or tachypnea blood pressure slightly elevated systolic in the 150s. Laboratory data today was notable for improved WBC count today 13.0. No acute anemia or thrombocytopenia. Chemistry panel today showed a carbon dioxide of 40, BUN of 24, creatinine of 0.8 and a GFR of 75. Liver parameters showed a total bilirubin of 1.1, AST of 31, ALT of 86 and a alk-phos of 77. No new cultures for review. No new imaging for review. No other complaint. 12/02/2024: At the time of my evaluation, the patient was sitting up at the bedside. The staff nurse reports no acute events overnight. Currently, the patient is not on any oxygen supplementation and vital signs are unremarkable. She remains in normal sinus rhythm. Laboratory data today did show a interval increase of WBC to 15.7, there is no profound anemia or thrombocytopenia. Chemistry panel showed improved CO2 otherwise unremarkable. No new chest imaging for review today. Today, the patient was taken off Milrinone and switch back to furosemide. The patient had a voided output overnight of 550 and a net balance of + 525.2. No other complaint. REVIEW OF SYSTEMS: 12- point system review was carried out and pertinent positives documented above otherwise negative. PHYSICAL EXAM: GENERAL: Chronically ill, no obvious signs or symptoms of distress HEENT: EOMI, Sclera non icteric, moist mucosa NECK: Supple, no JVD, trachea midline LUNGS: Diminished breath sounds, bilaterally. Minimal wheezes. HEART: Normal S1 and S2, without murmurs ABD: Large body habitus EXT: No clubbing cyanosis or edema NEURO: Awake alert able to answer simple questions appropriately Vital Signs (last 8hr) Date Time Temp Pulse Resp B/P (MAP) Pulse Ox O2 Delivery O2 Flow Rate FiO2 12/02/24 08:45 97.5 70 16 149/62 99 Room Air 12/02/24 07:43 67 18 N/A Room Air 21 12/02/24 07:31 65 18 N/Cannula Low lpm 2.0 28 12/02/24 07:27 64 20 12/02/24 03:05 98.1 60 18 131/65 99 Nasal Cannula 2.0 LABS: Hematology Labs: Test 12/02/24 03:22 Range/Units White Blood Count 15.7 H 4.8-10.8 K/uL Red Blood Count 3.98 L 4.00-5.50 MIL/uL Hemoglobin 11.3 L 12.0-16.0 g/dL Hematocrit 35.6 L 36-48 % Mean Corpuscular Volume 89.4 79-99 fL Mean Corpuscular Hemoglobin 28.4 27.0-33.0 pg Mean Corpuscular Hemoglobin Concent 31.7 L 32.0-36.0 g/dL Red Cell Distribution Width 13.4 11.0-15.5 % Platelet Count 140 130-400 K/uL Mean Platelet Volume 11.6 H 7.5-10.5 fL Immature Granulocyte % (Auto) 0.8 0-1 % Neutrophils (%) (Auto) 82.5 H 40.0-77.0 % Lymphocytes (%) (Auto) 9.2 L 21.0-51.0 % Monocytes (%) (Auto) 6.8 3.0-13.0 % Eosinophils (%) (Auto) 0.6 0.0-8.0 % Basophils (%) (Auto) 0.1 0.0-5.0 % Neutrophils # (Auto) 12.9 H 1.8-7.7 K/uL Lymphocytes # (Auto) 1.4 1.0-4.8 K/uL Monocytes # (Auto) 1.1 H 0.1-1.0 K/uL Eosinophils # (Auto) 0.09 0.00-0.70 K/uL Basophils # (Auto) 0.01 0.00-0.20 K/uL Absolute Immature Granulocyte (auto 0.13 0-1 K/uL Nucleated Red Blood Cells 0.0 0.0-0.19 % White Cell Morphology Comment CONSISTENT W/DIFF Chemistry Labs: Test 12/02/24 03:22 12/01/24 03:38 Range/Units Sodium Level 140 136-145 mmol/L Potassium Level 3.9 3.5-5.1 mmol/L Chloride Level 105 101-111 mmol/L Carbon Dioxide Level 34 H 21-32 mmol/L Blood Urea Nitrogen 17 7-18 mg/dL Creatinine 0.5 0.5-1.0 mg/dL Glomerular Filtration Rate Calc 95 >90 mL/min Random Glucose 146 H 70-105 mg/dL Total Calcium 8.3 L 8.5-10.1 mg/dL Total Bilirubin 1.1 H 0.2-1.0 mg/dL Aspartate Amino Transf (AST/SGOT) 31 10-37 U/L Alanine Aminotransferase (ALT/SGPT) 86 H 12-78 U/L Alkaline Phosphatase 77 50-136 U/L Total Protein 5.1 L 6.0-8.3 g/dL Albumin 2.2 L 3.5-5.0 g/dL DIAGNOSTICS / RADIOLOGY RESULTS: [ ] PLAN Continue to follow recommendations from Cardiology Continue BiPAP q.h.s. and p.r.n. Continue aspiration precautions Continue metoprolol 100 mg b.i.d. Continue lisinopril 2.5 mg daily Continue atorvastatin 20 mg q.h.s. Continue IV antibiotics Continue prednisone 20 mg daily Continue lasix to 20mg po daily wean Milrinone drip Continue Xarelto 20 mg daily As per cardiology ARASH guided cardioversion to be scheduled for possible Friday or Friday of next week Continue digoxin 250 mcg daily 11/30/2024: For now, going to continue current management for the patient. We will supplement oxygenation as necessary. She will remain on bronchodilator therapy. She is going to remain on antibiotic coverage currently receiving Rocephin. The patient will continue with Milrinone drip soon to taper off and changed to p.o. Lasix. We will await the ARASH results. We will follow the recommendation of Cardiology. We will monitor the patient's progress and response to management. We will repeat surveillance labs in the morning. We will continue to provide general supportive care, GI and DVT prophylaxis. Further orders per attending MD and hospital course. 12/01/2024: For now, we are going to continue current management for the patient. Because of the elevated CO2 in blood, I am going to request a chest x- ray now as well as an ABG for further evaluation of CO2 retention. Patient will continue on Milrinone drip and we will change to Lasix under the guidance of the Cardiology team. We will continue to monitor the heart rate. We will replace electrolyte abnormality. I appreciate the input of the Cardiology and Nephrology team. We will monitor the patient's progress and response to management. We will continue to provide general supportive care, GI and DVT prophylaxis. Further orders per attending MD and hospital course. 12/02/2024: For now, going to continue current management for the patient. The interval increase in WBCs, may be reactive to her recent ARASH guided cardioversion. Currently, the patient remains on antibiotic coverage with Rocephin. She is also receiving prednisone p.o. daily. I am going to increase bronchodilator frequency to q.4. We will continue to monitor the output with Lasix as ordered. A limited 2D echo was ordered and official results are pending. The patient was encouraged to continue participating with physical therapy. We will monitor and replace electrolyte imbalance. We will continue to provide general supportive care, GI and DVT prophylaxis. Further orders per attending MD and hospital course. NEURO: Minimize central acting medications as possible. Maintain fall precautions, adequate lighting during the day PULMONARY: Supplemental 02 as needed. Maintain aspiration precautions at all times CARDIOVASCULAR: Follow hemodynamics. Vital signs per facility protocol GI & NUTRITION: Continue with nutritional support. Continue stool softeners and laxatives as needed. KIDNEYS & ELECTROLYTES: Strict monitoring of intake, output and overall fluid balance. Avoid nephrotoxic medications to the extent possible. Medications to be dosed according to renal function. Monitor electrolytes and replace as needed ENDOCRINE: Maintain blood glucose between 100-180 at all times. Hypoglycemia protocol in place INFECTIOUS DISEASE: Trend temperature, WBC and procalcitonin level Follow cultures, deescalate antibiotics as soon as possible. Panculture if new onset fever ONCOLOGY/HEMATOLOGY/COAGULATION: Monitor for s/s of bleeding Monitor hemoglobin, coagulation studies as needed SKIN: Pressure ulcer prevention per facility protocol Specialty mattress ORTHO/REHAB: Continue PT/OT Prophylaxis: Continue GI and DVT prophylaxis Code Status: Full Resuscitation Disposition: TBD Other: Case discussed with supervising physician plan of care agreed upon CARTER HAYES NP December 02, 2024 11:14
[2024-12-02] MEDS: IpraTROPium 0.5 MG/2.5 ML INH IH SCH (11:26)
[2024-12-03] VITALS (16 sets, daily range): BP systolic 134–157; BP diastolic 67–98; PULSE 60–73; RESP 18–20; TEMP 97.8–98.4; O2SAT 94–99
[2024-12-03 04:30] LABS: BASOPHILS # (AUTO) 0.02 K/uL (0.00-0.20); BASOPHILS % (AUTO) 0.1 % (0.0-5.0); EOSINOPHILS # (AUTO) 0.11 K/uL (0.00-0.70); EOSINOPHILS % (AUTO) 0.7 % (0.0-8.0); HEMATOCRIT 32.6 % (36-48); IMMATURE GRANULOCYTE ABSOLUTE 0.13 K/uL (0-1); LYMPHOCYTES # (AUTO) 1.8 K/uL (1.0-4.8); LYMPHOCYTES % (AUTO) 11.3 % (21.0-51.0); MEAN CORPUSCULAR HEMOGLOBIN 28.6 pg (27.0-33.0); MEAN CORPUSCULAR HGB CONC 32.5 g/dL (32.0-36.0); MEAN CORPUSCULAR VOLUME 88.1 fL (79-99); MONOCYTES % (AUTO) 6.1 % (3.0-13.0); NEUTROPHILS # (AUTO) 12.9 K/uL (1.8-7.7); PLATELET COUNT (AUTO) 143 K/uL (130-400); RED CELL DISTRIBUTION WIDTH 13.6 % (11.0-15.5)
[2024-12-03 04:47] LABS: CREATININE 0.6 mg/dL (0.5-1.0); POTASSIUM 3.7 mmol/L (3.5-5.1)
--- NOTE | 2024-12-03 07:53 | PN ---
PROGRESS NOTE PROBLEM LIST: Atrial fibrillation with RVR Echocardiogram 11/23/2024: LVEF 25-30 %, grade 3 diastolic dysfunction Hypertension, Dyslipidemia, diabetes mellitus, chronic venous insufficiency, chronic stenosis with prior left CEA COPD Left carotid endarterectomy 2013 Venous insufficiency Successful transesophageal echocardiogram guided direct current cardioversion performed on 11/30/2024 Noncompliance with medication and follow up Repeat 2D echocardiogram on 12/02/2024 with an ejection fraction estimated at 55% INTERIM HISTORY OF PRESENT ILLNESS: Patient did have repeat 2D echocardiography performed yesterday which revealed her ejection fraction of normalized at this point. Patient has maintained a sinus rhythm. Patient is still undergoing treatment for community-acquired pneumonia on antibiotic therapy REVIEW OF SYSTEMS: No fever, headache, chest pain, abdominal pain, nausea, vomiting, or diarrhea. VITAL SIGNS Vital Signs Date Time Temp Pulse Resp B/P (MAP) Pulse Ox O2 Delivery O2 Flow Rate FiO2 12/03/24 03:38 98.4 71 18 134/96 94 Room Air 12/02/24 20:00 0 21 Laboratory Tests 12/03/24 04:16 LABS/MEDS Laboratory Tests Test 12/03/24 04:16 12/03/24 05:16 White Blood Count 16.0 K/uL (4.8-10.8) H Red Blood Count 3.70 MIL/uL (4.00-5.50) L Hemoglobin 10.6 g/dL (12.0-16.0) L Hematocrit 32.6 % (36-48) L Mean Corpuscular Volume 88.1 fL (79-99) Mean Corpuscular Hemoglobin 28.6 pg (27.0-33.0) Mean Corpuscular Hemoglobin Concent 32.5 g/dL (32.0-36.0) Red Cell Distribution Width 13.6 % (11.0-15.5) Platelet Count 143 K/uL (130-400) Mean Platelet Volume 11.6 fL (7.5-10.5) H Immature Granulocyte % (Auto) 0.8 % (0-1) Neutrophils (%) (Auto) 81.0 % (40.0-77.0) H Lymphocytes (%) (Auto) 11.3 % (21.0-51.0) L Monocytes (%) (Auto) 6.1 % (3.0-13.0) Eosinophils (%) (Auto) 0.7 % (0.0-8.0) Basophils (%) (Auto) 0.1 % (0.0-5.0) Neutrophils # (Auto) 12.9 K/uL (1.8-7.7) H Lymphocytes # (Auto) 1.8 K/uL (1.0-4.8) Monocytes # (Auto) 1.0 K/uL (0.1-1.0) Eosinophils # (Auto) 0.11 K/uL (0.00-0.70) Basophils # (Auto) 0.02 K/uL (0.00-0.20) Absolute Immature Granulocyte (auto 0.13 K/uL (0-1) Nucleated Red Blood Cells 0.0 % (0.0-0.19) Sodium Level 145 mmol/L (136-145) Potassium Level 3.7 mmol/L (3.5-5.1) Chloride Level 107 mmol/L (101-111) Carbon Dioxide Level 36 mmol/L (21-32) H Blood Urea Nitrogen 15 mg/dL (7-18) Creatinine 0.6 mg/dL (0.5-1.0) Glomerular Filtration Rate Calc 91 mL/min (>90) Random Glucose 137 mg/dL (70-105) H Total Calcium 7.8 mg/dL (8.5-10.1) L Whole Blood Glucose 125 MG/DL (70-110) H Current Medications Amiodarone HCL/ Dextrose 100 ml @ As Directed STK-MED ONCE .ROUTE; Start 11/19/24 at 18:40; Stop 11/19/24 at 18:41; Status DC Propofol 100 ml @ As Directed STK-MED ONCE IV; Start 11/19/24 at 18:41; Stop 11/19/24 at 18:41; Status DC Midazolam HCl 100 ml @ As Directed STK-MED ONCE IV; Start 11/19/24 at 18:46; Stop 11/19/24 at 18:46; Status DC Amiodarone HCL/ Dextrose 200 ml @ As Directed STK-MED ONCE .ROUTE; Start 11/19/24 at 19:01; Stop 11/19/24 at 19:01; Status DC Norepinephrine 250 ml @ 0 mls/hr PROTOCOL IV Last administered on 11/20/24at 11:08; Start 11/19/24 at 19:30; Stop 11/23/24 at 18:55; Status DC Norepinephrine 250 ml @ As Directed STK-MED ONCE IV; Start 11/19/24 at 19:17; Stop 11/19/24 at 19:17; Status DC Amiodarone HCL/ Dextrose 100 ml @ 0 mls/hr PROTOCOL IV Last administered on 11/19/24at 19:26; Start 11/19/24 at 19:30; Stop 11/19/24 at 21:28; Status DC Amiodarone HCL/ Dextrose 200 ml @ 0 mls/hr PROTOCOL IV Last administered on 11/19/24at 19:29; Start 11/19/24 at 19:30; Stop 11/20/24 at 09:03; Status DC Midazolam HCl 100 ml ONCE IV; Start 11/19/24 at 19:30; Stop 11/19/24 at 19:46; Status DC Propofol 1,000 mg PROTOCOL PRN IV Last administered on 11/23/24at 03:51; Start 11/19/24 at 19:30; Stop 11/23/24 at 18:55; Status DC Acetaminophen 650 mg STK-MED ONCE RC; Start 11/19/24 at 19:44; Stop 11/19/24 at 19:44; Status DC Acetaminophen 650 mg ONCE RC Last administered on 11/19/24at 20:25; Start 11/19/24 at 20:00; Stop 11/19/24 at 23:59; Status DC Pantoprazole Sodium 40 mg ONCE ONCE IVP Last administered on 11/19/24at 20:32; Start 11/19/24 at 20:00; Stop 11/19/24 at 20:01; Status DC Enoxaparin Sodium 160 mg ONCE ONCE SQ Last administered on 11/19/24at 20:32; Start 11/19/24 at 20:00; Stop 11/19/24 at 20:01; Status DC Albuterol 1 udvial [id number] IH Last administered on 11/20/24at 03:10; Start 11/19/24 at 22:00; Stop 11/20/24 at 15:21; Status DC Polyethylene Glycol 17 gm DAILY PO Last administered on 12/02/24at 09:56; Start 11/20/24 at 09:00; Stop 12/20/24 at 08:59 Acetaminophen 650 mg Q6H PRN PO; Start 11/19/24 at 20:30; Stop 12/19/24 at 20:29 Acetaminophen 650 mg Q6H PRN RC; Start 11/19/24 at 20:30; Stop 12/19/24 at 20:29 Ondansetron HCl 4 mg Q6H PRN IVP; Start 11/19/24 at 20:30; Stop 12/19/24 at 20:29 Hydralazine HCl 10 mg Q6H PRN IV; Start 11/19/24 at 20:30; Stop 12/19/24 at 20:29 Labetalol HCl 10 mg Q2H PRN IV; Start 11/19/24 at 20:30; Stop 11/20/24 at 08:12; Status DC Hydromorphone HCl 0.5 mg Q2H PRN IVP; Start 11/19/24 at 20:30; Stop 11/20/24 at 08:08; Status DC Insulin Human Regular INSULIN SLIDING SCAL... Q6H6 SQ Last administered on 11/21/24at 00:23; Start 11/20/24 at 00:00; Stop 11/23/24 at 21:14; Status DC Azithromycin 250 ml @ 250 mls/hr Q24H IVPB Last administered on 11/28/24at 21:54; Start 11/19/24 at 20:30; Stop 11/29/24 at 20:29; Status DC Ceftriaxone Sodium 1 gm Q24H IVPB Last administered on 11/22/24at 20:13; Start 11/19/24 at 20:30; Stop 11/23/24 at 08:44; Status DC Pantoprazole Sodium 40 mg DAILY IVP Last administered on 12/02/24at 10:08; Start 11/20/24 at 09:00; Stop 12/20/24 at 08:59 Enoxaparin Sodium 40 mg DAILY SQ Last administered on 11/23/24at 08:33; Start 11/20/24 at 09:00; Stop 11/23/24 at 13:03; Status DC Budesonide 0.5 mg BIDRESP IH Last administered on 12/03/24at 07:07; Start 11/20/24 at 06:00; Stop 12/20/24 at 05:59 Fentanyl Citrate 100 ml @ As Directed STK-MED ONCE IV; Start 11/19/24 at 20:58; Stop 11/19/24 at 20:58; Status DC Fentanyl Citrate 100 ml @ 2.5 mls/hr PROTOCOL IV Last administered on 11/21/24at 11:43; Start 11/19/24 at 21:30; Stop 11/21/24 at 13:50; Status DC Amiodarone HCL/ Dextrose 100 ml @ 0 mls/hr PROTOCOL IV; Start 11/19/24 at 21:30; Stop 11/20/24 at 09:03; Status DC Magnesium Sulfate 50 ml @ 0 mls/hr PROTOCOL IV Last administered on 11/20/24at 06:00; Start 11/19/24 at 21:30; Stop 12/19/24 at 21:29 Potassium Chloride 100 ml @ 50 mls/hr PROTOCOL IV Last administered on 11/20/24at 05:59; Start 11/19/24 at 21:30; Stop 12/19/24 at 21:29 Amiodarone HCl 540 mg/Dextrose 300 ml @ 16.667 mls/ hr PROTOCOL IV Last administered on 11/20/24at 00:34; Start 11/20/24 at 00:30; Stop 11/23/24 at 18:55; Status DC Amiodarone HCl 540 mg/Dextrose 300 ml @ 0 mls/hr PROTOCOL IV; Start 11/20/24 at 00:30; Stop 11/20/24 at 00:16; Status DC Hydromorphone HCl 0.5 mg Q2H PRN IVP; Start 11/20/24 at 08:30; Stop 11/23/24 at 18:55; Status DC Phenylephrine HCl 50 mg/Sodium Chloride 250 ml @ 0 mls/hr AD PRN IV; Start 11/20/24 at 13:30; Stop 11/20/24 at 13:05; Status DC Phenylephrine HCl 10 mg/Sodium Chloride 250 ml @ 0 mls/hr AD PRN IV Last administered on 11/20/24at 13:21; Start 11/20/24 at 13:30; Stop 11/20/24 at 17:03; Status DC Ipratropium [place] 0.5 MG [id number] IH Last administered on 11/23/24at 07:17; Start 11/20/24 at 18:00; Stop 11/23/24 at 10:29; Status DC Phenylephrine HCl 50 mg/Sodium Chloride 250 ml @ 0 mls/hr PROTOCOL PRN IV Last administered on 11/20/24at 17:44; Start 11/20/24 at 17:00; Stop 11/28/24 at 10:09; Status DC Methylprednisolone Sodium Succinate 60 mg Q8H IVP Last administered on 11/23/24at 01:46; Start 11/20/24 at 18:00; Stop 11/23/24 at 08:45; Status DC Dextrose/Sodium Chloride 1,000 ml @ 50 mls/hr Q20H IV Last administered on 11/24/24at 02:53; Start 11/20/24 at 18:00; Stop 11/24/24 at 09:29; Status DC Chlorhexidine Gluconate 15 ml BID MM Last administered on 12/02/24at 20:02; Start 11/21/24 at 21:00; Stop 12/05/24 at 20:59 Artificial Tears 1 DROP Q2H PRN OU Last administered on 11/21/24at 16:12; Start 11/21/24 at 11:00; Stop 12/21/24 at 10:59 Fentanyl Citrate 25 mcg Q2H PRN IVP; Start 11/21/24 at 14:00; Stop 11/23/24 at 18:55; Status DC Iohexol 35,000 mg STK-MED ONCE IV; Start 11/21/24 at 16:52; Stop 11/21/24 at 16:52; Status DC Lisinopril 2.5 mg DAILY PO Last administered on 12/02/24at 09:57; Start 11/23/24 at 09:00; Stop 12/23/24 at 08:59 Metoprolol Tartrate 50 mg BID PO; Start 11/22/24 at 21:00; Stop 11/22/24 at 10:06; Status DC Diltiazem HCl 180 mg DAILY PO; Start 11/23/24 at 09:00; Stop 11/22/24 at 10:06; Status DC Home Med Linaclotide (Linzess) 72 MCG DAILY PO Last administered on 12/02/24at 10:00; Start 11/23/24 at 09:00; Stop 12/23/24 at 08:59 Atorvastatin Calcium 20 mg HS PO Last administered on 12/02/24at 20:02; Start 11/22/24 at 21:00; Stop 12/22/24 at 20:59 Diltiazem HCl 180 mg DAILY PO Last administered on 11/24/24at 08:47; Start 11/22/24 at 10:30; Stop 11/24/24 at 19:43; Status DC Metoprolol Tartrate 50 mg BID PO Last administered on 11/24/24at 08:47; Start 11/22/24 at 10:30; Stop 11/24/24 at 19:43; Status DC Rocuronium [place] 50 mg STK-MED ONCE IV; Start 11/19/24 at 11:28; Stop 11/22/24 at 11:28; Status DC Etomidate 20 mg STK-MED ONCE IVP; Start 11/19/24 at 11:28; Stop 11/22/24 at 11:28; Status DC Diltiazem HCl 5 mg ONCE ONCE IVP Last administered on 11/22/24at 11:52; Start 11/22/24 at 12:00; Stop 11/22/24 at 12:01; Status DC Ceftriaxone Sodium 2 gm Q24H IVPB Last administered on 12/02/24at 19:56; Start 11/23/24 at 20:30; Stop 12/03/24 at 20:29 Methylprednisolone Sodium Succinate 40 mg Q8H IVP Last administered on 11/23/24at 12:28; Start 11/23/24 at 10:00; Stop 11/23/24 at 18:55; Status DC Ipratropium [place] 0.5 MG [id number] IH Last administered on 12/02/24at 07:27; Start 11/23/24 at 10:30; Stop 12/02/24 at 10:29; Status DC Enoxaparin Sodium 120 mg BID ONCE SQ Last administered on 11/23/24at 21:43; Start 11/23/24 at 21:00; Stop 11/23/24 at 21:01; Status DC Hydromorphone HCl 0.5 mg Q4H PRN IVP; Start 11/23/24 at 19:00; Stop 11/24/24 at 20:29; Status DC Methylprednisolone Sodium Succinate 40 mg Q12H IVP Last administered on 11/28/24at 06:46; Start 11/24/24 at 06:00; Stop 11/28/24 at 10:09; Status DC Furosemide 20 mg ONCE ONCE IV Last administered on 11/24/24at 08:47; Start 11/24/24 at 08:30; Stop 11/24/24 at 08:31; Status DC Furosemide 20 mg BID PO Last administered on 11/24/24at 21:29; Start 11/24/24 at 21:00; Stop 11/25/24 at 08:41; Status DC Metoprolol Tartrate 100 mg BID PO; Start 11/24/24 at 21:00; Stop 11/24/24 at 19:49; Status DC Metoprolol Tartrate 100 mg BID PO Last administered on 11/29/24at 20:31; Start 11/24/24 at 20:00; Stop 11/30/24 at 08:33; Status DC Furosemide 40 mg ONCE ONCE IV; Start 11/24/24 at 20:00; Stop 11/24/24 at 20:06; Status DC Milrinone Lactate/ Dextrose 100 ml @ 0 mls/hr PROTOCOL IV Last administered on 11/30/24at 20:34; Start 11/25/24 at 09:00; Stop 12/01/24 at 19:44; Status DC Furosemide 20 mg Q8H IV Last administered on 11/27/24at 08:53; Start 11/25/24 at 09:00; Stop 11/27/24 at 11:55; Status DC Metoprolol Tartrate 5 mg ONCE ONCE IV Last administered on 11/25/24at 21:24; Start 11/25/24 at 21:30; Stop 11/25/24 at 21:31; Status DC Metoprolol Tartrate 5 mg ONCE ONCE IV Last administered on 11/25/24at 21:48; Start 11/25/24 at 22:00; Stop 11/25/24 at 22:01; Status DC Pharmacy Profile Note 1 each ONCE MISC; Start 11/25/24 at 23:00; Stop 11/25/24 at 23:15; Status DC Pharmacy Profile Note 1 each ONCE MISC; Start 11/25/24 at 23:30; Stop 11/25/24 at 23:15; Status DC Digoxin 250 mcg ONCE ONCE IV Last administered on 11/25/24at 23:23; Start 11/25/24 at 23:30; Stop 11/25/24 at 23:31; Status DC Ipratropium [place] 0.5 mg STK-MED ONCE IH; Start 11/26/24 at 00:03; Stop 11/26/24 at 00:12; Status DC Budesonide 0.5 mg STK-MED ONCE IH; Start 11/26/24 at 00:03; Stop 11/26/24 at 00:12; Status DC Digoxin 125 mcg ONCE ONCE IV Last administered on 11/26/24at 04:04; Start 11/26/24 at 03:30; Stop 11/26/24 at 03:31; Status DC Digoxin 125 mcg ONCE ONCE IV Last administered on 11/26/24at 08:47; Start 11/26/24 at 07:30; Stop 11/26/24 at 07:31; Status DC Rivaroxaban 20 mg DAILY PO Last administered on 12/02/24at 09:57; Start 11/27/24 at 09:30; Stop 12/27/24 at 09:29 Digoxin 250 mcg ONCE ONCE IV Last administered on 11/27/24at 10:25; Start 11/27/24 at 10:00; Stop 11/27/24 at 10:07; Status DC Digoxin 250 mcg ONCE ONCE IV Last administered on 11/27/24at 16:13; Start 11/27/24 at 16:00; Stop 11/27/24 at 16:01; Status DC Digoxin 250 mcg DAILY PO Last administered on 11/29/24at 11:00; Start 11/28/24 at 09:00; Stop 11/30/24 at 08:33; Status DC Furosemide 20 mg BID@09,17 PO Last administered on 11/28/24at 08:36; Start 11/27/24 at 17:00; Stop 11/28/24 at 16:19; Status DC Metoprolol Tartrate 5 mg ONCE ONCE IV Last administered on 11/27/24at 14:17; Start 11/27/24 at 14:30; Stop 11/27/24 at 14:31; Status DC Prednisone 20 mg DAILY PO Last administered on 12/02/24at 09:57; Start 11/29/24 at 09:00; Stop 12/29/24 at 08:59 Metoprolol Tartrate 5 mg Q6H PRN IV; Start 11/28/24 at 12:00; Stop 11/28/24 at 12:11; Status DC Metoprolol Tartrate 50 mg DAILY ONCE PO Last administered on 11/28/24at 13:24; Start 11/28/24 at 13:00; Stop 11/28/24 at 13:01; Status DC Metoprolol Tartrate 5 mg Q6H PRN IV Last administered on 11/29/24at 12:11; Start 11/28/24 at 12:30; Stop 12/28/24 at 12:29 Furosemide 20 mg DAILY PO Last administered on 12/02/24at 09:57; Start 11/29/24 at 09:00; Stop 12/27/24 at 16:59 Metoprolol Tartrate 150 mg BID PO Last administered on 12/02/24at 20:02; Start 11/30/24 at 09:00; Stop 12/30/24 at 08:59 Midazolam HCl 6 mg ONCE ONCE IVP Last administered on 11/30/24at 12:03; Start 11/30/24 at 11:00; Stop 11/30/24 at 11:01; Status DC Fentanyl Citrate 100 mcg ONCE ONCE IVP Last administered on 11/30/24at 12:03; Start 11/30/24 at 11:00; Stop 11/30/24 at 11:01; Status DC Lidocaine HCl 15 ml STK-MED ONCE .ROUTE Last administered on 11/30/24at 12:04; Start 11/30/24 at 11:22; Stop 11/30/24 at 11:22; Status DC Ipratropium [place] 0.5 MG Q4H4 IH Last administered on 12/03/24at 07:07; Start 12/02/24 at 12:00; Stop 12/20/24 at 17:59 PHYSICAL EXAMINATION: GENERAL: No acute distress. HEENT: Normocephalic, atraumatic. CARDIAC: Positive S1 and S2. No murmurs. LUNGS: Clear to auscultation bilaterally. ABDOMEN: Bowel sounds present, soft, nontender. EXTREMITIES: No edema bilaterally. NEUROLOGIC: Cranial nerves 2-12 grossly intact. PSYCHIATRIC: Calm. TELEMETRY: Sinus rhythm ASSESSMENT: See above PLAN: At this time now that patient's LV function has normalized I think we can get her on back of her home medications to include diltiazem as she has been taken that before and she does have a history of reactive airway disease and COPD and I would indeed like to try and reduce beta raquel therapy slightly so plan will be to introduce diltiazem and 180 mg daily in addition to reducing metoprolol tartrate to 100 mg twice daily and we will see how patient's blood pressure does and heart rate as well. We will be following patient while adjustments to medications are being made SOLO BOOTH MD December 03, 2024 07:53
[2024-12-03] MEDS: dilTIAZem 180MG SR CAP PO SCH (08:50)
[2024-12-03] MEDS: metoPROLOL tartRATE 50 MG TAB PO SCH (08:51)
--- NOTE | 2024-12-03 09:25 | PN ---
FOLLOWUP PROGRESS NOTE SUBJECTIVE: A 79-year-old female with a history of known cardiomyopathy. The patient initially presented with congestive heart failure. The patient had a cardioversion. The patient's creatinine is much improved. Repeat echo revealed an improved ejection fraction and she is being seen as a followup visit for all of the above. REVIEW OF SYSTEMS: CONSTITUTIONAL: She is feeling improved. HEENT: No change in vision. No change in hearing. CARDIOVASCULAR: There is no current chest pain or palpitations. PULMONARY: Her shortness of breath is improved. GASTROINTESTINAL: The patient is tolerating a diet. MUSCULOSKELETAL: Complains of weakness. OBJECTIVE: VITAL SIGNS: Blood pressure is 151/98, pulse 60. GENERAL: He is afebrile, chronically ill female lying in bed on the medical floor. HEENT: Head is atraumatic. Pupils are equal, roving to light. Oropharynx is without exudate. Nares clear. NECK: There is no JVP. There is no thyromegaly. No masses. CARDIOVASCULAR: Regular. There is no S3 or S4 gallop. LUNGS: Coarse with equal thoracic movement. ABDOMEN: Soft, nondistended and nontender. EXTREMITIES: Reveal no clubbing, no cyanosis. NEUROLOGICAL: She is awake. She is alert. LABORATORY DATA: Sodium 145, potassium 3.7, BUN 15, creatinine 0.6. Hemoglobin 10, hematocrit 32, white blood cell count 16,000. IMPRESSION: * Acute renal failure. * Cardiomyopathy. * History of A-fib. * Pneumonia PLAN: The patient's renal function is much improved. The patient's blood pressure medications continued to be adjusted per Cardiology. The patient's electrolytes have all been aggressively repleted. She is encouraged with her therapy. Once the patient is discharged, the patient will follow up in the renal clinic. TID: [id number] RECEIPT: [id number]
--- NOTE | 2024-12-03 12:15 | PN ---
[facility] PROGRESS NOTE Date Patient Seen: December 03, 2024 Time of Visit: 12:13 Supervising Physician: Dr. Day Primary Care Physician: Dr. 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 She is on 2 L via nasal cannula in no apparent distress. Saturating 97% respiratory rate of 18 heart rate between 100-110. Metoprolol has been ordered per Cardiology. We may start weaning Milrinone drip per Dr Day recs. Leaning with 120 27 kg. WBCs of 17 trending down from yesterday, H&H is 13 over 40, platelet count 183 K. sodium 144 potassium of four chloride 103 CO2 of 41. Decreasing Lasix to 20 mg daily. BUN of 31, creatinine of 0.9 GFR 65. She reports some loss of hearing to right ear post extubation. Weaning steroids to prednisone 20 mg daily. There is no family at the bedside at this time. Plans for ARASH guided cardioversion with the NS he is in tomorrow morning per Cardiology. 11/29 patient was seen and examined by bedside with family present. Patient has been weaned off oxygen is currently on room air tolerating well. Patient's swelling to bilateral lower extremities have improved. Patient denies any chest pain or shortness of breadth at time of visit. Denies any nausea vomiting or abdominal pain. Patient continues on marijuana drip we will continue to follow recommendations from Cardiology. Patient is scheduled for ARASH guided cardioversion tomorrow 11/30/2024. We will repeat patient's labs tomorrow morning and continue to monitor serum sodium level. 11/30/2024: At the time of my evaluation, the patient was lying in bed. Vital signs today were within normal ranges. She remains on room air. Laboratory data showed improving WBC count today down to 15.3. Chemistry panel showed myah vated liver enzymes without hyperbilirubinemia. No new chest imaging for review today. Patient underwent arash and results is pending. Staff nurse reports no acute events otherwise. No other complaint. 12/01/2024: At the time of my evaluation, the patient was sitting up to the bedside chair. The staff nurse reports no acute events overnight. The patient continues on a Milrinone drip and is so far tolerating well. Yesterday, the patient underwent successful cardioversion. No other complaint. Currently, she is on room air, afebrile no tachycardia or tachypnea blood pressure slightly elevated systolic in the 150s. Laboratory data today was notable for improved WBC count today 13.0. No acute anemia or thrombocytopenia. Chemistry panel today showed a carbon dioxide of 40, BUN of 24, creatinine of 0.8 and a GFR of 75. Liver parameters showed a total bilirubin of 1.1, AST of 31, ALT of 86 and a alk-phos of 77. No new cultures for review. No new imaging for review. No other complaint. 12/02/2024: At the time of my evaluation, the patient was sitting up at the bedside. The staff nurse reports no acute events overnight. Currently, the patient is not on any oxygen supplementation and vital signs are unremarkable. She remains in normal sinus rhythm. Laboratory data today did show a interval increase of WBC to 15.7, there is no profound anemia or thrombocytopenia. Chemistry panel showed improved CO2 otherwise unremarkable. No new chest imaging for review today. Today, the patient was taken off Milrinone and switch back to furosemide. The patient had a voided output overnight of 550 and a net balance of + 525.2. No other complaint. 12/03/2024: At the time of my evaluation, the patient was sitting up to the bedside chair. The staff nurse reports no acute events overnight. On monitor, she remains on room air, she is afebrile not tachycardic or tachypneic and with elevated blood pressure. Laboratory data showed a interval increase of WBC to 16.0. No anemia or thrombocytopenia. Chemistry panel was unremarkable. No new microbiology data for review. No new imaging. No other complaint. REVIEW OF SYSTEMS: 12- point system review was carried out and pertinent positives documented above otherwise negative. PHYSICAL EXAM: GENERAL: Chronically ill, no obvious signs or symptoms of distress HEENT: EOMI, Sclera non icteric, moist mucosa NECK: Supple, no JVD, trachea midline LUNGS: Diminished breath sounds, bilaterally. Minimal wheezes. HEART: Normal S1 and S2, without murmurs ABD: Large body habitus EXT: No clubbing cyanosis or edema NEURO: Awake alert able to answer simple questions appropriately Vital Signs (last 8hr) Date Time Temp Pulse Resp B/P (MAP) Pulse Ox O2 Delivery O2 Flow Rate FiO2 12/03/24 12:07 98.2 70 18 148/87 95 Room Air 12/03/24 10:12 64 18 12/03/24 09:00 99 Room Air* 0 21 12/03/24 08:52 65 20 N/A Room Air 21 12/03/24 08:06 98.1 64 18 151/98 94 Room Air 12/03/24 07:07 60 19 LABS: Hematology Labs: Test 12/03/24 04:16 12/02/24 03:22 Range/Units White Blood Count 16.0 H 4.8-10.8 K/uL Red Blood Count 3.70 L 4.00-5.50 MIL/uL Hemoglobin 10.6 L 12.0-16.0 g/dL Hematocrit 32.6 L 36-48 % Mean Corpuscular Volume 88.1 79-99 fL Mean Corpuscular Hemoglobin 28.6 27.0-33.0 pg Mean Corpuscular Hemoglobin Concent 32.5 32.0-36.0 g/dL Red Cell Distribution Width 13.6 11.0-15.5 % Platelet Count 143 130-400 K/uL Mean Platelet Volume 11.6 H 7.5-10.5 fL Immature Granulocyte % (Auto) 0.8 0-1 % Neutrophils (%) (Auto) 81.0 H 40.0-77.0 % Lymphocytes (%) (Auto) 11.3 L 21.0-51.0 % Monocytes (%) (Auto) 6.1 3.0-13.0 % Eosinophils (%) (Auto) 0.7 0.0-8.0 % Basophils (%) (Auto) 0.1 0.0-5.0 % Neutrophils # (Auto) 12.9 H 1.8-7.7 K/uL Lymphocytes # (Auto) 1.8 1.0-4.8 K/uL Monocytes # (Auto) 1.0 0.1-1.0 K/uL Eosinophils # (Auto) 0.11 0.00-0.70 K/uL Basophils # (Auto) 0.02 0.00-0.20 K/uL Absolute Immature Granulocyte (auto 0.13 0-1 K/uL Nucleated Red Blood Cells 0.0 0.0-0.19 % White Cell Morphology Comment CONSISTENT W/DIFF Chemistry Labs: Test 12/03/24 05:16 12/03/24 04:16 Range/Units Whole Blood Glucose 125 H 70-110 MG/DL Sodium Level 145 136-145 mmol/L Potassium Level 3.7 3.5-5.1 mmol/L Chloride Level 107 101-111 mmol/L Carbon Dioxide Level 36 H 21-32 mmol/L Blood Urea Nitrogen 15 7-18 mg/dL Creatinine 0.6 0.5-1.0 mg/dL Glomerular Filtration Rate Calc 91 >90 mL/min Random Glucose 137 H 70-105 mg/dL Total Calcium 7.8 L 8.5-10.1 mg/dL DIAGNOSTICS / RADIOLOGY RESULTS: [ ] PLAN Continue to follow recommendations from Cardiology Continue BiPAP q.h.s. and p.r.n. Continue aspiration precautions Continue metoprolol 100 mg b.i.d. Continue lisinopril 2.5 mg daily Continue atorvastatin 20 mg q.h.s. Continue IV antibiotics Continue prednisone 20 mg daily Continue lasix to 20mg po daily wean Milrinone drip Continue Xarelto 20 mg daily As per cardiology ARASH guided cardioversion to be scheduled for possible Friday or Friday of next week Continue digoxin 250 mcg daily 11/30/2024: For now, going to continue current management for the patient. We will supplement oxygenation as necessary. She will remain on bronchodilator therapy. She is going to remain on antibiotic coverage currently receiving Rocephin. The patient will continue with Milrinone drip soon to taper off and changed to p.o. Lasix. We will await the ARASH results. We will follow the recommendation of Cardiology. We will monitor the patient's progress and response to management. We will repeat surveillance labs in the morning. We will continue to provide general supportive care, GI and DVT prophylaxis. Further orders per attending MD and hospital course. 12/01/2024: For now, we are going to continue current management for the patient. Because of the elevated CO2 in blood, I am going to request a chest x- ray now as well as an ABG for further evaluation of CO2 retention. Patient will continue on Milrinone drip and we will change to Lasix under the guidance of the Cardiology team. We will continue to monitor the heart rate. We will replace electrolyte abnormality. I appreciate the input of the Cardiology and Nephrology team. We will monitor the patient's progress and response to management. We will continue to provide general supportive care, GI and DVT prophylaxis. Further orders per attending MD and hospital course. 12/02/2024: For now, going to continue current management for the patient. The interval increase in WBCs, may be reactive to her recent ARASH guided cardioversion. Currently, the patient remains on antibiotic coverage with Rocephin. She is also receiving prednisone p.o. daily. I am going to increase bronchodilator frequency to q.4. We will continue to monitor the output with Lasix as ordered. A limited 2D echo was ordered and official results are pending. The patient was encouraged to continue participating with physical therapy. We will monitor and replace electrolyte imbalance. We will continue to provide general supportive care, GI and DVT prophylaxis. Further orders per attending MD and hospital course. 12/03/2024: For now, we are going to continue current management for the patient. She is going to continue on cardiac management per the employment case manager's who resumed home medications with Cardizem, we will continue on metoprolol, furosemide and Xarelto. There was a noticeable increase of WBC 16.0, this could be reactive. Considering the increased, I am going to request a lactic acid, procalcitonin level, blood cultures x2, UA CS and a chest x-ray. We will continue to monitor the WBC trend. I am going to add p.o. doxycycline 1st dose now. We will monitor the patient's progress and response to management. We will continue to provide general supportive care, GI and DVT prophylaxis. F urther orders per attending MD and hospital course. NEURO: Minimize central acting medications as possible. Maintain fall precautions, adequate lighting during the day PULMONARY: Supplemental 02 as needed. Maintain aspiration precautions at all times CARDIOVASCULAR: Follow hemodynamics. Vital signs per facility protocol GI & NUTRITION: Continue with nutritional support. Continue stool softeners and laxatives as needed. KIDNEYS & ELECTROLYTES: Strict monitoring of intake, output and overall fluid balance. Avoid nephrotoxic medications to the extent possible. Medications to be dosed according to renal function. Monitor electrolytes and replace as needed ENDOCRINE: Maintain blood glucose between 100-180 at all times. Hypoglycemia protocol in place INFECTIOUS DISEASE: Trend temperature, WBC and procalcitonin level Follow cultures, deescalate antibiotics as soon as possible. Panculture if new onset fever ONCOLOGY/HEMATOLOGY/COAGULATION: Monitor for s/s of bleeding Monitor hemoglobin, coagulation studies as needed SKIN: Pressure ulcer prevention per facility protocol Specialty mattress ORTHO/REHAB: Continue PT/OT Prophylaxis: Continue GI and DVT prophylaxis Code Status: Full Resuscitation Disposition: TBD Other: Case discussed with supervising physician plan of care agreed upon CARTER HAYES NP December 03, 2024 12:15
[2024-12-03] MEDS: DOXYCYCLINE HYCLATE 100 MG TABLET PO SCH (13:40)
--- NOTE | 2024-12-03 14:26 | HMCIMG ---
CHEST 1VW HISTORY: Pneumonia COMPARISON: 12/01/2024 FINDINGS: A frontal projection of the chest was obtained. There are bilateral pulmonary infiltrates and pleural effusions. Right left change. The heart is borderline enlarged. Degenerative changes are seen. No evidence of aortic calcification is seen. IMPRESSION: 1. Bilateral pulmonary infiltrates and pleural effusions unchanged
--- NOTE | 2024-12-03 16:33 | NUR ---
Nutritional f/u Note: Chart, meds, and labs Reviewed. Pt continues on 75gm cc diet 100% of meals taken. Recommend: -continue diet. -RD to provide further recommendations based on clinical progress. -Monitor feeding tolerance, %, wt, and labs -If No BM >3days consider bowel stimulant. - Please notify RD if additional nutrition concerns arise. Addendum: 12/03/24 at [address] Amended: Links added.
[2024-12-04] VITALS (15 sets, daily range): BP systolic 134–163; BP diastolic 44–117; PULSE 58–78; RESP 17–20; TEMP 98–99; O2SAT 93–96
--- NOTE | 2024-12-04 00:05 | NUR ---
PATIENT IS AWAKE, ALERT, AND ORIENTED TIMES 4. CALM AND COOPERATIVE. PT DENIES PAIN. NO SOB, PT ON ROOM AIR. TELEMETRY MONITORING. DENIES ANY OTHER NEEDS AT THIS TIME. CALL LIGHT WITHIN REACH. BED ALARMS ON. BED IS LOCKED AND IN LOWEST POSITION. SIDE RAILS UP TIMES 2.
[2024-12-04 05:47] LABS: BASOPHILS # (AUTO) 0.02 K/uL (0.00-0.20); BASOPHILS % (AUTO) 0.1 % (0.0-5.0); EOSINOPHILS # (AUTO) 0.13 K/uL (0.00-0.70); EOSINOPHILS % (AUTO) 0.9 % (0.0-8.0); HEMATOCRIT 35.5 % (36-48); LYMPHOCYTES # (AUTO) 1.9 K/uL (1.0-4.8); LYMPHOCYTES % (AUTO) 12.9 % (21.0-51.0); MEAN CORPUSCULAR HEMOGLOBIN 29.2 pg (27.0-33.0); MEAN CORPUSCULAR HGB CONC 32.7 g/dL (32.0-36.0); MEAN CORPUSCULAR VOLUME 89.4 fL (79-99); MONOCYTES # (AUTO) 1.2 K/uL (0.1-1.0); MONOCYTES % (AUTO) 7.8 % (3.0-13.0); NEUTROPHILS # (AUTO) 11.7 K/uL (1.8-7.7); NEUTROPHILS % (AUTO) 77.6 % (40.0-77.0); PLATELET COUNT (AUTO) 159 K/uL (130-400); RED BLOOD CELL COUNT(AUTO) 3.97 MIL/uL (4.00-5.50); RED CELL DISTRIBUTION WIDTH 13.5 % (11.0-15.5)
[2024-12-04 06:00] LABS: CREATININE 0.7 mg/dL (0.5-1.0); POTASSIUM 3.6 mmol/L (3.5-5.1)
--- NOTE | 2024-12-04 06:35 | NUR ---
PT AWAKE, ALERT, AND ORIENTED. REFUSED TO HAVE IV CHANGED, EDUCATED ON IMPORTANCE OF CHANGING IV CATHETERS, PT REFUSED. STATED WANTING TO GO HOME AND DID NOT WANT TO BE "STUCK ANYMORE". MADE AWARE MD WILL ROUND TODAY TO ASSESS
--- NOTE | 2024-12-04 10:02 | PN ---
NEPHROLOGY PROGRESS NOTE Date/Time Patient Seen: December 04, 2024 SUBJECTIVE: This is a 79-year-old female with a history of known cardiomyopathy. The patient initially presented with congestive heart failure. The patient had a cardioversion. The patient's creatinine is much improved. Electrolytes show hypomagnesemia. Repeat echo revealed an improved ejection fraction and she is being seen as a followup visit for all of the above. The patient's renal function is much improved. The patient's blood pressure medications continued to be adjusted per Cardiology. The patient's electrolytes have all been aggressively repleted. He continues to participate physical therapy, in no acute distress She is encouraged with her therapy. REVIEW OF SYSTEMS: GENERAL: Negative for any nausea, vomiting, fevers, chills, or weight loss. NEUROLOGIC: Negative for any blurry vision, blind spots, double vision, facial asymmetry, dysphagia, dysarthria, hemiparesis, hemisensory deficits, vertigo, ataxia. HEENT: Negative for any head trauma, neck trauma, neck stiffness, photophobia, phonophobia, sinusitis, rhinitis. CARDIAC: Negative for any chest pain, dyspnea on exertion, paroxysmal nocturnal dyspnea, peripheral edema. PULMONARY: Negative for any shortness of breath, wheezing, COPD, or TB exposure. GASTROINTESTINAL: Negative for any abdominal pain, nausea, vomiting, bright red blood per rectum, melena. GENITOURINARY: Negative for any dysuria, hematuria, incontinence. INTEGUMENTARY: Negative for any rashes, cuts, insect bites. RHEUMATOLOGIC: Negative for any joint pains, photosensitive rashes, history of vasculitis or kidney problems. HEMATOLOGIC: Negative for any abnormal bruising, frequent infections or bleeding. Vital Signs (last 8hr) Date Time Temp Pulse Resp B/P (MAP) Pulse Ox O2 Delivery O2 Flow Rate FiO2 12/04/24 08:00 98.6 65 17 163/44 95 Room Air 12/04/24 06:56 61 18 12/04/24 06:56 61 20 N/A Room Air 21 12/04/24 05:55 98.2 58 18 153/66 94 Room Air 12/04/24 04:22 98.2 58 18 153/66 94 Room Air 12/04/24 02:15 69 18 PHYSICAL EXAM: GENERAL: Alert and oriented x 3. No acute distress. Well-nourished. EYES: EOMI. Anicteric. HENT: Moist mucous membranes. No scleral icterus. No cervical lymphadenopathy. LUNGS: Clear to auscultation bilaterally. No accessory muscle use. CARDIOVASCULAR: Regular rate and rhythm. No murmur. No JVD. ABDOMEN: Soft, non-tender and non-distended. No palpable masses. EXTREMITIES: No edema. Non-tender.?SKIN: No rashes or lesions. Warm. NEUROLOGIC: No focal neurological deficits. CN II-XII grossly intact, but not individually tested. PSYCHIATRIC: Cooperative. Appropriate mood and affect. Current Medications Medications (Trade) Dose Ordered Sig/Anita Route PRN Reason Start Time Stop Time Status Last Admin Dose Admin Acetaminophen (TYLenol 325MG TAB) 650 mg Q6H PRN PO FEVER/MILD PAIN LEVEL 1-3 11/19/24 20:30 12/19/24 20:29 Acetaminophen (TYLenol 650MG SUPPOSITORY) 650 mg ONCE RC 11/19/24 20:00 11/19/24 23:59 DC 11/19/24 20:25 650 MG Acetaminophen (TYLenol 650MG SUPPOSITORY) 650 mg Q6H PRN RC FEVER / MILD PAIN 1-3 IF NPO 11/19/24 20:30 12/19/24 20:29 Albuterol (DUOneb) 1 udvial [id number] IH 11/19/24 22:00 11/20/24 15:21 DC 11/20/24 03:10 1 UDVIAL Amiodarone HCl 540 mg/Dextrose 300 ml @ 16.667 mls/ hr PROTOCOL IV 11/20/24 00:30 11/23/24 18:55 DC 11/20/24 00:34 16.667 MLS/HR Amiodarone HCl 540 mg/Dextrose 300 ml @ 0 mls/hr PROTOCOL IV 11/20/24 00:30 11/20/24 00:16 DC Amiodarone HCL/ Dextrose 100 ml @ 0 mls/hr PROTOCOL IV 11/19/24 19:30 11/19/24 21:28 DC 11/19/24 19:26 250 MLS/HR Amiodarone HCL/ Dextrose 100 ml @ 0 mls/hr PROTOCOL IV 11/19/24 21:30 11/20/24 09:03 DC Amiodarone HCL/ Dextrose 200 ml @ 0 mls/hr PROTOCOL IV 11/19/24 19:30 11/20/24 09:03 DC 11/19/24 19:29 1 MLS/HR Artificial Tears (Artificial Tears) 1 DROP Q2H PRN OU DRY EYES 11/21/24 11:00 12/21/24 10:59 11/21/24 16:12 1 DROP Atorvastatin Calcium (LIPItor 20MG) 20 mg HS PO 11/22/24 21:00 12/22/24 20:59 12/03/24 21:26 20 MG Azithromycin 250 ml @ 250 mls/hr Q24H IVPB 11/19/24 20:30 11/29/24 20:29 DC 11/28/24 21:54 250 MLS/HR Budesonide (Pulmicort 0.5 Mg/2ml) 0.5 mg BIDRESP IH 11/20/24 06:00 12/20/24 05:59 12/04/24 06:54 0.5 MG Ceftriaxone Sodium (ROCEphine 1G INJ) 1 gm Q24H IVPB 11/19/24 20:30 11/23/24 08:44 DC 11/22/24 20:13 1 GM Ceftriaxone Sodium (Rocephin 2gm Inj) 2 gm Q24H IVPB 11/23/24 20:30 12/03/24 13:52 DC 12/02/24 19:56 2 GM Chlorhexidine Gluconate (Peridex) 15 ml BID MM 11/21/24 21:00 12/05/24 20:59 12/03/24 21:25 15 ML Dextrose/Sodium Chloride 1,000 ml @ 50 mls/hr Q20H IV 11/20/24 18:00 11/24/24 09:29 DC 11/24/24 02:53 50 MLS/HR Digoxin (LANOxin 250mcg TAB) 250 mcg DAILY PO 11/28/24 09:00 11/30/24 08:33 DC 11/29/24 11:00 250 MCG Diltiazem HCl (CARDIzem 180MG CD) 180 mg DAILY PO 11/22/24 10:30 11/24/24 19:43 DC 11/24/24 08:47 180 MG Diltiazem HCl (CARDIzem 180MG CD) 180 mg DAILY PO 11/23/24 09:00 11/22/24 10:06 DC Diltiazem HCl (CARDIzem 180MG CD) 180 mg DAILY PO 12/03/24 09:00 01/02/25 08:59 12/03/24 08:50 180 MG Doxycycline Hyclate (Doxycycline Hyclate) 100 mg BID PO 12/03/24 12:30 12/13/24 12:29 12/03/24 21:25 100 MG Enoxaparin Sodium (Lovenox) 40 mg DAILY SQ 11/20/24 09:00 11/23/24 13:03 DC 11/23/24 08:33 40 MG Fentanyl Citrate 100 ml @ 2.5 mls/hr PROTOCOL IV 11/19/24 21:30 11/21/24 13:50 DC 11/21/24 11:43 2.5 MLS/HR Fentanyl Citrate (FENTanyl CITRate PF 50 MCG/ 1 ML 2ML VIAL) 25 mcg Q2H PRN IVP ANXIETY/AGITATION 11/21/24 14:00 11/23/24 18:55 DC Furosemide (LASix 20MG TAB) 20 mg BID PO 11/24/24 21:00 11/25/24 08:41 DC 11/24/24 21:29 20 MG Furosemide (LASix 20MG TAB) 20 mg BID@09,17 PO 11/27/24 17:00 11/28/24 16:19 DC 11/28/24 08:36 20 MG Furosemide (LASix 20MG TAB) 20 mg DAILY PO 11/29/24 09:00 12/27/24 16:59 12/03/24 08:50 20 MG Furosemide (LASix 20MG VIAL) 20 mg Q8H IV 11/25/24 09:00 11/27/24 11:55 DC 11/27/24 08:53 20 MG Home Med (Home Medication) Linaclotide (Linzess) 72 MCG DAILY PO 11/23/24 09:00 12/23/24 08:59 12/03/24 08:52 1 EACH Hydralazine HCl (APRESOLine 20MG INJ) 10 mg Q6H PRN IV SBP GREATER THAN 180 11/19/24 20:30 12/19/24 20:29 Hydromorphone HCl (DiLAUDid 0.5MG INJ) 0.5 mg Q2H PRN IVP SEVERE PAIN (7-10) 11/20/24 08:30 11/23/24 18:55 DC Hydromorphone HCl (DiLAUDid 0.5MG INJ) 0.5 mg Q4H PRN IVP SEVERE PAIN (7-10) 11/23/24 19:00 11/24/24 20:29 DC Hydromorphone HCl (DiLAUDid 1MG INJ) 0.5 mg Q2H PRN IVP MODERATE PAIN (4-6) 11/19/24 20:30 11/20/24 08:08 DC Insulin Human Regular (humuLIN R 100 UNIT/ML 3ML) INSULIN SLIDING SCAL... Q6H6 SQ 11/20/24 00:00 11/23/24 21:14 DC 11/21/24 00:23 2 UNIT Ipratropium [place] (AtrovENT UD) 0.5 MG Q4H4 IH 12/02/24 12:00 12/20/24 17:59 12/04/24 06:54 0.5 MG Ipratropium [place] (AtrovENT UD) 0.5 MG [id number] IH 11/20/24 18:00 11/23/24 10:29 DC 11/23/24 07:17 0.5 MG Ipratropium [place] (AtrovENT UD) 0.5 MG [id number] IH 11/23/24 10:30 12/02/24 10:29 DC 12/02/24 07:27 0.5 MG Labetalol HCl (TRANdate 20MG SYG) 10 mg Q2H PRN IV SBP GREATER THAN 180 11/19/24 20:30 11/20/24 08:12 DC Lisinopril (Prinivil 2.5mg) 2.5 mg DAILY PO 11/23/24 09:00 12/23/24 08:59 12/03/24 08:50 2.5 MG Magnesium Sulfate 50 ml @ 0 mls/hr PROTOCOL IV 11/19/24 21:30 12/19/24 21:29 11/20/24 06:00 25 MLS/HR Methylprednisolone Sodium Succinate (Solu-medROL 40MG) 40 mg Q12H IVP 11/24/24 06:00 11/28/24 10:09 DC 11/28/24 06:46 40 MG Methylprednisolone Sodium Succinate (Solu-medROL 40MG) 40 mg Q8H IVP 11/23/24 10:00 11/23/24 18:55 DC 11/23/24 12:28 40 MG Methylprednisolone Sodium Succinate (Solu-medROL 40MG) 60 mg Q8H IVP 11/20/24 18:00 11/23/24 08:45 DC 11/23/24 01:46 60 MG Metoprolol Tartrate (loprESSOR) 5 mg Q6H PRN IV INCREASED HEART RATE >100 11/28/24 12:00 11/28/24 12:11 DC Metoprolol Tartrate (loprESSOR) 5 mg Q6H PRN IV INCREASED HEART RATE >100 BPM 11/28/24 12:30 12/28/24 12:29 11/29/24 12:11 5 MG Metoprolol Tartrate (loprESSOR) 50 mg BID PO 11/22/24 10:30 11/24/24 19:43 DC 11/24/24 08:47 50 MG Metoprolol Tartrate (loprESSOR) 50 mg BID PO 11/22/24 21:00 11/22/24 10:06 DC Metoprolol Tartrate (loprESSOR) 100 mg BID PO 11/24/24 20:00 11/30/24 08:33 DC 11/29/24 20:31 100 MG Metoprolol Tartrate (loprESSOR) 100 mg BID PO 11/24/24 21:00 11/24/24 19:49 DC Metoprolol Tartrate (loprESSOR) 100 mg BID PO 12/03/24 09:00 01/02/25 08:59 12/03/24 21:26 100 MG Metoprolol Tartrate (loprESSOR) 150 mg BID PO 11/30/24 09:00 12/03/24 07:55 DC 12/02/24 20:02 150 MG Midazolam HCl (Midazolam 100mg-0.9% NS 100ml) 100 ml ONCE IV 11/19/24 19:30 11/19/24 19:46 DC Milrinone Lactate/ Dextrose 100 ml @ 0 mls/hr PROTOCOL IV 11/25/24 09:00 12/01/24 19:44 DC 11/30/24 20:34 7.1 MLS/HR Norepinephrine 250 ml @ 0 mls/hr PROTOCOL IV 11/19/24 19:30 11/23/24 18:55 DC 11/20/24 11:08 24 MLS/HR Ondansetron HCl (zoFRAN 4MG INJ) 4 mg Q6H PRN IVP NAUSEA/VOMITING 11/19/24 20:30 12/19/24 20:29 Pantoprazole Sodium (PROTonix 40MG INJ) 40 mg DAILY IVP 11/20/24 09:00 12/20/24 08:59 12/03/24 08:50 40 MG Pharmacy Profile Note (Pharmacy Communication) 1 each ONCE MISC 11/25/24 23:00 11/25/24 23:15 DC Pharmacy Profile Note (Pharmacy Communication) 1 each ONCE MISC 11/25/24 23:30 11/25/24 23:15 DC Phenylephrine HCl 10 mg/Sodium Chloride 250 ml @ 0 mls/hr AD PRN IV TITRATE 11/20/24 13:30 11/20/24 17:03 DC 11/20/24 13:21 8.47 MLS/HR Phenylephrine HCl 50 mg/Sodium Chloride 250 ml @ 0 mls/hr AD PRN IV TITRATE 11/20/24 13:30 11/20/24 13:05 DC Phenylephrine HCl 50 mg/Sodium Chloride 250 ml @ 0 mls/hr PROTOCOL PRN IV PROTOCOL 11/20/24 17:00 11/28/24 10:09 DC 11/20/24 17:44 3.39 MLS/HR Polyethylene Glycol (MIRalax 3350 17 GM POWD.PACK) 17 gm DAILY PO 11/20/24 09:00 12/20/24 08:59 12/03/24 08:50 17 GM Potassium Chloride 100 ml @ 50 mls/hr PROTOCOL IV 11/19/24 21:30 12/19/24 21:29 11/20/24 05:59 50 MLS/HR Prednisone (deltaSONE/ ORASONE 10MG) 10 mg DAILY PO 12/04/24 09:00 01/03/25 08:59 Prednisone (deltaSONE/ oraSONE 20MG TAB) 20 mg DAILY PO 11/29/24 09:00 12/03/24 13:52 DC 12/03/24 08:50 20 MG Propofol (DIPRivan 1000MG/ 100ML) 1,000 mg PROTOCOL PRN IV SEDATION 11/19/24 19:30 11/23/24 18:55 DC 11/23/24 03:51 1,000 MG Rivaroxaban (Xarelto) 20 mg DAILY PO 11/27/24 09:30 12/27/24 09:29 12/03/24 08:50 20 MG LABORATORY: [ ] Hematology Labs: Test 12/04/24 05:36 Range/Units White Blood Count 15.0 H 4.8-10.8 K/uL Red Blood Count 3.97 L 4.00-5.50 MIL/uL Hemoglobin 11.6 L 12.0-16.0 g/dL Hematocrit 35.5 L 36-48 % Mean Corpuscular Volume 89.4 79-99 fL Mean Corpuscular Hemoglobin 29.2 27.0-33.0 pg Mean Corpuscular Hemoglobin Concent 32.7 32.0-36.0 g/dL Red Cell Distribution Width 13.5 11.0-15.5 % Platelet Count 159 130-400 K/uL Mean Platelet Volume 11.8 H 7.5-10.5 fL Immature Granulocyte % (Auto) 0.7 0-1 % Neutrophils (%) (Auto) 77.6 H 40.0-77.0 % Lymphocytes (%) (Auto) 12.9 L 21.0-51.0 % Monocytes (%) (Auto) 7.8 3.0-13.0 % Eosinophils (%) (Auto) 0.9 0.0-8.0 % Basophils (%) (Auto) 0.1 0.0-5.0 % Neutrophils # (Auto) 11.7 H 1.8-7.7 K/uL Lymphocytes # (Auto) 1.9 1.0-4.8 K/uL Monocytes # (Auto) 1.2 H 0.1-1.0 K/uL Eosinophils # (Auto) 0.13 0.00-0.70 K/uL Basophils # (Auto) 0.02 0.00-0.20 K/uL Absolute Immature Granulocyte (auto 0.10 0-1 K/uL Nucleated Red Blood Cells 0.0 0.0-0.19 % Chemistry Labs: Test 12/04/24 05:36 12/04/24 05:19 12/03/24 12:22 Range/Units Sodium Level 145 136-145 mmol/L Potassium Level 3.6 3.5-5.1 mmol/L Chloride Level 106 101-111 mmol/L Carbon Dioxide Level 35 H 21-32 mmol/L Blood Urea Nitrogen 16 7-18 mg/dL Creatinine 0.7 0.5-1.0 mg/dL Glomerular Filtration Rate Calc 88 >90 mL/min Random Glucose 138 H 70-105 mg/dL Total Calcium 8.6 8.5-10.1 mg/dL Magnesium Level 1.90 1.80-2.40 mg/dL Whole Blood Glucose 133 H 70-110 MG/DL Lactic Acid Level 1.2 0.8-2.5 mmol/L C-Reactive Protein, Quantitative 21.20 H 0.5-3.0 mg/L Procalcitonin < 0.05 L 0.05-0.5 ng/mL DIAGNOSTICS / RADIOLOGY: REASON: PNA ORDERING PHYSICIAN: CARTER HAYES NP PROCEDURE: CXR1VW - CHEST 1VW CHEST 1VW HISTORY: Pneumonia COMPARISON: 12/01/2024 FINDINGS: A frontal projection of the chest was obtained. There are bilateral pulmonary infiltrates and pleural effusions. Right left change. The heart is borderline enlarged. Degenerative changes are seen. No evidence of aortic calcification is seen. IMPRESSION: 1. Bilateral pulmonary infiltrates and pleural effusions unchanged DICTATED BY: BERT CALLE MD DATE: 12/03/24 1423 REASON: Hypercarbia ORDERING PHYSICIAN: CARTER HAYES NP PROCEDURE: CXR1VW - CHEST 1VW CHEST 1VW HISTORY: Hypercarbia COMPARISON: 11/27/2024 FINDINGS: A frontal projection of the chest was obtained. There are bilateral pulmonary infiltrates with pleural effusion. The heart is borderline enlarged. Degenerative changes are seen. No evidence of aortic calcification is seen. IMPRESSION: 1. Probable pulmonary infiltrates with pleural effusion unchanged. DICTATED BY: BERT CALLE MD DATE: 12/01/24 1402 REASON: afib ORDERING PHYSICIAN: NATHALIE BETANCOURT MD PROCEDURE: ECHO LAY - ECHO LAY--TRANSESOPHAGEAL APPROVED REPORT EXAM: Transesophageal echocardiogram with color flow Doppler. INDICATION ICD: Atrial fibrillation Reason For Test : Rule out Intracardiac Thrombus. PROCEDURE After obtaining informed consent, patient underwent transesophageal echo in the 203 15 mL 2% Viscous Lidocaine was given as a topical anesthetic prior to the administration of the conscious sedation. Type of Sedation: Conscious Sedation Sedation was administered by please refer to medication administration record. . Sedation was achieved with please refer to medication administration record. intravenously. Transesophageal probe was inserted and advanced into esophagus without difficulty by Renetta FENTON, Manny Suarez MD. Echo enhancement indication: R/O Septal defect. Echo enhancement agent administered: Agitated Saline. LAY was performed and images were obtained, probe was removed without complications. Prior to cardioversion, of please refer to medication administration record. was administered. Synchronized Cardioversion attempted: Successful Synchronized Cardioversion acheived with 200 Joules after 1 attempt(s). Rhythm following Synchronized Cardioversion: PVC's sinus rhythm Throughout the procedure, the blood pressure, pulse oximetry, cardiac rhythm, an d rate were monitored. LAY probled placed into esophogus in the left lateral decubitus position. We noted no evidence of intracardiac thrombi. We then retracted the LAY probed and following moderate sedation we performed synchronized DCCV with 200j x 1 with restroation of NSR> Pt tolerated procedure well with no post procedure complications. Left Ventricle The left ventricle is normal size. There is left ventricular wall thickness. LVEF is 40-45%. No left ventricle thrombus noted on this study. Right Ventricle The right ventricle is normal size. The right ventricular systolic function is normal. Atria The left atrium size is normal. No left atrial appendage thrombus noted. Spontaneous contrast noted in left atrium. Negative bubble study. No evidence of PFO/ASD by agitated saline/color doppler. The right atrium is mildly dilated. Aortic Valve The aortic valve is trileaflet normal in structure. No aortic regurgitation is present. There is no aortic valvular vegetation. There is no aortic valvular stenosis. Mitral Valve The mitral valve is normal in structure. There is mild mitral valve regurgitation noted. No mitral valve vegetation. There is no mitral valve stenosis. Tricuspid Valve The tricuspid valve is normal in structure. There is no tricuspid valve regurgitation noted. No tricuspid valve vegetation. Pulmonic Valve The pulmonary valve is normal in structure. There is no pulmonic valvular regurgitation. Great Vessels The aortic root is normal in size. Ascending aorta appears normal in size.Descending aorta appears normal in size. The IVC was not visualized. Pericardium There is no pericardial effusion. Conclusion The left ventricle is normal size. LVEF is 40-45% with global hypokinesis. The right ventricular systolic function is normal. Both atria appear mildly dilated. Normal Bubble study. There is mild mitral valve regurgitation noted. No evidence of intracardiac thromobi noted. There is no pericardial effusion. Following LAY pt underwent synchronized DCCV with 200j x 1 with adventist of NSR. DICTATED BY: NATHALIE BETANCOURT MD DATE: 11/30/24 1141 REASON: chf ORDERING PHYSICIAN: TAMIA DORMAN MD PROCEDURE: CXR1VW - CHEST 1VW Exam Type: CHEST 1VW Clinical Information: chf Comparison: None Findings: Pulmonary pattern is as before. No worrisome interval changes have taken place. Impression: Stable exam. DICTATED BY: EZEKIEL CRISTINA MD DATE: 11/27/24 0941 REASON: AFIB ORDERING PHYSICIAN: ROBSON HAN MD PROCEDURE: ECHO CMP - ECHO 2-D COMPLETE APPROVED REPORT EXAM: Two-dimensional and M-mode echocardiogram with Doppler and color Doppler. Study Details: HTN , HLD , Diabts M , COPD INDICATION ICD: A/fib 2D Dimensions RVDd 3.5 cm LVEF(%) 33.1 (>50%) LVED Vol(simp.) 89.1 mL IVSd 1.2 (0.7-1.1cm) FS(%) 15 % LVES Vol(simp.) 58.2 mL LVDd 4.1 (3.8-5.6cm) LA (2D) 3.0 (1.6-4.0cm) LVEF(%, simp.) 35 % PWd 1.0 (0.7-1.1cm) Ao Root(2D) 2.9 (2.0-3.7cm) LA ESV INDEX (4CH) 58.00 mL/m2 IVSs 1.0 cm LVOT diam 1.9 (1.8-2.4cm) LA ESV INDEX (2CH) 28.34 mL/m2 LVDs 3.5 (2.5-4.0cm) IVC diam 2.2 cm LA ESV INDEX (BP) 30.51 mL/m2 PWs 1.4 cm Deformation Strain Apical 4 -9.5 % Apical 2 -11.0 % Apical 3 -10.4 % Global Strain -10.3 % M-Mode Dimensions EPSS 1.4 cm LA (MM) 3.3 (1.6-4.0cm) Ao Root(MM) 2.5 (2.0-3.7cm) Aortic Valve AoV Vmax 1.1 m/s Ao Peak GR 4.8 mmHg LVOT Vmax 0.7 m/s AoV VTI 0.2 m Ao Mean GR 2.8 mmHg LVOT VTI 0.14 m SCOTT (VMAX) 1.99 cm2 SCOTT (VTI) 2.0 cm2 Mitral Valve MV E Vmax 87.8 cm/s DECEL Time 223 ms MV A Vmax 28.3 cm/s E/A ratio 3.1 TDI E/E' Medial 15.8 E/E' Lateral 12.4 Medial E' Peak V 5.54 cm/s Lateral E' Peak V 7.09 cm/s Pulmonary Valve PV Vmax 0.6 m/s PV VTI 0.11 m PV Mean GR 0.9 mmHg PV Peak GR 1.4 mmHg Left Ventricle Left ventricular cavity size is normal. Mild eccentric left ventricular hypertrophy. LVEF is 25-30%. Stage III diastolic dysfunction. Right Ventricle The right ventricle is normal size. Right ventricular systolic function is moderately reduced. Atria The left atrium size is normal. The right atrium size is normal. Aortic Valve The aortic valve is mildly thickened. The aortic valve is not well visualized. No aortic regurgitation is present. There is no aortic valvular stenosis. Mitral Valve The mitral valve is mildly thickened. Mitral regurgitation is trace. There is no mitral valve stenosis. Tricuspid Valve Tricuspid valve is not well visualized. There is no tricuspid valve r egurgitation noted. Pulmonic Valve Pulmonic valve is not well visualized. There is no pulmonic valvular regurgitation. Great Vessels The aortic root is normal in size. The ascending aorta is normal in size. The inferior vena cava is mildly dilated with no inspiratory collapse. Hepatic veins are dilated. Pericardium Trace pericardial effusion. Pericardium appears thickened. Ascites is present. Conclusion Left ventricular cavity size is normal. Mild eccentric left ventricular hypertrophy. LVEF is 25-30%. Stage III diastolic dysfunction. The right ventricle is normal size. Right ventricular systolic function is moderately reduced. The left atrium size is normal. The right atrium size is normal. The inferior vena cava is mildly dilated with no inspiratory collapse. Hepatic veins are dilated. Trace pericardial effusion. Pericardium appears thickened. DICTATED BY: ANTHONY BETANCOURT MD DATE: 11/21/24 0852 REASON: R/O PE, ELEVATED D-DIMER ORDERING PHYSICIAN: CARTER HAYES NP PROCEDURE: CHES PE - CT CHEST PE PROTOCOL WWO CONT CT CHEST PE PROTOCOL WWO CONT HISTORY: No additional history given. COMPARISON: None TECHNIQUE: CT angiography of the chest was performed. The study was performed using angiographic technique with maximum intensity projection reconstruction images. Patient was given 100 cc of Omnipaque through intravenous route. FINDINGS: No CT evidence of filling defect is seen to suggest pulmonary embolus. No CT evidence of aortic dissection is seen. Mild interstitial fibrotic changes are seen. Endotracheal tube and nasogastric tube are seen. No evidence of parenchymal disease is seen. Small right pleural effusion is seen. The heart is enlarged. No evidence of adrenal mass is seen. Degenerative changes of the spine are noted. IMPRESSION: 1. No CT evidence of acute pulmonary embolus is seen. Small right pleural effusion with interstitial fibrosis. CT was performed with one or more following dose reduction techniques: automated exposure control, adjustment of the mA and kv according to patient's size, or use of a iterative reconstruction technique. DICTATED BY: BERT CALLE MD DATE: 11/21/24 174 REASON: R/O DVT ORDERING PHYSICIAN: ROBSON HAN MD PROCEDURE: VENOUS OMEGA - US VENOUS DOPPLER BILATERAL US VENOUS DOPPLER BILATERAL HISTORY: DVT COMPARISON: None TECHNIQUE: Bilateral lower extremity venous Doppler ultrasound study was performed. FINDINGS: Right posterior tibial vein is normal visualized limiting evaluation. The common femoral, femoral, popliteal, and posterior tibial veins are visualized. Normal flow with compressibilities are demonstrated. The greater saphenous veins are also seen and grossly patent. IMPRESSION: 1. No evidence of deep venous thrombosis is seen. DICTATED BY: BERT CALLE MD DATE: 11/20/24 1718 REASON: post intubation/sob ORDERING PHYSICIAN: AXEL COLE MD PROCEDURE: CXR1VW - CHEST 1VW FRONTAL CHEST RADIOGRAPH INDICATION: post intubation/sob COMPARISON: None FINDINGS/IMPRESSION: crotch breaker leads overlie the field of view. PORTABLE CHEST RADIOGRAPH INDICATION: post intubation/sob COMPARISON: 12/28/2023 FINDINGS: crotch breaker leads overlie the field of view. Tip of endotracheal tube located 5 cm above the cait. Defibrillator patches project over the left chest. Heart size is normal. The pulmonary vascularity and ashley appear normal. No evidence for discrete consolidation. No significant pleural effusion noted. No pneumothorax detected. IMPRESSION: Tip of endotracheal tube located 5 cm above the cait. No radiographic evidence for any acute cardiopulmonary process. 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 We have reviewed external records in detail Potassium and magnesium replacement has been ordered Require close monitoring of renal function and electrolytes Order CBC, CMP, and electrolytes in am BiPAP as necessary, for respiratory distress Monitor blood pressure adjust medication doses as needed Avoid hypotensive episodes May use Dilaudid 0.5 mg IV every 6 hours as needed for severe pain Monitor blood sugars Strict intake, output, and daily weight should be monitored Please renally adjust medications Avoid nephrotoxic and nonsteroidal drugs Avoid contrast if possible Will continue to monitor renal function, anemia, electrolytes Treatment plan discussed with patient Questions were answered We have discussed with the other team physicians in detail about the care plan We will continue to monitor the patient closely ATTESTATION BY PHYSICIAN I have seen and examined the patient. I reviewed the documentation, medical decision making, and treatment plan as noted by the mid-level provider above. I agree with the findings and plan of care. DARSHANA BORREGO MD, ELIZABETH FNP December 04, 2024 10:02
[2024-12-04] MEDS: predniSONE 10 MG TABLET PO SCH (10:28)
--- NOTE | 2024-12-04 12:00 | PN ---
[facility] PROGRESS NOTE Date Patient Seen: December 04, 2024 Time of Visit: 12:00 Supervising Physician: [ ] Primary Care Physician: Dr. 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 She is on 2 L via nasal cannula in no apparent distress. Saturating 97% respiratory rate of 18 heart rate between 100-110. Metoprolol has been ordered per Cardiology. We may start weaning Milrinone drip per Dr Shay gaytan. Leaning with 120 27 kg. WBCs of 17 trending down from yesterday, H&H is 13 over 40, platelet count 183 K. sodium 144 potassium of four chloride 103 CO2 of 41. Decreasing Lasix to 20 mg daily. BUN of 31, creatinine of 0.9 GFR 65. She reports some loss of hearing to right ear post extubation. Weaning steroids to prednisone 20 mg daily. There is no family at the bedside at this time. Plans for ARASH guided cardioversion with the NS he is in tomorrow morning per Cardiology. 11/29 patient was seen and examined by bedside with family present. Patient has been weaned off oxygen is currently on room air tolerating well. Patient's swelling to bilateral lower extremities have improved. Patient denies any chest pain or shortness of breadth at time of visit. Denies any nausea vomiting or abdominal pain. Patient continues on marijuana drip we will continue to follow recommendations from Cardiology. Patient is scheduled for ARASH guided cardioversion tomorrow 11/30/2024. We will repeat patient's labs tomorrow morning and continue to monitor serum sodium level. 11/30/2024: At the time of my evaluation, the patient was lying in bed. Vital signs today were within normal ranges. She remains on room air. Laboratory data showed improving WBC count today down to 15.3. Chemistry panel showed elevated liver enzymes without hyperbilirubinemia. No new chest imaging for review today. Patient underwent arash and results is pending. Staff nurse reports no acute events otherwise. No other complaint. 12/01/2024: At the time of my evaluation, the patient was sitting up to the bedside chair. The staff nurse reports no acute events overnight. The patient continues on a Milrinone drip and is so far tolerating well. Yesterday, the patient underwent successful cardioversion. No other complaint. Currently, she is on room air, afebrile no tachycardia or tachypnea blood pressure slightly elevated systolic in the 150s. Laboratory data today was notable for improved WBC count today 13.0. No acute anemia or thrombocytopenia. Chemistry panel today showed a carbon dioxide of 40, BUN of 24, creatinine of 0.8 and a GFR of 75. Liver parameters showed a total bilirubin of 1.1, AST of 31, ALT of 86 and a alk-phos of 77. No new cultures for review. No new imaging for review. No other complaint. 12/02/2024: At the time of my evaluation, the patient was sitting up at the bedside. The staff nurse reports no acute events overnight. Currently, the patient is not on any oxygen supplementation and vital signs are unremarkable. She remains in normal sinus rhythm. Laboratory data today did show a interval increase of WBC to 15.7, there is no profound anemia or thrombocytopenia. Chemistry panel showed improved CO2 otherwise unremarkable. No new chest imaging for review today. Today, the patient was taken off Milrinone and switch back to furosemide. The patient had a voided output overnight of 550 and a net balance of + 525.2. No other complaint. 12/03/2024: At the time of my evaluation, the patient was sitting up to the bedside chair. The staff nurse reports no acute events overnight. On monitor, she remains on room air, she is afebrile not tachycardic or tachypneic and with elevated blood pressure. Laboratory data showed a interval increase of WBC to 16.0. No anemia or thrombocytopenia. Chemistry panel was unremarkable. No new microbiology data for review. No new imaging. No other complaint. REVIEW OF SYSTEMS: 12- point system review was carried out and pertinent positives documented above otherwise negative. PHYSICAL EXAM: GENERAL: Chronically ill, no obvious signs or symptoms of distress HEENT: EOMI, Sclera non icteric, moist mucosa NECK: Supple, no JVD, trachea midline LUNGS: Diminished breath sounds, bilaterally. Minimal wheezes. HEART: Normal S1 and S2, without murmurs ABD: Large body habitus EXT: No clubbing cyanosis or edema NEURO: Awake alert able to answer simple questions appropriately Vital Signs (last 8hr) Date Time Temp Pulse Resp B/P (MAP) Pulse Ox O2 Delivery O2 Flow Rate FiO2 12/04/24 10:45 65 18 12/04/24 08:40 96 Room Air* 0 21 12/04/24 08:00 98.6 65 17 163/44 95 Room Air 12/04/24 06:56 61 18 12/04/24 06:56 61 20 N/A Room Air 21 12/04/24 05:55 98.2 58 18 153/66 94 Room Air 12/04/24 04:22 98.2 58 18 153/66 94 Room Air LABS: Hematology Labs: Test 12/04/24 05:36 Range/Units White Blood Count 15.0 H 4.8-10.8 K/uL Red Blood Count 3.97 L 4.00-5.50 MIL/uL Hemoglobin 11.6 L 12.0-16.0 g/dL Hematocrit 35.5 L 36-48 % Mean Corpuscular Volume 89.4 79-99 fL Mean Corpuscular Hemoglobin 29.2 27.0-33.0 pg Mean Corpuscular Hemoglobin Concent 32.7 32.0-36.0 g/dL Red Cell Distribution Width 13.5 11.0-15.5 % Platelet Count 159 130-400 K/uL Mean Platelet Volume 11.8 H 7.5-10.5 fL Immature Granulocyte % (Auto) 0.7 0-1 % Neutrophils (%) (Auto) 77.6 H 40.0-77.0 % Lymphocytes (%) (Auto) 12.9 L 21.0-51.0 % Monocytes (%) (Auto) 7.8 3.0-13.0 % Eosinophils (%) (Auto) 0.9 0.0-8.0 % Basophils (%) (Auto) 0.1 0.0-5.0 % Neutrophils # (Auto) 11.7 H 1.8-7.7 K/uL Lymphocytes # (Auto) 1.9 1.0-4.8 K/uL Monocytes # (Auto) 1.2 H 0.1-1.0 K/uL Eosinophils # (Auto) 0.13 0.00-0.70 K/uL Basophils # (Auto) 0.02 0.00-0.20 K/uL Absolute Immature Granulocyte (auto 0.10 0-1 K/uL Nucleated Red Blood Cells 0.0 0.0-0.19 % Chemistry Labs: Test 12/04/24 11:17 12/04/24 05:36 12/03/24 12:22 Range/Units Whole Blood Glucose 134 H 70-110 MG/DL Sodium Level 145 136-145 mmol/L Potassium Level 3.6 3.5-5.1 mmol/L Chloride Level 106 101-111 mmol/L Carbon Dioxide Level 35 H 21-32 mmol/L Blood Urea Nitrogen 16 7-18 mg/dL Creatinine 0.7 0.5-1.0 mg/dL Glomerular Filtration Rate Calc 88 >90 mL/min Random Glucose 138 H 70-105 mg/dL Total Calcium 8.6 8.5-10.1 mg/dL Magnesium Level 1.90 1.80-2.40 mg/dL Lactic Acid Level 1.2 0.8-2.5 mmol/L C-Reactive Protein, Quantitative 21.20 H 0.5-3.0 mg/L Procalcitonin < 0.05 L 0.05-0.5 ng/mL DIAGNOSTICS / RADIOLOGY RESULTS: [ ] PLAN Continue to follow recommendations from Cardiology Continue BiPAP q.h.s. and p.r.n. Continue aspiration precautions Continue metoprolol 100 mg b.i.d. Continue lisinopril 2.5 mg daily Continue atorvastatin 20 mg q.h.s. Continue IV antibiotics Continue prednisone 20 mg daily Continue lasix to 20mg po daily wean Milrinone drip Continue Xarelto 20 mg daily As per cardiology ARASH guided cardioversion to be scheduled for possible Friday or Friday of next week Continue digoxin 250 mcg daily 11/30/2024: For now, going to continue current management for the patient. We will supplement oxygenation as necessary. She will remain on bronchodilator therapy. She is going to remain on antibiotic coverage currently receiving Rocephin. The patient will continue with Milrinone drip soon to taper off and changed to p.o. Lasix. We will await the ARASH results. We will follow the recommendation of Cardiology. We will monitor the patient's progress and response to management. We will repeat surveillance labs in the morning. We will continue to provide general supportive care, GI and DVT prophylaxis. Further orders per attending MD and hospital course. 12/01/2024: For now, we are going to continue current management for the patient. Because of the elevated CO2 in blood, I am going to request a chest x- ray now as well as an ABG for further evaluation of CO2 retention. Patient will continue on Milrinone drip and we will change to Lasix under the guidance of the Cardiology team. We will continue to monitor the heart rate. We will replace electrolyte abnormality. I appreciate the input of the Cardiology and Nephrology team. We will monitor the patient's progress and response to management. We will continue to provide general supportive care, GI and DVT prophylaxis. Further orders per attending MD and hospital course. 12/02/2024: For now, going to continue current management for the patient. The interval increase in WBCs, may be reactive to her recent ARASH guided cardioversion. Currently, the patient remains on antibiotic coverage with Rocephin. She is also receiving prednisone p.o. daily. I am going to increase bronchodilator frequency to q.4. We will continue to monitor the output with Lasix as ordered. A limited 2D echo was ordered and official results are pending. The patient was encouraged to continue participating with physical therapy. We will monitor and replace electrolyte imbalance. We will continue to provide general supportive care, GI and DVT prophylaxis. Further orders per attending MD and hospital course. 12/03/2024: For now, we are going to continue current management for the patient. She is going to continue on cardiac management per the regroover's who resumed home medications with Cardizem, we will continue on metoprolol, furosemide and Xarelto. There was a noticeable increase of WBC 16.0, this could be reactive. Considering the increased, I am going to request a lactic acid, procalcitonin level, blood cultures x2, UA CS and a chest x-ray. We will continue to monitor the WBC trend. I am going to add p.o. doxycycline 1st dose now. We will monitor the patient's progress and response to management. We will continue to provide general supportive care, GI and DVT prophylaxis. Further orders per attending MD and hospital course. NEURO: Minimize central acting medications as possible. Maintain fall precautions, adequate lighting during the day PULMONARY: Supplemental 02 as needed. Maintain aspiration precautions at all times CARDIOVASCULAR: Follow hemodynamics. Vital signs per facility protocol GI & NUTRITION: Continue with nutritional support. Continue stool softeners and laxatives as needed. KIDNEYS & ELECTROLYTES: Strict monitoring of intake, output and overall fluid balance. Avoid nephrotoxic medications to the extent possible. Medications to be dosed according to renal function. Monitor electrolytes and replace as needed ENDOCRINE: Maintain blood glucose between 100-180 at all times. Hypoglycemia protocol in place INFECTIOUS DISEASE: Trend temperature, WBC and procalcitonin level Follow cultures, deescalate antibiotics as soon as possible. Panculture if new onset fever ONCOLOGY/HEMATOLOGY/COAGULATION: Monitor for s/s of bleeding Monitor hemoglobin, coagulation studies as needed SKIN: Pressure ulcer prevention per facility protocol Specialty mattress ORTHO/REHAB: Continue PT/OT Prophylaxis: Continue GI and DVT prophylaxis Code Status: Full Resuscitation Disposition: TBD Other: Case discussed with supervising physician plan of care agreed upon CARTER HAYES NP December 04, 2024 12:00
[2024-12-04] MEDS ORDERED: PoTASSium chloRIDE 20MEQ/100ML 100 ML IV PRN (13:00)
[2024-12-04] MEDS ORDERED: PoTASSium chl 10% ELIXIR 20MEQ 20 MEQ/15 ML UDCUP PO PRN (13:00)
[2024-12-04] MEDS: PoTASSium chloRIDE 20MEQ ER 20 MEQ ERTAB PO PRN (13:36)
--- NOTE | 2024-12-04 16:42 | PN ---
[facility] PROGRESS NOTE Date Patient Seen: December 04, 2024 Time of Visit: 16:39 Supervising Physician: Primary Care Physician: Dr. 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 She is on 2 L via nasal cannula in no apparent distress. Saturating 97% respiratory rate of 18 heart rate between 100-110. Metoprolol has been ordered per Cardiology. We may start weaning Milrinone drip per Dr Day recs. Leaning with 120 27 kg. WBCs of 17 trending down from yesterday, H&H is 13 over 40, platelet count 183 K. sodium 144 potassium of four chloride 103 CO2 of 41. Decreasing Lasix to 20 mg daily. BUN of 31, creatinine of 0.9 GFR 65. She reports some loss of hearing to right ear post extubation. Weaning steroids to prednisone 20 mg daily. There is no family at the bedside at this time. Plans for ARASH guided cardioversion with the NS he is in tomorrow morning per Cardiology. 11/29 patient was seen and examined by bedside with family present. Patient has been weaned off oxygen is currently on room air tolerating well. Patient's swelling to bilateral lower extremities have improved. Patient denies any chest pain or shortness of breadth at time of visit. Denies any nausea vomiting or abdominal pain. Patient continues on marijuana drip we will continue to follow recommendations from Cardiology. Patient is scheduled for ARASH guided cardioversion tomorrow 11/30/2024. We will repeat patient's labs tomorrow morning and continue to monitor serum sodium level. 11/30/2024: At the time of my evaluation, the patient was lying in bed. Vital signs today were within normal ranges. She remains on room air. Laboratory data showed improving WBC count today down to 15.3. Chemistry panel showed elev ated liver enzymes without hyperbilirubinemia. No new chest imaging for review today. Patient underwent arash and results is pending. Staff nurse reports no acute events otherwise. No other complaint. 12/01/2024: At the time of my evaluation, the patient was sitting up to the bedside chair. The staff nurse reports no acute events overnight. The patient continues on a Milrinone drip and is so far tolerating well. Yesterday, the patient underwent successful cardioversion. No other complaint. Currently, she is on room air, afebrile no tachycardia or tachypnea blood pressure slightly elevated systolic in the 150s. Laboratory data today was notable for improved WBC count today 13.0. No acute anemia or thrombocytopenia. Chemistry panel today showed a carbon dioxide of 40, BUN of 24, creatinine of 0.8 and a GFR of 75. Liver parameters showed a total bilirubin of 1.1, AST of 31, ALT of 86 and a alk-phos of 77. No new cultures for review. No new imaging for review. No other complaint. 12/02/2024: At the time of my evaluation, the patient was sitting up at the bedside. The staff nurse reports no acute events overnight. Currently, the patient is not on any oxygen supplementation and vital signs are unremarkable. She remains in normal sinus rhythm. Laboratory data today did show a interval increase of WBC to 15.7, there is no profound anemia or thrombocytopenia. Chemistry panel showed improved CO2 otherwise unremarkable. No new chest imaging for review today. Today, the patient was taken off Milrinone and switch back to furosemide. The patient had a voided output overnight of 550 and a net balance of + 525.2. No other complaint. 12/03/2024: At the time of my evaluation, the patient was sitting up to the bedside chair. The staff nurse reports no acute events overnight. On monitor, she remains on room air, she is afebrile not tachycardic or tachypneic and with elevated blood pressure. Laboratory data showed a interval increase of WBC to 16.0. No anemia or thrombocytopenia. Chemistry panel was unremarkable. No new microbiology data for review. No new imaging. No other complaint. 12/04/2024: At the time of my evaluation, the patient was sitting up to the bedside chair eating her. The staff nurse reports no acute events overnight. The patient was on room air. On monitor, she was hemodynamically stable. Laboratory data and today showed improvement of WBC to 15.0. No profound anemia or thrombocytopenia. Chemistry panel was unremarkable. Microbiology data currently showing growth imaging of the chest showed bilateral pulmonary vascular congestion and bilateral pleural effusion. Currently, the patient is on antibiotic course with doxycycline p.o. and is also receiving furosemide 20 daily. REVIEW OF SYSTEMS: 12- point system review was carried out and pertinent positives documented above otherwise negative. PHYSICAL EXAM: GENERAL: Chronically ill, no obvious signs or symptoms of distress HEENT: EOMI, Sclera non icteric, moist mucosa NECK: Supple, no JVD, trachea midline LUNGS: Diminished breath sounds, bilaterally. Minimal wheezes. HEART: Normal S1 and S2, without murmurs ABD: Large body habitus EXT: No clubbing cyanosis or edema NEURO: Awake alert able to answer simple questions appropriately Vital Signs (last 8hr) Date Time Temp Pulse Resp B/P (MAP) Pulse Ox O2 Delivery O2 Flow Rate FiO2 12/04/24 15:28 68 18 12/04/24 12:00 98.6 68 17 135/54 95 Room Air 12/04/24 10:45 65 18 12/04/24 08:40 96 Room Air* 0 21 LABS: Hematology Labs: Test 12/04/24 05:36 Range/Units White Blood Count 15.0 H 4.8-10.8 K/uL Red Blood Count 3.97 L 4.00-5.50 MIL/uL Hemoglobin 11.6 L 12.0-16.0 g/dL Hematocrit 35.5 L 36-48 % Mean Corpuscular Volume 89.4 79-99 fL Mean Corpuscular Hemoglobin 29.2 27.0-33.0 pg Mean Corpuscular Hemoglobin Concent 32.7 32.0-36.0 g/dL Red Cell Distribution Width 13.5 11.0-15.5 % Platelet Count 159 130-400 K/uL Mean Platelet Volume 11.8 H 7.5-10.5 fL Immature Granulocyte % (Auto) 0.7 0-1 % Neutrophils (%) (Auto) 77.6 H 40.0-77.0 % Lymphocytes (%) (Auto) 12.9 L 21.0-51.0 % Monocytes (%) (Auto) 7.8 3.0-13.0 % Eosinophils (%) (Auto) 0.9 0.0-8.0 % Basophils (%) (Auto) 0.1 0.0-5.0 % Neutrophils # (Auto) 11.7 H 1.8-7.7 K/uL Lymphocytes # (Auto) 1.9 1.0-4.8 K/uL Monocytes # (Auto) 1.2 H 0.1-1.0 K/uL Eosinophils # (Auto) 0.13 0.00-0.70 K/uL Basophils # (Auto) 0.02 0.00-0.20 K/uL Absolute Immature Granulocyte (auto 0.10 0-1 K/uL Nucleated Red Blood Cells 0.0 0.0-0.19 % Chemistry Labs: Test 12/04/24 11:17 12/04/24 05:36 12/03/24 12:22 Range/Units Whole Blood Glucose 134 H 70-110 MG/DL Sodium Level 145 136-145 mmol/L Potassium Level 3.6 3.5-5.1 mmol/L Chloride Level 106 101-111 mmol/L Carbon Dioxide Level 35 H 21-32 mmol/L Blood Urea Nitrogen 16 7-18 mg/dL Creatinine 0.7 0.5-1.0 mg/dL Glomerular Filtration Rate Calc 88 >90 mL/min Random Glucose 138 H 70-105 mg/dL Total Calcium 8.6 8.5-10.1 mg/dL Magnesium Level 1.90 1.80-2.40 mg/dL Lactic Acid Level 1.2 0.8-2.5 mmol/L C-Reactive Protein, Quantitative 21.20 H 0.5-3.0 mg/L Procalcitonin < 0.05 L 0.05-0.5 ng/mL DIAGNOSTICS / RADIOLOGY RESULTS: [ ] PLAN Continue to follow recommendations from Cardiology Continue BiPAP q.h.s. and p.r.n. Continue aspiration precautions Continue metoprolol 100 mg b.i.d. Continue lisinopril 2.5 mg daily Continue atorvastatin 20 mg q.h.s. Continue IV antibiotics Continue prednisone 20 mg daily Continue lasix to 20mg po daily wean Milrinone drip Continue Xarelto 20 mg daily As per cardiology ARASH guided cardioversion to be scheduled for possible Friday or Friday of next week Continue digoxin 250 mcg daily 11/30/2024: For now, going to continue current management for the patient. We will supplement oxygenation as necessary. She will remain on bronchodilator therapy. She is going to remain on antibiotic coverage currently receiving Rocephin. The patient will continue with Milrinone drip soon to taper off and changed to p.o. Lasix. We will await the ARASH results. We will follow the recommendation of Cardiology. We will monitor the patient's progress and response to management. We will repeat surveillance labs in the morning. We will continue to provide general supportive care, GI and DVT prophylaxis. Further orders per attending MD and hospital course. 12/01/2024: For now, we are going to continue current management for the patient. Because of the elevated CO2 in blood, I am going to request a chest x- ray now as well as an ABG for further evaluation of CO2 retention. Patient will continue on Milrinone drip and we will change to Lasix under the guidance of the Cardiology team. We will continue to monitor the heart rate. We will replace electrolyte abnormality. I appreciate the input of the Cardiology and Nephrology team. We will monitor the patient's progress and response to management. We will continue to provide general supportive care, GI and DVT prophylaxis. Further orders per attending MD and hospital course. 12/02/2024: For now, going to continue current management for the patient. The interval increase in WBCs, may be reactive to her recent ARASH guided cardioversion. Currently, the patient remains on antibiotic coverage with Rocephin. She is also receiving prednisone p.o. daily. I am going to increase bronchodilator frequency to q.4. We will continue to monitor the output with Lasix as ordered. A limited 2D echo was ordered and official results are pending. The patient was encouraged to continue participating with physical therapy. We will monitor and replace electrolyte imbalance. We will continue to provide general supportive care, GI and DVT prophylaxis. Further orders per attending MD and hospital course. 12/03/2024: For now, we are going to continue current management for the patient. She is going to continue on cardiac management per the barrel filler's who resumed home medications with Cardizem, we will continue on metoprolol, furosemide and Xarelto. There was a noticeable increase of WBC 16.0, this could be reactive. Considering the increased, I am going to request a lactic acid, procalcitonin level, blood cultures x2, UA CS and a chest x-ray. We will continue to monitor the WBC trend. I am going to add p.o. doxycycline 1st dose now. We will monitor the patient's progress and response to management. We will continue to provide general supportive care, GI and DVT prophylaxis. Further orders per attending MD and hospital course. 12/04/2024: For now, going to continue current management for the patient. Cardiology is adjusting management for her arrhythmia nephrology remains on board guiding management. I am going to increase the Lasix to 20 b.i.d. and we will monitor the output. The patient will remain on antibiotic therapy as orde red. I am going to request a 6 minute walk test to evaluate the need for further oxygenation. We will monitor the patient's progress and response to management. We will continue to provide general supportive care, GI and DVT prophylaxis. Further orders per attending MD and hospital course. NEURO: Minimize central acting medications as possible. Maintain fall precautions, adequate lighting during the day PULMONARY: Supplemental 02 as needed. Maintain aspiration precautions at all times CARDIOVASCULAR: Follow hemodynamics. Vital signs per facility protocol GI & NUTRITION: Continue with nutritional support. Continue stool softeners and laxatives as needed. KIDNEYS & ELECTROLYTES: Strict monitoring of intake, output and overall fluid balance. Avoid nephrotoxic medications to the extent possible. Medications to be dosed according to renal function. Monitor electrolytes and replace as needed ENDOCRINE: Maintain blood glucose between 100-180 at all times. Hypoglycemia protocol in place INFECTIOUS DISEASE: Trend temperature, WBC and procalcitonin level Follow cultures, deescalate antibiotics as soon as possible. Panculture if new onset fever ONCOLOGY/HEMATOLOGY/COAGULATION: Monitor for s/s of bleeding Monitor hemoglobin, coagulation studies as needed SKIN: Pressure ulcer prevention per facility protocol Specialty mattress ORTHO/REHAB: Continue PT/OT Prophylaxis: Continue GI and DVT prophylaxis Code Status: Full Resuscitation Disposition: TBD Other: Case discussed with supervising physician plan of care agreed upon CARTER HAYES NP December 04, 2024 16:42
[2024-12-04] MEDS: furoSEMIDE 20 MG TABLET PO SCH (21:16)
[2024-12-04] MEDS: MAGNESIUM OXIDE 400 MG TABLET PO SCH (21:16)
[2024-12-05] VITALS (13 sets, daily range): BP systolic 123–147; BP diastolic 55–78; PULSE 67–74; RESP 16–21; TEMP 97.6–98.1; O2SAT 93–98
[2024-12-05 04:08] LABS: HEMATOCRIT 34.5 % (36-48); MEAN CORPUSCULAR HEMOGLOBIN 28.6 pg (27.0-33.0); MEAN CORPUSCULAR HGB CONC 32.2 g/dL (32.0-36.0); MEAN CORPUSCULAR VOLUME 88.9 fL (79-99); PLATELET COUNT (AUTO) 151 K/uL (130-400); RED BLOOD CELL COUNT(AUTO) 3.88 MIL/uL (4.00-5.50); RED CELL DISTRIBUTION WIDTH 13.7 % (11.0-15.5); WHITE BLOOD COUNT (AUTO) 13.4 K/uL (4.8-10.8)
[2024-12-05 04:35] LABS: CREATININE 0.4 mg/dL (0.5-1.0); MAGNESIUM 2.1 mg/dL (1.80-2.40); POTASSIUM 4.3 mmol/L (3.5-5.1)
[2024-12-05 05:01] LABS: EOSINOPHILS % (MANUAL) 1 % (1-6); LYMPHOCYTES % (MANUAL) 12 % (22-44); MAN.DIFF COMMENT-IMPRESSION MANUAL DIFFERENTIAL; MONOCYTES % (MANUAL) 7 % (2-9); REACTIVE LYMPHOCYTES 1 % (0-0); SEGMENTED NEUTROPHILS % 79 % (40-70); TOTAL CELLS COUNTED 100
[2024-12-05 05:02] LABS: PLATELET MORPHOLOGY COMMENT ADEQUATE
[2024-12-05] MEDS: LISINOPRIL 10 MG TABLET PO SCH (08:50)
--- NOTE | 2024-12-05 09:43 | PN ---
NEPHROLOGY PROGRESS NOTE Date/Time Patient Seen: Dec 05, 2024 SUBJECTIVE: This is a 79-year-old female with a history of known cardiomyopathy. The patient initially presented with congestive heart failure. The patient had a cardioversion. The patient's creatinine is much improved. Electrolytes show hypomagnesemia. Repeat echo revealed an improved ejection fraction and she is being seen as a followup visit for all of the above. The patient's renal function is much improved. The patient's blood pressure medications continued to be adjusted per C ardiology. The patient's electrolytes have all been aggressively repleted Pending 6 minute walk He continues to participate physical therapy, in no acute distress She is encouraged with her therapy. REVIEW OF SYSTEMS: GENERAL: Negative for any nausea, vomiting, fevers, chills, or weight loss. NEUROLOGIC: Negative for any blurry vision, blind spots, double vision, facial asymmetry, dysphagia, dysarthria, hemiparesis, hemisensory deficits, vertigo, ataxia. HEENT: Negative for any head trauma, neck trauma, neck stiffness, photophobia, phonophobia, sinusitis, rhinitis. CARDIAC: Negative for any chest pain, dyspnea on exertion, paroxysmal nocturnal dyspnea, peripheral edema. PULMONARY: Negative for any shortness of breath, wheezing, COPD, or TB exposure. GASTROINTESTINAL: Negative for any abdominal pain, nausea, vomiting, bright red blood per rectum, melena. GENITOURINARY: Negative for any dysuria, hematuria, incontinence. INTEGUMENTARY: Negative for any rashes, cuts, insect bites. RHEUMATOLOGIC: Negative for any joint pains, photosensitive rashes, history of vasculitis or kidney problems. HEMATOLOGIC: Negative for any abnormal bruising, frequent infections or bleeding . Vital Signs (last 8hr) Date Time Temp Pulse Resp B/P (MAP) Pulse Ox O2 Delivery O2 Flow Rate FiO2 12/05/24 08:26 97.9 67 16 139/58 93 Room Air 12/05/24 06:59 68 18 N/A Room Air 21 12/05/24 06:57 68 18 12/05/24 03:50 97.5 68 20 138/76 95 Nasal Cannula 12/05/24 02:04 71 18 PHYSICAL EXAM: GENERAL: Alert and oriented x 3. No acute distress. Well-nourished. EYES: EOMI. Anicteric. HENT: Moist mucous membranes. No scleral icterus. No cervical lymphadenopathy. LUNGS: Clear to auscultation bilaterally. No accessory muscle use. CARDIOVASCULAR: Regular rate and rhythm. No murmur. No JVD. ABDOMEN: Soft, non-tender and non-distended. No palpable masses. EXTREMITIES: No edema. Non-tender.?SKIN: No rashes or lesions. Warm. NEUROLOGIC: No focal neurological deficits. CN II-XII grossly intact, but not individually tested. PSYCHIATRIC: Cooperative. Appropriate mood and affect. Current Medications Medications (Trade) Dose Ordered Sig/Anita Route PRN Reason Start Time Stop Time Status Last Admin Dose Admin Acetaminophen (TYLenol 325MG TAB) 650 mg Q6H PRN PO FEVER/MILD PAIN LEVEL 1-3 11/19/24 20:30 12/19/24 20:29 Acetaminophen (TYLenol 650MG SUPPOSITORY) 650 mg ONCE RC 11/19/24 20:00 11/19/24 23:59 DC 11/19/24 20:25 650 MG Acetaminophen (TYLenol 650MG SUPPOSITORY) 650 mg Q6H PRN RC FEVER / MILD PAIN 1-3 IF NPO 11/19/24 20:30 12/19/24 20:29 Albuterol (DUOneb) 1 udvial [id number] IH 11/19/24 22:00 11/20/24 15:21 DC 11/20/24 03:10 1 UDVIAL Amiodarone HCl 540 mg/Dextrose 300 ml @ 16.667 mls/ hr PROTOCOL IV 11/20/24 00:30 11/23/24 18:55 DC 11/20/24 00:34 16.667 MLS/HR Amiodarone HCl 540 mg/Dextrose 300 ml @ 0 mls/hr PROTOCOL IV 11/20/24 00:30 11/20/24 00:16 DC Amiodarone HCL/ Dextrose 100 ml @ 0 mls/hr PROTOCOL IV 11/19/24 19:30 11/19/24 21:28 DC 11/19/24 19:26 250 MLS/HR Amiodarone HCL/ Dextrose 100 ml @ 0 mls/hr PROTOCOL IV 11/19/24 21:30 11/20/24 09:03 DC Amiodarone HCL/ Dextrose 200 ml @ 0 mls/hr PROTOCOL IV 11/19/24 19:30 11/20/24 09:03 DC 11/19/24 19:29 1 MLS/HR Artificial Tears (Artificial Tears) 1 DROP Q2H PRN OU DRY EYES 11/21/24 11:00 12/21/24 10:59 11/21/24 16:12 1 DROP Atorvastatin Calcium (LIPItor 20MG) 20 mg HS PO 11/22/24 21:00 12/22/24 20:59 12/03/24 21:26 20 MG Azithromycin 250 ml @ 250 mls/hr Q24H IVPB 11/19/24 20:30 11/29/24 20:29 DC 11/28/24 21:54 250 MLS/HR Budesonide (Pulmicort 0.5 Mg/2ml) 0.5 mg BIDRESP IH 11/20/24 06:00 12/20/24 05:59 12/04/24 06:54 0.5 MG Ceftriaxone Sodium (ROCEphine 1G INJ) 1 gm Q24H IVPB 11/19/24 20:30 11/23/24 08:44 DC 11/22/24 20:13 1 GM Ceftriaxone Sodium (Rocephin 2gm Inj) 2 gm Q24H IVPB 11/23/24 20:30 12/03/24 13:52 DC 12/02/24 19:56 2 GM Chlorhexidine Gluconate (Peridex) 15 ml BID MM 11/21/24 21:00 12/05/24 20:59 12/03/24 21:25 15 ML Dextrose/Sodium Chloride 1,000 ml @ 50 mls/hr Q20H IV 11/20/24 18:00 11/24/24 09:29 DC 11/24/24 02:53 50 MLS/HR Digoxin (LANOxin 250mcg TAB) 250 mcg DAILY PO 11/28/24 09:00 11/30/24 08:33 DC 11/29/24 11:00 250 MCG Diltiazem HCl (CARDIzem 180MG CD) 180 mg DAILY PO 11/22/24 10:30 11/24/24 19:43 DC 11/24/24 08:47 180 MG Diltiazem HCl (CARDIzem 180MG CD) 180 mg DAILY PO 11/23/24 09:00 11/22/24 10:06 DC Diltiazem HCl (CARDIzem 180MG CD) 180 mg DAILY PO 12/03/24 09:00 01/02/25 08:59 12/03/24 08:50 180 MG Doxycycline Hyclate (Doxycycline Hyclate) 100 mg BID PO 12/03/24 12:30 12/13/24 12:29 12/03/24 21:25 100 MG Enoxaparin Sodium (Lovenox) 40 mg DAILY SQ 11/20/24 09:00 11/23/24 13:03 DC 11/23/24 08:33 40 MG Fentanyl Citrate 100 ml @ 2.5 mls/hr PROTOCOL IV 11/19/24 21:30 11/21/24 13:50 DC 11/21/24 11:43 2.5 MLS/HR Fentanyl Citrate (FENTanyl CITRate PF 50 MCG/ 1 ML 2ML VIAL) 25 mcg Q2H PRN IVP ANXIETY/AGITATION 11/21/24 14:00 11/23/24 18:55 DC Furosemide (LASix 20MG TAB) 20 mg BID PO 11/24/24 21:00 11/25/24 08:41 DC 11/24/24 21:29 20 MG Furosemide (LASix 20MG TAB) 20 mg BID@09,17 PO 11/27/24 17:00 11/28/24 16:19 DC 11/28/24 08:36 20 MG Furosemide (LASix 20MG TAB) 20 mg DAILY PO 11/29/24 09:00 12/27/24 16:59 12/03/24 08:50 20 MG Furosemide (LASix 20MG VIAL) 20 mg Q8H IV 11/25/24 09:00 11/27/24 11:55 DC 11/27/24 08:53 20 MG Home Med (Home Medication) Linaclotide (Linzess) 72 MCG DAILY PO 11/23/24 09:00 12/23/24 08:59 12/03/24 08:52 1 EACH Hydralazine HCl (APRESOLine 20MG INJ) 10 mg Q6H PRN IV SBP GREATER THAN 180 11/19/24 20:30 12/19/24 20:29 Hydromorphone HCl (DiLAUDid 0.5MG INJ) 0.5 mg Q2H PRN IVP SEVERE PAIN (7-10) 11/20/24 08:30 11/23/24 18:55 DC Hydromorphone HCl (DiLAUDid 0.5MG INJ) 0.5 mg Q4H PRN IVP SEVERE PAIN (7-10) 11/23/24 19:00 11/24/24 20:29 DC Hydromorphone HCl (DiLAUDid 1MG INJ) 0.5 mg Q2H PRN IVP MODERATE PAIN (4-6) 11/19/24 20:30 11/20/24 08:08 DC Insulin Human Regular (humuLIN R 100 UNIT/ML 3ML) INSULIN SLIDING SCAL... Q6H6 SQ 11/20/24 00:00 11/23/24 21:14 DC 11/21/24 00:23 2 UNIT Ipratropium [place] (AtrovENT UD) 0.5 MG Q4H4 IH 12/02/24 12:00 12/20/24 17:59 12/04/24 06:54 0.5 MG Ipratropium [place] (AtrovENT UD) 0.5 MG C2IABLO IH 11/20/24 18:00 11/23/24 10:29 DC 11/23/24 07:17 0.5 MG Ipratropium [place] (AtrovENT UD) 0.5 MG [id number] IH 11/23/24 10:30 12/02/24 10:29 DC 12/02/24 07:27 0.5 MG Labetalol HCl (TRANdate 20MG SYG) 10 mg Q2H PRN IV SBP GREATER THAN 180 11/19/24 20:30 11/20/24 08:12 DC Lisinopril (Prinivil 2.5mg) 2.5 mg DAILY PO 11/23/24 09:00 12/23/24 08:59 12/03/24 08:50 2.5 MG Magnesium Sulfate 50 ml @ 0 mls/hr PROTOCOL IV 11/19/24 21:30 12/19/24 21:29 11/20/24 06:00 25 MLS/HR Methylprednisolone Sodium Succinate (Solu-medROL 40MG) 40 mg Q12H IVP 11/24/24 06:00 11/28/24 10:09 DC 11/28/24 06:46 40 MG Methylprednisolone Sodium Succinate (Solu-medROL 40MG) 40 mg Q8H IVP 11/23/24 10:00 11/23/24 18:55 DC 11/23/24 12:28 40 MG Methylprednisolone Sodium Succinate (Solu-medROL 40MG) 60 mg Q8H IVP 11/20/24 18:00 11/23/24 08:45 DC 11/23/24 01:46 60 MG Metoprolol Tartrate (loprESSOR) 5 mg Q6H PRN IV INCREASED HEART RATE >100 11/28/24 12:00 11/28/24 12:11 DC Metoprolol Tartrate (loprESSOR) 5 mg Q6H PRN IV INCREASED HEART RATE >100 BPM 11/28/24 12:30 12/28/24 12:29 11/29/24 12:11 5 MG Metoprolol Tartrate (loprESSOR) 50 mg BID PO 11/22/24 10:30 11/24/24 19:43 DC 11/24/24 08:47 50 MG Metoprolol Tartrate (loprESSOR) 50 mg BID PO 11/22/24 21:00 11/22/24 10:06 DC Metoprolol Tartrate (loprESSOR) 100 mg BID PO 11/24/24 20:00 11/30/24 08:33 DC 11/29/24 20:31 100 MG Metoprolol Tartrate (loprESSOR) 100 mg BID PO 11/24/24 21:00 11/24/24 19:49 DC Metoprolol Tartrate (loprESSOR) 100 mg BID PO 12/03/24 09:00 01/02/25 08:59 12/03/24 21:26 100 MG Metoprolol Tartrate (loprESSOR) 150 mg BID PO 11/30/24 09:00 12/03/24 07:55 DC 12/02/24 20:02 150 MG Midazolam HCl (Midazolam 100mg-0.9% NS 100ml) 100 ml ONCE IV 11/19/24 19:30 11/19/24 19:46 DC Milrinone Lactate/ Dextrose 100 ml @ 0 mls/hr PROTOCOL IV 11/25/24 09:00 12/01/24 19:44 DC 11/30/24 20:34 7.1 MLS/HR Norepinephrine 250 ml @ 0 mls/hr PROTOCOL IV 11/19/24 19:30 11/23/24 18:55 DC 11/20/24 11:08 24 MLS/HR Ondansetron HCl (zoFRAN 4MG INJ) 4 mg Q6H PRN IVP NAUSEA/VOMITING 11/19/24 20:30 12/19/24 20:29 Pantoprazole Sodium (PROTonix 40MG INJ) 40 mg DAILY IVP 11/20/24 09:00 12/20/24 08:59 12/03/24 08:50 40 MG Pharmacy Profile Note (Pharmacy Communication) 1 each ONCE MISC 11/25/24 23:00 11/25/24 23:15 DC Pharmacy Profile Note (Pharmacy Communication) 1 each ONCE MISC 11/25/24 23:30 11/25/24 23:15 DC Phenylephrine HCl 10 mg/Sodium Chloride 250 ml @ 0 mls/hr AD PRN IV TITRATE 11/20/24 13:30 11/20/24 17:03 DC 11/20/24 13:21 8.47 MLS/HR Phenylephrine HCl 50 mg/Sodium Chloride 250 ml @ 0 mls/hr AD PRN IV TITRATE 11/20/24 13:30 11/20/24 13:05 DC Phenylephrine HCl 50 mg/Sodium Chloride 250 ml @ 0 mls/hr PROTOCOL PRN IV PROTOCOL 11/20/24 17:00 11/28/24 10:09 DC 11/20/24 17:44 3.39 MLS/HR Polyethylene Glycol (MIRalax 3350 17 GM POWD.PACK) 17 gm DAILY PO 11/20/24 09:00 12/20/24 08:59 12/03/24 08:50 17 GM Potassium Chloride 100 ml @ 50 mls/hr PROTOCOL IV 11/19/24 21:30 12/19/24 21:29 11/20/24 05:59 50 MLS/HR Prednisone (deltaSONE/ ORASONE 10MG) 10 mg DAILY PO 12/04/24 09:00 01/03/25 08:59 Prednisone (deltaSONE/ oraSONE 20MG TAB) 20 mg DAILY PO 11/29/24 09:00 12/03/24 13:52 DC 12/03/24 08:50 20 MG Propofol (DIPRivan 1000MG/ 100ML) 1,000 mg PROTOCOL PRN IV SEDATION 11/19/24 19:30 11/23/24 18:55 DC 11/23/24 03:51 1,000 MG Rivaroxaban (Xarelto) 20 mg DAILY PO 11/27/24 09:30 12/27/24 09:29 12/03/24 08:50 20 MG LABORATORY: [ ] Hematology Labs: Test 12/05/24 03:51 12/04/24 05:36 Range/Units White Blood Count 13.4 H 4.8-10.8 K/uL Red Blood Count 3.88 L 4.00-5.50 MIL/uL Hemoglobin 11.1 L 12.0-16.0 g/dL Hematocrit 34.5 L 36-48 % Mean Corpuscular Volume 88.9 79-99 fL Mean Corpuscular Hemoglobin 28.6 27.0-33.0 pg Mean Corpuscular Hemoglobin Concent 32.2 32.0-36.0 g/dL Red Cell Distribution Width 13.7 11.0-15.5 % Platelet Count 151 130-400 K/uL Mean Platelet Volume 11.7 H 7.5-10.5 fL Segmented Neutrophils % 79 H 40-70 % Lymphocytes % (Manual) 12 L 22-44 % Monocytes % (Manual) 7 2-9 % Eosinophils % (Manual) 1 1-6 % Nucleated Red Blood Cells 0.0 0.0-0.19 % Differential Comment MANUAL DIFFERENTIAL Reactive Lymphocytes 1 H 0-0 % White Cell Morphology Comment See comments Platelet Morphology Comment ADEQUATE Red Blood Cell Morphology NORMAL Immature Granulocyte % (Auto) 0.7 0-1 % Neutrophils (%) (Auto) 77.6 H 40.0-77.0 % Lymphocytes (%) (Auto) 12.9 L 21.0-51.0 % Monocytes (%) (Auto) 7.8 3.0-13.0 % Eosinophils (%) (Auto) 0.9 0.0-8.0 % Basophils (%) (Auto) 0.1 0.0-5.0 % Neutrophils # (Auto) 11.7 H 1.8-7.7 K/uL Lymphocytes # (Auto) 1.9 1.0-4.8 K/uL Monocytes # (Auto) 1.2 H 0.1-1.0 K/uL Eosinophils # (Auto) 0.13 0.00-0.70 K/uL Basophils # (Auto) 0.02 0.00-0.20 K/uL Absolute Immature Granulocyte (auto 0.10 0-1 K/uL Chemistry Labs: Test 12/05/24 03:51 12/04/24 16:41 12/03/24 12:22 Range/Units Sodium Level 144 136-145 mmol/L Potassium Level 4.3 3.5-5.1 mmol/L Chloride Level 107 101-111 mmol/L Carbon Dioxide Level 37 H 21-32 mmol/L Blood Urea Nitrogen 14 7-18 mg/dL Creatinine 0.4 L 0.5-1.0 mg/dL Glomerular Filtration Rate Calc 101 >90 mL/min Random Glucose 102 70-105 mg/dL Total Calcium 8.4 L 8.5-10.1 mg/dL Magnesium Level 2.10 1.80-2.40 mg/dL Whole Blood Glucose 188 H 70-110 MG/DL Lactic Acid Level 1.2 0.8-2.5 mmol/L C-Reactive Protein, Quantitative 21.20 H 0.5-3.0 mg/L Procalcitonin < 0.05 L 0.05-0.5 ng/mL DIAGNOSTICS / RADIOLOGY: REASON: PNA ORDERING PHYSICIAN: CARTER HAYES NP PROCEDURE: CXR1VW - CHEST 1VW CHEST 1VW HISTORY: Pneumonia COMPARISON: 12/01/2024 FINDINGS: A frontal projection of the chest was obtained. There are bilateral pulmonary infiltrates and pleural effusions. Right left change. The heart is borderline enlarged. Degenerative changes are seen. No evidence of aortic calcification is seen. IMPRESSION: 1. Bilateral pulmonary infiltrates and pleural effusions unchanged DICTATED BY: BERT CALLE MD DATE: 12/03/24 1423 REASON: Hypercarbia ORDERING PHYSICIAN: CARTER HAYES NP PROCEDURE: CXR1VW - CHEST 1VW CHEST 1VW HISTORY: Hypercarbia COMPARISON: 11/27/2024 FINDINGS: A frontal projection of the chest was obtained. There are bilateral pulmonary infiltrates with pleural effusion. The heart is borderline enlarged. Degenerative changes are seen. No evidence of aortic calcification is seen. IMPRESSION: 1. Probable pulmonary infiltrates with pleural effusion unchanged. DICTATED BY: BERT CALLE MD DATE: 12/01/24 1402 REASON: afib ORDERING PHYSICIAN: NATHALIE BETANCOURT MD PROCEDURE: ECHO LAY - ECHO LAY--TRANSESOPHAGEAL APPROVED REPORT EXAM: Transesophageal echocardiogram with color flow Doppler. INDICATION ICD: Atrial fibrillation Reason For Test : Rule out Intracardiac Thrombus. PROCEDURE After obtaining informed consent, patient underwent transesophageal echo in the 203 15 mL 2% Viscous Lidocaine was given as a topical anesthetic prior to the administration of the conscious sedation. Type of Sedation: Conscious Sedation Sedation was administered by please refer to medication administration record. . Sedation was achieved with please refer to medication administration record. intravenously. Transesophageal probe was inserted and advanced into esophagus without difficulty by Renetta FENTON, Manny Suarez MD. Echo enhancement indication: R/O Septal defect. Echo enhancement agent administered: Agitated Saline. LAY was performed and images were obtained, probe was removed without complications. Prior to cardioversion, of please refer to medication administration record. was administered. Synchronized Cardioversion attempted: Successful Synchronized Cardioversion acheived with 200 Joules after 1 attempt(s). Rhythm following Synchronized Cardioversion: PVC's sinus rhythm Throughout the procedure, the blood pressure, pulse oximetry, cardiac rhythm, and rate were monitored. LAY probled placed into esophogus in the left lateral decubitus position. We noted no evidence of intracardiac thrombi. We then retracted the LAY probed and following moderate sedation we performed synchronized DCCV with 200j x 1 with restroation of NSR> Pt tolerated procedure well with no post procedure complications. Left Ventricle The left ventricle is normal size. There is left ventricular wall thickness. LVEF is 40-45%. No left ventricle thrombus noted on this study. Right Ventricle The right ventricle is normal size. The right ventricular systolic function is normal. Atria The left atrium size is normal. No left atrial appendage thrombus noted. Spontaneous contrast noted in left atrium. Negative bubble study. No evidence of PFO/ASD by agitated saline/color doppler. The right atrium is mildly dilated. Aortic Valve The aortic valve is trileaflet normal in structure. No aortic regurgitation is present. There is no aortic valvular vegetation. There is no aortic valvular allyson nosis. Mitral Valve The mitral valve is normal in structure. There is mild mitral valve regurgitation noted. No mitral valve vegetation. There is no mitral valve stenosis. Tricuspid Valve The tricuspid valve is normal in structure. There is no tricuspid valve regurgitation noted. No tricuspid valve vegetation. Pulmonic Valve The pulmonary valve is normal in structure. There is no pulmonic valvular regurgitation. Great Vessels The aortic root is normal in size. Ascending aorta appears normal in size.[place] cending aorta appears normal in size. The IVC was not visualized. Pericardium There is no pericardial effusion. Conclusion The left ventricle is normal size. LVEF is 40-45% with global hypokinesis. The right ventricular systolic function is normal. Both atria appear mildly dilated. Normal Bubble study. There is mild mitral valve regurgitation noted. No evidence of intracardiac thromobi noted. There is no pericardial effusion. Following LAY pt underwent synchronized DCCV with 200j x 1 with holiness of NSR. DICTATED BY: NATHALIE BETANCOURT MD DATE: 11/30/24 1141 REASON: chf ORDERING PHYSICIAN: TAMIA DORMAN MD PROCEDURE: CXR1VW - CHEST 1VW Exam Type: CHEST 1VW Clinical Information: chf Comparison: None Findings: Pulmonary pattern is as before. No worrisome interval changes have taken place. Impression: Stable exam. DICTATED BY: EZEKIEL CRISTINA MD DATE: 11/27/24 0941 REASON: AFIB ORDERING PHYSICIAN: ROBSON HAN MD PROCEDURE: ECHO CMP - ECHO 2-D COMPLETE APPROVED REPORT EXAM: Two-dimensional and M-mode echocardiogram with Doppler and color Doppler. Study Details: HTN , HLD , Diabts M , COPD INDICATION ICD: A/fib 2D Dimensions RVDd 3.5 cm LVEF(%) 33.1 (>50%) LVED Vol(simp.) 89.1 mL IVSd 1.2 (0.7-1.1cm) FS(%) 15 % LVES Vol(simp.) 58.2 mL LVDd 4.1 (3.8-5.6cm) LA (2D) 3.0 (1.6-4.0cm) LVEF(%, simp.) 35 % PWd 1.0 (0.7-1.1cm) Ao Root(2D) 2.9 (2.0-3.7cm) LA ESV INDEX (4CH) 5 8.00 mL/m2 IVSs 1.0 cm LVOT diam 1.9 (1.8-2.4cm) LA ESV INDEX (2CH) 28.34 mL/m2 LVDs 3.5 (2.5-4.0cm) IVC diam 2.2 cm LA ESV INDEX (BP) 30.51 mL/m2 PWs 1.4 cm Deformation Strain Apical 4 -9.5 % Apical 2 -11.0 % Apical 3 -10.4 % Global Strain -10.3 % M-Mode Dimensions EPSS 1.4 cm LA (MM) 3.3 (1.6-4.0cm) Ao Root(MM) 2.5 (2.0-3.7cm) Aortic Valve AoV Vmax 1.1 m/s Ao Peak GR 4.8 mmHg LVOT Vmax 0.7 m/s AoV VTI 0.2 m Ao Mean GR 2.8 mmHg LVOT VTI 0.14 m SCOTT (VMAX) 1.99 cm2 SCOTT (VTI) 2.0 cm2 Mitral Valve MV E Vmax 87.8 cm/s DECEL Time 223 ms MV A Vmax 28.3 cm/s E/A ratio 3.1 TDI E/E' Medial 15.8 E/E' Lateral 12.4 Medial E' Peak V 5.54 cm/s Lateral E' Peak V 7.09 cm/s Pulmonary Valve PV Vmax 0.6 m/s PV VTI 0.11 m PV Mean GR 0.9 mmHg PV Peak GR 1.4 mmHg Left Ventricle Left ventricular cavity size is normal. Mild eccentric left ventricular hypertrophy. LVEF is 25-30%. Stage III diastolic dysfunction. Right Ventricle The right ventricle is normal size. Right ventricular systolic function is moderately reduced. Atria The left atrium size is normal. The right atrium size is normal. Aortic Valve The aortic valve is mildly thickened. The aortic valve is not well visualized. No aortic regurgitation is present. There is no aortic valvular stenosis. Mitral Valve The mitral valve is mildly thickened. Mitral regurgitation is trace. There is no mitral valve stenosis. Tricuspid Valve Tricuspid valve is not well visualized. There is no tricuspid valve regurgitation noted. Pulmonic Valve Pulmonic valve is not well visualized. There is no pulmonic valvular regurgitation. Great Vessels The aortic root is normal in size. The ascending aorta is normal in size. The inferior vena cava is mildly dilated with no inspiratory collapse. Hepatic veins are dilated. Pericardium Trace pericardial effusion. Pericardium appears thickened. Ascites is present. Conclusion Left ventricular cavity size is normal. Mild eccentric left ventricular hypertrophy. LVEF is 25-30%. Stage III diastolic dysfunction. The right ventricle is normal size. Right ventricular systolic function is moderately reduced. The left atrium size is normal. The right atrium size is normal. The inferior vena cava is mildly dilated with no inspiratory collapse. Hepatic veins are dilated. Trace pericardial effusion. Pericardium appears thickened. DICTATED BY: ANTHONY BETANCOURT MD DATE: 11/21/24 0852 REASON: R/O PE, ELEVATED D-DIMER ORDERING PHYSICIAN: CARTER HAYES NP PROCEDURE: CHES PE - CT CHEST PE PROTOCOL WWO CONT CT CHEST PE PROTOCOL WWO CONT HISTORY: No additional history given. COMPARISON: None TECHNIQUE: CT angiography of the chest was performed. The study was performed using angiographic technique with maximum intensity projection reconstruction images. Patient was given 100 cc of Omnipaque through intravenous route. FINDINGS: No CT evidence of filling defect is seen to suggest pulmonary embolus. No CT evidence of aortic dissection is seen. Mild interstitial fibrotic changes are seen. Endotracheal tube and nasogastric tube are seen. No evidence of parenchymal disease is seen. Small right pleural effusion is seen. The heart is enlarged. No evidence of adrenal mass is seen. Degenerative changes of the spine are noted. IMPRESSION: 1. No CT evidence of acute pulmonary embolus is seen. Small right pleural effusion with interstitial fibrosis. CT was performed with one or more following dose reduction techniques: automated exposure control, adjustment of the mA and kv according to patient's size, or use of a iterative reconstruction technique. DICTATED BY: BERT CALLE MD DATE: 11/21/24 174 REASON: R/O DVT ORDERING PHYSICIAN: ROBSON HAN MD PROCEDURE: VENOUS OMEGA - US VENOUS DOPPLER BILATERAL US VENOUS DOPPLER BILATERAL HISTORY: DVT COMPARISON: None TECHNIQUE: Bilateral lower extremity venous Doppler ultrasound study was performed. FINDINGS: Right posterior tibial vein is normal visualized limiting evaluation. The common femoral, femoral, popliteal, and posterior tibial veins are visualized. Normal flow with compressibilities are demonstrated. The greater saphenous veins are also seen and grossly patent. IMPRESSION: 1. No evidence of deep venous thrombosis is seen. DICTATED BY: BERT CALLE MD DATE: 11/20/24 1718 REASON: post intubation/sob ORDERING PHYSICIAN: AXEL COLE MD PROCEDURE: CXR1VW - CHEST 1VW FRONTAL CHEST RADIOGRAPH INDICATION: post intubation/sob COMPARISON: None FINDINGS/IMPRESSION: nurse monitoring leads overlie the field of view. PORTABLE CHEST RADIOGRAPH INDICATION: post intubation/sob COMPARISON: 12/28/2023 FINDINGS: nurse monitoring leads overlie the field of view. Tip of endotracheal tube located 5 cm above the cait. Defibrillator patches project over the left chest. Heart size is normal. The pulmonary vascularity and ashley appear normal. No evidence for discrete consolidation. No significant pleural effusion noted. No pneumothorax detected. IMPRESSION: Tip of endotracheal tube located 5 cm above the cait. No radiographic evidence for any acute cardiopulmonary process. 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 We have reviewed external records in detail From Nephrology standpoint, patient may be discharged Follow up in the renal clinic in 1-2 weeks Require close monitoring of renal function and electrolytes Order CBC, CMP, and electrolytes in am BiPAP as necessary, for respiratory distress Monitor blood pressure adjust medication doses as needed Avoid hypotensive episodes May use Dilaudid 0.5 mg IV every 6 hours as needed for severe pain Monitor blood sugars Strict intake, output, and daily weight should be monitored Please renally adjust medications Avoid nephrotoxic and nonsteroidal drugs Avoid contrast if possible Will continue to monitor renal function, anemia, electrolytes Treatment plan discussed with patient Questions were answered We have discussed with the other team physicians in detail about the care plan We will continue to monitor the patient closely ATTESTATION BY PHYSICIAN I have seen and examined the patient. I reviewed the documentation, medical decision making, and treatment plan as noted by the mid-level provider above. I agree with the findings and plan of care. DARSHANA BORREGO MD, [facility] Dec 05, 2024 09:43
--- NOTE | 2024-12-05 10:08 | DS ---
[facility] DISCHARGE SUMMARY Date Patient Seen: Dec 05, 2024 Time of Visit: 10:08 Supervising Physician: Dr. Mabry Primary Care Physician: Dr. 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 with EF of 25-30% on echo 11/21/24 POA AFib RVR POA, Trace pericardial effusion POA CAP POA NSTEMI, type 2 POA Lactic acidosis, POA , resolved Electrolyte abnormality, POA Corrected Hypertension, POA DM type 2, with hyperglycemia POA Hyperlipidemia, POA Hypokalemia, POA Hypomagnesemia POA Severe sepsis, likely from respiratory infection, initial lactic acid level at 3.4 POA Suspected OKSANA undiagnosed and untreated Morbidly obese, BMI of 64.0, POA Hypercarbia HOSPITAL COURSE: This is a 79-year-old female with past medical history of COPD, hypertension, hyperlipidemia, DM type 2, morbidly obese. She initially presented to ED via EMS with severe respiratory distress. She also has history of smoking, alcohol intake, or illicit drug use. She is also vaccinated against COVID virus and her flu shot is up-to-date Per report EMS was activated by family member after patient went into respiratory distress with complaint of worsening shortness of breath. Apparently patient has been complaining of shortness of breaths for several days prior with associated productive cough. EMS gave patient DuoNeb treatment, was placed on CPAP, and was given one dose of IV [place] ix. When she arrived in ED patient was found to be obtunded, and on AFib with RVR, with concern for inability to protect her airway for which she was emergently intubated. Cardiology was consulted and a 2D echo ordered showed LVEF of 25-30%, stage III diastolic dysfunction and inferior vena cava mild dilatation with no inspiratory collapse. There was trace pericardial effusion and pericardium appears to be thickened. Unfortunately, the patient AFib prolonged and was unable to attain rate control with medications. The patient was then taken to the laboratory chemical assistant for a LAY with synchronized cardioversion. Per documentation, she received synchronized shock of 200 joules which later resulted in sinus rhythm nephrology remained on board monitoring the renal parameters. Chest imaging showed concern for pulmonary vascular congestion and a developing pneumoniae. The patient was started on antibiotic therapy and also received furosemide daily. Over the course of her stay, Cardiology continued adjusting medications and on 12/04/2024, advised that the patient can be discharged home on current medication and follow up in the outpatient setting. With that said, I am going to review and reconcile medication list with the patient and plan on discharging her home today. 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 Pt hemodynamically stable and afebrile at time of discharge. PCP notified of patients admission, hospital course and discharge. PHYSICAL EXAM: GENERAL: Chronically ill, no obvious signs or symptoms of distress HEENT: EOMI, Sclera non icteric, moist mucosa NECK: Supple, no JVD, trachea midline LUNGS: Diminished breath sounds, bilaterally. Minimal wheezes. HEART: Normal S1 and S2, without murmurs ABD: Large body habitus EXT: No clubbing cyanosis or edema NEURO: Awake alert able to answer simple questions appropriately FOLLOW-UP: Follow-up with PCP in 2-3 days RECOMMENDATIONS: See Discharge Instructions This case was seen and discussed with my supervising physician. More than 30 minutes spent on discharge process, including evaluation of the patient, discussion with nursing staff, medication reconciliation and follow-up appointments CARTER HAYES NP Dec 05, 2024 10:08
--- NOTE | 2024-12-05 16:00 | NUR ---
INFORMED PATIENT ABOUT BEING DISCHARGED TODAY. STATED SHE WILL CALL HER FAMILY TO PICK HER UP.
[2024-12-05] MEDS ORDERED: PRED5TAB PO (16:19)
[2024-12-05] MEDS ORDERED: FURO20TA6 PO (16:19)
[2024-12-05] MEDS ORDERED: ATOR20TA65 PO (16:19)
[2024-12-05] MEDS ORDERED: DOXY100T2 PO (16:19)
[2024-12-05] MEDS ORDERED: LISI10TA24 PO (16:19)
--- NOTE | 2024-12-05 17:45 | NUR ---
NO FAMILY AVAILABLE CURRENTLY. GIVEN DISMISSAL INSTRUCTIONS TO PATIENT, VERBALIZED UNDERSTANDING. REMOVED SALINE LOCK FROM RIGHT ARM, IV SITE WITHOUT REDNESS NOTED. REMOVED TELE PACK. WILL WAIT FOR FAMILY TO COME IN TO PICK HER UP.
--- NOTE | 2024-12-05 18:05 | NUR ---
TAKEN TO PRIVATE CAR ALONG WITH PERSONAL BELONGINGS VIA WHEELCHAIR BY VINNY AGUIRRE. DAUGHTER AT BEDSIDE.
--- NOTE | 2024-12-05 21:14 | PN ---
PROBLEM LIST: * Atrial fibrillation with RVR on admission. * Status post T-guided DCCV 11/30/2024. * Echo on admission with EF 25% to 30%, grade 3 diastolic dysfunction. * Cardiomyopathy, tachycardia-mediated. * Repeat 2D echocardiogram on 12/02/2024 with EF up to 55%. * Carotid stenosis with previous left carotid endarterectomy. * Hypertension. * COPD. * Left carotid endarterectomy in 2012. * Venous insufficiency. * Dyslipidemia. * Hypertension. * Type 2 diabetes. INTERVAL HISTORY: The patient feels much better than yesterday. She has remained in sinus according to awake overnight monitor. No palpitations, shortness of breath, edema or chest discomfort. No reports of bleeding or fever. PHYSICAL EXAMINATION: GENERAL: Morbidly obese, elderly female, sitting comfortably in chair, in no distress. VITAL SIGNS: Temperature 98.6, pulse 68, respirations 17, blood pressure 135/54. HEENT: Hearing intact. No facial asymmetry, nasal discharge, or icterus. CARDIOVASCULAR: Rhythm and rate regular. No murmurs. No edema. RESPIRATORY: Clear to the bases. No crackles or wheezing. GASTROINTESTINAL: Obese, but is benign, soft and nontender. EXTREMITIES: No amputations or deformities. Range of motion grossly normal. NEUROLOGIC AND PSYCHIATRY: Alert and oriented x 3, cooperative and coherent, answering all questions appropriately. LABORATORY DATA: White count 82498, H and H 12 and 36. Chemistries unremarkable. Lactic acid 3.4 on admission, resolved. PLAN: The patient had significant tachycardia-mediated cardiomyopathy on admission, but this has improved significantly after her cardioversion, with an EF up to 55%. She is rate controlled on her current combination of diltiazem 180 and metoprolol tartrate 100 mg b.i.d. Blood pressure is slightly elevated, which could be secondary to her steroid use. We will increase her lisinopril to 10 mg. The patient can be discharged on Ranexa and her current cardiac medications. Follow up with Dr. Alva in 1-2 weeks. TID: [id number] RECEIPT: [id number]
--- NOTE | 2024-12-06 21:52 | HMCSR ---
APPROVED REPORT EXAM: Limited wo-dimensional echocardiogram INDICATION ICD: Assess LV Function 2D Dimensions IVSd0.9 (0.7-1.1cm)LVEF(%)68.2 (>50%) LVDd5.0 (3.8-5.6cm)FS(%)38 % PWd1.0 (0.7-1.1cm) IVSs1.1 cm LVDs3.1 (2.5-4.0cm) PWs1.2 cm Deformation Strain Apical 4-15.9 % Apical 2-15.9 % Apical 3-17.4 % Global Strain-16.4 % Left Ventricle Left ventricular cavity size is normal. GLS -16.0%. There is normal LV segmental wall motion. There i s mild assymetrical left ventricular wall thickness. LVEF is >70%. The left ventricular diastolic fun ction is normal. Right Ventricle The right ventricle is normal size. The right ventricular systolic function is normal. Atria The left atrium size is normal. The right atrium size is normal. Aortic Valve The aortic valve is normal in structure and function. Mitral Valve The mitral valve is normal in structure and function. Tricuspid Valve The tricuspid valve is normal in structure and function. Pericardium The pericardium appears normal. Other Information Quality : Limited/Follow-up Conclusion LVEF is >70%.
== END 2024-12-05 18:01 | disposition home or self-care (01) | DRG 871 ==
LOC: EDH 18:30 → EDHIP 20:19 → 2BH 21:59 → 3DH 11-24 10:35 → 2AH 11-25 14:20
PROVIDERS: ADMIT Internal Medicine Pulmonary Disease; ATTEND Internal Medicine Pulmonary Disease
PROC: 5A1945Z Respiratory Ventilation, 24-96 Consecutive Hours (ICD-10-PCS; principal; 2024-11-19)
PROC: 0BH18EZ Insertion of Endotracheal Airway into Trachea, Via Natural or Artificial Opening Endoscopic (ICD-10-PCS; 2024-11-19)
PROC: 5A09357 Assistance with Respiratory Ventilation, Less than 24 Consecutive Hours, Continuous Positive Airway Pressure (ICD-10-PCS; 2024-11-19)
PROC: 5A1935Z Respiratory Ventilation, Less than 24 Consecutive Hours (ICD-10-PCS; 2024-11-19)
PROC: 02HV33Z Insertion of Infusion Device into Superior Vena Cava, Percutaneous Approach (ICD-10-PCS; 2024-11-20)
PROC: B548ZZA Ultrasonography of Superior Vena Cava, Guidance (ICD-10-PCS; 2024-11-20)
PROC: B24BZZ4 Ultrasonography of Heart with Aorta, Transesophageal (ICD-10-PCS; 2024-11-30)
PROC: 5A2204Z Restoration of Cardiac Rhythm, Single (ICD-10-PCS; 2024-11-30)
DX: A41.9 Sepsis, unspecified organism (principal); G92.8 Other toxic encephalopathy; J18.9 Pneumonia, unspecified organism; I21.A1 Myocardial infarction type 2; I50.41 Acute combined systolic (congestive) and diastolic (congestive) heart failure; J96.21 Acute and chronic respiratory failure with hypoxia; E87.20 Acidosis, unspecified; J44.1 Chronic obstructive pulmonary disease with (acute) exacerbation; Z68.44 Body mass index [BMI] 60.0-69.9, adult; J44.0 Chronic obstructive pulmonary disease with (acute) lower respiratory infection; E87.4 Mixed disorder of acid-base balance; I48.19 Other persistent atrial fibrillation; N17.9 Acute kidney failure, unspecified; I42.9 Cardiomyopathy, unspecified; I13.0 Hypertensive heart and chronic kidney disease with heart failure and stage 1 through stage 4 chronic kidney disease, or unspecified chronic kidney disease; E83.42 Hypomagnesemia; E87.6 Hypokalemia; E78.00 Pure hypercholesterolemia, unspecified; E11.65 Type 2 diabetes mellitus with hyperglycemia; E03.9 Hypothyroidism, unspecified; R65.20 Severe sepsis without septic shock; E66.01 Morbid (severe) obesity due to excess calories; G47.33 Obstructive sleep apnea (adult) (pediatric); I65.29 Occlusion and stenosis of unspecified carotid artery; I87.2 Venous insufficiency (chronic) (peripheral); E11.22 Type 2 diabetes mellitus with diabetic chronic kidney disease; N18.9 Chronic kidney disease, unspecified; I25.10 Atherosclerotic heart disease of native coronary artery without angina pectoris; Z79.01 Long term (current) use of anticoagulants; Z79.84 Long term (current) use of oral hypoglycemic drugs; Z79.899 Other long term (current) drug therapy; Z86.718 Personal history of other venous thrombosis and embolism; Z87.891 Personal history of nicotine dependence; Z91.148 Patient's other noncompliance with medication regimen for other reason
CPT/HCPCS: 31500; 36415; 36600; 71045; 71270; 80048; 80053; 80076; 80162; 81001; 82435; 82550; 82803; 82947; 82948; 83605; 83735; 83880; 84100; 84132; 84145; 84295; 84484; 85018; 85025; 85027; 85378; 85610; 85730; 86140; 87040; 87071; 87205; 87635; 87804; 92610; 92960; 93005; 93306; 93308; 93312; 93325; 93356; 93970; 94002; 94003; 94640; 94664; 94667; 94668; 96365; 99291; C1751; G0378; J0282; J0456; J0696; J1160; J1650; J1815; J1938; J1940; J2250; J2260; J2470; J2704; J2919; J3010; J3475; J3480; J3490; J7042; J7060; J7512; Q9967; A4216; A9900; J0283